=== PATIENT | female | born 1945 | race Caucasian/White ===

== ENCOUNTER → 2016-04-21 | Outpatient (CLI) | payer BC ==
[~2016-04-21] MED LIST: ACET325T96 PO; CHOL2000 PO; CLOT10TR2 MT; CYAN10005 PO; DILT-113 PO; GNTNASAL; HYDR200T5 PO; HYDR25TA5 PO; LCTXP PO; LEVO750T23 PO; LISI-461 PO; LVQ500 PO; MAGN500C PO; METO5TAB3 PO; MGN; MISCCAP80 PO; NYSS5 PO; OMEG10007 PO; OMEP20TA PO; OXYC-57 PO; PANT40TA PO; PRED-301 PO; PRT40 PO; RANI1TAB75 PO; TRAM-10 PO; VNTHFA/IN INH; Vitamin B12 PO; ZFR4 PO; ZNTT/150 PO; [UNRECOGNIZED DRUG - CODE]
[2016-04-21 11:04] LABS: BASO % 0.2 %; BASO ABS # 0.02 K/uL (0-0.2); COMPLETE YES; EOS % 0.6 %; HEMATOCRIT 38.9 % (37-47); IG% 0.4 %; LYMPH % 10.6 %; MEAN CELL VOLUME 93.7 fL (80-100); MEAN CORPUSCULAR HEMOGLOBIN 31.1 pg (25-34); MEAN CORPUSCULAR HGB CONC 33.2 g/dl (32-36); MEAN PLATELET VOLUME 10.8 fL (7.4-10.4); MONO % 7.6 %; NEUT % 80.6 %; PLATELET COUNT 204 K/uL (130-400); RED BLOOD COUNT 4.15 M/uL (4.2-5.4); WHITE BLOOD COUNT 11.27 K/uL (4.8-10.8)
[2016-04-21 11:16] LABS: ALT/SGPT 23 U/L (12-78); CALCIUM 9.4 mg/dl (8.5-10.1)
[2016-04-21 11:19] LABS: ALKALINE PHOSPHATASE 54 U/L (45-117); AST/SGOT 17 U/L (15-37)
== END | disposition home or self-care (01) ==
LOC: C.LAB1850 09:41
PROVIDERS: ATTEND Internal Medicine Rheumatology
DX: Z79.52 Long term (current) use of systemic steroids (principal); M06.9 Rheumatoid arthritis, unspecified; M85.80 Other specified disorders of bone density and structure, unspecified site; Z79.899 Other long term (current) drug therapy; E55.9 Vitamin D deficiency, unspecified; E61.8 Deficiency of other specified nutrient elements

== ENCOUNTER → 2016-05-10 | Outpatient (CLI) | payer BC ==
[~2016-05-10] MED LIST changes: +HYDR-5688 PO
== END | disposition home or self-care (01) ==
LOC: C.MAMM 08:48
PROVIDERS: ATTEND Internal Medicine Rheumatology
DX: M06.9 Rheumatoid arthritis, unspecified (principal); M85.80 Other specified disorders of bone density and structure, unspecified site; E55.9 Vitamin D deficiency, unspecified; E61.8 Deficiency of other specified nutrient elements; Z79.52 Long term (current) use of systemic steroids; Z79.899 Other long term (current) drug therapy

== ENCOUNTER 2016-05-20 10:54 | Inpatient (IN) | payer BC, OTHER ==
[~2016-05-20] VITALS: Ht 177.8 cm; Wt 65.3 kg
[~2016-05-20 10:54] MED LIST changes: -ACET325T96 PO; -CHOL2000 PO; -CLOT10TR2 MT; -CYAN10005 PO; -GNTNASAL; -HYDR-5688 PO; -HYDR200T5 PO; -LCTXP PO; -LEVO750T23 PO; -LISI-461 PO; -LVQ500 PO; -MAGN500C PO; -METO5TAB3 PO; -NYSS5 PO; -OMEP20TA PO; -OXYC-57 PO; -PRT40 PO; -RANI1TAB75 PO; -TRAM-10 PO; -VNTHFA/IN INH; -ZFR4 PO
[2016-05-20] MEDS ORDERED: FAMOTIDINE 20MG/102 ML D5W IV STA (11:03)
[2016-05-20] MEDS ORDERED: ONDANSETRON INJ 2 MG/ML 2 ML VIAL IV STA (11:03)
[2016-05-20] MEDS ORDERED: METOCLOPRAMIDE HCL INJ 5 MG/ML 2 ML VIAL IV STA (11:07)
[2016-05-20] MEDS ORDERED: DiphenhydrAMINE HCL 50 MG/ML VIAL IV STA (11:07)
[2016-05-20] MEDS ORDERED: SODIUM CHLORIDE 0.9% 250ML 250 ML IV STA (11:07)
[2016-05-20] MEDS ORDERED: SODIUM CHLORIDE 0.9% 1000ML 1,000 ML IV STA (11:07)
[2016-05-20] MEDS ORDERED: DEXAMETHASONE SOD INJ 10 MG/ML VIAL IV ONE (11:15)
[2016-05-20 11:46] LABS: PARTIAL THROMBOPLASTIN RATIO 0.9; PROTHROMBIN TIME (PATIENT) 10.7 SECONDS (9.0-12.0)
[2016-05-20 11:47] LABS: BASO % 0.2 %; BASO ABS # 0.02 K/uL (0-0.2); COMPLETE YES; EOS % 0.5 %; HEMATOCRIT 41.9 % (37-47); IG% 0.2 %; LYMPH % 13.2 %; LYMPH ABS # 1.36 K/uL (1.2-3.4); MEAN CELL VOLUME 93.5 fL (80-100); MEAN CORPUSCULAR HEMOGLOBIN 31.7 pg (25-34); MEAN CORPUSCULAR HGB CONC 33.9 g/dl (32-36); MEAN PLATELET VOLUME 10.5 fL (7.4-10.4); MONO % 11.2 %; NEUT % 74.7 %; PLATELET COUNT 189 K/uL (130-400); RED BLOOD COUNT 4.48 M/uL (4.2-5.4); WHITE BLOOD COUNT 10.34 K/uL (4.8-10.8)
[2016-05-20 11:54] LABS: BUN/CREATININE RATIO 21.7 (10-20); CALCIUM 9.5 mg/dl (8.5-10.1); CREATININE 1.3 mg/dl (0.60-1.20); POTASSIUM 3.1 mmol/L (3.5-5.1)
[2016-05-20 11:57] LABS: ALB/GLOB RATIO 1.4 (0.9-2)
--- NOTE | 2016-05-20 12:00 | DIAGNOSTIC IMAGING REPORT ---
CHEST ONE VIEW PORTABLE HISTORY: cough COMPARISON: Chest 07/10/2014. FINDINGS: Biapical linear densities and mild pleural thickening favors scarring. There is mild elevation of the left hemidiaphragm which could be positional. The heart is normal in size. No focal lung consolidations to suggest pneumonia. Mild emphysema. No evidence for pulmonary edema. No pleural effusions. No pneumothorax. IMPRESSION: Biapical linear densities and mild apical pleural thickening which favor scarring. There is mild elevation of the left hemidiaphragm. No new focal lung consolidations to suggest pneumonia. Electronically signed by: Jaquan Jung M.D. 05/20/2016 11:58 AM Dictated Date/Time: 05/20/2016 11:55 AM
--- NOTE | 2016-05-20 12:07 | DIAGNOSTIC IMAGING REPORT ---
SINUS CT CT DOSE: HISTORY: Pain WEIR/sinus pain TECHNIQUE: Multiaxial CT images of the paranasal sinuses were performed and reformatted in the coronal plane without the use of contrast. COMPARISON: None. FINDINGS: Considerable mucosal thickening left maxillary sinus. There is a left antral window which is patent. The nondalton ostiomeatal unit demonstrates soft tissue occlusion. The mastoid air cells are clear. Right maxillary sinus is clear.] Antral window including ostiomeatal units are patent. Mild hypertrophic changes of the nasal turbinates. Mild nasal septal displacement to the right. All major osseous structures are intact. IMPRESSION: 1. Considerable mucosal thickening left maxillary sinus with soft tissue occlusion left ostiomeatal unit. 2. Bilateral with antral windows are patent. 3. Mild hypertrophic changes of the nasal turbinates. Electronically signed by: Min Chung M.D. 05/20/2016 12:05 PM Dictated Date/Time: 05/20/2016 12:03 PM
--- NOTE | 2016-05-20 12:08 | DIAGNOSTIC IMAGING REPORT ---
CT SCAN OF THE BRAIN WITHOUT IV CONTRAST CLINICAL HISTORY: Headache. COMPARISON STUDY: CT of the brain dated 05/20/2006. TECHNIQUE: Unenhanced axial CT scan of the brain is performed from the vertex to the skull base. FINDINGS: Brain parenchyma: There are age-related involutional changes noting mild subcortical and periventricular microangiopathic change. There is no hemorrhage, mass effect, or evidence of acute territorial ischemia by CT criteria. Driscoll-white matter is preserved. No extra-axial fluid collection is seen. Ventricles, sulci, cisterns: Prominent secondary to involutional change. Intracranial vasculature: There is atherosclerotic calcification of the cavernous carotid and vertebral arteries. Calvarium: Unremarkable. Sinuses and mastoids: There is mucosal thickening and frothy secretions within the left maxillary antrum. The remaining visualized paranasal sinuses are clear. The mastoid air cells are well pneumatized. Orbits: The bony orbits are grossly intact. IMPRESSION: 1. There is no hemorrhage, mass effect, or evidence of acute territorial ischemia by CT criteria. 2. Left maxillary sinus disease as above. Electronically signed by: Ghassan Root M.D. 05/20/2016 12:06 PM Dictated Date/Time: 05/20/2016 12:00 PM
[2016-05-20] MEDS ORDERED: AMPICILLIN/SULBACTAM SOD INJ 3,000 MG in SODIUM CHLORIDE 0.9% 100ML 100 ML IV ONE (12:30)
--- NOTE | 2016-05-20 12:35 | EMERGENCY ROOM VISIT NOTE ---
ED Visit Note First contact with patient: 10:59 I did evaluate and examine this patient myself. I did guide management for the patient. I agree with the PA's assessment as discussed. Please see the PAs dictation for further details. I did independently review the CT scan, x-rays and blood work. The patient is presenting with illness for the past week. She is on an antibiotic for sinus infection but as a persistent infection on CT scan and does not feel she is getting any better. She feels weak and nauseous. The case will be discussed with the hospitalist for further management.
[2016-05-20] MEDS ORDERED: LISI-461 PO (12:56)
[2016-05-20] MEDS ORDERED: HYDR200T5 PO (12:56)
[2016-05-20] MEDS ORDERED: CHOL2000 PO (12:56)
[2016-05-20] MEDS ORDERED: CYAN10005 PO (12:56)
[2016-05-20] MEDS ORDERED: MAGN500C PO (12:59)
[2016-05-20] MEDS ORDERED: POTASSIUM CHLORIDE 10 MEQ TABCR PO STA (13:13)
--- NOTE | 2016-05-20 13:19 | EMERGENCY ROOM VISIT NOTE ---
History First contact with patient: 10:59 Chief Complaint: ILLNESS Stated Complaint: HEAD, EAR AND THROAT PAIN History of Present Illness The patient is a 71 year old female who presents to the Emergency Room with complaints of cough, congestion, postnasal drip, sinus pain and congestion, headache, fever, chills, nausea, acid reflux for the past week who is currently on Suprax and prednisone by the family care doctor. Tmax 99. Patient states this is high for her. Patient denies chest pain, dyspnea, abdominal pain, vomiting, diarrhea, urinary symptoms, neck stiffness. She is tolerating by mouth fluids and food. Review of Systems See HPI for pertinent positives & negatives. A total of 10 systems reviewed and were otherwise negative. Past Medical/Surgical History Medical Problems: (1) Acute bronchitis (2) Diffuse large B cell lymphoma (3) Failure of outpatient treatment GERD, fibromyalgia, hypertension Social History Smoking Status: Never Smoker Alcohol Use: occasionally Drug Use: none Marital Status: Housing Status: lives with family Current/Historical Medications Scheduled Cholecalciferol (Vitamin D3), 1 CAP PO DAILY Cyanocobalamin (Vitamin B-12), 1,000 MCG PO DAILY Fish Oil ([place]-3), 1 CAP PO DAILY Hydrochlorothiazide (Hydrochlorothiazide), 1 TAB PO DAILY Hydroxychloroquine Sulfate (Plaquenil), 200 MG PO BID Lisinopril (Zestril), 10 MG PO DAILY Magnesium Oxide (Mg Supplement (Magnesium), 1 CAP PO DAILY Prednisone (Prednisone), 60 MG PO DAILY Ranitidine (Zantac), 150 MG PO DAILY Allergies Coded Allergies: Alendronate (Verified Allergy, Mild, GI SYMPTOMS, 05/20/16) Aspirin (Verified Allergy, Mild, RASH, 05/20/16) Physical Exam Vital Signs Date Time Temp Pulse Resp B/P Pulse Ox O2 Delivery O2 Flow Rate FiO2 05/20/16 16:08 74 19 121/65 99 05/20/16 15:06 72 19 119/68 99 Room Air 05/20/16 14:23 72 18 122/78 98 Room Air 05/20/16 12:28 74 18 138/60 98 Room Air 05/20/16 11:34 99 Room Air 05/20/16 11:34 69 17 120/40 99 Room Air 05/20/16 10:56 36.6 88 18 96/62 92 Room Air Physical Exam VITALS: Vitals are noted on the nurse's note and reviewed by myself. Vital signs stable. GENERAL: Pleasant female, in no acute distress, nondiaphoretic, well-developed well-nourished. SKIN: The skin was without rashes, erythema, edema, or bruising. There is no tenting of the skin. Capillary reflex less than 2 seconds. HEAD: Normocephalic atraumatic. EARS: Left ear canal with fluid present, slightly erythematous canal, right External auditory canals clear, tympanic membranes pearly blanchard without erythema or effusion, no mastoid tenderness bilaterally. EYES: Pupils equal round and reactive to light and accommodation. Conjunctivae without injection, sclerae without icterus. Extraocular movements intact. NOSE: Patent, turbinates without inflammation or discharge. Bilateral maxillary sinus tenderness. MOUTH: Mucous membranes moist. Tonsils are not enlarged. Pharynx without erythema or exudate. Uvula midline. Airway patent. Tongue does not deviate. NECK: Supple without nuchal rigidity. No lymphadenopathy. No thyromegaly. Cervical spine is nontender. No JVD. No meningeal signs HEART: Regular rate and rhythm LUNGS: Clear to auscultation bilaterally without wheezes, rales or rhonchi. No dullness to percussion. No retractions or accessory muscle use. ABDOMEN: Positive bowel sounds x 4. Normal tympanic percussion. Soft, nontender, without masses or organomegaly. Dias sign negative. No guarding or rebound tenderness. MUSCULOSKELETAL: No muscle atrophy, erythema, or edema noted. NEURO: Patient was alert and oriented to person place and time. Normal sensation to light and sharp touch. No focal neurological deficits. Medical Decision & Procedures Laboratory Results 05/20/16 11:18 Red Blood Count 4.48, Mean Corpuscular Volume 93.5, Mean Corpuscular Hemoglobin 31.7, Mean Corpuscular Hemoglobin Concent 33.9, Mean Platelet Volume 10.5, Neutrophils (%) (Auto) 74.7, Lymphocytes (%) (Auto) 13.2, Monocytes (%) (Auto) 11.2, Eosinophils (%) (Auto) 0.5, Basophils (%) (Auto) 0.2, Neutrophils # (Auto ) 7.73, Lymphocytes # (Auto) 1.36, Monocytes # (Auto) 1.16, Eosinophils # (Auto ) 0.05, Basophils # (Auto) 0.02 05/20/16 11:18 Test 05/20/16 11:07 05/20/16 11:18 05/20/16 11:25 Influenza Type A (RT-PCR) Neg for Influ A (NEG) Influenza Type A Antigen Neg for Influ A (NEG) Influenza Type B Antigen Neg for Influ B (NEG) Influenza Type B (RT-PCR) Neg for Influ B (NEG) White Blood Count 10.34 K/uL (4.8-10.8) Red Blood Count 4.48 M/uL (4.2-5.4) Hemoglobin 14.2 g/dL (12.0-16.0) Hematocrit 41.9 % (37-47) Mean Corpuscular Volume 93.5 fL (80-100) Mean Corpuscular Hemoglobin 31.7 pg (25-34) Mean Corpuscular Hemoglobin Concent 33.9 g/dl (32-36) Platelet Count 189 K/uL (130-400) Mean Platelet Volume 10.5 fL (7.4-10.4) Neutrophils (%) (Auto) 74.7 % Lymphocytes (%) (Auto) 13.2 % Monocytes (%) (Auto) 11.2 % Eosinophils (%) (Auto) 0.5 % Basophils (%) (Auto) 0.2 % Neutrophils # (Auto) 7.73 K/uL (1.4-6.5) Lymphocytes # (Auto) 1.36 K/uL (1.2-3.4) Monocytes # (Auto) 1.16 K/uL (0.11-0.59) Eosinophils # (Auto) 0.05 K/uL (0-0.5) Basophils # (Auto) 0.02 K/uL (0-0.2) RDW Standard Deviation 43.2 fL (36.4-46.3) RDW Coefficient of Variation 12.7 % (11.5-14.5) Immature Granulocyte % (Auto) 0.2 % Immature Granulocyte # (Auto) 0.02 K/uL (0.00-0.02) Prothrombin Time 10.7 SECONDS (9.0-12.0) Prothromb Time International Ratio 1.0 (0.9-1.1) Activated Partial Thromboplast Time 24.0 SECONDS (21.0-31.0) Partial Thromboplastin Ratio 0.9 Anion Gap 9.0 mmol/L (3-11) Est Creatinine Clear Calc Drug Dose 40.9 ml/min Estimated GFR () 47.8 Estimated GFR (Non- 41.2 BUN/Creatinine Ratio 21.7 (10-20) Calcium Level 9.5 mg/dl (8.5-10.1) Total Bilirubin 0.5 mg/dl (0.2-1) Aspartate Amino Transf (AST/SGOT) 15 U/L (15-37) Alanine Aminotransferase (ALT/SGPT) 26 U/L (12-78) Alkaline Phosphatase 48 U/L (45-117) Total Protein 6.6 gm/dl (6.4-8.2) Albumin 3.8 gm/dl (3.4-5.0) Globulin 2.8 gm/dl (2.5-4.0) Albumin/Globulin Ratio 1.4 (0.9-2) Bedside Lactic Acid Venous 2.49 mmol/L (0.90-1.70) Medications Administered Medications (Trade) Dose Ordered Sig/Alvin Route Start Time Stop Time Status Last Admin Dose Admin Famotidine (Pepcid 20mg/100 ml) 20 mg ONE STAT IV 05/20/16 11:03 05/20/16 11:05 DC 05/20/16 11:23 20 MG Dexamethasone Sodium Phosphate (Decadron Inj) 10 mg NOW ONCE IV 05/20/16 11:15 05/20/16 11:16 DC 05/20/16 11:22 10 MG Metoclopramide HCl (Reglan Inj) 10 mg NOW STAT IV 05/20/16 11:07 05/20/16 11:09 DC 05/20/16 11:22 10 MG Diphenhydramine HCl 12.5 mg 12.5 mg NOW STAT IV 05/20/16 11:07 05/20/16 11:09 DC 05/20/16 11:22 12.5 MG Sodium Chloride 250 ml @ 999 mls/hr Q16M STAT IV 05/20/16 11:07 05/20/16 11:22 DC 05/20/16 11:22 999 MLS/HR Sodium Chloride 1,000 ml @ 125 mls/hr Q8H STAT IV 05/20/16 11:07 05/20/16 19:06 05/20/16 11:22 125 MLS/HR Ampicillin Sodium/ Sulbactam Sodium/ Sodium Chloride (Unasyn Inj/Nss 100ml) 108 ml @ 200 mls/hr ONE ONCE IV 05/20/16 12:30 05/20/16 13:02 DC 05/20/16 13:02 200 MLS/HR Potassium Chloride (Klor-Con M10) 40 meq NOW STAT PO 05/20/16 13:13 05/20/16 13:14 DC 05/20/16 13:59 40 MEQ ED Course Prior records/ancillary studies reviewed. Triage Nursing notes reviewed. Additional history obtained from family The patient's history was concerning for a headache, cold symptoms, sinus pain, sore throat. Differential diagnosis: Etiologies such as sinusitis, meningitis, viral syndrome, tonsillitis, streptococcal pharyngitis, mononucleosis, peritonsillar abscess, retropharyngeal abscess, otitis, pneumonia, influenza, as well as others were entertained. ER treatment provided: Reglan, Benadryl, IV fluids, Pepcid, Unasyn On reassessment the patient felt better. Diagnostics interpreted by me: The labs revealed elevated lactic acid, no leukocytosis. Imaging studies: SINUS CT CT DOSE: HISTORY: Pain WEIR/sinus pain TECHNIQUE: Multiaxial CT images of the paranasal sinuses were performed and reformatted in the coronal plane without the use of contrast. COMPARISON: None. FINDINGS: Considerable mucosal thickening left maxillary sinus. There is a left antral window which is patent. The resighini ostiomeatal unit demonstrates soft tissue occlusion. The mastoid air cells are clear. Right maxillary sinus is clear.] Antral window including ostiomeatal units are patent. Mild hypertrophic changes of the nasal turbinates. Mild nasal septal displacement to the right. All major osseous structures are intact. IMPRESSION: 1. Considerable mucosal thickening left maxillary sinus with soft tissue occlusion left ostiomeatal unit. 2. Bilateral with antral windows are patent. 3. Mild hypertrophic changes of the nasal turbinates. Electronically signed by: iMn Chung M.D. Consultation: A consultation was placed with hospitalist, Dr. Roberts and will evaluate the patient possible admission This appears to be consistent with sinusitis who is failed outpatient. Patient had an elevated lactic acid is been antibiotics for a week with progressive symptoms of a sinus infection. CT concerning for extensive sinus disease. She will be evaluated by medicine for possible admission. She no signs of meningitis. By the evaluation outlined above emergent etiologies such as peritonsillar abscess, retropharyngeal abscess, otitis, pneumonia, meningitis, urinary tract infection, sepsis, bacteremia, as well as others were deemed relatively unlikely. The pt informed about the findings as listed above. All questions were answered and pleased with the treatment. Case reviewed with my attending Medical Decision As above Impression Primary Impression: Sinusitis, acute Departure Information Dispostion Being Evaluated By Hospitalist Condition FAIR Referrals Al Blanco M.D. (PCP) Patient Instructions My [facility] Problem Qualifiers Primary Impression: Sinusitis, acute Sinusitis location: maxillary Recurrence: not specified as recurrent Qualified Codes: J01.00 - Acute maxillary sinusitis, unspecified
[2016-05-20 13:31] LABS: INFLUENZA A PCR Neg for Influ A (NEG); INFLUENZA B PCR Neg for Influ B (NEG)
[2016-05-20] MEDS ORDERED: ACETAMINOPHEN 325 MG TAB PO PRN (14:45)
[2016-05-20] MEDS ORDERED: ZOLPIDEM TARTRATE 5 MG TAB PO PRN (14:45)
[2016-05-20] MEDS ORDERED: ONDANSETRON INJ 2 MG/ML 2 ML VIAL IV PRN (15:00)
--- NOTE | 2016-05-20 15:05 | History and Physical ---
History & Physical Date & Time of Service: May 20, 2016 at 14:55 Chief Complaint: Head, Ear And Throat Pain Primary Care Physician: Al Blanco M.D. History of Present Illness Source: patient The patient is a 71-year-old female who presents to the emergency department with complaint of cough, nasal and chest congestion, shortness of breath, fevers , chills and nausea over the past week that has not improved with Suprax and prednisone prescribed by her PCP. She has had a temperature of 99F, that she reports is abnormally high for her. She reports that is not uncommon for sinus infection to get her lungs. Past Medical/Surgical History Medical Problems: (1) Diffuse large B cell lymphoma Status: Resolved Social History Smoking Status: Never Smoker Smokeless Tobacco Use: No Alcohol Use: none Drug Use: none Marital Status: Housing status: lives with family Immunizations History of Influenza Vaccine: N/A History of Tetanus Vaccine?: Yes History of Pneumococcal: Yes History of Hepatitis B Vaccine: Unknown Multi-Drug Resistant Organisms History of MDRO: No Allergies Coded Allergies: Alendronate (Verified Allergy, Mild, GI SYMPTOMS, 05/20/16) Aspirin (Verified Allergy, Mild, RASH, 05/20/16) Home Medications Scheduled Cholecalciferol (Vitamin D3), 1 CAP PO DAILY Cyanocobalamin (Vitamin B-12), 1,000 MCG PO DAILY Fish Oil ([place]-3), 1 CAP PO DAILY Hydrochlorothiazide (Hydrochlorothiazide), 1 TAB PO DAILY Hydroxychloroquine Sulfate (Plaquenil), 200 MG PO BID Lisinopril (Zestril), 10 MG PO DAILY Magnesium Oxide (Mg Supplement (Magnesium), 1 CAP PO DAILY Prednisone (Prednisone), 60 MG PO DAILY Ranitidine (Zantac), 150 MG PO DAILY Review of Systems The patient denies chest pain, palpitations, lower extremity swelling, vision change, hearing change, chills, sweats, weight change, fatigue, vomiting, abdominal pain, pelvic pain, blood in urine or stool, dysuria, urinary frequency or urgency, lightheadedness, dizziness, memory loss, rash, abnormal bruising or bleeding, imbalance, focal or generalized weakness, numbness or tingling in arms or legs, arthralgias or myalgias, back or neck pain, night sweats. The review of systems is otherwise negative other than for that already noted above, and at least 10 systems have been reviewed. Physical Exam Vital Signs Date Time Temp Pulse Resp B/P Pulse Ox O2 Delivery O2 Flow Rate FiO2 05/20/16 14:23 72 18 122/78 98 Room Air 05/20/16 12:28 74 18 138/60 98 Room Air 05/20/16 11:34 99 Room Air 05/20/16 11:34 69 17 120/40 99 Room Air 05/20/16 10:56 36.6 88 18 96/62 92 Room Air The patient is awake, well-developed and adequately nourished, alert and oriented 3, normocephalic and atraumatic, lying in bed and in no acute distress. HEENT--PERRL, EOMI, mucous membranes and oropharynx moist. Neck--supple, no JVD or bruits, thyroid normal, trachea midline, no adenopathy. Heart--normal S1 and S2, no extra beats, no murmurs, rubs or gallops. Lungs--diminished throughout, no respiratory distress, no accessory muscle use. Abdomen--normal bowel sounds and soft, nontender and nondistended, no hernias or masses, no organomegaly. Extremities--no cyanosis, clubbing or edema. There are good distal pulses b/l. Dermatologic--normal skin turgor, normal color, warm and dry, no abnormal lymph nodes, no rash. Neurologic--cranial nerves II through XII grossly intact, motor and sensory examination normal. Rheumatologic--normal range of motion, nontender, muscles and joints. Psychiatric--normal affect. Diagnostics Laboratory Results Results Past 24 Hours Test 05/20/16 11:07 05/20/16 11:18 05/20/16 11:25 Range/Units Influenza Type A (RT-PCR) Neg for Influ A NEG Influenza Type A Antigen Neg for Influ A NEG Influenza Type B Antigen Neg for Influ B NEG Influenza Type B (RT-PCR) Neg for Influ B NEG White Blood Count 10.34 4.8-10.8 K/uL Red Blood Count 4.48 4.2-5.4 M/uL Hemoglobin 14.2 12.0-16.0 g/dL Hematocrit 41.9 37-47 % Mean Corpuscular Volume 93.5 80-100 fL Mean Corpuscular Hemoglobin 31.7 25-34 pg Mean Corpuscular Hemoglobin Concent 33.9 32-36 g/dl Platelet Count 189 130-400 K/uL Mean Platelet Volume 10.5 7.4-10.4 fL Neutrophils (%) (Auto) 74.7 % Lymphocytes (%) (Auto) 13.2 % Monocytes (%) (Auto) 11.2 % Eosinophils (%) (Auto) 0.5 % Basophils (%) (Auto) 0.2 % Neutrophils # (Auto) 7.73 1.4-6.5 K/uL Lymphocytes # (Auto) 1.36 1.2-3.4 K/uL Monocytes # (Auto) 1.16 0.11-0.59 K/uL Eosinophils # (Auto) 0.05 0-0.5 K/uL Basophils # (Auto) 0.02 0-0.2 K/uL RDW Standard Deviation 43.2 36.4-46.3 fL RDW Coefficient of Variation 12.7 11.5-14.5 % Immature Granulocyte % (Auto) 0.2 % Immature Granulocyte # (Auto) 0.02 0.00-0.02 K/uL Prothrombin Time 10.7 9.0-12.0 SECONDS Prothromb Time International Ratio 1.0 0.9-1.1 Activated Partial Thromboplast Time 24.0 21.0-31.0 SECONDS Partial Thromboplastin Ratio 0.9 Sodium Level 142 136-145 mmol/L Potassium Level 3.1 3.5-5.1 mmol/L Chloride Level 103 98-107 mmol/L Carbon Dioxide Level 30 21-32 mmol/L Anion Gap 9.0 3-11 mmol/L Blood Urea Nitrogen 28 7-18 mg/dl Creatinine 1.30 0.60-1.20 mg/dl Est Creatinine Clear Calc Drug Dose 40.9 ml/min Estimated GFR () 47.8 Estimated GFR (Non- 41.2 BUN/Creatinine Ratio 21.7 10-20 Random Glucose 90 70-99 mg/dl Calcium Level 9.5 8.5-10.1 mg/dl Total Bilirubin 0.5 0.2-1 mg/dl Aspartate Amino Transf (AST/SGOT) 15 15-37 U/L Alanine Aminotransferase (ALT/SGPT) 26 12-78 U/L Alkaline Phosphatase 48 45-117 U/L Total Protein 6.6 6.4-8.2 gm/dl Albumin 3.8 3.4-5.0 gm/dl Globulin 2.8 2.5-4.0 gm/dl Albumin/Globulin Ratio 1.4 0.9-2 Bedside Lactic Acid Venous 2.49 0.90-1.70 mmol/L Microbiology Results 05/20/16 Group A Streptococcus Screen - Final, Resulted SPECIMEN NEGATIVE FOR GROUP A BETA ST... 05/20/16 Group A Streptococcus Screen (SIMRAN), Resulted Pending Diagnostic Radiology Patient Name: NIRU MOQSUERA Unit Number: [id number] Dictated: 05/20/161154 Transcribed: 05/20/161154 PA Printed Date/Time: [~ rep prt dt]/[~ rep prt tm] [~ rep ct labl] - [~ rep ct ivnm] [facility] Radiology Department [place], [place] [id number] Dictated: 05/20/161154 Transcribed: 05/20/161154 PA Printed Date/Time: [~ rep prt dt]/[~ rep prt tm] [~ rep ct labl] - [~ rep ct ivnm] [~ rep ct add3]] CHEST ONE VIEW PORTABLE HISTORY: cough COMPARISON: Chest 07/10/2014. FINDINGS: Biapical linear densities and mild pleural thickening favors scarring. There is mild elevation of the left hemidiaphragm which could be positional. The heart is normal in size. No focal lung consolidations to suggest pneumonia. Mild emphysema. No evidence for pulmonary edema. No pleural effusions. No pneumothorax. IMPRESSION: Biapical linear densities and mild apical pleural thickening which favor scarring. There is mild elevation of the left hemidiaphragm. No new focal lung consolidations to suggest pneumonia. Electronically signed by: Jaquan Jung M.D. 05/20/2016 11:58 AM Dictated Date/Time: 05/20/2016 11:55 AM The status of this report is Signed. Draft = Not yet reviewed or approved by Radiologist. Signed = Reviewed and approved by Radiologist. <AttendingPhy></AttendingPhy> <FamilyPhy>Al Blanco M.D.</FamilyPhy> < PrimaryPhy>Al Blanco M.D.</PrimaryPhy> <UnitNumber>[id number]</ UnitNumber> <VisitNumber>[id number]</VisitNumber> <PatientName>NIRU MOSQUERA</ PatientName> <DateOfBirth>1945</DateOfBirth> <Location>[facility]</Location> < ServiceDate>05/20/16</ServiceDate> <MNE>ESINDI</MNE> <OrderingPhy>Glendy Mejia PA-C</OrderingPhy> <OrderingPhyMNE>f rep ord dr marino</OrderingPhyMNE> < DictatingPhyMNE>f rep dict dr marino</DictatingPhyMNE> <CCListMNE>f rep ct mne</ CCListMNE> <AdmittingPhyMNE>f pt admit dr marino</AdmittingPhyMNE> <AttendingPhyMNE >f pt attend dr marino</AttendingPhyMNE> <ConsultingPhyMNE>f pt consult dr marino</ConsultingPhyMNE> <FamilyPhyMNE>f pt fam dr marino</FamilyPhyMNE> <OtherPhyMNE>f pt other dr marino</OtherPhyMNE> < PrimaryPhyMNE>f pt prim care dr marino</PrimaryPhyMNE> <ReferringPhyMNE>f pt referring dr marino</ReferringPhyMNE> Patient Name: NIRU MOSQUERA Unit Number: [id number] Dictated: 05/20/161202 Transcribed: 05/20/16 1203 MS Printed Date/Time: [~ rep prt dt]/[~ rep prt tm] [~ rep ct labl] - [~ rep ct ivnm] [facility] [place] [address] Dictated: 05/20/16 120 Transcribed: 05/20/16 1203 MS Printed Date/Time: [~ rep prt dt]/[~ rep prt tm] [~ rep ct labl] - [~ rep ct ivnm] CT DOSE: HISTORY: Pain WEIR/sinus pain TECHNIQUE: Multiaxial CT images of the paranasal sinuses were performed and reformatted in the coronal plane without the use of contrast. COMPARISON: None. FINDINGS: Considerable mucosal thickening left maxillary sinus. There is a left antral window which is patent. The nikolai ostiomeatal unit demonstrates soft tissue occlusion. The mastoid air cells are clear. Right maxillary sinus is clear.] Antral window including ostiomeatal units are patent. Mild hypertrophic changes of the nasal turbinates. Mild nasal septal displacement to the right. All major osseous structures are intact. IMPRESSION: 1. Considerable mucosal thickening left maxillary sinus with soft tissue occlusion left ostiomeatal unit. 2. Bilateral with antral windows are patent. 3. Mild hypertrophic changes of the nasal turbinates. Electronically signed by: Min Chung M.D. 05/20/2016 12:05 PM Dictated Date/Time: 05/20/2016 12:03 PM The status of this report is Signed. Draft = Not yet reviewed or approved by Radiologist. Signed = Reviewed and approved by Radiologist. <AttendingPhy></AttendingPhy> <FamilyPhy>Al Blanco M.D.</FamilyPhy> < PrimaryPhy>Al Blanco M.D.</PrimaryPhy> <UnitNumber>[id number]</ UnitNumber> <VisitNumber>[id number]</VisitNumber> <PatientName>NIRU MOSQUERA</ PatientName> <DateOfBirth>1945</DateOfBirth> <Location>[facility]</Location> < ServiceDate>05/20/16</ServiceDate> <MNE>ESINDI</MNE> <OrderingPhy>Glendy Mejia PA-C</OrderingPhy> <OrderingPhyMNE>f rep ord dr marino</OrderingPhyMNE> < DictatingPhyMNE>f rep dict dr marino</DictatingPhyMNE> <CCListMNE>f rep ct jamila</ CCListMNE> <AdmittingPhyMNE>f pt admit dr marino</AdmittingPhyMNE> <AttendingPhyMNE >f pt attend dr marino</AttendingPhyMNE> <ConsultingPhyMNE>f pt consult dr marino</ConsultingPhyMNE> <FamilyPhyMNE>f pt fam dr marino</FamilyPhyMNE> <OtherPhyMNE>f pt other dr marino</OtherPhyMNE> < PrimaryPhyMNE>f pt prim care dr marino</PrimaryPhyMNE> <ReferringPhyMNE>f pt referring dr marino</ReferringPhyMNE> Patient Name: NIRU MOSQUERA Unit Number: [id number] Dictated: 05/20/161199 Transcribed: 05/20/16 1200 EV Printed Date/Time: [~ rep prt dt]/[~ rep prt tm] [~ rep ct labl] - [~ rep ct ivnm] [facility] Radiology Department [place] [id number] Dictated: 05/20/16 1200 Transcribed: 05/20/16 1200 EV Printed Date/Time: [~ rep prt dt]/[~ rep prt tm] [~ rep ct labl] - [~ rep ct ivnm] CT SCAN OF THE BRAIN WITHOUT IV CONTRAST CLINICAL HISTORY: Headache. COMPARISON STUDY: CT of the brain dated 05/20/2006. TECHNIQUE: Unenhanced axial CT scan of the brain is performed from the vertex to the skull base. FINDINGS: Brain parenchyma: There are age-related involutional changes noting mild subcortical and periventricular microangiopathic change. There is no hemorrhage, mass effect, or evidence of acute territorial ischemia by CT criteria. Driscoll-white matter is preserved. No extra-axial fluid collection is seen. Ventricles, sulci, cisterns: Prominent secondary to involutional change. Intracranial vasculature: There is atherosclerotic calcification of the cavernous carotid and vertebral arteries. Calvarium: Unremarkable. Sinuses and mastoids: There is mucosal thickening and frothy secretions within the left maxillary antrum. The remaining visualized paranasal sinuses are clear. The mastoid air cells are well pneumatized. Orbits: The bony orbits are grossly intact. IMPRESSION: 1. There is no hemorrhage, mass effect, or evidence of acute territorial ischemia by CT criteria. 2. Left maxillary sinus disease as above. Electronically signed by: Ghassan Root M.D. 05/20/2016 12:06 PM Dictated Date/Time: 05/20/2016 12:00 PM The status of this report is Signed. Draft = Not yet reviewed or approved by Radiologist. Signed = Reviewed and approved by Radiologist. <AttendingPhy></AttendingPhy> <FamilyPhy>Al Blanco M.D.</FamilyPhy> < PrimaryPhy>Al Blanco M.D.</PrimaryPhy> <UnitNumber>[id number]</ UnitNumber> <VisitNumber>[id number]</VisitNumber> <PatientName>NIRU MOSQUERA</ PatientName> <DateOfBirth>1945</DateOfBirth> <Location>[facility]</Location> < ServiceDate>05/20/16</ServiceDate> <MNE>ESINDI</MNE> <OrderingPhy>Glendy Mejia PA-C</OrderingPhy> <OrderingPhyMNE>f rep ord dr marino</OrderingPhyMNE> < DictatingPhyMNE>f rep dict dr marino</DictatingPhyMNE> <CCListMNE>f rep ct jamila</ CCListMNE> <AdmittingPhyMNE>f pt admit dr marino</AdmittingPhyMNE> <AttendingPhyMNE >f pt attend dr marino</AttendingPhyMNE> <ConsultingPhyMNE>f pt consult dr marino</ConsultingPhyMNE> <FamilyPhyMNE>f pt fam dr marino</FamilyPhyMNE> <OtherPhyMNE>f pt other dr marino</OtherPhyMNE> < PrimaryPhyMNE>f pt prim care dr marino</PrimaryPhyMNE> <ReferringPhyMNE>f pt referring dr marino</ReferringPhyMNE> Impression Assessment and Plan Acute sinusitis/bronchitis/failure of outpatient treatment--patient will be admitted to the medical floor. She'll be placed on Solu-Medrol 20 mg IV every 8 hours, ceftriaxone 1 g IV daily, levofloxacin 500 mg IV every 24 hours, and Xopenex with Atrovent nebulizers to use every 6 hours while awake and every 2 hours when necessary. Hypertension--continue lisinopril 10 mg by mouth daily. Hold HCTZ 25 mg by mouth daily due to hypokalemia. We'll give potassium chloride 40 mEq by mouth now, repeat labs in the a.m. Continue mag oxide 400 mg by mouth daily. Arthritis--continue hydroxychloroquine sulfate 200 mg by mouth twice a day. GERD--increase ranitidine 150 mg by mouth daily to twice a day. Vitamin B12 deficiency--continue B12 supplement 1000 g by mouth daily. Level of Care Med/Surg Advanced Directives Existing Advance Directive: No Existing Living Will: No Existing Power of Spectrographer: No Resuscitation Status FULL RESUSCITATION VTE Prophylaxis VTE Risk Assessment Done? Y/N: Yes Risk Level: Low Given or contraindicated: SCD's Social Service Consult None Apply
[2016-05-20] MEDS ORDERED: IV FLUIDS COMPLETED PRN (15:15)
[2016-05-20] MEDS ORDERED: IPRATROPIUM BROMIDE NEB SOLN 0.02% 2.5 ML VIAL INH PRN (15:45)
[2016-05-20] MEDS ORDERED: LEVALBUTEROL 1.25MG/0.5ML NEB INH PRN (15:45)
[2016-05-20 16:30] VITALS: BP 122/64; PULSE 76; TEMP 36.4; O2SAT 97; Ht 177.8 cm; Wt 65.3 kg
[2016-05-20] MEDS: METHYLPREDNISOLONE IV 20 MG in SYRINGE 0 ML IV SCH (18:12)
[2016-05-20] MEDS: LEVOFLOXACIN / D5W 500 MG in PREMIXED IN D5W 100 ML IV SCH (18:12)
[2016-05-20] MEDS ORDERED: CEFTRIAXONE SOD INJ 1 GM in DEXTROSE 5% ADD-VANTAGE 50ML 50 ML IV SCH (19:00)
[2016-05-20] MEDS: RANITIDINE HCL 150 MG TAB PO SCH (19:29)
[2016-05-20] MEDS: MAGNESIUM OXIDE 400 MG TAB PO SCH (19:29)
[2016-05-20] MEDS: HYDROXYCHLOROQUINE SULFATE 200 MG TAB PO SCH (19:29)
[2016-05-20] MEDS ORDERED: METHYLPREDNISOLONE IV 40 MG in SYRINGE 0 ML IV SCH (21:00)
[2016-05-20] MEDS ORDERED: LEVALBUTEROL/IPRATROPIUM NEB INH SCH (21:00)
[2016-05-20] MEDS: LEVALBUTEROL 1.25MG/0.5ML NEB INH SCH (22:20)
[2016-05-20] MEDS: IPRATROPIUM BROMIDE NEB SOLN 0.02% 2.5 ML VIAL INH SCH (22:20)
[2016-05-20 22:28] VITALS: PULSE 68; O2SAT 98
[2016-05-20 23:00] VITALS: BP 126/63; PULSE 83; TEMP 36.7; O2SAT 96
[2016-05-21] VITALS (7 sets, daily range): BP systolic 103–145; BP diastolic 65–67; PULSE 72–91; TEMP 36.3–36.7; O2SAT 93–100
[2016-05-21] MEDS: METHYLPREDNISOLONE IV 20 MG in SYRINGE 0 ML IV SCH ×2 (02:01→10:03)
[2016-05-21] MEDS: LEVALBUTEROL 1.25MG/0.5ML NEB INH SCH ×4 (03:28→19:25)
[2016-05-21] MEDS: IPRATROPIUM BROMIDE NEB SOLN 0.02% 2.5 ML VIAL INH SCH ×4 (03:28→19:25)
[2016-05-21 06:23] LABS: BASO % 0.1 %; BASO ABS # 0.01 K/uL (0-0.2); HEMATOCRIT 35.1 % (37-47); IG% 0.1 %; LYMPH % 5.3 %; LYMPH ABS # 0.44 K/uL (1.2-3.4); MEAN CELL VOLUME 91.9 fL (80-100); MEAN CORPUSCULAR HEMOGLOBIN 30.4 pg (25-34); MEAN PLATELET VOLUME 10.3 fL (7.4-10.4); MONO % 8.1 %; NEUT % 86.4 %; PLATELET COUNT 173 K/uL (130-400); RED BLOOD COUNT 3.82 M/uL (4.2-5.4); WHITE BLOOD COUNT 8.31 K/uL (4.8-10.8)
[2016-05-21 06:25] LABS: COMPLETE YES
[2016-05-21 06:37] LABS: BUN/CREATININE RATIO 26.3 (10-20); CALCIUM 8.2 mg/dl (8.5-10.1); CREATININE 1.2 mg/dl (0.60-1.20); MAGNESIUM 2.3 mg/dl (1.8-2.4); POTASSIUM 3.9 mmol/L (3.5-5.1)
[2016-05-21] MEDS: HYDROXYCHLOROQUINE SULFATE 200 MG TAB PO SCH ×2 (07:45→19:18)
[2016-05-21] MEDS: MAGNESIUM OXIDE 400 MG TAB PO SCH ×2 (07:45→19:18)
[2016-05-21] MEDS: OMEGA-3 (PURIFIED FISH OIL) 1 GM CAP PO SCH (07:45)
[2016-05-21] MEDS: RANITIDINE HCL 150 MG TAB PO SCH ×2 (07:45→19:18)
[2016-05-21] MEDS: CYANOCOBALAMIN 500 MCG TAB (VIT B-12) PO SCH (07:46)
[2016-05-21] MEDS: LISINOPRIL 10 MG TAB PO SCH (07:46)
[2016-05-21] MEDS: CHOLECALCIFEROL 1000 INTER.UNIT TAB PO SCH (07:46)
[2016-05-21] MEDS ORDERED: HYDROCHLOROTHIAZIDE 25 MG TAB PO SCH (09:00)
--- NOTE | 2016-05-21 10:36 | Clinical Documentation Query ---
JACINTO Keyes : CLINICAL DOCUMENTATION QUERY The patient is a 71-year-old female who presents to the emergency department with complaint of cough, nasal and chest congestion, shortness of breath, fevers, chills and nausea over the past week. "She reports that is not uncommon for sinus infection to get her lungs". She was placed on Solu-Medrol 20 mg IV every 8 hours, ceftriaxone 1 g IV daily, levofloxacin 500 mg IV every 24 hours, and Xopenex with Atrovent nebulizers to use every 6 hours while awake and every 2 hours when necessary. In your clinical opinion is this patient being managed for: ( ) (Possible) Aspiration bronchitis ( ) Other explanation of clinical findings (Please Explain) ( ) Unable to determine (Please Define) ( ) Need to Discuss ( ) Not Agree The medical record reflects the following clinical findings, treatment, and risk factors. Clinical Indicators: As above Treatment:She was placed on Solu-Medrol 20 mg IV every 8 hours, ceftriaxone 1 g IV daily, levofloxacin 500 mg IV every 24 hours, and Xopenex with Atrovent nebulizers to use every 6 hours while awake and every 2 hours when necessary Risk Factors: Age, ongoing sinusitis Please clarify and document your clinical opinion in the progress notes and discharge summary. Terms such as "probable", "suspected", "likely", "questionable", "possible", or "still to be ruled out" are acceptable. IF IN AGREEMENT, YOU MUST DOCUMENT ABOVE DIAGNOSTIC STATEMENT IN DAILY PROGRESS NOTES AND DISCHARGE SUMMARY. This document is not part of the patient's record. Thank You, Chace Mejia, RUBEN [phone]
--- NOTE | 2016-05-21 14:32 | Hospitalist Progress Note ---
Hospitalist Progress Note Date of Service May 21, 2016. Subjective Pt evaluation today including: conversation w/ patient Patient had no acute issues overnight Shes states that she feels much better than the day prior Improved SOB, denies any chest pain, fevers Constitutional: No fever Eyes: No worsening of vision ENT: No hearing loss Respiratory: + shortness of breath, No cough, No wheezing Cardiovascular: No PND, No chest pain, No edema Abdomen: No diarrhea, No nausea, No pain, No vomiting Musculoskeletal: No joint pain Female : No dysuria Neurologic: No memory loss Psychiatric: No depression symptoms Objective Vital Signs Date Time Temp Pulse Resp B/P Pulse Ox O2 Delivery O2 Flow Rate FiO2 05/21/16 08:00 Room Air 05/21/16 07:47 36.3 86 18 121/65 100 Room Air 05/21/16 07:42 72 16 98 Room Air 05/21/16 03:29 76 16 96 Room Air 05/20/16 23:15 Room Air 05/20/16 23:00 36.7 83 18 126/63 96 Room Air 05/20/16 22:28 68 16 98 Room Air 05/20/16 16:30 36.4 76 18 122/64 97 Room Air 05/20/16 16:08 74 19 121/65 99 05/20/16 15:06 72 19 119/68 99 Room Air Physical Exam General Appearance: WD/WN, no apparent distress Eyes: normal inspection ENT: normal ENT inspection Neck: supple Respiratory/Chest: chest non-tender, + rales, + wheezing Cardiovascular: regular rate, rhythm, no edema Abdomen: normal bowel sounds, non tender, soft Extremities: normal range of motion, non-tender 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, no motor/sensory deficits, alert, oriented x 3 Skin: normal color, warm/dry, no rash Lymphatic: no adenopathy Laboratory Results Last 24 Hours Test 05/21/16 05:15 05/21/16 05:55 Sodium Level 141 mmol/L Potassium Level 3.9 mmol/L Chloride Level 108 mmol/L Carbon Dioxide Level 26 mmol/L Anion Gap 7.0 mmol/L Blood Urea Nitrogen 32 mg/dl Creatinine 1.20 mg/dl Est Creatinine Clear Calc Drug Dose 44.3 ml/min Estimated GFR () 52.7 Estimated GFR (Non- 45.4 BUN/Creatinine Ratio 26.3 Random Glucose 118 mg/dl Calcium Level 8.2 mg/dl Magnesium Level 2.3 mg/dl White Blood Count 8.31 K/uL Red Blood Count 3.82 M/uL Hemoglobin 11.6 g/dL Hematocrit 35.1 % Mean Corpuscular Volume 91.9 fL Mean Corpuscular Hemoglobin 30.4 pg Mean Corpuscular Hemoglobin Concent 33.0 g/dl Platelet Count 173 K/uL Mean Platelet Volume 10.3 fL Neutrophils (%) (Auto) 86.4 % Lymphocytes (%) (Auto) 5.3 % Monocytes (%) (Auto) 8.1 % Eosinophils (%) (Auto) 0.0 % Basophils (%) (Auto) 0.1 % Neutrophils # (Auto) 7.18 K/uL Lymphocytes # (Auto) 0.44 K/uL Monocytes # (Auto) 0.67 K/uL Eosinophils # (Auto) 0.00 K/uL Basophils # (Auto) 0.01 K/uL RDW Standard Deviation 42.8 fL RDW Coefficient of Variation 12.7 % Immature Granulocyte % (Auto) 0.1 % Immature Granulocyte # (Auto) 0.01 K/uL Assessment and Plan bronchitis with failed of outpatient treatment- - continue ceftriaxone and Levaquin day #2/7 - d/c solumedrol - start prednisone - continue nebulizers - incentive spirometry Hypertension -continue lisinopril 10 mg by mouth daily - Hold HCTZ 25 mg by mouth daily due to hypokalemia. Arthritis -continue hydroxychloroquine sulfate 200 mg by mouth twice a day. GERD -increase ranitidine 150 mg by mouth daily to twice a day. Vitamin B12 deficiency -continue B12 supplement 1000 g by mouth daily. PPx- lovenox Disposition- home in am
[2016-05-21] MEDS: LEVOFLOXACIN / D5W 500 MG in PREMIXED IN D5W 100 ML IV SCH (18:15)
[2016-05-22 02:32] VITALS: PULSE 80; O2SAT 95
[2016-05-22] MEDS: IPRATROPIUM BROMIDE NEB SOLN 0.02% 2.5 ML VIAL INH SCH ×2 (02:32→07:29)
[2016-05-22] MEDS: LEVALBUTEROL 1.25MG/0.5ML NEB INH SCH ×2 (02:32→07:29)
[2016-05-22 07:13] LABS: HEMATOCRIT 33.3 % (37-47); MEAN CORPUSCULAR HEMOGLOBIN 31.3 pg (25-34); MEAN CORPUSCULAR HGB CONC 33.6 g/dl (32-36); MEAN PLATELET VOLUME 10.3 fL (7.4-10.4); PLATELET COUNT 188 K/uL (130-400); RED BLOOD COUNT 3.58 M/uL (4.2-5.4); WHITE BLOOD COUNT 9.82 K/uL (4.8-10.8)
[2016-05-22 07:29] VITALS: PULSE 65; O2SAT 96
[2016-05-22 07:35] LABS: BUN/CREATININE RATIO 26.5 (10-20); CALCIUM 8.4 mg/dl (8.5-10.1); CREATININE 0.91 mg/dl (0.60-1.20); MAGNESIUM 2.5 mg/dl (1.8-2.4); POTASSIUM 3.8 mmol/L (3.5-5.1)
[2016-05-22 07:52] LABS: BASO ABS # 0.09 K/uL (0-0.2); BASOPHIL % 0.9 %; COMPLETE YES; EOSINOPHIL % 0.9 %; LYMPH ABS # 1.37 K/uL (1.2-3.4); NEUTROPHILS % 76.3 %
[2016-05-22 07:54] VITALS: BP 131/76; PULSE 82; TEMP 37; O2SAT 100
[2016-05-22] MEDS: MAGNESIUM OXIDE 400 MG TAB PO SCH (08:47)
[2016-05-22] MEDS: CYANOCOBALAMIN 500 MCG TAB (VIT B-12) PO SCH (08:48)
[2016-05-22] MEDS: RANITIDINE HCL 150 MG TAB PO SCH (08:48)
[2016-05-22] MEDS: HYDROXYCHLOROQUINE SULFATE 200 MG TAB PO SCH (08:49)
[2016-05-22] MEDS: OMEGA-3 (PURIFIED FISH OIL) 1 GM CAP PO SCH (08:49)
[2016-05-22] MEDS: CHOLECALCIFEROL 1000 INTER.UNIT TAB PO SCH (08:49)
[2016-05-22] MEDS: LISINOPRIL 10 MG TAB PO SCH (08:49)
[2016-05-22] MEDS ORDERED: LEVO750T23 PO (09:30)
[2016-05-22] MEDS ORDERED: PRED-301 PO (09:30)
--- NOTE | 2016-05-22 09:31 | Discharge Instructions ---
Discharge Instructions Admission Admission Date: May 20, 2016 at 14:50 Admission Diagnosis: Acute Bronchitis, Failure Of Outpatient Treatment. Discharge Care Plan - Problem: Medical Problems: (1)Bronchitis Care Plan - Goal(s): Decrease discomfort, Improve function Care Plan - Instructions: Activity Recommendations: no limitations Recommended Home Diet: Regular Provider Instructions: Please follow up with your PCP in 1-2 weeks VTE Core Measure Inpt VTE Proph given/why not?: SCD's Roxanne Lamb Recommendations: Call your doctor if: * Temperature above 101 degrees * Pain not relieved by pain medicine ordered * There is increased drainage or redness from any incision * You have any unanswered questions or concerns. Your Doctors Instructions noted above were prepared by provider Kylie Hayward.
[2016-05-22 10:26] VITALS: BP 131/76; PULSE 82; TEMP 37; O2SAT 100
--- NOTE | 2016-05-22 14:08 | Discharge Summary ---
Discharge Summary Date of Service May 22, 2016. Discharge Summary Admission Date: May 20, 2016 at 14:50 Discharge Date: May 22, 2016 Discharge Disposition: Home Principal Diagnosis: Bronchitis Problems/Secondary Diagnoses: HTN Arthritis Immunizations: Have You Had Influenza Vaccine: N/A History of Tetanus Vaccine?: Yes History of Pneumococcal: Yes History of Hepatitis B Vaccine: Unknown Medication Reconciliation New Medications: Levofloxacin (Levaquin) 750 Mg Tab 1 TAB PO DAILY for 5 Days, #5 TAB Continued Medications: Cholecalciferol (Vitamin D3) 2,000 Unit Cap 1 CAP PO DAILY, CAP Cyanocobalamin (Vitamin B-12) 1,000 Mcg Tab 1000 MCG PO DAILY, TAB Fish Oil ([place]-3) 1 Ea Cap 1 CAP PO DAILY, 0 Refills Hydrochlorothiazide (Hydrochlorothiazide) 25 Mg Tab 1 TAB PO DAILY Hydroxychloroquine Sulfate (Plaquenil) 200 Mg Tab 200 MG PO BID, TAB Lisinopril (Zestril) 10 Mg Tab 10 MG PO DAILY, TAB Magnesium Oxide (Mg Supplement (Magnesium) 500 Mg Cap 1 CAP PO DAILY Prednisone (Prednisone) 5 Mg Tab 60 MG PO DAILY for 5 Days (This prescription has been renewed) Ranitidine (Zantac) 150 Mg Tab 150 MG PO DAILY, TAB Discharge Exam Review of Systems: Constitutional: No chills Eyes: No worsening of vision ENT: No hearing loss Respiratory: + cough, No sputum Cardiovascular: No chest pain Abdomen: No nausea, No pain Musculoskeletal: No joint pain Genitourinary - Female: No dysuria Neurologic: No memory loss Endocrine: No fatigue Hematologic / Lymphatic: No abnormal bleeding/bruising Integumentary: No rash Physical Exam: General Appearance: WD/WN, no apparent distress Eyes: normal inspection ENT: normal ENT inspection Neck: supple, no adenopathy Respiratory/Chest: chest non-tender, lungs clear Cardiovascular: regular rate, rhythm, no edema Abdomen / GI: normal bowel sounds, non tender, soft Extremities: normal inspection, no calf tenderness 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 She had a temperature of 99F, that she reports is abnormally high for her. She reports that is not uncommon for sinus infection to get her lungs. Bronchitis with failed of outpatient treatment- -Admitted to the hospitalist service -treated with ceftriaxone and Levaquin and discharged on levaquin for a 5 day course - started on solumedrol switched to prednisone at d/c for 5 days - given nebulizers - incentive spirometry Hypertension -continued lisinopril 10 mg by mouth daily - Held HCTZ 25 mg by mouth daily due to hypokalemia. Arthritis -continued hydroxychloroquine sulfate 200 mg by mouth twice a day. GERD - ranitidine 150 mg by mouth daily to twice a day. Vitamin B12 deficiency -continued B12 supplement 1000 g by mouth daily. PPx- lovenox Disposition- home with instructions to f/u with PCP Total Time Spent: Greater than 30 minutes This includes examination of the patient, discharge planning, medication reconciliation, and communication with other providers. Discharge Instructions Please refer to the electronic Patient Visit Report (Discharge Instructions) for additional information.
[2016-06-02] MEDS ORDERED: CLOT10TR2 MT (11:05)
[2016-06-02] MEDS ORDERED: OXYC-57 PO (11:05)
[2016-09-14] MEDS ORDERED: PRED-301 PO (15:16)
[2016-09-14] MEDS ORDERED: RANI1TAB75 PO (15:16)
[2016-09-14] MEDS ORDERED: VNTHFA/IN INH (15:19)
[2016-12-23] MEDS ORDERED: HYDR-5688 PO (09:47)
== END 2016-05-22 12:45 | disposition home or self-care (01) | DRG 202 ==
LOC: ENRESERVTM → ENRESERVDT → C.EDB 10:56 → C.MS4W 14:50
PROVIDERS: ADMIT Hospitalist; ATTEND Internal Medicine
DX: J20.9 Acute bronchitis, unspecified (principal); C85.10 Unspecified B-cell lymphoma, unspecified site; E53.8 Deficiency of other specified B group vitamins; J01.00 Acute maxillary sinusitis, unspecified; M19.90 Unspecified osteoarthritis, unspecified site; I10 Essential (primary) hypertension; K21.9 Gastro-esophageal reflux disease without esophagitis; E87.6 Hypokalemia; M79.7 Fibromyalgia; Z79.899 Other long term (current) drug therapy; Z79.52 Long term (current) use of systemic steroids

== ENCOUNTER → 2016-05-26 | Outpatient (CLI) | payer BC ==
[~2016-05-26] MED LIST changes: +ACET325T96 PO; +CHOL2000 PO; +CLOT10TR2 MT; +CYAN10005 PO; -DILT-113 PO; +GNTNASAL; +HYDR-5688 PO; +HYDR200T5 PO; +LCTXP PO; +LEVO750T23 PO; +LISI-461 PO; +LVQ500 PO; +MAGN500C PO; +METO5TAB3 PO; -MGN; -MISCCAP80 PO; +NYSS5 PO; +OMEP20TA PO; +OXYC-57 PO; -PANT40TA PO; +PRT40 PO; +RANI1TAB75 PO; +TRAM-10 PO; +VNTHFA/IN INH; -Vitamin B12 PO; +ZFR4 PO; -[UNRECOGNIZED DRUG - CODE]
--- NOTE | 2016-05-26 11:12 | DIAGNOSTIC IMAGING REPORT ---
FACIAL BONES MIN 3 VIEWS RTN CLINICAL HISTORY: Left facial pain and swelling COMPARISON STUDY: CT scan dated 05/20/2016 FINDINGS: There is poor dentition. There is partial opacification left maxilla sinus. No bony destructive changes are visualized. There is no orbital emphysema. The frontal sinuses appear hypoplastic. IMPRESSION: Partial opacification of the left maxillary sinus. Electronically signed by: Jorge Pop M.D. 05/26/2016 11:10 AM Dictated Date/Time: 05/26/2016 11:08 AM
--- NOTE | 2016-05-26 11:15 | DIAGNOSTIC IMAGING REPORT ---
PANELIPSE CLINICAL HISTORY: Left-sided facial pain and swelling. FINDINGS: A panelipse radiograph is correlated with CT scan of the paranasal sinuses dated 05/20/2016. The skeletal structures are osteopenic. There is no evidence of fracture on the this single image. Numerous teeth are absent. No periapical lucency is suspected. No obvious dental caries are seen. Dental amalgam is noted in the majority of the remaining teeth. IMPRESSION: No acute abnormality is identified. Follow-up with dentistry is recommended. Electronically signed by: Ghassan Root M.D. 05/26/2016 11:13 AM Dictated Date/Time: 05/26/2016 11:11 AM
== END | disposition home or self-care (01) ==
LOC: C.RAD 10:28
PROVIDERS: ATTEND Nurse Practitioner
DX: K08.89 Other specified disorders of teeth and supporting structures (principal); R51 Headache; H66.42 Suppurative otitis media, unspecified, left ear

== ENCOUNTER 2016-06-01 10:18 | Emergency (ER) | payer BC ==
[~2016-06-01 10:18] MED LIST changes: -ACET325T96 PO; -CLOT10TR2 MT; -GNTNASAL; -HYDR-5688 PO; -LCTXP PO; -LEVO750T23 PO; -LVQ500 PO; -METO5TAB3 PO; -NYSS5 PO; -OMEP20TA PO; -OXYC-57 PO; -PRT40 PO; -RANI1TAB75 PO; -TRAM-10 PO; -VNTHFA/IN INH; -ZFR4 PO
[2016-06-01 10:28] VITALS: TEMP 36.5; Ht 177.8 cm
[2016-06-01 10:44] VITALS: O2SAT 100
[2016-06-01] MEDS ORDERED: ONDANSETRON INJ 2 MG/ML 2 ML VIAL IV STA (11:07)
[2016-06-01] MEDS ORDERED: OMEP20TA PO (11:18)
[2016-06-01] MEDS ORDERED: ACET325T96 PO (11:23)
[2016-06-01] MEDS ORDERED: TRAM-10 PO (11:23)
[2016-06-01] MEDS ORDERED: PRED-301 PO (11:27)
--- NOTE | 2016-06-01 11:28 | EMERGENCY ROOM VISIT NOTE ---
History Report prepared by Kimber: Marnie Shultz Under the Supervision of: Dr. Al Reyes D.O. First contact with patient: 11:02 Chief Complaint: SHORTNESS OF BREATH Stated Complaint: SOB, MALAISE, NAUSEA, HEAD PAIN Nursing Triage Summary: pt reports she has had shortness of breath x 3 weeks. pt reports increased shortness of breath with exertion. pt reports left side facial pain that has been on going and she has an appt with dr mancilla the beginning of june "it was the first one we could get." History of Present Illness The patient is a 71 year old female who presents to the Emergency Room with complaints of intermittent diffuse chest heaviness and tightness starting a few days ago. She has shortness of breath with exertion. She currently continues to complain of the chest heaviness. She also reports pain in the left side of head , jaw, and neck. She reports lump in throat for the past few weeks. She also complains of nausea but denies vomiting. She denies black/bloody stools but reports constipation. As per , the patient received an enema yesterday without relief. The patient was evaluated at [facility] for chest tightness, difficulty breathing, and impacted sinuses. She has an appointment with ENT in June. The patient has a history of pneumonia, bronchitis, and recurrent sinus infection. The patient denies fevers, chills, cough, or any other complaints. She had a stress test and heart catheterization about 2-3 years ago. She has a history of lymphoma. Source of History: patient Onset: a few days ago Position: chest (diffuse) Quality: other (heaviness and tightness) Timing: intermittent Associated Symptoms: + SOB, + nausea, No chills, No cough, No fevers, No vomiting Review of Systems See HPI for pertinent positives & negatives. A total of 10 systems reviewed and were otherwise negative. Past Medical & Surgical Medical Problems: (1) Acute bronchitis (2) Diffuse large B cell lymphoma (3) Failure of outpatient treatment Family History Cancer Heart disease Hypertension Social History Smoking Status: Never Smoker Alcohol Use: occasionally Drug Use: none Marital Status: Housing Status: lives with family Current/Historical Medications Scheduled Acetaminophen Tab (Tylenol), 325 MG PO Q6H Cholecalciferol (Vitamin D3), 1 CAP PO DAILY Cyanocobalamin (Vitamin B-12), 1,000 MCG PO DAILY Fish Oil ([place]-3), 1 CAP PO DAILY Hydrochlorothiazide (Hydrochlorothiazide), 1 TAB PO DAILY Hydroxychloroquine Sulfate (Plaquenil), 200 MG PO BID Lisinopril (Zestril), 10 MG PO DAILY Magnesium Oxide (Mg Supplement (Magnesium), 1 CAP PO DAILY Omeprazole (Omeprazole), 1 TAB PO BID Prednisone (Prednisone), 5 MG PO UD Ranitidine (Zantac), 150 MG PO DAILY Tramadol (Ultram), 50 MG PO Q6H Allergies Coded Allergies: Alendronate (Verified Allergy, Mild, GI SYMPTOMS, 06/01/16) Aspirin (Verified Allergy, Mild, RASH, 06/01/16) Physical Exam Vital Signs Date Time Temp Pulse Resp B/P Pulse Ox O2 Delivery O2 Flow Rate FiO2 06/01/16 14:00 66 20 138/61 99 06/01/16 13:02 67 20 140/64 98 Room Air 06/01/16 11:48 65 16 157/65 99 Room Air 06/01/16 10:59 69 06/01/16 10:46 71 20 170/68 100 Room Air 06/01/16 10:45 99 Room Air 06/01/16 10:44 100 Room Air 06/01/16 10:28 36.5 82 20 116/68 100 Room Air Physical Exam GENERAL: Patient is awake, alert, mildly anxious appearing but comfortable. EYES: The conjunctivae are clear. The pupils are round and reactive. EARS, NOSE, MOUTH AND THROAT: The nose is without any evidence of any deformity. Mucous membranes are moist tongue is midline. TMs are clear bilaterally. NECK: The neck is nontender and supple. RESPIRATORY: Normal respiratory effort is noted there is no evidence of wheezing rhonchi or rales CARDIOVASCULAR: Regular rate and rhythm noted there no murmurs rubs or gallops normal S1 normal S2 GASTROINTESTINAL: The abdomen is soft. Bowel sounds are present in all quadrants. Abdomen is nontender MUSCULOSKELETAL/EXTREMITIES: There is no evidence of gross deformity full range of motion is noted in the hips and shoulders SKIN: There is no obvious evidence of any rash. There are no petechiae, pallor or cyanosis noted. NEUROLOGIC: Patient is awake alert and oriented x3 strength is symmetric patellar reflexes are 2+ bilaterally Medical Decision & Procedures ER Provider Diagnostic Interpretation: X-ray results as stated below per interpretation by me and the radiologist. SINGLE VIEW CHEST CLINICAL HISTORY: Atypical chest pain. FINDINGS: An AP, portable, upright chest radiograph is compared to study dated 05/20/2016 and correlated with chest CT dated 11/25/2008. The examination is degraded by portable technique and patient rotation. The heart is top normal for projection and there is atherosclerotic calcification of the thoracic aorta. The pulmonary vasculature is noncongested. Emphysema is suspected and chronic interstitial thickening is similar to previous. Enlargement of the central pulmonary arteries suggests pulmonary artery hypertension. No airspace consolidation or large pleural effusion is seen. There is mild chronic elevation of the left hemidiaphragm. Biapical scarring is observed. No pneumothorax is seen. The skeletal structures are osteopenic. The bony thorax is grossly intact. IMPRESSION: Findings suggest emphysema. There is no acute cardiopulmonary abnormality. Electronically signed by: Ghassan Root M.D. 06/01/2016 12:06 PM Dictated Date/Time: 06/01/2016 12:04 PM Laboratory Results 06/01/16 11:25 Red Blood Count 4.33, Mean Corpuscular Volume 93.1, Mean Corpuscular Hemoglobin 31.6, Mean Corpuscular Hemoglobin Concent 34.0, Mean Platelet Volume 10.1, Neutrophils (%) (Auto) 70.7, Lymphocytes (%) (Auto) 20.4, Monocytes (%) (Auto) 7.6, Eosinophils (%) (Auto) 0.9, Basophils (%) (Auto) 0.1, Neutrophils # (Auto) 5.23, Lymphocytes # (Auto) 1.51, Monocytes # (Auto) 0.56, Eosinophils # (Auto) 0.07, Basophils # (Auto) 0.01 06/01/16 11:25 Test 06/01/16 11:25 06/01/16 11:45 White Blood Count 7.40 K/uL (4.8-10.8) Red Blood Count 4.33 M/uL (4.2-5.4) Hemoglobin 13.7 g/dL (12.0-16.0) Hematocrit 40.3 % (37-47) Mean Corpuscular Volume 93.1 fL (80-100) Mean Corpuscular Hemoglobin 31.6 pg (25-34) Mean Corpuscular Hemoglobin Concent 34.0 g/dl (32-36) Platelet Count 202 K/uL (130-400) Mean Platelet Volume 10.1 fL (7.4-10.4) Neutrophils (%) (Auto) 70.7 % Lymphocytes (%) (Auto) 20.4 % Monocytes (%) (Auto) 7.6 % Eosinophils (%) (Auto) 0.9 % Basophils (%) (Auto) 0.1 % Neutrophils # (Auto) 5.23 K/uL (1.4-6.5) Lymphocytes # (Auto) 1.51 K/uL (1.2-3.4) Monocytes # (Auto) 0.56 K/uL (0.11-0.59) Eosinophils # (Auto) 0.07 K/uL (0-0.5) Basophils # (Auto) 0.01 K/uL (0-0.2) RDW Standard Deviation 42.2 fL (36.4-46.3) RDW Coefficient of Variation 12.3 % (11.5-14.5) Immature Granulocyte % (Auto) 0.3 % Immature Granulocyte # (Auto) 0.02 K/uL (0.00-0.02) Prothrombin Time 10.2 SECONDS (9.0-12.0) Prothromb Time International Ratio 1.0 (0.9-1.1) Activated Partial Thromboplast Time 22.3 SECONDS (21.0-31.0) Partial Thromboplastin Ratio 0.9 Anion Gap 6.0 mmol/L (3-11) Estimated GFR () 65.6 Estimated GFR (Non- 56.6 BUN/Creatinine Ratio 15.7 (10-20) Calcium Level 8.6 mg/dl (8.5-10.1) Total Bilirubin 0.5 mg/dl (0.2-1) Direct Bilirubin 0.1 mg/dl (0-0.2) Aspartate Amino Transf (AST/SGOT) 19 U/L (15-37) Alanine Aminotransferase (ALT/SGPT) 28 U/L (12-78) Alkaline Phosphatase 44 U/L (45-117) Total Creatine Kinase 41 U/L (26-192) Creatine Kinase MB 0.7 ng/ml (0.5-3.6) Creatine Kinase MB Ratio 1.7 (0-3.0) Troponin I 0.017 ng/ml (0-0.045) Total Protein 6.0 gm/dl (6.4-8.2) Albumin 3.4 gm/dl (3.4-5.0) Lipase 291 U/L (73-393) Urine Color YELLOW Urine Appearance CLEAR (CLEAR) Urine pH >= 9.0 (4.5-7.5) Urine Specific [place] 1.009 (1.000-1.030) Urine Protein NEG (NEG) Urine Glucose (UA) NEG (NEG) Urine Ketones NEG (NEG) Urine Occult Blood NEG (NEG) Urine Nitrite NEG (NEG) Urine Bilirubin NEG (NEG) Urine Urobilinogen NEG (NEG) Urine Leukocyte Esterase NEG (NEG) Laboratory results per my review. Medications Administered Medications (Trade) Dose Ordered Sig/Alvin Route Start Time Stop Time Status Last Admin Dose Admin Ondansetron HCl (Zofran Inj) 4 mg NOW STAT IV 06/01/16 11:07 06/01/16 11:09 DC 06/01/16 11:30 4 MG ECG Indication: chest pain Rate (beats per minute): 71 Rhythm: normal sinus Findings: no ectopy, other (No acute ST segment abnormalities) Comparison ECG Date: June 21, 2013 Change: no significant change ED Course 1102: The patient was evaluated in room A12B. A complete history and physical examination were performed. 1107: Zofran Inj 4 mg IV 1350: Upon reevaluation, the patient is resting comfortably. I discussed the results and treatment plan with her. She verbalized agreement of the treatment plan. The patient was discharged home. She was instructed to follow up with Dr. Mancilla's office at 1400 today. Medical Decision Prior records/ancillary studies reviewed. Triage Nursing notes reviewed. Additional history obtained from . The patient's history was concerning for chest pain. Differential diagnosis: Etiologies such as cardiac ischemia, aortic dissection, pulmonary embolism, pneumonia, pneumothorax, musculoskeletal, infections, pericarditis, myocarditis , esophageal rupture, gastrointestinal, as well as others were entertained. The patient is a 71-year-old female who presented to emergency department for an evaluation of severe headache left-sided facial pain and chest pain. The patient has had previous symptoms in the past similar to this. She has known sinusitis on a previous admission as well as diagnosed by CAT scan. She was on an antibiotic but she did not do well with this antibiotic. The antibiotic was stopped. The patient does have a follow-up appointment with ear nose and throat the presented to the emergency department today because of ongoing symptoms. I discussed the patient's laboratory and radiographic studies with her. I discussed her case with the emergency department case supervisor. We were able to get the patient an appointment with her ear nose and throat physician today. The patient was discharged from the emergency Department directly to the ear nose and throat office. Impression Primary Impression: Sinusitis Additional Impressions: Headache Left sided chest pain Scribe Attestation The scribe's documentation has been prepared under my direction and personally reviewed by me in its entirety. I confirm that the note above accurately reflects all work, treatment, procedures, and medical decision making performed by me. Departure Information Dispostion Home / Self-Care Referrals Al Blanco M.D. (PCP) Gisel Mancilla M.D. Forms HOME CARE DOCUMENTATION FORM, IMPORTANT VISIT INFORMATION Patient Instructions My [facility], Sinusitis Acute Additional Instructions Go directly to Dr. Mancilla's office. Problem Qualifiers Primary Impression: Sinusitis Sinusitis location: unspecified location Chronicity: acute Recurrence: recurrent Qualified Codes: J01.91 - Acute recurrent sinusitis, unspecified Additional Impressions: Headache Headache type: unspecified Headache chronicity pattern: acute headache Intractability: not intractable Qualified Codes: R51 - Headache
[2016-06-01 11:42] LABS: BASO % 0.1 %; BASO ABS # 0.01 K/uL (0-0.2); COMPLETE YES; EOS % 0.9 %; HEMATOCRIT 40.3 % (37-47); IG% 0.3 %; LYMPH % 20.4 %; LYMPH ABS # 1.51 K/uL (1.2-3.4); MEAN CELL VOLUME 93.1 fL (80-100); MEAN CORPUSCULAR HEMOGLOBIN 31.6 pg (25-34); MEAN PLATELET VOLUME 10.1 fL (7.4-10.4); MONO % 7.6 %; NEUT % 70.7 %; PLATELET COUNT 202 K/uL (130-400); RED BLOOD COUNT 4.33 M/uL (4.2-5.4)
[2016-06-01 11:51] LABS: PARTIAL THROMBOPLASTIN RATIO 0.9; PROTHROMBIN TIME (PATIENT) 10.2 SECONDS (9.0-12.0)
[2016-06-01 11:59] LABS: ALT/SGPT 28 U/L (12-78); AST/SGOT 19 U/L (15-37); BLOOD UREA NITROGEN 16 mg/dl (7-18); BUN/CREATININE RATIO 15.7 (10-20); CALCIUM 8.6 mg/dl (8.5-10.1); CARBON DIOXIDE 27 mmol/L (21-32); CHLORIDE 108 mmol/L (98-107); GLUCOSE 88 mg/dl (70-99); POTASSIUM 3.8 mmol/L (3.5-5.1); SODIUM 141 mmol/L (136-145)
[2016-06-01 12:04] LABS: ALKALINE PHOSPHATASE 44 U/L (45-117); CKMB/CK RATIO 1.7 (0-3.0)
--- NOTE | 2016-06-01 12:08 | DIAGNOSTIC IMAGING REPORT ---
SINGLE VIEW CHEST CLINICAL HISTORY: Atypical chest pain. FINDINGS: An AP, portable, upright chest radiograph is compared to study dated 05/20/2016 and correlated with chest CT dated 11/25/2008. The examination is degraded by portable technique and patient rotation. The heart is top normal for projection and there is atherosclerotic calcification of the thoracic aorta. The pulmonary vasculature is noncongested. Emphysema is suspected and chronic interstitial thickening is similar to previous. Enlargement of the central pulmonary arteries suggests pulmonary artery hypertension. No airspace consolidation or large pleural effusion is seen. There is mild chronic elevation of the left hemidiaphragm. Biapical scarring is observed. No pneumothorax is seen. The skeletal structures are osteopenic. The bony thorax is grossly intact. IMPRESSION: Findings suggest emphysema. There is no acute cardiopulmonary abnormality. Electronically signed by: Ghassan Root M.D. 06/01/2016 12:06 PM Dictated Date/Time: 06/01/2016 12:04 PM
[2016-06-01 12:14] LABS: URINE APPEARANCE CLEAR (CLEAR); URINE BILIRUBIN NEG (NEG); URINE COLOR YELLOW; URINE NITRITE NEG (NEG); URINE PH >= 9.0 (4.5-7.5); URINE SPECIFIC GRAVITY 1.009 (1.000-1.030); UROBILINOGEN NEG (NEG)
[2016-06-01 12:26] LABS: MANUAL MICROSCOPIC REQUIRED? NO; REVIEW REQ? NO
[2016-06-01 14:00] VITALS: BP 138/61; PULSE 66; O2SAT 99
[2016-06-02] MEDS ORDERED: OXYC-57 PO (11:05)
[2016-06-02] MEDS ORDERED: CLOT10TR2 MT (11:05)
[2016-09-14] MEDS ORDERED: RANI1TAB75 PO (15:16)
[2016-09-14] MEDS ORDERED: PRED-301 PO (15:16)
[2016-09-14] MEDS ORDERED: VNTHFA/IN INH (15:19)
[2016-12-23] MEDS ORDERED: HYDR-5688 PO (09:47)
== END 2016-06-01 14:01 | disposition home or self-care (01) ==
LOC: C.EDB 10:19 → C.EDA 14:01
DX: J01.91 Acute recurrent sinusitis, unspecified (principal); R51 Headache; R07.9 Chest pain, unspecified; Z82.49 Family history of ischemic heart disease and other diseases of the circulatory system

== ENCOUNTER → 2016-06-03 | Day surgery (SDC) | payer BC ==
--- NOTE | 2016-06-02 10:38 | History and Physical: Surg Cnt ---
History & Physical Date Jun 02, 2016. Chief Complaint sinusitis, headaches History of Present Illness The patient is a 71 year old female with complaints of persistent sinusitis and frontal headaches, hospitalized 05/20 with IV antibiotics, failed medical therapy Past Medical/Surgical History Medical Problems: (1) Acute bronchitis (2) Diffuse large B cell lymphoma (3) Failure of outpatient treatment Additional History Hepatic Disease: No Endocrine Disorder: No Kidney Disease: No Hypertension: Yes Heart Disease: No Bleeding Tendencies: No Infectious Diseases: Yes Other: history of lymphoma Allergies Coded Allergies: Alendronate (Verified Allergy, Mild, GI SYMPTOMS, 06/01/16) Aspirin (Verified Allergy, Mild, RASH, 06/01/16) Home Medications Scheduled Acetaminophen Tab (Tylenol), 325 MG PO Q6H Cholecalciferol (Vitamin D3), 1 CAP PO DAILY Cyanocobalamin (Vitamin B-12), 1,000 MCG PO DAILY Fish Oil ([place]-3), 1 CAP PO DAILY Hydrochlorothiazide (Hydrochlorothiazide), 1 TAB PO DAILY Hydroxychloroquine Sulfate (Plaquenil), 200 MG PO BID Lisinopril (Zestril), 10 MG PO DAILY Magnesium Oxide (Mg Supplement (Magnesium), 1 CAP PO DAILY Omeprazole (Omeprazole), 1 TAB PO BID Prednisone (Prednisone), 5 MG PO UD Ranitidine (Zantac), 150 MG PO DAILY Tramadol (Ultram), 50 MG PO Q6H Physical Examination Skin: warm/dry, no rash Eyes: normal inspection, EOMI, sclerae normal ENT: normal ENT inspection, pharynx normal, + pertinent finding (mucopus and polypoid change) Head: normocephalic, atraumatic Neck: supple, no adenopathy, trachea midline Respiratory/Chest: lungs clear, normal breath sounds, no respiratory distress Cardiovascular: regular rate, rhythm, no edema, no murmur Abdomen / GI: normal bowel sounds, non tender Back: normal inspection Extremities: normal inspection, normal range of motion Neurologic/Psych: no motor/sensory deficits, alert, normal reflexes, oriented x 3 Diagnosis acute persistent sinusitis Plan of Treatment endoscopic sinus surgery
[2016-06-02 11:05] VITALS: Ht 177.8 cm; Wt 61.4 kg
[~2016-06-03] VITALS: Ht 177.8 cm; Wt 61.4 kg
[~2016-06-03] MED LIST changes: +ATROPINE SULFATE 0.1 MG/ML 5ML SYR IV PRN; +BACITRACIN OINT 15 GM TUBE ONE; +CLOT10TR2 MT; +EpHEDrine SULFATE INJ 50 MG/ML AMP IV PRN; +EpINEphrine INJ 1MG/ML AMP 1 MG/ML AMP ONE; +FENTANYL CITRATE INJ 50 MCG/1 ML 2 ML VIAL IV PRN; +FENTANYL CITRATE INJ 50 MCG/1 ML 2 ML VIAL ONE; +GLYCOPYRROLATE INJ 0.2 MG/ML VIAL ONE; +GNTNASAL; +HYDR-5688 PO; +LACTATED RINGER'S 1000ML 1,000 ML IV SCH; +LCTXP PO; +LIDO 2%/EPINEPHRINE 1:100000 20 ML VIAL INFIL ONE; +LIDOCAINE 4% MPF SOAK 5 ML = 1 DOSE TOP ONE; +LIDOCAINE HCL 2% 2 ML VIAL (20MG/ML) ONE; +LVQ500 PO; +METHYLPREDNISOLONE 125 MG VIAL IV SCH; +METO5TAB3 PO; +MIDAZOLAM HCL 1 MG/ML 2ML VIAL ONE; +NEOSTIGMINE METHYLSULFATE 5 MG/5 ML SYR ONE; +NYSS5 PO; +ONDANSETRON INJ 2 MG/ML 2 ML VIAL IV PRN; +ONDANSETRON INJ 2 MG/ML 2 ML VIAL ONE; +OXYC-57 PO; +OXYMETAZOLINE HCL 0.05% NA SPR 15 ML BTL SCH; +PROPOFOL IV EMULSION 10 MG/ML 20 ML VIAL IV ONE; +PRT40 PO; +RANI1TAB75 PO; +SCOPOLAMINE 1.5 MG TDSY TD ONE; +SODIUM CHLORIDE 0.9% 1000ML 1,000 ML IV SCH; +VNTHFA/IN INH; +ZFR4 PO
--- NOTE | 2016-06-03 09:16 | History & Physical Bridge Note ---
H&P Re-Evaluation Bridge Note: I have examined the patient, reviewed the History & Physical and in the interval since the performance of the History & Physical I have noted the following changes of clinical significance: No changes noted
--- NOTE | 2016-06-03 12:11 | OPERATIVE REPORT ---
DATE OF OPERATION: 06/03/2016 PREOPERATIVE DIAGNOSIS: Acute persistent sinusitis. 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 PROCEDURE: Right and left frontal, right and left total ethmoid and right and left maxillary sinus antrostomy. SURGEON: Dr. Mccarthy. ANESTHESIA: General endotracheal. COMPLICATIONS: None. BLOOD LOSS: 75 mL. HISTORY OF PRESENT ILLNESS: This 71-year-old lady presented with acute onset of severe sinus headache and pain and infection last month. She was hospitalized last week for IV antibiotics and fluids, however continues to have persistent headaches and opacified left maxillary sinus and also ethmoid and frontal sinus mucosal thickening. PROCEDURE: The patient was brought to the operating room and placed in the supine position. General endotracheal anesthesia was induced, prepped, draped in usual sterile manner. Nose decongested using topical cottonoids with a solution of 4 mL of 4% Xylocaine with 1 mL of epinephrine. Injection of 2% Xylocaine with 1:100,000 strength epinephrine was also used. The left maxillary sinus was cannulated with guidewire and dilated using the 6 mm balloon and irrigated clean of some thick fungal mucin. Cultures were taken. The right maxillary sinus was also dilated using the balloon. The left nasofrontal duct was cannulated with guidewire and dilated using the 6 mm balloon with [employer] computer guidance. The guidewire was left in place as a marker. Frontal sinusotomy was performed by using the shaver coupled with [employer] device and following the agger nasi cell removing the anterior wall, then the posterior wall following the guidewire superiorly opening up the nasal frontal duct by removing the posterior superior wall of the agger nasi cell. At this point, total ethmoidectomy was performed opening up the bullae ethmoidalis going through the ground lamella into the posterior ethmoid air cells identifying the posterior most ethmoid air cells with the [employer] device, delineating the skull base and lamina papyracea and following these structures anteriorly exonerating all the posterior and then all the anterior ethmoid air cells up to the previously dilated nasal frontal duct. The maxillary sinus had an accessory ostia. This was connected to the primary ostia widely opening up the left maxillary sinus. A huge fungus ball in the left maxillary sinus was removed using the suction and the seeker and by irrigating clean. The mucosa inside the sinus was polypoid and left in place. The right frontal sinusotomy, total ethmoidectomy, and maxillary sinus antrostomy was performed in a similar manner. Again, there was an accessory ostia on the right side which was connected to the primary ostia. Propel stents were placed after controlling hemostasis with the suction cautery. There was a spurting vessel on the right side which was cauterized with good control. The patient tolerated the procedure well and was taken to recovery area in satisfactory condition. I attest to the content of the Intraoperative Record and any orders documented therein. Any exceptions are noted below. VICTORIA
[2016-06-03 12:35] VITALS: TEMP 36.5
--- NOTE | 2016-06-03 12:52 | Anesthesia Progress Nt - [facility] ---
Anesthesia Post Op Note Date & Time Jun 03, 2016 at 12:52 Vital Signs Pain Intensity: 0 Vital Signs Past 12 Hours Date Time Temp Pulse Resp B/P Pulse Ox O2 Delivery O2 Flow Rate FiO2 06/03/16 12:25 36.5 16 06/03/16 12:22 56 15 06/03/16 12:22 55 15 100 06/03/16 12:21 152/60 06/03/16 12:18 74 28 170/72 100 Humidified Oxygen 6 06/03/16 12:17 58 20 100 06/03/16 12:17 58 20 06/03/16 12:16 165/64 06/03/16 12:12 57 18 100 06/03/16 12:12 57 18 06/03/16 12:11 162/64 06/03/16 12:07 56 15 100 06/03/16 12:07 56 15 06/03/16 12:06 141/58 06/03/16 12:02 72 21 100 06/03/16 12:02 70 21 06/03/16 12:01 157/63 06/03/16 11:57 66 17 100 06/03/16 11:57 66 17 06/03/16 11:56 158/63 06/03/16 11:52 70 19 06/03/16 11:52 16 06/03/16 11:52 72 19 100 06/03/16 11:51 174/65 06/03/16 11:47 71 20 100 06/03/16 11:47 71 20 06/03/16 11:45 170/72 06/03/16 11:42 36.4 74 28 170/72 100 Humidified Oxygen 6 06/03/16 09:15 36.3 85 20 154/64 99 Room Air Notes Mental Status: alert / awake / arousable, participated in evaluation Pt Amnestic to Procedure: Yes Nausea / Vomiting: adequately controlled Pain: adequately controlled Airway Patency, RR, SpO2: stable & adequate BP & HR: stable & adequate Hydration State: stable & adequate Anesthetic Complications: no major complications apparent
--- NOTE | 2016-06-03 13:38 | Discharge Instructions-SurgCtr ---
Discharge Instructions Date of Service Jun 03, 2016. Visit Reason for Visit: Acute Persistant Sinusitis Discharge Discharge Diagnosis / Problem: same plus left maxillary sinus fungus ball Discharge Goals Goal(s): Therapeutic intervention Activity Recommendations Activity Limitations: resume your previous activity Anesthesia . Post Anesthesia Instructions: If you have had General Anesthesia or IV Sedation: * Do not drive today. * Resume driving when surgeon permits. * Do not make important decisions or sign legal documents today. * Call surgeon for: 1. Temperature elevations greater than 101 degrees F. 2. Uncontrollable pain. 3. Excessive bleeding. 4. Persistent nausea and vomiting. 5. Medication intolerance (nausea, vomiting or rash). * For nausea and vomiting use only clear liquids such as: tea, soda, bouillon until nausea subsides, then gradually increase diet as tolerated. * If you have any concerns or questions, call your surgeon's office. If physician is unavailable and it is an emergency, call 911 or go to the nearest emergency room. . Instructions / Follow-Up Instructions / Follow-Up ACTIVITY RECOMMENDATIONS: * Being up and around is good, but no strenuous activity, heavy lifting or physical exertion for one week. * Keep your head elevated 30 degrees when lying down or sleeping. * Do not blow your nose for 48 hours, sniff back instead. * Avoid hot showers. OVER THE COUNTER MEDICATIONS: * You may use Tylenol * Avoid aspirin or aspirin containing products, e.g. as they may increase bleeding. SPECIAL CARE INSTRUCTIONS: * Expect to have bloody drainage from your nose and/or down your throat for one to three days. Change drip pad as needed. * Begin irrigating your nose with saline solution today, at least six to ten times per day and sniff back to help remove old clots or crust. * You may experience nasal and facial congestion, pain and pressure, this is normal. * Please call with any significant and/or progressive pain, redness, swelling around the eyes, visual changes, fever of 101.5 degrees F, active bleeding or any problems or concerns. * If active bleeding occurs, spray the nose three times at one minute intervals with Afrin spray and call or cell phone: . If unable to reach the doctor, go to the nearest Emergency Department. Special Diet: * Avoid extremely hot fluids. FOLLOW UP VISIT: Follow-up Visit with Dr. Mccarthy If not already scheduled, please call to schedule. Diet Recommendations Home Diet: no limitations Procedures Procedures Performed: Endoscopic Sinus Surgery, Right & Left Frontal Sinuses, Right & Left Maxillary Sinuses, Right & Left Total Ethmoidectomies Pending Studies Studies pending at discharge: yes List of pending studies: cultures Medical Emergencies . Who to Call and When: Medical Emergencies: If at any time you feel your situation is an emergency, please call 911 immediately. . Non-Emergent Contact Non-Emergency issues call your: Primary Care Provider . . "Provider Documentation" section prepared by Gisel Mccarthy. . [place] Drug Monitoring Program Search Results: no issues identified
[2016-06-03 13:53] VITALS: BP 118/68; PULSE 64; O2SAT 100
== END | disposition home or self-care (01) ==
LOC: X.SURG 08:42
PROVIDERS: ATTEND Otolaryngology
DX: J01.90 Acute sinusitis, unspecified (principal); I10 Essential (primary) hypertension; M06.9 Rheumatoid arthritis, unspecified; Z79.899 Other long term (current) drug therapy; Z90.49 Acquired absence of other specified parts of digestive tract; Z90.710 Acquired absence of both cervix and uterus

== ENCOUNTER 2016-06-11 14:54 | Inpatient (IN) | payer BC, OTHER ==
[~2016-06-11] VITALS: Ht 177.8 cm; Wt 61.5 kg
[~2016-06-11 14:54] MED LIST changes: -ATROPINE SULFATE 0.1 MG/ML 5ML SYR IV PRN; -BACITRACIN OINT 15 GM TUBE ONE; -EpHEDrine SULFATE INJ 50 MG/ML AMP IV PRN; -EpINEphrine INJ 1MG/ML AMP 1 MG/ML AMP ONE; -FENTANYL CITRATE INJ 50 MCG/1 ML 2 ML VIAL IV PRN; -FENTANYL CITRATE INJ 50 MCG/1 ML 2 ML VIAL ONE; -GLYCOPYRROLATE INJ 0.2 MG/ML VIAL ONE; -GNTNASAL; -HYDR-5688 PO; -LACTATED RINGER'S 1000ML 1,000 ML IV SCH; -LCTXP PO; -LIDO 2%/EPINEPHRINE 1:100000 20 ML VIAL INFIL ONE; -LIDOCAINE 4% MPF SOAK 5 ML = 1 DOSE TOP ONE; -LIDOCAINE HCL 2% 2 ML VIAL (20MG/ML) ONE; -LVQ500 PO; -METHYLPREDNISOLONE 125 MG VIAL IV SCH; -METO5TAB3 PO; -MIDAZOLAM HCL 1 MG/ML 2ML VIAL ONE; -NEOSTIGMINE METHYLSULFATE 5 MG/5 ML SYR ONE; -NYSS5 PO; -ONDANSETRON INJ 2 MG/ML 2 ML VIAL IV PRN; -ONDANSETRON INJ 2 MG/ML 2 ML VIAL ONE; -OXYC-57 PO; -OXYMETAZOLINE HCL 0.05% NA SPR 15 ML BTL SCH; -PROPOFOL IV EMULSION 10 MG/ML 20 ML VIAL IV ONE; -PRT40 PO; -RANI1TAB75 PO; -SCOPOLAMINE 1.5 MG TDSY TD ONE; -SODIUM CHLORIDE 0.9% 1000ML 1,000 ML IV SCH; -VNTHFA/IN INH; -ZFR4 PO
[2016-06-11] MEDS ORDERED: POLYETHYLENE (MIRALAX) 17 GM PACK PO PRN (15:45)
[2016-06-11] MEDS ORDERED: MAGNESIUM HYDROXIDE SUSP 30 ML UDC PO PRN (15:45)
[2016-06-11] MEDS ORDERED: SODIUM CHLORIDE 0.9% 1000ML 1,000 ML IV ONE (16:30)
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
[2016-06-11 16:41] VITALS: BP 142/83; PULSE 85; TEMP 36.4; O2SAT 100
[2016-06-11 16:44] LABS: BASO % 0.3 %; BASO ABS # 0.02 K/uL (0-0.2); COMPLETE YES; EOS % 1.8 %; HEMATOCRIT 37.1 % (37-47); IG% 0.3 %; LYMPH % 21.6 %; LYMPH ABS # 1.65 K/uL (1.2-3.4); MEAN CELL VOLUME 91.4 fL (80-100); MEAN PLATELET VOLUME 10.3 fL (7.4-10.4); MONO % 10.7 %; NEUT % 65.3 %; PLATELET COUNT 200 K/uL (130-400); RED BLOOD COUNT 4.06 M/uL (4.2-5.4); WHITE BLOOD COUNT 7.65 K/uL (4.8-10.8)
[2016-06-11] MEDS ORDERED: CEFTAZIDIME IV 1 GM in DEXTROSE 5% ADD-VANTAGE 50ML 50 ML IV ONE (16:45)
[2016-06-11 17:06] LABS: BLOOD UREA NITROGEN 18 mg/dl (7-18); BUN/CREATININE RATIO 23.1 (10-20); CALCIUM 8.7 mg/dl (8.5-10.1); CARBON DIOXIDE 18 mmol/L (21-32); CHLORIDE 112 mmol/L (98-107); CREATININE 0.78 mg/dl (0.60-1.20); GLUCOSE 86 mg/dl (70-99); MAGNESIUM 2.2 mg/dl (1.8-2.4); POTASSIUM 3.8 mmol/L (3.5-5.1); SODIUM 140 mmol/L (136-145)
[2016-06-11 17:07] LABS: ALKALINE PHOSPHATASE 42 U/L (45-117); ALT/SGPT 21 U/L (12-78); AST/SGOT 16 U/L (15-37)
[2016-06-11 17:33] VITALS: BP 142/83; PULSE 85; TEMP 36.4; O2SAT 100; Ht 177.8 cm; Wt 61.5 kg
[2016-06-11] MEDS ORDERED: LIDODERM (LIDOCAINE) PATCH 5% TD ONE (17:59)
[2016-06-11] MEDS ORDERED: HYDROCORTISONE IV 50 MG in SYRINGE 0 ML IV ONE (18:00)
[2016-06-11] MEDS: SODIUM CHLOR 0.45% + 20MEQ KCL 1,000 ML IV SCH ×2 (18:07→23:55)
[2016-06-11] MEDS: HEPARIN SOD 5000 UNIT/0.5 ML CARP SQ SCH (18:18)
[2016-06-11] MEDS: ONDANSETRON INJ 2 MG/ML 2 ML VIAL IV PRN (23:57)
[2016-06-12] VITALS: O2SAT 100
[2016-06-12 00:01] VITALS: BP 146/74; PULSE 62; TEMP 36.8; O2SAT 99
[2016-06-12] MEDS: DEXTROSE 5% IV SCH ×3 (01:59→17:07)
[2016-06-12] MEDS: CEFTAZIDIME IV SCH ×3 (01:59→17:07)
[2016-06-12] MEDS: HYDROCORTISONE IV 25 MG in SYRINGE 0 ML IV SCH ×3 (02:00→19:30)
[2016-06-12] MEDS: HEPARIN SOD 5000 UNIT/0.5 ML CARP SQ SCH ×2 (06:18→17:24)
[2016-06-12 07:19] VITALS: BP 126/68; PULSE 64; TEMP 36.8; O2SAT 100
[2016-06-12] MEDS ORDERED: RANITIDINE HCL 150 MG TAB PO SCH (08:00)
[2016-06-12] MEDS: SODIUM CHLOR 0.45% + 20MEQ KCL 1,000 ML IV SCH (08:25)
[2016-06-12] MEDS: HYDROXYCHLOROQUINE SULFATE 200 MG TAB PO SCH (08:53)
[2016-06-12] MEDS: LIDODERM (LIDOCAINE) PATCH 5% TD SCH (08:54)
[2016-06-12] MEDS: LISINOPRIL 10 MG TAB PO SCH (08:54)
[2016-06-12] MEDS: ONDANSETRON INJ 2 MG/ML 2 ML VIAL IV PRN ×2 (08:56→17:11)
--- NOTE | 2016-06-12 10:50 | DIAGNOSTIC IMAGING REPORT ---
LEFT RIBS UNILATERAL WITH PA CHEST CLINICAL HISTORY: LEFT RIB PAIN RIBS 9,10 MID ANTERIOR pain COMPARISON STUDY: None FINDINGS: Cortical fractures left eighth and ninth ribs midaxillary line. No evidence pneumothorax. IMPRESSION: Nondisplaced cortical fractures left eighth and ninth ribs in the midaxillary line. No evidence pneumothorax. Electronically signed by: Min Chung M.D. 06/12/2016 10:49 AM Dictated Date/Time: 06/12/2016 10:47 AM
[2016-06-12] MEDS ORDERED: PANTOprazole SOD 40 MG TAB PO ONE (13:45)
[2016-06-12] MEDS: ACETAMINOPHEN 325 MG TAB PO SCH ×2 (13:45→19:25)
--- NOTE | 2016-06-12 13:47 | Family Medicine Progress Note ---
Progress Note Date of Service June 12, 2016. Subjective Pt evaluation today including: conversation w/ patient, physical exam, chart review, lab review, review of studies Pain: Mild stomach discomfort and left sided rib pain Voiding: no voiding problems The patient states that her stomach is uncomfortably and this had been going on since the sinus surgery she had on 06/04. She also states that her left side hurts when she lays on it and the pain can radiate down towards her leg. She denies any fevers, headaches, sinus pain this morning, or changes in vision. Constitutional: No chills, No fever, No sweats Respiratory: No cough, No shortness of breath, No wheezing Cardiovascular: No PND, No chest pain, No orthopnea Abdomen: + nausea, + pain, No constipation, No diarrhea, No vomiting Female : No dysuria Medications Current Inpatient Medications Medications (Trade) Dose Ordered Sig/Alvin Route Start Time Stop Time Status Last Admin Dose Admin Magnesium Hydroxide (Milk Of Magnesia Susp) 30 ml Q6H PRN PO 06/11/16 15:45 07/11/16 15:44 Polyethylene (Miralax Powder Packet) 17 gm DAILY PRN PO 06/11/16 15:45 07/11/16 15:44 Ondansetron HCl (Zofran Inj) 4 mg Q6H PRN IV 06/11/16 15:45 07/11/16 15:44 06/12/16 08:56 4 MG Heparin Sodium (Porcine) 5000 unit 5,000 unit Q12H SQ 06/11/16 18:00 07/11/16 17:59 06/12/16 06:18 5,000 UNIT Potassium Chloride/Sodium Chloride 1,000 ml @ 125 mls/hr Q8H IV 06/11/16 16:30 06/12/16 16:25 06/12/16 08:25 125 MLS/HR Ceftazidime/ Dextrose (Fortaz IV/D5 50ml) 55 ml @ 100 mls/hr Q8H IV 06/12/16 02:00 06/22/16 01:59 06/12/16 08:57 100 MLS/HR Hydroxychloroquine Sulfate (Plaquenil Tab) 400 mg QAM PO 06/12/16 08:00 07/12/16 07:59 06/12/16 08:53 400 MG Lisinopril (Zestril Tab) 10 mg QAM PO 06/12/16 08:00 07/12/16 07:59 06/12/16 08:54 10 MG Ranitidine HCl (zANTac TAB) 150 mg QAM PO 06/12/16 08:00 07/12/16 07:59 06/12/16 08:54 150 MG Lidocaine (Lidoderm Patch 5%) 1 patch QAM TD 06/12/16 08:00 07/12/16 07:59 Miscellaneous 1 ea 1 ea DAILY@21 N/A 06/11/16 23:30 07/11/16 23:29 06/11/16 23:55 1 EA Hydrocortisone Sodium Succinate/ Syringe (Solu-Cortef IV/ Syringe) 0.5 ml @ 4 mls/min Q12H IV 06/12/16 20:00 07/12/16 19:59 Objective Vital Signs Date Time Temp Pulse Resp B/P Pulse Ox O2 Delivery O2 Flow Rate FiO2 06/12/16 08:50 Room Air 06/12/16 07:19 36.8 64 18 126/68 100 Room Air 06/12/16 00:01 36.8 62 18 146/74 99 Room Air 06/12/16 00:00 100 Room Air 06/11/16 17:33 36.4 85 20 142/83 100 Room Air 06/11/16 16:41 36.4 85 20 142/83 100 Room Air Physical Exam General Appearance: WD/WN, no apparent distress ENT: normal ENT inspection, pharynx normal Neck: supple, no carotid bruits Respiratory/Chest: chest non-tender, lungs clear, normal breath sounds, + pertinent finding (Left sided point tenderness over the 9th rib) Cardiovascular: regular rate, rhythm, no edema, no gallop, no murmur Abdomen: normal bowel sounds, non tender, soft Laboratory Results Results Past 24 Hours Test 06/11/16 16:32 Range/Units White Blood Count 7.65 4.8-10.8 K/uL Red Blood Count 4.06 4.2-5.4 M/uL Hemoglobin 12.6 12.0-16.0 g/dL Hematocrit 37.1 37-47 % Mean Corpuscular Volume 91.4 80-100 fL Mean Corpuscular Hemoglobin 31.0 25-34 pg Mean Corpuscular Hemoglobin Concent 34.0 32-36 g/dl Platelet Count 200 130-400 K/uL Mean Platelet Volume 10.3 7.4-10.4 fL Neutrophils (%) (Auto) 65.3 % Lymphocytes (%) (Auto) 21.6 % Monocytes (%) (Auto) 10.7 % Eosinophils (%) (Auto) 1.8 % Basophils (%) (Auto) 0.3 % Neutrophils # (Auto) 5.00 1.4-6.5 K/uL Lymphocytes # (Auto) 1.65 1.2-3.4 K/uL Monocytes # (Auto) 0.82 0.11-0.59 K/uL Eosinophils # (Auto) 0.14 0-0.5 K/uL Basophils # (Auto) 0.02 0-0.2 K/uL RDW Standard Deviation 41.7 36.4-46.3 fL RDW Coefficient of Variation 12.3 11.5-14.5 % Immature Granulocyte % (Auto) 0.3 % Immature Granulocyte # (Auto) 0.02 0.00-0.02 K/uL Sodium Level 140 136-145 mmol/L Potassium Level 3.8 3.5-5.1 mmol/L Chloride Level 112 98-107 mmol/L Carbon Dioxide Level 18 21-32 mmol/L Anion Gap 10.0 3-11 mmol/L Blood Urea Nitrogen 18 7-18 mg/dl Creatinine 0.78 0.60-1.20 mg/dl Estimated GFR () 88.6 Estimated GFR (Non- 76.5 BUN/Creatinine Ratio 23.1 10-20 Random Glucose 86 70-99 mg/dl Lactic Acid Level 1.4 0.4-2.0 mmol/L Calcium Level 8.7 8.5-10.1 mg/dl Magnesium Level 2.2 1.8-2.4 mg/dl Total Bilirubin 0.5 0.2-1 mg/dl Direct Bilirubin < 0.1 0-0.2 mg/dl Aspartate Amino Transf (AST/SGOT) 16 15-37 U/L Alanine Aminotransferase (ALT/SGPT) 21 12-78 U/L Alkaline Phosphatase 42 45-117 U/L Total Protein 6.0 6.4-8.2 gm/dl Albumin 3.4 3.4-5.0 gm/dl Lipase 310 73-393 U/L Microbiology Results 5/5/17 Blood Culture, Received Pending 06/11/16 Blood Culture, Received Pending Assessment and Plan Patient is a 71 year old female Day 9 s/p Sinus surgery with Dr. Mccarthy for Acute Sinusitis that grew Pseudomonas on culture that presented with nausea, difficulties eating, left sided rib pain, and chills. 1) Pseudomonas Sinusitis - ENT Consult - Ceftazidime day 2 - Gentamicin Nasal Rinse - Discontinue IV fluids 2) Chronic Steroid Use 2/2 Rheumatoid Arthritis - Home dose of chronic Prednisone 5mg PO - Wean IV Hydrocortisone to q12 (previously q8) 3) L Sided Rib pain - CXR 06/12: Nondisplaced cortical fracture of left 8th and 9th ribs in the midaxillary line - Tylenol 650mg PO TID for pain - advance pain med as needed 4) Stomach upset since surgery - Change Ranitidine to PPI - Protonix 40mg PO QAM - Probiotics - yogurt. 5) HTN - HCTZ - Lisinopril 6) RA - Plaquenil 400mg qAM 7) DVT - Heparin 5,000 units q12 8) Code Status - Full Resuscitation Reviewed: Pt Seen/Exam by Me History no concerns overnight Constitutional: denies: fever Respiratory: negative: short of breath Cardiovascular: denies chest pain General Appearance: no apparent distress Respiratory: lungs clear, no respiratory distress Cardiovascular: regular rate, rhythm Neurologic/Psychiatric: alert, oriented x 3 Skin Characteristics: warm/dry Assessment/Plan I have reviewed the medical record and performed a history and physical examination of this patient today. I have discussed the case with Dr Lara. The above note reflects my findings, conclusions, and recommendations
[2016-06-12 14:51] VITALS: BP 115/74; PULSE 67; TEMP 36.7; O2SAT 100
[2016-06-12] MEDS ORDERED: GENTAMICIN SCH (17:00)
[2016-06-12] MEDS: SALINE SCH ×4 (17:14→19:24)
[2016-06-12] MEDS: GENTAMICIN SULFATE SCH ×4 (17:14→19:24)
[2016-06-12] MEDS: IDENTIFIER SCH ×4 (17:14→19:24)
[2016-06-12 20:00] VITALS: O2SAT 100
[2016-06-12 22:54] VITALS: BP 108/59; PULSE 70; TEMP 36.8; O2SAT 98
[2016-06-13] VITALS: O2SAT 100
[2016-06-13] MEDS: LIDODERM (LIDOCAINE) PATCH 5% TD SCH (00:50)
[2016-06-13] MEDS: DEXTROSE 5% IV SCH ×3 (01:42→17:50)
[2016-06-13] MEDS: CEFTAZIDIME IV SCH ×3 (01:42→17:50)
[2016-06-13] MEDS: HEPARIN SOD 5000 UNIT/0.5 ML CARP SQ SCH ×2 (06:21→17:54)
[2016-06-13 07:18] VITALS: BP 146/63; PULSE 57; TEMP 36.7; O2SAT 100
[2016-06-13] MEDS: IDENTIFIER SCH ×8 (09:26→20:30)
[2016-06-13] MEDS: GENTAMICIN SULFATE SCH ×8 (09:26→20:30)
[2016-06-13] MEDS: SALINE SCH ×8 (09:26→20:30)
[2016-06-13] MEDS: PANTOprazole SOD 40 MG TAB PO SCH (09:27)
[2016-06-13] MEDS: HYDROCORTISONE IV 25 MG in SYRINGE 0 ML IV SCH (09:27)
[2016-06-13] MEDS: LISINOPRIL 10 MG TAB PO SCH (09:27)
[2016-06-13] MEDS: HYDROXYCHLOROQUINE SULFATE 200 MG TAB PO SCH (09:28)
[2016-06-13] MEDS: ACETAMINOPHEN 325 MG TAB PO SCH ×3 (09:29→20:30)
[2016-06-13 14:35] VITALS: BP 131/68; PULSE 66; TEMP 36.7; O2SAT 100
--- NOTE | 2016-06-13 16:44 | Family Medicine Progress Note ---
Progress Note Date of Service June 13, 2016. Subjective Pt evaluation today including: conversation w/ patient, physical exam, chart review, lab review, review of studies Pain: Minor pain reported this morning when laying on the left side Voiding: no voiding problems Patient is feeling much better this morning with minimal abdominal discomfort and was able to tolerate morning yogurt. Her sinus pain has also improved since yesterday and is only having minor discomfort under the left eye. Her left sided rib pain has also improved with only moderate pain when lying on the right side. She still complains of the sensation that something is stuck in her throat and some pain with swallowing. Constitutional: No chills, No fever, No sweats ENT: + problem reported (left orbital sinus tenderness), + sore throat Respiratory: No cough, No shortness of breath, No sputum, No wheezing Abdomen: No diarrhea, No vomiting Musculoskeletal: + problem reported (left sided rib pain) Medications Current Inpatient Medications Medications (Trade) Dose Ordered Sig/Alvin Route Start Time Stop Time Status Last Admin Dose Admin Magnesium Hydroxide (Milk Of Magnesia Susp) 30 ml Q6H PRN PO 06/11/16 15:45 07/11/16 15:44 Polyethylene (Miralax Powder Packet) 17 gm DAILY PRN PO 06/11/16 15:45 07/11/16 15:44 Ondansetron HCl (Zofran Inj) 4 mg Q6H PRN IV 06/11/16 15:45 07/11/16 15:44 06/12/16 17:11 4 MG Heparin Sodium (Porcine) 5000 unit 5,000 unit Q12H SQ 06/11/16 18:00 07/11/16 17:59 06/13/16 06:21 5,000 UNIT Ceftazidime/ Dextrose (Fortaz IV/D5 50ml) 55 ml @ 100 mls/hr Q8H IV 06/12/16 02:00 06/22/16 01:59 06/13/16 09:29 100 MLS/HR Hydroxychloroquine Sulfate (Plaquenil Tab) 400 mg QAM PO 06/12/16 08:00 07/12/16 07:59 06/13/16 09:28 400 MG Lisinopril (Zestril Tab) 10 mg QAM PO 06/12/16 08:00 07/12/16 07:59 06/13/16 09:27 10 MG Lidocaine (Lidoderm Patch 5%) 1 patch QAM TD 06/12/16 08:00 07/12/16 07:59 06/13/16 00:50 1 PATCH Miscellaneous 1 ea 1 ea DAILY@21 N/A 06/11/16 23:30 07/11/16 23:29 06/11/16 23:55 1 EA Hydrocortisone Sodium Succinate/ Syringe (Solu-Cortef IV/ Syringe) 0.5 ml @ 4 mls/min Q12H IV 06/12/16 20:00 07/12/16 19:59 06/13/16 09:27 4 MLS/MIN Acetaminophen (Tylenol Tab) 650 mg TID PO 06/12/16 14:00 07/12/16 13:59 06/13/16 13:31 650 MG Pantoprazole Sodium 40 mg QAM PO 06/13/16 08:00 07/13/16 07:59 06/13/16 09:27 40 MG Sodium Chloride/ Gentamicin Sulfate/Barcode ([place] Nasal [place]/Gentamicin Sulfate Inj) QID NA 06/12/16 17:00 06/22/16 16:59 06/13/16 13:31 2 SPRAY Objective Vital Signs Date Time Temp Pulse Resp B/P Pulse Ox O2 Delivery O2 Flow Rate FiO2 06/13/16 15:26 Room Air 06/13/16 14:35 36.7 66 18 131/68 100 Room Air 06/13/16 09:30 Room Air 06/13/16 07:18 36.7 57 18 146/63 100 Room Air 06/13/16 00:00 100 Room Air 06/12/16 22:54 36.8 70 18 108/59 98 Room Air 06/12/16 20:00 100 Room Air Physical Exam General Appearance: WD/WN, no apparent distress Eyes: normal inspection, sclerae normal ENT: pharynx normal Neck: supple, no carotid bruits, trachea midline Respiratory/Chest: lungs clear, normal breath sounds, no respiratory distress, no accessory muscle use, + pertinent finding (point tenderness over left 9th rib rib midaxillary line) Cardiovascular: regular rate, rhythm, no edema, no gallop, no murmur Abdomen: normal bowel sounds, non tender, soft Neurologic/Psychiatric: alert, normal mood/affect, oriented x 3 Assessment and Plan Patient is a 71 year old female Day 9 s/p Sinus surgery with Dr. Mccarthy for Acute Sinusitis that grew Pseudomonas on culture that presented with nausea, difficulties eating, left sided rib pain, and chills. 1) Pseudomonas Sinusitis - Improving, sinus tenderness diminishing - Ceftazidime day 3 - Gentamicin Nasal Rinse - Plan tomorrow to convert to oral Omnicef from current IV antibiotics 2) Chronic Steroid Use 2/2 Rheumatoid Arthritis - Home dose of chronic Prednisone 5mg PO - Switch to oral steroids - home dose - Continue to slowly wean 3) L Sided Rib pain - Reduced tenderness with current pain regimen - CXR /6: Nondisplaced cortical fracture of left 8th and 9th ribs in the midaxillary line - Tylenol 650mg PO TID for pain - advance pain med as needed 4) Stomach upset since surgery - Protonix 40mg PO QAM - Probiotics - yogurt - Continue to advance diet as tolerated Feeling of lump in throat - Empirically treat with Nystatin switch and swallow 5) HTN - HCTZ - Lisinopril 6) RA - Plaquenil 400mg qAM 7) DVT - Heparin 5,000 units q12 8) Code Status - Full Resuscitation Reviewed: Pt Seen/Exam by Me History sinus pain is better having feeling of lump in throat stomach feeling better Constitutional: denies: fever Respiratory: negative: short of breath Cardiovascular: denies chest pain Gastrointestinal/Abdominal: negative: abdominal pain General Appearance: no apparent distress Respiratory: lungs clear, no respiratory distress Cardiovascular: regular rate, rhythm Neurologic/Psychiatric: alert, oriented x 3 Skin Characteristics: warm/dry Assessment/Plan I have reviewed the medical record and performed a history and physical examination of this patient today. I have discussed the case with Dr Lara. The above note reflects my findings, conclusions, and recommendations
[2016-06-13] MEDS: NYSTATIN SUSP 500,000 U/5 ML UDC PO SCH ×2 (17:50→20:30)
[2016-06-13 23:06] VITALS: BP 100/58; PULSE 56; TEMP 36.9; O2SAT 97
[2016-06-14] MEDS: CEFTAZIDIME IV SCH ×3 (02:17→18:03)
[2016-06-14] MEDS: DEXTROSE 5% IV SCH ×3 (02:17→18:03)
[2016-06-14] MEDS: ONDANSETRON INJ 2 MG/ML 2 ML VIAL IV PRN (02:28)
[2016-06-14] MEDS: HEPARIN SOD 5000 UNIT/0.5 ML CARP SQ SCH ×2 (05:44→18:08)
[2016-06-14 07:07] LABS: HEMATOCRIT 31.1 % (37-47); MEAN CORPUSCULAR HEMOGLOBIN 31.7 pg (25-34); MEAN CORPUSCULAR HGB CONC 33.8 g/dl (32-36); MEAN PLATELET VOLUME 11.2 fL (7.4-10.4); PLATELET COUNT 136 K/uL (130-400); RED BLOOD COUNT 3.31 M/uL (4.2-5.4); WHITE BLOOD COUNT 5.14 K/uL (4.8-10.8)
[2016-06-14] MEDS: LIDODERM (LIDOCAINE) PATCH 5% TD SCH (07:21)
[2016-06-14] MEDS: NYSTATIN SUSP 500,000 U/5 ML UDC PO SCH ×4 (07:22→20:00)
[2016-06-14] MEDS: GENTAMICIN SULFATE SCH ×6 (07:22→17:00)
[2016-06-14] MEDS: IDENTIFIER SCH ×6 (07:22→17:00)
[2016-06-14] MEDS: LISINOPRIL 10 MG TAB PO SCH (07:22)
[2016-06-14] MEDS: SALINE SCH ×6 (07:22→17:00)
[2016-06-14] MEDS: ACETAMINOPHEN 325 MG TAB PO SCH ×3 (07:23→20:00)
[2016-06-14] MEDS: HYDROXYCHLOROQUINE SULFATE 200 MG TAB PO SCH (07:23)
[2016-06-14] MEDS: PANTOprazole SOD 40 MG TAB PO SCH (07:23)
[2016-06-14 07:51] VITALS: BP 146/71; PULSE 56; TEMP 36.8; O2SAT 99
--- NOTE | 2016-06-14 08:30 | Family Medicine Progress Note ---
Progress Note Date of Service June 14, 2016. Subjective Pt evaluation today including: conversation w/ patient, physical exam, chart review, lab review Patient says that she is experiencing improvement in her sinus pain and when blowing her nose, though she is still producing blood-tinged mucous, this too has diminished. She has ongoing left sided upper and lower dental pain. She has a globus sensation in the back of her throat but says that it is improved with the nystatin swish. Her dyspepsia is also improved with medication. She is tolerating diet without issue. Her main complaint today is weakness and fatigue. She feels low energy although she denies symptoms of anemia. She denies blood loss in her stool or urine. Constitutional: No chills, No fever Eyes: No eye pain ENT: + dental problems (L sided dental pain - able to eat), + nasal symptoms (mucous discharge), No sore throat, No trouble swallowing, No unusual epistaxis Respiratory: No shortness of breath, No wheezing Cardiovascular: No chest pain, No edema, No palpitations Abdomen: + constipation, + nausea, No GI bleeding, No pain, No vomiting Female : No dysuria, No hematuria Heme: No abnormal bleeding/bruising Skin: No itch, No new/changing skin lesions, No rash Objective Vital Signs Date Time Temp Pulse Resp B/P Pulse Ox O2 Delivery O2 Flow Rate FiO2 06/14/16 07:51 36.8 56 18 146/71 99 Room Air 06/14/16 00:00 Room Air 06/13/16 23:06 36.9 56 20 100/58 97 Room Air 06/13/16 20:00 Room Air 06/13/16 15:26 Room Air 06/13/16 14:35 36.7 66 18 131/68 100 Room Air 06/13/16 09:30 Room Air Physical Exam General Appearance: WD/WN, + mild distress Eyes: normal inspection ENT: hearing grossly normal, pharynx normal Neck: supple Respiratory/Chest: lungs clear, normal breath sounds, no respiratory distress, no accessory muscle use, + pertinent finding (Mild left sided chest tenderness) Cardiovascular: regular rate, rhythm, no edema, no murmur Abdomen: normal bowel sounds, non tender, soft Extremities: normal inspection, no pedal edema, no calf tenderness Neurologic/Psychiatric: alert, normal mood/affect, oriented x 3 Skin: normal color, warm/dry, no rash Laboratory Results Results Past 24 Hours Test 06/14/16 06:30 06/14/16 18:08 Range/Units White Blood Count 5.14 6.46 4.8-10.8 K/uL Red Blood Count 3.31 3.74 4.2-5.4 M/uL Hemoglobin 10.5 11.8 12.0-16.0 g/dL Hematocrit 31.1 35.4 37-47 % Mean Corpuscular Volume 94.0 94.7 80-100 fL Mean Corpuscular Hemoglobin 31.7 31.6 25-34 pg Mean Corpuscular Hemoglobin Concent 33.8 33.3 32-36 g/dl RDW Standard Deviation 43.5 44.3 36.4-46.3 fL RDW Coefficient of Variation 12.7 12.8 11.5-14.5 % Platelet Count 136 202 130-400 K/uL Mean Platelet Volume 11.2 10.8 7.4-10.4 fL Hepatitis C Antibody Screen NEG NEG Assessment and Plan 71 year old female Day 10 s/p sinus surgery with Dr. Mccarthy for acute sinusitis with pseudomonas on culture, admitted with nausea, difficulties eating, left sided rib pain, and chills. Pseudomonas Sinusitis - Improving, sinus tenderness diminishing - Ceftazidime day 4 - plans to discuss conversion to PO Omnicef with Dr. Mccarthy tomorrow - Gentamicin nasal rinse L sided rib pain - CXR 06/12: Nondisplaced cortical fracture of left 8th and 9th ribs in the midaxillary line, patient denies trauma or fall, and believes secondary to coughing previously. Reduced tenderness with current pain regimen - Tylenol 650mg PO TID for pain - advance pain med as needed Dyspepsia since surgery - symptoms improved - Protonix 40mg PO QAM - Probiotics - yogurt Globus sensation - symptoms improved - Empirically treated with Nystatin switch and swallow HTN - Lisinopril 10mg qAM - HCTZ held since admission Fatigue - likely from adrenal insufficiency 2/2/chronic steroid use for rheumatoid arthritis. Steroid dose increased during acute illness due to adrenal insufficiency, but now resuming home dose. Hb stable, with no acute blood loss - Prednisone 5mg PO - PT/OT Constipation - MgO 500mg HS - Miralax daily RA - Plaquenil 400mg qAM DVT - Heparin 5,000 units q12 Code Status - Full Resuscitation Continued [facility] stay due to: multiple IV medications needed Discharge planning: home Resident Tracking Resident Involvement: Resident Care Provided Care Provided: Adult Hospital Medicine Reviewed: Pt Seen/Exam by Me History Resident Physician Supervision Note: I interviewed and examined the patient. Discussed with Dr. Elizabeth and agree with findings and plan as documented in the note. Any exceptions or clarifications are listed here: Pt doing well, just weak all over from illness and dyspepsia, says she is usually on ranitidine at home VSS no bleeding from nose -RRR no mgr CTAB no wcr -continue IV abx and switch to po abx for dc to home -continue gentamicin nasal washes -f/u with ENT after dc -start Zantac from home for dyspepsia Documented By: Adie Mcclain
--- NOTE | 2016-06-14 13:13 | CONSULTATION REPORT ---
DATE OF CONSULTATION: 06/14/2016 DIAGNOSES: 1. 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 2. Chronic sinusitis status post endoscopic sinus surgery. HISTORY: A 71-year-old lady admitted because she "crashed." She was admitted Tuesday from her primary care office with severe weakness and she had pseudomonas cultured from the sinus surgery on June 04. She feels well from the sinusitis standpoint, but continues to feel very weak and unable to move. PAST MEDICAL HISTORY: Positive for history of lymphoma and arthritis, as noted on chart. MEDICATIONS: Include prednisone, hydrochlorothiazide, Plaquenil and Zestril. ALLERGIES: ALENDRONATE, ASPIRIN, AND OXYCODONE. REVIEW OF SYSTEMS: Positive for extreme weakness. PHYSICAL EXAMINATION: GENERAL: WNWD elderly female, in no acute distress, although she is weak, she is ambulating with her around the holley. HEAD: Normocephalic. EYES: Normal. EARS: Tympanic membranes intact. NOSE: Nasal passage is patent. There is crusting around the ethmoid area but the sinuses appear to be open with no sign of recurrent infection at this point. THROAT: Oropharynx normal. NECK: Supple. HEART: RRR. IMPRESSION: Status post endoscopic sinus surgery. Her weakness is most likely due to the long-term steroid use and her adrenal insufficiency. RECOMMENDATIONS: She should return to my office for endoscopic cleaning as soon as she is discharged this week. VICTORIA
[2016-06-14 15:34] VITALS: BP 148/77; PULSE 61; TEMP 36.8; O2SAT 99
[2016-06-14] MEDS ORDERED: NURSING VERBAL MED ORDER ONE (17:15)
[2016-06-14] MEDS ORDERED: POLYETHYLENE (MIRALAX) 17 GM PACK PO ONE (17:18)
[2016-06-14 18:31] LABS: HEMATOCRIT 35.4 % (37-47); MEAN CELL VOLUME 94.7 fL (80-100); MEAN CORPUSCULAR HEMOGLOBIN 31.6 pg (25-34); MEAN CORPUSCULAR HGB CONC 33.3 g/dl (32-36); MEAN PLATELET VOLUME 10.8 fL (7.4-10.4); PLATELET COUNT 202 K/uL (130-400); RED BLOOD COUNT 3.74 M/uL (4.2-5.4); WHITE BLOOD COUNT 6.46 K/uL (4.8-10.8)
[2016-06-14] MEDS: GENTAMICIN SCH (20:00)
[2016-06-14] MEDS: RANITIDINE HCL 150 MG TAB PO SCH (20:00)
[2016-06-14] MEDS: ONDANSETRON 4 MG TAB PO PRN (20:38)
[2016-06-14] MEDS: MAGNESIUM OXIDE 400 MG TAB PO SCH (20:44)
[2016-06-15] VITALS (7 sets, daily range): BP systolic 119–151; BP diastolic 68–80; PULSE 64–80; TEMP 36.3–36.9; O2SAT 95–100
[2016-06-15] MEDS: DEXTROSE 5% IV SCH ×3 (02:27→17:23)
[2016-06-15] MEDS: CEFTAZIDIME IV SCH ×3 (02:27→17:23)
[2016-06-15] MEDS: HEPARIN SOD 5000 UNIT/0.5 ML CARP SQ SCH ×2 (06:00→17:24)
[2016-06-15] MEDS: ONDANSETRON 4 MG TAB PO PRN ×2 (06:18→17:39)
[2016-06-15] MEDS: LIDODERM (LIDOCAINE) PATCH 5% TD SCH (09:44)
[2016-06-15] MEDS: NYSTATIN SUSP 500,000 U/5 ML UDC PO SCH ×4 (10:20→19:25)
[2016-06-15] MEDS: GENTAMICIN SCH ×4 (10:20→19:28)
[2016-06-15] MEDS: ACETAMINOPHEN 325 MG TAB PO SCH ×3 (10:20→19:25)
[2016-06-15] MEDS: RANITIDINE HCL 150 MG TAB PO SCH ×2 (11:01→19:26)
[2016-06-15] MEDS: POLYETHYLENE (MIRALAX) 17 GM PACK PO SCH (11:46)
[2016-06-15] MEDS: HYDROXYCHLOROQUINE SULFATE 200 MG TAB PO SCH (11:46)
[2016-06-15] MEDS: PANTOprazole SOD 40 MG TAB PO SCH (11:47)
[2016-06-15] MEDS: LISINOPRIL 10 MG TAB PO SCH (11:47)
[2016-06-15] MEDS: BISACODYL 10 MG SUPP PR PRN (14:44)
--- NOTE | 2016-06-15 15:34 | Family Medicine Progress Note ---
Progress Note Date of Service June 15, 2016. Subjective Pt evaluation today including: conversation w/ patient, physical exam, chart review, lab review Patient says that she is experiencing improvement in her sinus pain and left sided upper and lower dental pain. She has a globus sensation in the back of her throat but says that it is not painful, she is simply cognizant of it. Her dyspepsia, nausea and diminished appetite is ongoing however. Her main complaint remains weakness and fatigue. She feels very low in energy. Constitutional: + fatigue, + weakness, No chills, No fever, No sweats Respiratory: + cough, + dyspnea on exertion, + sputum, No shortness of breath, No wheezing Cardiovascular: No PND, No chest pain, No edema, No orthopnea, No palpitations Abdomen: + constipation, + nausea, + pain, No GI bleeding, No diarrhea, No vomiting Musculoskeletal: No joint pain Female : No dysuria, No hematuria Objective Vital Signs Date Time Temp Pulse Resp B/P Pulse Ox O2 Delivery O2 Flow Rate FiO2 06/15/16 11:47 Room Air 06/15/16 11:33 100 06/15/16 07:57 36.5 64 18 133/72 99 06/15/16 00:06 36.7 67 20 151/74 100 Room Air 06/15/16 00:01 Room Air 06/14/16 20:00 Room Air 06/14/16 16:15 Room Air Physical Exam General Appearance: WD/WN, + mild distress ENT: hearing grossly normal Neck: supple, no adenopathy, no JVD Respiratory/Chest: lungs clear, normal breath sounds, no respiratory distress, no accessory muscle use Cardiovascular: regular rate, rhythm, no edema, no murmur Abdomen: normal bowel sounds, non tender, soft Extremities: normal inspection, no pedal edema, no calf tenderness Neurologic/Psychiatric: alert, normal mood/affect, oriented x 3 Skin: normal color, warm/dry, no rash Assessment and Plan 71 year old female day 11 s/p sinus surgery with Dr. Mccarthy for acute sinusitis with pseudomonas growth on culture, admitted with nausea, difficulties eating, left sided rib pain, and chills. Pseudomonas Sinusitis - Improving, sinus tenderness diminishing. Discontinued ceftazidime and started Levaquin for better pseudomonal coverage (after confirming with obstetrics nurse practitioner Dr. Karla Majano) no adverse side effects in those with RA - IV Levaquin 500mg daily - Gentamicin nasal rinse - Follow up with Dr. Mccarthy day after discharge Dyspepsia/nausea - ongoing symptoms despite pantoprazole and ondansetron - Pantoprazole 40mg PO QAM - Ranitidine 150mg BID - Ondansetron 4mg q6h PRN nausea - Metoclopramide 5mg q6h PRN nausea Fatigue - ongoing symptoms. Steroid dose increased during acute illness due to adrenal insufficiency, but then home dose resumed. Hb stable, with no acute blood loss - Prednisone 5mg PO + Hydrocortisone 12.5mg q8h - PT/OT Constipation - MgO 400mg HS - Miralax daily - Bisacodyl suppository L sided rib pain - CXR 06/12: Nondisplaced cortical fracture of left 8th and 9th ribs in the midaxillary line, patient denies trauma or fall, and believes secondary to coughing previously. Reduced tenderness with current pain regimen - Tylenol 650mg PO TID PRN for pain Globus sensation - symptoms improved - Empirically treated with Nystatin switch and swallow HTN - pressures in adequate range - Lisinopril 10mg qAM - HCTZ held since admission RA - Plaquenil 400mg qAM DVT - Heparin 5,000 units q12 Code Status - Full Resuscitation Dispo - PT recommends home with ongoing home PT, OT recommends inpatient rehab on initial assessments Continued [facility] stay due to: ambulation difficulties, multiple IV medications needed Discharge planning: home with home health, rehab hospital, uncertain Resident Tracking Resident Involvement: Resident Care Provided Care Provided: Adult Hospital Medicine Reviewed: Pt Seen/Exam by Me History Resident Physician Supervision Note: I interviewed and examined the patient. Discussed with Dr. Banda and agree with findings and plan as documented in the note. Any exceptions or clarifications are listed here: Pt continues to feel weak and dyspneic with exertion to bathroom, not eating much at all, low appetite. BPs normal and actually high. Says she has been feeling this way for 6 weeks since starting abx for her sinusitis. Is also constipated and feeling bloated and belching a lot. She had concerns about being on Levaquin due to her rheumatoid arthritis and risk of tendon rupture but is now willing to try it with caution as it is the only option for oral antibiotics upon discharge. Patient had refused her ceftazidime today she feels it's contributing to her dyspepsia VSS Mild tachypnea after walking from the bathroom no bleeding from nose -RRR no mgr CTAB no wcr Abdomen positive bowel sounds soft nontender nondistended Extremities no edema -Willing to start IV Levaquin and we'll switch to by mouth Levaquin upon discharge for total of 10 days -continue gentamicin nasal washes -f/u with ENT after dc -Continue Zantac and PPI and will add Reglan for dyspepsia -We will give low-dose stress test steroids despite blood pressures being normal to see if helps with her fatigue Documented By: Aide Mcclain
[2016-06-15] MEDS: LACTOBACILLUS ACIDOPHILUS 1 GM PACK PO SCH (17:20)
[2016-06-15] MEDS ORDERED: METOCLOPRAMIDE HCL INJ 5 MG/ML 2 ML VIAL IV PRN (18:15)
[2016-06-15] MEDS ORDERED: METOCLOPRAMIDE HCL INJ 5 MG/ML 2 ML VIAL IV ONE (18:45)
[2016-06-15] MEDS: LEVOFLOXACIN / D5W 500 MG in PREMIXED IN D5W 100 ML IV SCH (19:23)
[2016-06-15] MEDS: HYDROCORTISONE IV 12.5 MG in SYRINGE 0 ML IV SCH (19:23)
[2016-06-15] MEDS: MAGNESIUM OXIDE 400 MG TAB PO SCH (20:57)
--- NOTE | 2016-06-15 22:24 | PROGRESS NOTE ---
DATE: 06/15/2016 SUBJECTIVE: The patient still feels very weak; however, her sinuses are better after irrigating with gentamicin solution. OBJECTIVE: NOSE: The nasal passages are patent with some dried blood. Otherwise, the sinuses appear to be healing. IMPRESSION: Sinusitis, resolving with gentamicin irrigations. PLAN: The patient is scheduled for discharge in the a.m.
[2016-06-16] MEDS: HYDROCORTISONE IV 12.5 MG in SYRINGE 0 ML IV SCH ×3 (01:51→18:00)
[2016-06-16] MEDS: HEPARIN SOD 5000 UNIT/0.5 ML CARP SQ SCH ×2 (05:41→18:00)
[2016-06-16 07:15] VITALS: BP 120/69; PULSE 62; TEMP 36.5; O2SAT 100
[2016-06-16] MEDS: ONDANSETRON 4 MG TAB PO PRN (07:22)
[2016-06-16] MEDS: POLYETHYLENE (MIRALAX) 17 GM PACK PO SCH (07:24)
[2016-06-16] MEDS: GENTAMICIN SCH ×4 (07:24→20:12)
[2016-06-16] MEDS: LACTOBACILLUS ACIDOPHILUS 1 GM PACK PO SCH ×3 (07:24→17:58)
[2016-06-16] MEDS: NYSTATIN SUSP 500,000 U/5 ML UDC PO SCH ×4 (07:25→20:14)
[2016-06-16] MEDS: PANTOprazole SOD 40 MG TAB PO SCH (07:26)
[2016-06-16] MEDS: HYDROXYCHLOROQUINE SULFATE 200 MG TAB PO SCH (07:26)
[2016-06-16] MEDS: ACETAMINOPHEN 325 MG TAB PO SCH ×3 (07:27→20:00)
[2016-06-16] MEDS: RANITIDINE HCL 150 MG TAB PO SCH ×2 (07:28→20:14)
[2016-06-16] MEDS: LISINOPRIL 10 MG TAB PO SCH (07:28)
[2016-06-16] MEDS: CYANOCOBALAMIN 500 MCG TAB (VIT B-12) PO SCH (07:31)
[2016-06-16] MEDS: LIDODERM (LIDOCAINE) PATCH 5% TD SCH (07:33)
--- NOTE | 2016-06-16 07:50 | Family Medicine Progress Note ---
Progress Note Date of Service June 16, 2016. Subjective Pt evaluation today including: conversation w/ patient, physical exam, chart review, lab review Patient says that she is experiencing improvement in her sinus pain and left dental pain. She has a globus sensation in the back of her throat but says that it is not painful, she is simply cognizant of it. Her dyspepsia, nausea and diminished appetite is ongoing however. She is currently experiencing some stomach cramps and belching. Her main complaint remains weakness and fatigue. She feels very low in energy. Constitutional: + fatigue, + weakness, No chills, No fever, No sweats Respiratory: + cough, + dyspnea on exertion, + sputum, No shortness of breath, No wheezing Cardiovascular: No PND, No chest pain, No edema, No orthopnea, No palpitations Abdomen: + constipation, + nausea, + pain, No GI bleeding, No diarrhea, No vomiting Musculoskeletal: No joint pain Female : No dysuria, No hematuria Objective Vital Signs Date Time Temp Pulse Resp B/P Pulse Ox O2 Delivery O2 Flow Rate FiO2 06/16/16 07:15 36.5 62 18 120/69 100 Room Air 06/16/16 00:01 Room Air 06/15/16 22:55 36.9 76 20 119/69 97 Room Air 06/15/16 18:14 72 16 124/68 100 Room Air 06/15/16 16:00 95 Room Air 06/15/16 15:57 36.3 80 16 124/80 95 Room Air 06/15/16 11:47 Room Air 06/15/16 11:33 100 06/15/16 07:57 36.5 64 18 133/72 99 Physical Exam General Appearance: WD/WN, + mild distress Eyes: normal inspection ENT: hearing grossly normal, pharynx normal Neck: supple, no JVD Respiratory/Chest: lungs clear, normal breath sounds, no respiratory distress, no accessory muscle use Cardiovascular: regular rate, rhythm, no murmur Abdomen: normal bowel sounds, non tender, soft Extremities: normal inspection, no pedal edema, no calf tenderness Neurologic/Psychiatric: alert, oriented x 3, + depressed affect Skin: normal color, warm/dry, no rash Laboratory Results Results Past 24 Hours Test 06/16/16 08:27 Range/Units White Blood Count 6.34 4.8-10.8 K/uL Red Blood Count 4.13 4.2-5.4 M/uL Hemoglobin 12.8 12.0-16.0 g/dL Hematocrit 38.9 37-47 % Mean Corpuscular Volume 94.2 80-100 fL Mean Corpuscular Hemoglobin 31.0 25-34 pg Mean Corpuscular Hemoglobin Concent 32.9 32-36 g/dl RDW Standard Deviation 44.4 36.4-46.3 fL RDW Coefficient of Variation 12.9 11.5-14.5 % Platelet Count 227 130-400 K/uL Mean Platelet Volume 10.0 7.4-10.4 fL Sodium Level 139 136-145 mmol/L Potassium Level 3.9 3.5-5.1 mmol/L Chloride Level 105 98-107 mmol/L Carbon Dioxide Level 26 21-32 mmol/L Anion Gap 8.0 3-11 mmol/L Blood Urea Nitrogen 17 7-18 mg/dl Creatinine 0.98 0.60-1.20 mg/dl Est Creatinine Clear Calc Drug Dose 51.1 ml/min Estimated GFR () 67.3 Estimated GFR (Non- 58.0 BUN/Creatinine Ratio 17.0 10-20 Random Glucose 140 70-99 mg/dl Calcium Level 9.8 8.5-10.1 mg/dl Assessment and Plan 71 year old female day 11 s/p sinus surgery with Dr. Mccarthy for acute sinusitis with pseudomonas growth on culture, admitted with nausea, difficulties eating, left sided rib pain, and chills. Pseudomonas Sinusitis - Improving, sinus tenderness diminishing. Discontinued ceftazidime and started Levaquin for better pseudomonal coverage (after confirming with launderer hand Dr. Karla Majano) no adverse side effects in those with RA - IV Levaquin 500mg daily - day 5 of 10 - Gentamicin nasal rinse - Follow up with Dr. Mccarthy next week for endoscopic debridement. Dyspepsia/nausea - ongoing symptoms despite pantoprazole and ondansetron - Pantoprazole 40mg PO QAM - Ranitidine 150mg BID - Ondansetron 4mg q6h PRN nausea - Metoclopramide 5mg q6h Fatigue - ongoing symptoms. Steroid dose increased during acute illness d, but then home dose resumed. Hb stable, with no acute blood loss - Prednisone 5mg PO + Hydrocortisone 12.5mg q8h - PT/OT Constipation - MgO 400mg HS - Miralax daily - Bisacodyl suppository L sided rib pain - CXR 06/12: Nondisplaced cortical fracture of left 8th and 9th ribs in the midaxillary line, patient denies trauma or fall, and believes secondary to coughing previously. Reduced tenderness with current pain regimen - Tylenol 650mg PO TID PRN for pain Globus sensation - symptoms improved - Empirically treated with Nystatin switch and swallow HTN - pressures in adequate range - Lisinopril 10mg qAM - HCTZ held since admission RA - Plaquenil 400mg qAM DVT - Heparin 5,000 units q12 Code Status - Full Resuscitation Dispo - PT recommends home with ongoing home PT, OT recommends inpatient rehab on initial assessments Continued [facility] stay due to: multiple IV medications needed Discharge planning: home, rehab hospital, uncertain Resident Tracking Resident Involvement: Resident Care Provided Care Provided: Adult Hospital Medicine Reviewed: Pt Seen/Exam by Me History Resident Physician Supervision Note: I interviewed and examined the patient. Discussed with Dr. Banda and agree with findings and plan as documented in the note. Any exceptions or clarifications are listed here: Feeling slightly improved from yesterday, was ambulating quite a bit today with therapy and with her . Her notes improved color in her face. She feels like maybe she could go home tomorrow. Still belching and feeling a little bloated that is improved and she's had a bowel movement. Started on IV hydrocortisone and IV Reglan yesterday VSS No acute distress no bleeding from nose -RRR no mgr CTAB no wcr Abdomen positive bowel sounds soft nontender nondistended Extremities no edema -Continue Levaquin by mouth upon discharge tomorrow for total of 10 days -continue gentamicin nasal washes -f/u with ENT after dc -Continue Zantac and PPI and will continue IV Reglan for dyspepsia and can give her by mouth Reglan upon discharge -Continue IV hydrocortisone low-dose stress test steroids and seems to be helping improve her fatigue Documented By: Aide Mcclain
[2016-06-16 08:33] LABS: HEMATOCRIT 38.9 % (37-47); MEAN CELL VOLUME 94.2 fL (80-100); MEAN CORPUSCULAR HGB CONC 32.9 g/dl (32-36); PLATELET COUNT 227 K/uL (130-400); RED BLOOD COUNT 4.13 M/uL (4.2-5.4); WHITE BLOOD COUNT 6.34 K/uL (4.8-10.8)
[2016-06-16 09:05] LABS: CREATININE 0.98 mg/dl (0.60-1.20); POTASSIUM 3.9 mmol/L (3.5-5.1)
[2016-06-16 09:08] LABS: CALCIUM 9.8 mg/dl (8.5-10.1)
[2016-06-16] MEDS ORDERED: METOCLOPRAMIDE HCL INJ 5 MG/ML 2 ML VIAL IV ONE (10:50)
[2016-06-16] MEDS: METOCLOPRAMIDE HCL INJ 5 MG/ML 2 ML VIAL IV SCH ×2 (12:20→18:07)
--- NOTE | 2016-06-16 12:44 | PROGRESS NOTE ---
DATE: 06/16/2016 SUBJECTIVE: The patient continues to feel better. OBJECTIVE: The nasal passages are patent. IMPRESSION: Improving status post sinus surgery and improving on tapering steroids. PLAN: Followup in my office next week for endoscopic debridement.
[2016-06-16 13:38] VITALS: PULSE 110; O2SAT 100
[2016-06-16 15:09] VITALS: BP 129/78; PULSE 80; TEMP 36.5; O2SAT 100
[2016-06-16 16:00] VITALS: O2SAT 100
[2016-06-16] MEDS: LEVOFLOXACIN / D5W 500 MG in PREMIXED IN D5W 100 ML IV SCH (18:00)
[2016-06-16] MEDS: MAGNESIUM OXIDE 400 MG TAB PO SCH (20:15)
[2016-06-16 23:03] VITALS: BP 134/75; PULSE 72; TEMP 36.9; O2SAT 97
[2016-06-17] MEDS: HYDROCORTISONE IV 12.5 MG in SYRINGE 0 ML IV SCH ×2 (00:12→10:33)
[2016-06-17] MEDS: METOCLOPRAMIDE HCL INJ 5 MG/ML 2 ML VIAL IV SCH ×3 (00:12→12:32)
[2016-06-17] MEDS: HEPARIN SOD 5000 UNIT/0.5 ML CARP SQ SCH (05:14)
[2016-06-17 06:29] LABS: HEMATOCRIT 34.6 % (37-47); MEAN CELL VOLUME 94.8 fL (80-100); MEAN CORPUSCULAR HEMOGLOBIN 31.2 pg (25-34); MEAN CORPUSCULAR HGB CONC 32.9 g/dl (32-36); MEAN PLATELET VOLUME 10.3 fL (7.4-10.4); PLATELET COUNT 209 K/uL (130-400); RED BLOOD COUNT 3.65 M/uL (4.2-5.4); WHITE BLOOD COUNT 6.07 K/uL (4.8-10.8)
[2016-06-17 07:12] VITALS: BP 148/77; PULSE 64; TEMP 36.6; O2SAT 100
[2016-06-17] MEDS: ACETAMINOPHEN 325 MG TAB PO SCH ×2 (08:00→13:17)
[2016-06-17] MEDS: POLYETHYLENE (MIRALAX) 17 GM PACK PO SCH (08:18)
[2016-06-17] MEDS: NYSTATIN SUSP 500,000 U/5 ML UDC PO SCH ×2 (08:18→12:28)
[2016-06-17] MEDS: LACTOBACILLUS ACIDOPHILUS 1 GM PACK PO SCH ×2 (08:18→12:28)
[2016-06-17] MEDS: GENTAMICIN SCH ×2 (08:19→12:28)
[2016-06-17] MEDS: LISINOPRIL 10 MG TAB PO SCH (08:19)
[2016-06-17] MEDS: HYDROXYCHLOROQUINE SULFATE 200 MG TAB PO SCH (08:19)
[2016-06-17] MEDS: PANTOprazole SOD 40 MG TAB PO SCH (08:20)
[2016-06-17] MEDS: ONDANSETRON 4 MG TAB PO PRN (08:20)
[2016-06-17] MEDS: RANITIDINE HCL 150 MG TAB PO SCH (08:20)
[2016-06-17] MEDS: CYANOCOBALAMIN 500 MCG TAB (VIT B-12) PO SCH (08:20)
[2016-06-17] MEDS: LIDODERM (LIDOCAINE) PATCH 5% TD SCH (08:21)
[2016-06-17] MEDS: BISACODYL 10 MG SUPP PR PRN (10:13)
--- NOTE | 2016-06-17 13:54 | Discharge Instructions ---
Discharge Instructions Date of Service June 17, 2016. Admission Reason for Admission: Dehydration, Acute Bronchitis/Fungal Infection Discharge Discharge Diagnosis / Problem: Pseudomonas sinus infection, dyspepsia Discharge Goals Goal(s): Decrease discomfort, Improve disease control, Therapeutic intervention Activity Recommendations Activity Limitations: resume your previous activity . Instructions / Follow-Up Instructions / Follow-Up You were admitted to hospital for a pseudomonas sinus infection. You were started on IV antibiotics, which helped diminish the pain symptoms. At time of discharge, you will be advised to complete the total 10 day course of antibiotics with another 4 days of oral levofloxacin 500mg daily. Another 4 days of the Gentamicin rinse regimen is also recommended. Please complete all the antibiotic medication as prescribed, even if you are feeling better. Please call Dr. Mccarthy's office to make an appointment for Tuesday. While in hospital, you were also experiencing nausea and abdominal pain. On discharge you can continue ranitidine a home med. You can also take Reglan or Zofran as needed for nausea. Please follow up with your PCP in the next week. ferry terminal agent medication changes may be discussed if your symptoms persist. Use your home constipation medications as needed. Your prednisone was increased while in hospital. On discharge this will be weaned. Take 15mg for 3 days, then 10mg for 3 days then resume home dose of 5mg daily. You can work with your policy value calculator and wean off of prednisone as she recommends. Continue taking the Protonix, for the duration of increased prednisone. Your PCP or policy value calculator may increase the duration of the medication further if they think it is necessary or beneficial. You may resume all your other home medications. Current Hospital Diet Patient's current hospital diet: AHA Diet (Heart Healthy) Discharge Diet Recommended Diet: AHA Diet (Heart Healthy) Pending Studies Studies pending at discharge: no Medical Emergencies . Who to Call and When: Medical Emergencies: If at any time you feel your situation is an emergency, please call 911 immediately. . Non-Emergent Contact Non-Emergency issues call your: Primary Care Provider, Specialist ( Otolarynogologist) . . "Provider Documentation" section prepared by Amanda Banda. . VTE Core Measure Inpt VTE Proph given/why not?: Unfractionated heparin SQ, T.E.Stefano. [place], SCD 's
[2016-06-17] MEDS ORDERED: NYSS5 PO (14:50)
[2016-06-17] MEDS ORDERED: ZFR4 PO (14:50)
[2016-06-17] MEDS ORDERED: PRT40 PO (14:50)
[2016-06-17] MEDS ORDERED: METO5TAB3 PO ×2 (14:50→14:51)
[2016-06-17] MEDS ORDERED: LCTXP PO (14:50)
[2016-06-17] MEDS ORDERED: PRED-301 PO (14:50)
--- NOTE | 2016-06-17 15:05 | Pharmacy Progress Note ---
Automatic IV to PO Conversion Date of Service: June 17, 2016. [facility] has identified patient as an appropriate candidate for automatic intravenous to oral conversion. Eligible medication: LVQ 750mg IV every 24 hours. Day # 3 of IV therapy. Subjective The patient is a 71 year old female admitted on June 11, 2016 at 15:51 for Dehydration, Acute Bronchitis/Fungal Infection. Objective Vital Signs: Vital Signs Past 12 Hours Date Time Temp Pulse Resp B/P Pulse Ox O2 Delivery O2 Flow Rate FiO2 06/17/16 08:00 Room Air 06/17/16 07:12 36.6 64 16 148/77 100 Room Air White Blood Count: Test 06/17/16 05:42 White Blood Count 6.07 K/uL (4.8-10.8) Height (Feet): 5 Height (Inches): 10.00 Weight (Kilograms): 61.500 Type of Diet: AHA Phase I Assessment & Plan The Infectious Disease Society and the [place] [employer] recommend conversion to oral therapy once a patient is determined to be clinically stable and are able to tolerate oral medications. Patient identified as appropriate candidate for IV to PO conversion of LVQ 500 mg Daily based on the following criteria: * Afebrile for greater than or equal to 12 hours * Receiving oral/enteral medications and/or tolerating oral/enteral diet for greater than 24 hours * Improvement in clinical condition evidenced by .. WBC count of 6.07 10^3/uL and trending downward, resolution of signs/symptoms of illness * Hemodynamically stable or * Receiving oral medications and/or tolerating oral diet for greater than 24 hours * Patient does not meet criteria for use of intravenous proton pump inhibitors ( negative for GI bleed, hypersecretory conditions, GERD associated with erosive esophagitis & unable to take PO) Automatic conversion to: LVQ 500mg PO every 24 hours
[2016-06-17] MEDS ORDERED: LEVOFLOXACIN 500 MG TAB PO SCH (15:30)
--- NOTE | 2016-06-17 15:33 | PROGRESS NOTE ---
DATE: 06/17/2016 DATE: 06/17/2016. DIAGNOSIS: Acute and chronic sinusitis. SUBJECTIVE: The patient feels much better and is being discharged today. She has decided to take 5 days of Levaquin that was previously prescribed by me. OBJECTIVE: The nasal passages are patent. IMPRESSION: Status post endoscopic sinus surgery responded well to IV Fortaz. PLAN: Follow up in my office on Tuesday.
[2016-06-17] MEDS ORDERED: GNTNASAL (16:10)
[2016-06-17] MEDS ORDERED: LVQ500 PO (16:10)
--- NOTE | 2016-06-17 16:12 | Discharge Summary ---
Discharge Summary Date of Service June 17, 2016. (Alka. Banda MD) Discharge Summary Admission Date: June 11, 2016 at 15:51 Discharge Date: June 17, 2016 Discharge Disposition: Home Principal Diagnosis: Pseudomonas sinus infection, dyspepsia Immunizations: Have You Had Influenza Vaccine: N/A History of Tetanus Vaccine?: Yes History of Pneumococcal: Yes History of Hepatitis B Vaccine: Unknown (Alka. Banda MD) Problems/Secondary Diagnoses: Chronic Pseudomonas Sinusitis Dyspepsia/nausea Fatigue Constipation Nondisplaced cortical fracture of left 8th and 9th ribs Osteopenia Globus sensation HTN Rheumatoid arthritis Steroid dependence (Aide Mcclain MD) Medication Reconciliation New Medications: Metoclopramide HCl (Metoclopramide HCl) 5 Mg Tab 5 MG PO Q6 PRN for Nausea, #15 TAB Gentamicin Sulfate (Gentamicin Sulfate) 100 Sprays/47.5 Ml Soln 1 SPRAYS NA QID for 4 Days, #16 PKT Lactobacillus Acidophilus (Lactinex Granules) 1 Gm Pack 1 GM PO TIDM for 14 Days, #14 PKT Levofloxacin (Levofloxacin) 500 Mg Tab 500 MG PO DAILY@11 for 4 Days, #4 TAB Nystatin (Nystatin) 5 Ml Susp 5 ML PO QID for 7 Days, #150 ML Ondansetron (Ondansetron HCl) 4 Mg Tab 4 MG PO Q6H PRN for Nausea, #15 TAB Pantoprazole (Pantoprazole Sodium) 40 Mg Tab 40 MG PO QAM for 10 Days, #10 TAB Changed Medications: Prednisone (Prednisone) 5 Mg Tab 5 MG PO UD, #20 TAB (Changed from: TAKE 80MG DAILY TAKE 60MG DAILY TAKE 40MG DAILY TAKE 20MG DIALY UNTIL TIGHTNESS OF CHEST GOES AWAY AND THEN TAKE 5MG DAILY ) TAKE 15MG (3 tablets) DAILY x 3 days TAKE 10MG (2 tablets) DAILY x 3 days THEN 5MG (1 tablet) DAILY thereafter Continued Medications: Cholecalciferol (Vitamin D3) 2,000 Unit Cap 1 CAP PO QAM, CAP Cyanocobalamin (Vitamin B-12) 1,000 Mcg Tab 1000 MCG PO QAM, TAB Fish Oil ([place]-3) 1 Ea Cap 1 CAP PO QAM, 0 Refills Hydrochlorothiazide (Hydrochlorothiazide) 25 Mg Tab 1 TAB PO QAM Hydroxychloroquine Sulfate (Plaquenil) 200 Mg Tab 400 MG PO QAM, TAB Lisinopril (Zestril) 10 Mg Tab 10 MG PO QAM, TAB Magnesium Oxide (Mg Supplement (Magnesium) 500 Mg Cap 1 CAP PO HS Ranitidine (Zantac) 150 Mg Tab 150 MG PO QAM, TAB Discontinued Medications: Clotrimazole (Mycelex) 10 Mg Tro 10 MG MT Q4H, YEYO Discharge Exam Patient still feeling fatigue but feels it has improved. Her sinus pain is mostly resolved and her dyspepsia and constipation are also under control. Patient keen for home. Review of Systems: Constitutional: No chills, No fever ENT: No sore throat, No trouble swallowing Respiratory: No cough, No shortness of breath, No wheezing Cardiovascular: No chest pain, No edema, No palpitations Abdomen: + constipation, + problem reported (Improved bloating), No diarrhea , No nausea, No pain, No vomiting Genitourinary - Female: No dysuria, No hematuria Physical Exam: General Appearance: WD/WN, no apparent distress Eyes: normal inspection ENT: hearing grossly normal, pharynx normal Neck: supple, no adenopathy Respiratory/Chest: lungs clear, normal breath sounds, no respiratory distress, no accessory muscle use Cardiovascular: regular rate, rhythm, no murmur Abdomen / GI: normal bowel sounds, non tender, soft Extremities: normal inspection, no calf tenderness, no pedal edema Neurologic/Psychiatric: alert, normal mood/affect, oriented x 3 Skin: normal color, warm/dry, no rash (Alka. 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 Mccarthy for acute sinusitis with pseudomonas growth on culture, admitted with nausea, difficulties eating, left sided rib pain, and chills. Pseudomonas Sinusitis Initially put on IV ceftazidime, until it was confirmed by the patient's avionics supervisor that levofloxacin was not contra-indicated. Subsequently switched to IV levofloxacin. In addition, patient had a gentamicin nasal rinse regimen Symptoms significantly improved through out admission On discharge patient was advised to complete 4 more days of each antibiotic for a 10 day course total Follow up with Dr. Mccarthy on 06/21 Dyspepsia/nausea Ongoing symptoms despite pantoprazole and ondansetron A combination of Pantoprazole 40mg PO QAM, Ranitidine 150mg BID, Ondansetron 4mg q6h PRN nausea, Metoclopramide 5mg q6h helped to diminish symptoms. Patient sent home with a short supply of these medications and advised to follow up with PCP should symptoms persist. Fatigue Ongoing symptom since surgery. Hb stable, with no acute or ongoing blood loss Steroid dose increased during acute illness to Prednisone 5mg PO + Hydrocortisone 12.5mg q8h Also commenced PT/OT - which are to be continued during home health care visits. On discharge, began prednisone taper 15mg x 3days, 10mg x 3 days, then continue home dose of 5mg. Patient keen to work with avionics supervisor to wean prednisone off completely. Constipation Combination of MgO 400mg HS, Miralax daily, intermittent Bisacodyl suppository helped with bowel movements. L sided rib pain CXR 06/12 showed nondisplaced cortical fracture of left 8th and 9th ribs in the midaxillary line Patient denies trauma or fall, and believes secondary to coughing previously. Reduced tenderness with Tylenol 650mg PO TID PRN for pain - decreased requirement of Tylenol through out admission Globus sensation Empirically treated with Nystatin swish and swallow Symptoms, though not painful, have persisted without any improvement Patient advised to discuss this with Dr. Mccarthy HTN Pressures remained in acceptable range with Lisinopril 10mg qAM only. PCP to reassess need for HCTZ RA Continue Plaquenil 400mg qAM Total Time Spent: Less than 30 minutes This includes examination of the patient, discharge planning, medication reconciliation, and communication with other providers. (Alka. Banda MD) Discharge Instructions Please refer to the electronic Patient Visit Report (Discharge Instructions) for additional information. (Alka. Banda MD) Reviewed: Pt Seen/Exam by Me (Aide Mcclain MD) History Resident Physician Supervision Note: I interviewed and examined the patient. Discussed with Dr. Banda and agree with findings and plan as documented in the note. Any exceptions or clarifications are listed here: Energy level improved with this increasing stress dose steroids, had a bowel movement constipation is improved; feeling less nauseated and ready for discharge today. Tolerating Levaquin and can go home on Levaquin by mouth. VSS No acute distress no bleeding from nose -RRR no mgr CTAB no wcr Abdomen positive bowel sounds soft nontender nondistended Extremities no edema -Continue Levaquin by mouth upon discharge for total of 10 days including time on ceftazidime while hospitalized -continue gentamicin nasal washes -f/u with ENT after dc -Continue Zantac and PPI as well as by mouth Reglan for dyspepsia -Continue stress dose steroids with taper down upon discharge with prednisone -Follow up with GI if dyspepsia does not resolve soon but is probably related to multiple courses of antibiotics in the past 6 weeks Documented By: Aide Mcclain (Aide Mcclain MD)
[2016-06-17 16:16] VITALS: BP 148/77; PULSE 64; TEMP 36.6; O2SAT 100
[2016-06-17] MEDS ORDERED: DOCUSATE SODIUM 100 MG CAP PO SCH (20:00)
[2016-09-14] MEDS ORDERED: RANI1TAB75 PO (15:16)
[2016-09-14] MEDS ORDERED: PRED-301 PO (15:16)
[2016-09-14] MEDS ORDERED: VNTHFA/IN INH (15:19)
[2016-12-23] MEDS ORDERED: HYDR-5688 PO (09:47)
== END 2016-06-17 17:01 | disposition home health service (06) | DRG 153 ==
LOC: C.4E 15:51
PROVIDERS: ADMIT Family Medicine; ATTEND Family Medicine
DX: J01.90 Acute sinusitis, unspecified (principal); S22.42XA Multiple fractures of ribs, left side, initial encounter for closed fracture; E27.40 Unspecified adrenocortical insufficiency; E86.0 Dehydration; J32.8 Other chronic sinusitis; B96.5 Pseudomonas (aeruginosa) (mallei) (pseudomallei) as the cause of diseases classified elsewhere; X58.XXXA Exposure to other specified factors, initial encounter; I10 Essential (primary) hypertension; K59.00 Constipation, unspecified; R11.0 Nausea; R53.83 Other fatigue; R10.13 Epigastric pain; M06.9 Rheumatoid arthritis, unspecified; R10.12 Left upper quadrant pain; Z85.72 Personal history of non-Hodgkin lymphomas; Z98.890 Other specified postprocedural states; Z79.52 Long term (current) use of systemic steroids; Z79.899 Other long term (current) drug therapy

== ENCOUNTER → 2016-08-23 | Outpatient (CLI) | payer BC ==
[~2016-08-23] MED LIST changes: -CLOT10TR2 MT; +GNTNASAL; +LCTXP PO; +LVQ500 PO; +METO5TAB3 PO; +NYSS5 PO; +PRT40 PO; +RANI1TAB75 PO; +VNTHFA/IN INH; +ZFR4 PO
== END | disposition home or self-care (01) ==
LOC: C.LAB 11:50
PROVIDERS: ATTEND Internal Medicine Gastroenterology
DX: R13.10 Dysphagia, unspecified (principal); R49.0 Dysphonia

== ENCOUNTER → 2016-09-01 | Outpatient (CLI) | payer BC ==
[2016-09-01 13:24] LABS: BASO % 0.1 %; BASO ABS # 0.01 K/uL (0-0.2); COMPLETE YES; EOS % 0.1 %; HEMATOCRIT 41.3 % (37-47); IG% 0.2 %; LYMPH % 10.3 %; LYMPH ABS # 0.88 K/uL (1.2-3.4); MEAN CELL VOLUME 94.7 fL (80-100); MEAN CORPUSCULAR HEMOGLOBIN 30.7 pg (25-34); MEAN CORPUSCULAR HGB CONC 32.4 g/dl (32-36); MEAN PLATELET VOLUME 10.6 fL (7.4-10.4); MONO % 5.3 %; PLATELET COUNT 231 K/uL (130-400); RED BLOOD COUNT 4.36 M/uL (4.2-5.4); WHITE BLOOD COUNT 8.56 K/uL (4.8-10.8)
[2016-09-01 14:06] LABS: ALT/SGPT 23 U/L (12-78); AST/SGOT 15 U/L (15-37); CREATININE 0.91 mg/dl (0.60-1.20)
== END | disposition home or self-care (01) ==
LOC: C.LAB1850 12:08
PROVIDERS: ATTEND Internal Medicine Rheumatology
DX: M81.0 Age-related osteoporosis without current pathological fracture (principal); Z79.52 Long term (current) use of systemic steroids; Z79.899 Other long term (current) drug therapy

== ENCOUNTER → 2016-09-27 | Day surgery (SDC) | payer BC ==
[2016-09-14 15:18] VITALS: Ht 177.8 cm; Wt 61.4 kg
[~2016-09-27] VITALS: Ht 177.8 cm; Wt 61.4 kg
[~2016-09-27] MED LIST changes: -GNTNASAL; -LCTXP PO; +LIDOCAINE HCL 2% 2 ML VIAL (20MG/ML) ONE; -LVQ500 PO; -METO5TAB3 PO; -NYSS5 PO; +PROPOFOL IV EMULSION 10 MG/ML 20 ML VIAL IV ONE; -PRT40 PO; -ZFR4 PO; -ZNTT/150 PO
--- NOTE | 2016-09-27 13:45 | Endo History and Physical ---
History & Physical Date of Service: Sep 27, 2016. Chief Complaint: dysphagia Referring Physician: Dr. 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) Hx Thoracic Surgery: No Hx Orthopedic: No Hx Urinary Tract Surgery: No Family History None Social History Smoking Status: Never Smoker Hx Substance Use: No Hx Alcohol Use: Yes (OCCASIONAL) Allergies Coded Allergies: Alendronate (Verified Allergy, Intermediate, CHILLS,FEVER, TEETH GOT LOOSE , 09/14/16) Aspirin (Verified Allergy, Mild, ITCHING UNDER SKIN, 09/14/16) Oxycodone (Verified Adverse Reaction, Intermediate, N/V, 09/14/16) Current Medications Reported Home Medications Medications Dose Route/Sig Max Daily Dose Days Date Category Ventolin Hfa (Albuterol) 200 Puffs/98364 Mcg Aers 2-4 Puffs INH Q6H PRN 09/14/16 Reported Prednisone 5 Mg Tab 7.5 Mg PO QAM 09/14/16 Reported Ranitidine 75 (Ranitidine HCl) 75 Mg Tab 1 Tab PO QAM 09/14/16 Reported Magnesium (Magnesium Oxide (Mg Supplement) 500 Mg Cap 1 Cap PO HS 05/20/16 Reported Zestril (Lisinopril) 10 Mg Tab 10 Mg PO QAM 05/20/16 Reported Plaquenil (Hydroxychloroquine Sulfate) 200 Mg Tab 400 Mg PO QAM 05/20/16 Reported Vitamin D3 (Cholecalciferol) 2,000 Unit Cap 1 Cap PO QAM 05/20/16 Reported Vitamin B-12 (Cyanocobalamin) 1,000 Mcg Tab 1,000 Mcg PO QAM 05/20/16 Reported Hydrochlorothiazide 25 Mg Tab 1 Tab PO QAM 09/03/14 Reported [place]-3 (Fish Oil) 1 Ea Cap 1 Cap PO QAM 05/27/06 Reported Vital Signs Weight (Kilograms): 61.36 Height (Feet): 5 Height (Inches): 10 Date Time Temp Pulse Resp B/P (MAP) Pulse Ox O2 Delivery O2 Flow Rate FiO2 09/27/16 13:17 36.6 81 20 143/56 (85) 100 Room Air Physical Exam General Appearance: + thin Respiratory/Chest: Respiratory effort: no dyspnea Cardiovascular: Heart Auscultation: RRR Abdomen: Inspection & Palpation: soft Assessment and Plan Dysphagia for EGD
--- NOTE | 2016-09-27 14:04 | Discharge Instructions ---
Endoscopy Patient Instructions Date / Procedure(s) Performed Sep 27, 2016. EGD Allergy Information Coded Allergies: Alendronate (Verified Allergy, Intermediate, CHILLS,FEVER, TEETH GOT LOOSE , 09/14/16) Aspirin (Verified Allergy, Mild, ITCHING UNDER SKIN, 09/14/16) Oxycodone (Verified Adverse Reaction, Intermediate, N/V, 09/14/16) Discharge Date / Findings Sep 27, 2016. Normal EGD Medication Instructions Restart Stopped Medication(s): resume meds Reported Home Medications Medications Dose Route/Sig Max Daily Dose Days Date Category Ventolin Hfa (Albuterol) 200 Puffs/94967 Mcg Aers 2-4 Puffs INH Q6H PRN 09/14/16 Reported Prednisone 5 Mg Tab 7.5 Mg PO QAM 09/14/16 Reported Ranitidine 75 (Ranitidine HCl) 75 Mg Tab 1 Tab PO QAM 09/14/16 Reported Magnesium (Magnesium Oxide (Mg Supplement) 500 Mg Cap 1 Cap PO HS 05/20/16 Reported Zestril (Lisinopril) 10 Mg Tab 10 Mg PO QAM 05/20/16 Reported Plaquenil (Hydroxychloroquine Sulfate) 200 Mg Tab 400 Mg PO QAM 05/20/16 Reported Vitamin D3 (Cholecalciferol) 2,000 Unit Cap 1 Cap PO QAM 05/20/16 Reported Vitamin B-12 (Cyanocobalamin) 1,000 Mcg Tab 1,000 Mcg PO QAM 05/20/16 Reported Hydrochlorothiazide 25 Mg Tab 1 Tab PO QAM 09/03/14 Reported [place]-3 (Fish Oil) 1 Ea Cap 1 Cap PO QAM 05/27/06 Reported Provider Instructions Activity Restrictions - No exercising or heavy lifting for 24 hours. - Do not drink alcohol the day of the procedure. - Do not drive a car or operate machinery until the day after the procedure. - Do not make any important decisions or sign important papers in 24 hours after the procedure. Following Day: - Return to full activity which may include returning to work/school. Diet Start your diet with liquids and light foods (jello, soup, juice, toast). Then eat your usual diet if not nauseated. Treatment For Common After Affects For mild abdominal pain, bloating, or excessive gas: - Rest - Eat lightly - Lie on right side Follow-Up Information Follow-up with Dr. Al Blanco as scheduled Anesthesia Information What You Should Know You have had a procedure that required some medicine to reduce anxiety and discomfort. This treatment is called moderate sedation. After receiving the treatment, you may be sleepy, but you will be able to breathe on your own. The effects of the treatment may last for several hours. Follow these instructions along with Activity/Diet recommendations noted above: * Do NOT do anything where dizziness or clumsiness would be dangerous. * Rest quietly at home today, then you can be up and about tomorrow. * Have a responsible person stay with you the rest of today. * You may have had an I.V. today. If so, you may take the dressing off later today. Recommendations Call your doctor if: * Trouble breathing * Continuous vomiting for more than 24 hours * Temperature above 101 degrees * Severe abdominal pain or bloating * Pain not relieved by pain medicine ordered * There is increased drainage or redness from any incision * A large amount of rectal bleeding greater than 2-3 tablespoons. (If you had a polyp/s removed or have hemorrhoids, a small amount of blood - from the rectum is to be expected.) * You have any unanswered questions or concerns. IN THE EVENT OF A SERIOUS EMERGENCY, GO TO THE NEAREST EMERGENCY ROOM Your discharge instructions were prepared by provider Helio Fernando. Patient Instructions Signature Page Morris Pinto Patient (or Guardian) Signature/Date: I have read and understand the instructions given to me by my caregivers. Caregiver/RN/Doctor Signature/Date: The above-named patient and/or guardian has received patient instructions on this date. + Original Patient Signature Page (only) stays with chart. Please make copy for patient.
--- NOTE | 2016-09-27 14:45 | Anesthesiology Progress Note ---
Anesthesia Post Op Note Date & Time Sep 27, 2016 at 14:45 Vital Signs Pain Intensity: 0 Vital Signs Past 12 Hours Date Time Temp Pulse Resp B/P (MAP) Pulse Ox O2 Delivery O2 Flow Rate FiO2 09/27/16 14:38 65 20 154/63 (93) 100 Room Air 09/27/16 14:23 66 20 126/55 (78) 98 Room Air 09/27/16 14:08 71 20 99/39 (59) 97 Room Air 09/27/16 13:17 36.6 81 20 143/56 (85) 100 Room Air Notes Mental Status: alert / awake / arousable, participated in evaluation Pt Amnestic to Procedure: Yes Nausea / Vomiting: adequately controlled Pain: adequately controlled Airway Patency, RR, SpO2: stable & adequate BP & HR: stable & adequate Hydration State: stable & adequate Anesthetic Complications: no major complications apparent
[2016-09-27 14:58] VITALS: BP 138/64; PULSE 66; O2SAT 100
--- NOTE | 2016-09-28 00:14 | GI REPORT ---
Procedure Date: 09/27/2016 1:23 PM Procedure: Upper GI endoscopy Indications: Dysphagia Medicines: Propofol total dose 160 mg IV, Lidocaine 40 mg IV Complications: No immediate complications. Estimated Blood Loss: Estimated blood loss was minimal. Procedure: Pre-Anesthesia Assessment: - Prior to the procedure, a History and Physical was performed, and patient medications, allergies and sensitivities were reviewed. The patient's tolerance of previous anesthesia was reviewed. - The risks and benefits of the procedure and the sedation options and risks were discussed with the patient. All questions were answered and informed consent was obtained. After obtaining informed consent, the endoscope was passed under direct vision. Throughout the procedure, the patient's blood pressure, pulse, and oxygen saturations were monitored continuously. The scope was introduced through the mouth, and advanced to the second part of duodenum. The upper GI endoscopy was accomplished without difficulty. The patient tolerated the procedure well. Findings: The middle third of the esophagus was normal. This was biopsied with a cold forceps for evaluation of eosinophilic esophagitis. Estimated blood loss was minimal. The entire examined stomach was normal. The examined duodenum was normal. Impression: - Normal middle third of esophagus. Biopsied. - Normal stomach. - Normal examined duodenum. Recommendation: - Discharge patient to home (ambulatory). - Continue present medications. - Await pathology results. - Return to primary care physician PRN. Helio Fernando M.D. Helio Fernando MD 09/27/2016 2:07:28 PM This report has been signed electronically. Note Initiated On: 09/27/2016 1:23 PM I attest to the content of the Intraoperative Record and orders documented therein, exceptions below
== END | disposition home or self-care (01) ==
LOC: C.GI 12:58
PROVIDERS: ATTEND Internal Medicine Gastroenterology
DX: R13.10 Dysphagia, unspecified (principal); Z85.79 Personal history of other malignant neoplasms of lymphoid, hematopoietic and related tissues; Z79.52 Long term (current) use of systemic steroids; Z90.710 Acquired absence of both cervix and uterus; Z90.49 Acquired absence of other specified parts of digestive tract

== ENCOUNTER → 2016-10-20 | Outpatient (CLI) | payer BC ==
[~2016-10-20] MED LIST changes: -LIDOCAINE HCL 2% 2 ML VIAL (20MG/ML) ONE; -PROPOFOL IV EMULSION 10 MG/ML 20 ML VIAL IV ONE
--- NOTE | 2016-10-20 14:21 | MAMMOGRAPHY REPORT ---
BILATERAL DIGITAL SCREENING MAMMOGRAM WITH CAD: 10/20/2016 CLINICAL HISTORY: Routine screening. Patient has no complaints. TECHNIQUE: Current study was also evaluated with a Computer Aided Detection (CAD) system. Bilateral CC and MLO views were obtained. COMPARISON: Comparison is made to exams dated: 10/15/2015 mammogram, 10/01/2014 mammogram, 09/26/2013 ma mmogram, 09/25/2012 mammogram, 09/21/2011 mammogram, and 09/15/2010 mammogram - [facility] ter. BREAST COMPOSITION: There are scattered areas of fibroglandular density in both breasts. FINDINGS: No suspicious masses, calcifications, or areas of architectural distortion are noted in ei ther breast. There has been no significant interval change compared to prior exams. IMPRESSION: ACR BI-RADS CATEGORY 1: NEGATIVE There is no mammographic evidence of malignancy. A 1 year screening mammogram is recommended. The pa tient will receive written notification of the results. Approximately 10% of breast cancers are not detected with mammography. A negative mammographic report should not delay biopsy if a clinically suggestive mass is present. Krys Loredo M.D. /:10/20/2016 07:49:35 Window Installer: Sindy ROMEO(Dorothy)(Ginger), [facility] letter sent: Normal 1/2 BI-RADS Code: ACR BI-RADS Category 1: Negative
== END | disposition home or self-care (01) ==
LOC: C.MAMM 07:10
PROVIDERS: ATTEND Family Medicine
DX: Z12.31 Encounter for screening mammogram for malignant neoplasm of breast (principal)

== ENCOUNTER → 2016-10-25 | Outpatient (CLI) | payer BC ==
--- NOTE | 2016-10-25 09:18 | DIAGNOSTIC IMAGING REPORT ---
(BARIUM SWALLOW) ESOPHAGUS CLINICAL HISTORY: IMPAIRED SWALLOWING COMPARISON STUDY: None FLUOROSCOPY TIME: 1.1 minutes. NUMBER OF FLUOROSCOPIC IMAGES: 23 FINDINGS: The patient swallowed effervescent granules and barium. Rapid sequence swallows in the lateral projection revealed penetration but no evidence of darryl aspiration. There is a prominent cricopharyngeus impression. No esophageal masses are visualized. There were no strictures. No reflux identified. The patient swallowed one half inch barium tablet which freely passed into the stomach. IMPRESSION: 1. No esophageal masses identified 2. Penetration but no evidence of aspiration. Electronically signed by: Jorge Pop M.D. 10/25/2016 9:16 AM Dictated Date/Time: 10/25/2016 9:15 AM
== END | disposition home or self-care (01) ==
LOC: C.RAD 08:41
PROVIDERS: ATTEND Family Medicine
DX: R13.10 Dysphagia, unspecified (principal)

== ENCOUNTER → 2016-11-10 | Outpatient (CLI) | payer BC ==
--- NOTE | 2016-11-10 12:01 | DIAGNOSTIC IMAGING REPORT ---
CHEST 2 VIEWS ROUTINE HISTORY: M06.9 Rheumatoid [id number] Difficulty [id number] Long COMPARISON: Chest 06/01/2016. FINDINGS: No pneumothorax. No pleural effusions. The lungs are hyperexpanded with apical predominant emphysematous changes. No new focal lung consolidations to suggest pneumonia. No evidence for pulmonary edema. The heart is normal in size. Biapical densities likely represent scarring. IMPRESSION: Emphysema. No focal lung consolidations to suggest pneumonia. Electronically signed by: Jaquan Jung M.D. 11/10/2016 11:59 AM Dictated Date/Time: 11/10/2016 11:58 AM
[2016-11-10 12:51] LABS: BASO % 0.2 %; BASO ABS # 0.03 K/uL (0-0.2); COMPLETE YES; EOS % 0.2 %; HEMATOCRIT 41.8 % (37-47); IG% 0.4 %; LYMPH % 6.7 %; LYMPH ABS # 1.11 K/uL (1.2-3.4); MEAN CELL VOLUME 93.1 fL (80-100); MEAN CORPUSCULAR HEMOGLOBIN 31.8 pg (25-34); MEAN CORPUSCULAR HGB CONC 34.2 g/dl (32-36); MEAN PLATELET VOLUME 11.7 fL (7.4-10.4); MONO % 7.9 %; NEUT % 84.6 %; PLATELET COUNT 213 K/uL (130-400); RED BLOOD COUNT 4.49 M/uL (4.2-5.4); WHITE BLOOD COUNT 16.62 K/uL (4.8-10.8)
[2016-11-10 13:15] LABS: ALT/SGPT 24 U/L (12-78)
[2016-11-10 13:18] LABS: ALKALINE PHOSPHATASE 71 U/L (45-117); AST/SGOT 20 U/L (15-37)
== END ==
LOC: C.RAD1850 10:14
PROVIDERS: ATTEND Internal Medicine Rheumatology
DX: M06.9 Rheumatoid arthritis, unspecified (principal); M62.81 Muscle weakness (generalized); R06.89 Other abnormalities of breathing; Z79.52 Long term (current) use of systemic steroids; Z79.899 Other long term (current) drug therapy

== ENCOUNTER → 2017-01-04 | Outpatient (CLI) | payer BC ==
[~2017-01-04] MED LIST changes: +HYDR-5688 PO
--- NOTE | 2017-01-04 12:40 | EXERCISE STRESS ECHO ---
*NOTICE TO RECEIVING CONSTITUTION PARTY AGENCY This information is strictly Confidential and protected under [place] law. [place] law prohibits you from making any further disclosure of this information unless further disclosure is expressly permitted by the written consent of the person to whom it pertains or is authorized by law. A general authorization for the release of medical or other information is not sufficient for this purpose. Hospital accepts no responsibility if the information is made available to any other person, INCLUDING THE PATIENT. Interpretation Summary * Name: NIRU MOSQUERA Study Date: 01/04/2017 09:37 AM BP: 140/60 mmHg * Patient Location: [facility] HR: 96 * : 1945 (M/d/yyyy) Gender: Female Height: 70 in * Age: 71 yrs Ethnicity: CA Weight: 133 lb * Ordering Physician: Devika Beaver * Referring Physician: Devika Beaver . PA-C * Performed By: Madisyn Lynn RDCS * * Reason For Study: SOB, MUSCLE WEAKNESS * BSA: 1.8 m2 * No echocardiographic or electrocardiographic evidence of exercised induced myocardial ischemia at 71 percent maximum predicted heart rate. * Normal hemodynamic response to exercise. * Occasional premature supraventricular beats in the recovery phase. * Poor exercise tolerance. * Resting echocardiogram with normal left ventricular systolic function, class 1 left ventricular diastolic dysfunction, [id number] aortic regurgitation, and moderate tricuspid regurgitation. No evidence of an intracardiac shunt. * The left ventricular ejection fraction increases normally with stress. The left ventricular end-systolic cavity size reduces post-stress (normal response). The left ventricular wall motion with stress is normal. Procedure Details * ECHOEX, CPT #43622 Left Ventricle * The left ventricle is normal in size. * Normal LV wall thickness except for mild basal septal hypertrophy. * Ejection Fraction = 55-60%. * A full diastolic examination was done with clinical findings of Class I diastolic dysfunction. * Resting wall motion: Normal. Stress wall motion: Appropriate increase in Left ventricular systolic function and decrease in cavity size. No stress induced segmental wall motion abnormalities. * The left ventricular ejection fraction increases normally with stress. The left ventricular end-systolic cavity size reduces post-stress (normal response). The left ventricular wall motion with stress is normal. Right Ventricle * The right ventricle is normal in size and function. Atria * The left atrial size is normal. * Right atrial size is normal. * No ASD detected; PFO is not assessed. * The atrial septum is aneurysmal. Mitral Valve * The mitral valve is normal. * There is no mitral valve stenosis. * There is moderate mitral regurgitation. Tricuspid Valve * The tricuspid valve is normal. * There is no tricuspid stenosis. * No tricuspid regurgitation. Aortic Valve * The aortic valve is trileaflet. * The aortic valve opens well. * Aortic stenosis is absent. * Mild to moderate aortic regurgitation. Pulmonic Valve * The pulmonic valve is not well visualized. * The pulmonary valve is inadequately visualized, but the Doppler data is adequate for interpretation. * Pulmonic stenosis is absent. * There is no pulmonic valvular regurgitation. Great Vessels * The aortic root is normal size. Pericardium * There is no pericardial effusion. Stress Parameters * Normal sinus rhythm, nonspecific ST abnormalities. * No significant change in the ST segments following exercise compared to the baseline ST abnormalities. * Arrhythmia noted in recovery: occasional PAC's. * Rest heart rate was '96' BPM. * Rest blood pressure was '140/60' * Maximum heart rate achieved was 106 bpm. * Maximum heart rate was 71 % of maximum age-predicted heart rate. * Maximum blood pressure was '160/76' * Total exercise time was '2:05' * Maximum exercise MET level achieved was '1.6' METS * Maximum treadmill speed was '1' miles per hour. * Maximum treadmill elevation was '0'% grade. * Exercise was terminated due to 'FATIGUE, SOB' * The patient completed 2 minutes and 5 seconds of the Dariana protocol. Exercise terminated secondary to fatigue and dyspnea. No complaints of chest pain. MMode 2D Measurements and Calculations IVSd 1.0 cm IVSs 2.0 cm LVIDd 4.5 cm LVIDs 3.3 cm LVPWd 0.99 cm LVPWs 1.4 cm IVS/LVPW 1.0 FS 26.8 % EDV(Teich) 93.7 ml ESV(Teich) 44.6 ml EF(Teich) 52.4 % EDV(cubed) 92.7 ml ESV(cubed) 36.4 ml EF(cubed) 60.7 % % IVS thick 100.7 % % LVPW thick 43.5 % LV mass(C)d 153.4 grams LV mass(C)dI 87.4 grams/m\S\2 LV mass(C)s 225.0 grams LV mass(C)sI 128.2 grams/m\S\2 SV(Teich) 49.1 ml SI(Teich) 28.0 ml/m\S\2 SV(cubed) 56.3 ml SI(cubed) 32.1 ml/m\S\2 Ao root diam 3.1 cm Ao root area 7.6 cm\S\2 LA dimension 3.0 cm LA/Ao 0.96 LVAd ap4 25.1 cm\S\2 LVLd ap4 8.3 cm EDV(MOD-sp4) 64.4 ml EDV(sp4-el) 64.1 ml LVAs ap4 15.1 cm\S\2 LVLs ap4 7.2 cm ESV(MOD-sp4) 31.0 ml ESV(sp4-el) 26.9 ml EF(MOD-sp4) 51.9 % EF(sp4-el) 58.0 % LVAd ap2 24.2 cm\S\2 LVLd ap2 8.5 cm EDV(MOD-sp2) 58.7 ml EDV(sp2-el) 58.6 ml LVAs ap2 14.5 cm\S\2 LVLs ap2 7.5 cm ESV(MOD-sp2) 28.7 ml ESV(sp2-el) 23.7 ml EF(MOD-sp2) 51.1 % EF(sp2-el) 59.5 % LVLd %diff 1.7 % EDV(MOD-bp) 62.7 ml LVLs %diff 3.9 % ESV(MOD-bp) 30.5 ml EF(MOD-bp) 51.3 % SV(MOD-sp4) 33.4 ml SI(MOD-sp4) 19.0 ml/m\S\2 SV(MOD-sp2) 30.0 ml SI(MOD-sp2) 17.1 ml/m\S\2 SV(MOD-bp) 32.2 ml SI(MOD-bp) 18.3 ml/m\S\2 SV(sp4-el) 37.2 ml SI(sp4-el) 21.2 ml/m\S\2 SV(sp2-el) 34.9 ml SI(sp2-el) 19.9 ml/m\S\2 Doppler Measurements and Calculations MV E max rosalinda 54.4 cm/sec MV A max rosalinda 91.3 cm/sec MV E/A 0.60 MV dec time 0.21 sec Ao V2 max 129.4 cm/sec Ao max PG 6.7 mmHg Ao max PG (full) 3.2 mmHg AI max rosalinda 458.1 cm/sec AI max PG 84.0 mmHg AI dec slope 251.6 cm/sec\S\2 AI P1/2t 533.4 msec LV V1 max PG 3.5 mmHg LV V1 max 93.6 cm/sec MR max rosalinda 578.1 cm/sec MR max PG 133.7 mmHg
== END | disposition home or self-care (01) ==
LOC: C.CPL 09:26
PROVIDERS: ATTEND Physician Assistant
DX: M62.81 Muscle weakness (generalized) (principal); R06.02 Shortness of breath; R06.89 Other abnormalities of breathing

== ENCOUNTER → 2017-01-12 | Outpatient (CLI) | payer BC ==
[2017-01-12 17:08] LABS: THYROID STIMULATING HORMONE 1.08 uIu/ml (0.300-4.500)
[2017-01-12 17:21] LABS: LYME DISEASE AB IGM NEG (NEG)
[2017-01-12 17:24] LABS: LYME DISEASE AB IGG NEG (NEG)
== END | disposition home or self-care (01) ==
LOC: C.LAB1850 14:56
PROVIDERS: ATTEND Psychiatry & Neurology Neurology
DX: M62.81 Muscle weakness (generalized) (principal)

== ENCOUNTER → 2017-06-02 | Outpatient (CLI) | payer BC ==
--- NOTE | 2017-06-02 13:31 | DIAGNOSTIC IMAGING REPORT ---
CT SCAN OF THE CHEST WITHOUT IV CONTRAST CLINICAL HISTORY: Dyspnea. Rheumatoid arthritis. COMPARISON STUDY: Chest x-ray dated 11/10/2016. Chest CT dated 11/25/2008. TECHNIQUE: CT scan of the thorax was performed from the thoracic inlet to the upper abdomen. Images are reviewed in the axial, sagittal, and coronal planes. IV contrast was not administered for this examination as per the referring clinician. A dose lowering technique was utilized adhering to the principles of ALARA. The examination is degraded by streak artifact from the arms which could not be elevated above the chest. CT DOSE: 210.88 mGy.cm FINDINGS: Thyroid: Imaged portions of the thyroid gland are normal in size and attenuation. Thoracic aorta: There is atherosclerotic calcification of the thoracic aorta. There is mild ectasia of the ascending thoracic aorta which measures up to 3.7 cm in diameter. The remainder of the thoracic aorta is normal in caliber. The arch demonstrates standard 3-vessel arch anatomy. Heart: The heart is normal in size and without pericardial effusion. The coronary arteries are densely calcified. There is diminished attenuation of the cardiac blood pool as compared to the myocardium suggesting anemia. Lungs and pleural spaces: There is biapical scarring. No airspace consolidation or pleural effusion is identified. The trachea and central airways are clear. There are scattered calcified granulomas. A 6 mm right lower lobe nodule is seen on image #140. This contains a small internal calcification and has been present dating back to 2008. This is of doubtful significance. A 3 mm pleural-based nodule at the left lung bases image #210. This is of low suspicion and may have also been present in 2009. Mediastinum: There is no mediastinal lymphadenopathy. Cristina: Not well assessed without IV contrast. Axillae: There is no axillary lymphadenopathy. Upper abdomen: Partially visualized upper abdominal viscera is within normal limits. Skeletal structures: The skeletal structures are osteopenic. Mild degenerative change and hyperkyphosis are noted in the thoracic spine. No lytic or blastic bony lesions are seen. There are healed left-sided rib fractures. IMPRESSION: 1. The lungs are clear. 2. No acute cardiopulmonary abnormality is seen. 3. Additional findings as above. Electronically signed by: Ghassan Root M.D. 06/02/2017 1:30 PM Dictated Date/Time: 06/02/2017 1:24 PM
== END | disposition home or self-care (01) ==
LOC: C.CTS 12:57
PROVIDERS: ATTEND Internal Medicine Critical Care Medicine
DX: M06.9 Rheumatoid arthritis, unspecified (principal)

== ENCOUNTER 2018-03-27 10:15 | Inpatient (IN) ==
[2018-03-27] MEDS ORDERED: ALBUT/IPRATROP 3MG/0.5MG NEB 3 ML VIAL INH STA (10:47)
[2018-03-27] MEDS ORDERED: HYDROCORTISONE SOD SUCCINATE 100 MG/2 ML VIAL IV STA (10:47)
--- NOTE | 2018-03-27 11:36 | XRay Report ---
XR chest 1V portable CLINICAL HISTORY: 72 years-old Female presenting with sob. TECHNIQUE: Portable upright AP view of the chest was obtained. COMPARISON: 07/11/[address] from 06/02/2017. FINDINGS: Atherosclerosis of the aortic arch. Cardiac silhouette normal in size. Hyperinflated lungs. Heterogen eous lung parenchyma. Pleural parenchymal scarring at the apices. No focal opacity. No large effusion or pneumothorax. Osteopenia may be present. Upper abdomen normal. IMPRESSION: 1. Hyperinflation could suggest underlying emphysema or obstructive airways disease. No focal infilt rate to suggest pneumonia. Electronically signed by: Joseph Lara M.D. 03/27/2018 11:35 AM
[2018-03-27 11:51] LABS: Basophils # (auto) 0.01 K/uL (0-0.2); Basophils % (auto) 0.1 %; Eosinophils # (auto) 0.02 K/uL (0-0.5); Eosinophils % (auto) 0.2 %; Hematocrit (blood only) 47.2 % (37-47); Hemoglobin 15.5 g/dL (12.0-16.0); Immature Granulocytes # (auto) 0.03 K/uL (0.00-0.02); Immature Granulocytes % (auto) 0.2 %; Lymphocytes # (auto) 0.86 K/uL (1.2-3.4); Lymphocytes % (auto) 6.8 %; Mean Corpuscular Hgb Conc 32.8 g/dL (32-36); Mean Platelet Volume 10.9 fL (7.4-10.4); Monocytes # (auto) 1.11 K/uL (0.11-0.59); Monocytes % (auto) 8.8 %; Neutrophils % (auto) 83.9 %; Platelet Count 183 K/uL (130-400); RDW Coefficient of Variation 12.4 % (11.5-14.5); RDW Standard Deviation 42.7 fL (36.4-46.3); Red Blood Count 4.97 M/uL (4.2-5.4); White Blood Count 12.63 K/uL (4.8-10.8)
[2018-03-27 12:11] LABS: Alanine Aminotransferase 15 U/L (12-78); Albumin Level 3.9 gm/dl (3.4-5.0); Aspartate Aminotransferase 12 U/L (15-37); BUN Creatinine Ratio 30.4 (10-20); Blood Urea Nitrogen 33 mg/dl (7-18); Calcium 9.1 mg/dl (8.5-10.1); Carbon Dioxide 27 mmol/L (21-32); Chloride 100 mmol/L (98-107); Creatinine Clr Calc Pharmacy 45.2 ml/min; Est GFR (African American) 58.1; Est GFR (Non-African American) 50.1; Glucose 95 mg/dl (70-99); Potassium 3.4 mmol/L (3.5-5.1); Sodium 136 mmol/L (136-145)
[2018-03-27 12:16] LABS: Albumin Globulin Ratio 1.1 (0.9-2); Alkaline Phosphatase 65 U/L (45-117); Bilirubin,Total 0.5 mg/dl (0.2-1); Globulin 3.6 gm/dl (2.5-4.0); INR 1.1 (0.9-1.1); Partial Thromboplastin Time 26.1 Seconds (21.0-31.0); Prothrombin Time 10.6 Seconds (9.0-12.0); Total Protein 7.5 gm/dl (6.4-8.2); Troponin I < 0.015 ng/ml (0-0.045)
[2018-03-27 13:15] LABS: Influenza A virus by PCR Neg for Influ A (Neg); Influenza B virus by PCR Neg for Influ B (Neg)
--- NOTE | 2018-03-27 13:42 | History & Physical Report ---
Date of Service March 27, 2018 Assessment & Plan (1) Acute respiratory failure with hypoxia: - Admit to med/surg - O2 was 88% on outpatient visit this morning at PCP. Pt was treated with dose of hydrocortisone and nebulizer treatment in the ER. - O2 is improved at this point. - Neg Flu - Will pulse dose steroids with prednisone 40 mg daily with taper down to chronic 12.5 mg dosing. - Will need follow up with Dr. Cha who has been following her chronic autoimmune myositis - Pt will need to establish with rheumatology upon discharge (2) Emphysema with chronic bronchitis: - Follows with Zain Kelly as outpatient, check if recent PFTs. - Continue hydrocortison as above. (3) Rheumatoid arthritis: - Chronically takes 12.5 mg PO daily, hold for now while using hydrocortisone. 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 Steroids as above. Hoarse voice is chronic and changes daily per pt report. (6) GERD (gastroesophageal reflux disease): - Cont ranitidine, stable (7) Hypertension: - Continue lisinopril, pt missed medications this morning. (8) Non-Hodgkin lymphoma: - Stable (9) Long-term current use of steroids: - As above (10) Osteoporosis: - Steriod induced, continue Vit D supplement, calcium (11) DVT prophylaxis: - lovenox subq History of Present Illness Primary Care Provider: Al Blanco MD This is a 72 yo F with PMHx of Non-Hdogkin's lymphoma s/p Rituximab tx, rheumatoid arthritis, steroid induced osteoporosis, vitamin D deficiency, myositis and chronic connective tissue disease, chronic autoimmunity, chronic prednisone therapy, HTN, GERD, who presents with generalized ill feeling in the past 2 days. She reports feeling extremely short of breath, so went to see her PCP this morning where her O2 level was 88%. She notes extreme fatigue, dry cough, coughing fits where she feels slightly nauseous afterwards, and that she does not possess the same physical stamina that she did about 6 months ago. Pt notes a progressive decline in her ability to perform ADLs. For example, on a "good" day for her, she is able to vacuum [id number] room in her home, and then will feel extremely worn out by the end of the day. She has been unable to do things such a kneading bread in the past 3-6 months and notes this is a significant change. The patient had been following with Dr. Majano for RA however since this physician is no longer in practice, she has been seeing Dr. Cha for follow up of the chronic myositis and connective tissues disease which was originally diagnosed about 1 year ago by biopsy. Allergies Allergy/AdvReac Type Severity Reaction Status Date / Time alendronate sodium Allergy Intermediate CHILLS,FEVER, Verified 03/27/18 12:35 TEETH GOT LOOSE aspirin Allergy Mild ITCHING Verified 03/27/18 12:35 UNDER SKIN oxycodone AdvReac Intermediate N/V Verified 03/27/18 12:35 orange AdvReac Unknown FEELS LIKE Verified 03/27/18 12:35 HAS A COLD AFTER DRINKING ORANGE JUICE Home Medications Home Medications Medication Instructions Recorded Confirmed Type albuterol sulfate [ProAir HFA] 2 - 4 puff INHALATION Q6H PRN 03/27/18 03/27/18 History calcium carbonate [Calcium 500] 500 mg PO QAM 03/27/18 03/27/18 History cholecalciferol (vitamin D3) 1,000 unit PO QAM 03/27/18 03/27/18 History [Vitamin D3] dextromethorphan-guaifenesin 1 tab PO Q12H 03/27/18 03/27/18 History [Mucinex DM] lisinopril 10 mg PO QAM 03/27/18 03/27/18 History magnesium oxide 400 mg PO HS 03/27/18 03/27/18 History omega 4-lqc-dpm-fish oil [Fish Oil] 1 cap PO QAM 03/27/18 03/27/18 History prednisone 2.5 mg PO QAM 03/27/18 03/27/18 History prednisone 10 mg PO QAM 03/27/18 03/27/18 History ranitidine HCl 75 mg PO QAM 03/27/18 03/27/18 History Past Med/Surg History Medical History Osteoporosis Long-term current use of steroids Non-Hodgkin lymphoma Necrotizing myopathy Emphysema with chronic bronchitis Acute respiratory failure with hypoxia Rheumatoid arthritis (Acute) Raynaud disease (Acute) Hypertension (Acute) GERD (gastroesophageal reflux disease) (Acute) Fibromyalgia (Acute) Acute bronchitis Bruised ribs (Acute) Contusion of multiple sites (Acute) Diffuse large B cell lymphoma (Resolved) Failure of outpatient treatment Fall (Acute) Fracture of triquetrum of right wrist, closed (Acute) Headache (Acute) Left sided chest pain (Acute) Multiple contusions (Acute) Shoulder contusion (Acute) Sinusitis (Acute) Triquetral fracture (Acute) Family History Other Family history non-contributory Social History marital status: Current Living Situation: Spouse current occupational status: retired Other Information That Helps Us Care for You: No Feels Safe at Home: Yes Safety Concerns: Feels Safe At This Time Smoking Status: Never smoker Do You Dip or Chew Tobacco: No Second Hand Exposure: No Tobacco Cessation Education Requested by Patient: No Hx Alcohol Use: Yes Alcohol type: wine Alcohol Intake Frequency: 0-2 drinks per day Hx Substance Use: No Beliefs That Will Affect Care: None Preferred Language: Estonian Communication Ability: Effective Senior Research Executive Required: No Review of Systems Constitutional: + fatigue and + weakness (generalized); no fever, no chills and no sweats Eyes: no diplopia and no worsening vision Ear, Nose, Mouth, Throat: + hoarseness (chronic vocal changes d/t myositis); no dizziness, no nasal discharge, no facial pain and no sore throat Respiratory: + cough and + dyspnea (at rest); no hemoptysis, no pain on inspiration, no sputum production and no wheezing Cardiovascular: no chest pain, no palpitations, no lightheadedness and no syncope Gastrointestinal: + nausea; no vomiting, no constipation and no diarrhea/loose stools + poor appetite Genitourinary (Female): no dysuria, no urinary frequency and no urinary incontinence Musculoskeletal: no back pain, no joint pain, no swelling and no muscle weakness Integumentary: no rash, no lesions and no wounds Neurologic: no gait abnormality, no falls, no numbness, no dizziness and no syncope Psychiatric: no depression and no anxiety Endocrine: no fatigue Physical Exam 2 Vital Signs (Past 24 Hours): Last Vital Signs Temp 36.6 C 03/27/18 10:30 Pulse 84 03/27/18 12:29 Resp 18 03/27/18 12:29 BP 129/62 03/27/18 12:29 Pulse Ox 97 03/27/18 12:29 Physical Exam: General: awake, alert, no apparent distress, + thin Head: Normocephalic, atraumatic ENT: PERRL, EOMI, no pharyngeal exudate, mucous membranes moist, + hoarse voice Chest: Clear to auscultation, on room air, no adventitious breath sounds Cardiac: Regular rate and rhythm, no murmur, no JVD, normal peripheral pulses, good capillary refill Abdominal: NABS x 4 quadrants, soft, nontender to palpation, no rebound, guarding or tenderness Extremities: Normal inspection, no peripheral edema or erythema, calfs nontender to palpation Psych: Normal mood and affect Neuro: AAO x 3, strength intact bilaterally and related 5/5, no motor deficits, speech is clear, no peripheral sensory deficits Results & Data Diagnostic Findings XR chest 1V portable CLINICAL HISTORY: 72 years-old Female presenting with sob. TECHNIQUE: Portable upright AP view of the chest was obtained. COMPARISON: 07/11/[address] from 06/02/2017. FINDINGS: Atherosclerosis of the aortic arch. Cardiac silhouette normal in size. Hyperinflated lungs. Heterogeneous lung parenchyma. Pleural parenchymal scarring at the apices. No focal opacity. No large effusion or pneumothorax. Osteopenia may be present. Upper abdomen normal. IMPRESSION: 1. Hyperinflation could suggest underlying emphysema or obstructive airways disease. No focal infiltrate to suggest pneumonia. ECG Additional Comments: 27-MAR-2018 11:00:32 [facility] Normal sinus rhythm Biatrial enlargement Nonspecific ST and T wave abnormality Prolonged QT Abnormal ECG When compared with ECG of 11-JUL-2017 19:46, ST now depressed in Anterior leads MA interval 166 ms QRS duration 76 ms QT/QTc 432/510 ms P-R-T axes 81 51 66 Code Status & VTE Plan Code Status Full Code Supervising Physician Co-Signing Physician Notes Attending note: patient seen and examined with Diana Walker PA-C. I agree with her HPI, history, exam, ROS and A/P. I personally reviewed the labs and imaging findings. Patient mainly complaining about sinus congestion and pain. Describes a sinus headache that she experienced years ago. At that time she needed to see Dr. Mccarthy. She questions when she will get antibiotics. She is concerned about getting Prednisone 40mg because it will take her forever to taper down. - Acute sinusitis: headache, severe pain and pressure, congestion treat with Unasyn and can transition to Augmentin as tolerated post nasal drip causing a cough no fever/chills patient would like to see Dr. Mccarthy as outpatient, this could be arranged - Generalized ill feeling, fatigue likely difficult time dealing with acute infection due to chronic Prednisone use at 12.5mg she is concerned about getting a dose of 40mg, she says it will take her forever to taper down - Rheumatoid arthritis, myositis: currently in between rheumatologists she is trying to get established again here in [place]
[2018-03-27] MEDS ORDERED: ACETAMINOPHEN 325 MG TAB PO PRN (14:45)
[2018-03-27] MEDS ORDERED: DEXTROMETHORPHAN GUAIFENESIN PO SCH (14:45)
[2018-03-27] MEDS ORDERED: ONDANSETRON INJ 2 MG/ML 2 ML VIAL IV PRN (14:45)
[2018-03-27] MEDS: ALBUT/IPRATROP 3MG/0.5MG NEB 3 ML VIAL NEB SCH ×3 (15:59→23:15)
[2018-03-27] MEDS: BENZONATATE 100 MG CAPSULE PO SCH ×2 (16:17→20:24)
[2018-03-27] MEDS: ENOXAPARIN INJ 40 MG/0.4 ML SYR SQ SCH (16:18)
[2018-03-27] MEDS: predniSONE 20 MG TAB PO SCH (16:21)
--- NOTE | 2018-03-27 18:02 | Emergency Department Note ---
Entered by Myrtle Hoffman acting as a scribe for History of Present Illness General Chief complaint: Shortness of Breath/Dyspnea Stated complaint: FLU SYMPTOMS,TROUBLE BREATHING Time Seen by Provider: 03/27/18 10:40 Source: patient History of Present Illness Onset (ago): day(s) 2 Location: chest Pain Consistency: + other (worsening) Maximum Pain Intensity: 4 Quality: + other (shortness of breath) Associated symptoms: + denies other symptoms (diarrhea), + cough, + fever/ chills and + other (sore throat, something hanging in her throat); no nausea/ vomiting (vomiting) The patient is a 72 year old female who presents to the Emergency Room with complaints of worsening shortness of breath starting 2 days ago. The patient states that she didn�t feel well two days ago. She states that yesterday was much worse. She states that she became short of breath even just sitting still. She reports that she has had a nonproductive cough, low grade fevers, chills, and a sore throat. She states that it feels like something is hanging in her throat. She notes that she does have an albuterol inhaler, but did not try using it. The patient states that today she went to the [facility] office to get checked out, but they sent her over here because her Oxygen saturations were in the 80s. The patient notes that she is on chronic Prednisone for her arthritis and notes that she did get a flu shot this year. The patient denies vomiting, diarrhea, being around anyone with similar symptoms, and using Oxygen at home. Home Medications Home Medications Medication Instructions Recorded Confirmed Type albuterol sulfate [ProAir HFA] 2 - 4 puff INHALATION Q6H PRN 03/27/18 03/27/18 History calcium carbonate [Calcium 500] 500 mg PO QAM 03/27/18 03/27/18 History cholecalciferol (vitamin D3) 1,000 unit PO QAM 03/27/18 03/27/18 History [Vitamin D3] dextromethorphan-guaifenesin 1 tab PO Q12H 03/27/18 03/27/18 History [Mucinex DM] lisinopril 10 mg PO QAM 03/27/18 03/27/18 History magnesium oxide 400 mg PO HS 03/27/18 03/27/18 History omega 2-byh-kas-fish oil [Fish Oil] 1 cap PO QAM 03/27/18 03/27/18 History prednisone 2.5 mg PO QAM 03/27/18 03/27/18 History prednisone 10 mg PO QAM 03/27/18 03/27/18 History ranitidine HCl 75 mg PO QAM 03/27/18 03/27/18 History Allergies Allergy/AdvReac Type Severity Reaction Status Date / Time alendronate sodium Allergy Intermediate CHILLS,FEVER, Verified 03/27/18 12:35 TEETH GOT LOOSE aspirin Allergy Mild ITCHING Verified 03/27/18 12:35 UNDER SKIN oxycodone AdvReac Intermediate N/V Verified 03/27/18 12:35 orange AdvReac Unknown FEELS LIKE Verified 03/27/18 12:35 HAS A COLD AFTER DRINKING ORANGE JUICE Past Med/Surg History Medical History Osteoporosis Long-term current use of steroids Non-Hodgkin lymphoma Necrotizing myopathy Emphysema with chronic bronchitis Acute respiratory failure with hypoxia Rheumatoid arthritis (Acute) Raynaud disease (Acute) Hypertension (Acute) GERD (gastroesophageal reflux disease) (Acute) Fibromyalgia (Acute) Acute bronchitis Bruised ribs (Acute) Contusion of multiple sites (Acute) Diffuse large B cell lymphoma (Resolved) Failure of outpatient treatment Fall (Acute) Fracture of triquetrum of right wrist, closed (Acute) Headache (Acute) Left sided chest pain (Acute) Multiple contusions (Acute) Shoulder contusion (Acute) Sinusitis (Acute) Triquetral fracture (Acute) Family History Other Family history non-contributory Social History marital status: Current Living Situation: Spouse current occupational status: retired Other Information That Helps Us Care for You: No Feels Safe at Home: Yes Safety Concerns: Feels Safe At This Time Smoking Status: Never smoker Do You Dip or Chew Tobacco: No Second Hand Exposure: No Tobacco Cessation Education Requested by Patient: No Hx Alcohol Use: Yes Alcohol type: wine Alcohol Intake Frequency: 0-2 drinks per day Hx Substance Use: No Beliefs That Will Affect Care: None Preferred Language: Liberian Communication Ability: Effective Maintenance Carpenter Required: No Review of Systems See HPI for pertinent positives & negatives. and A total of 10 systems reviewed and were otherwise negative Physical Exam Vital Signs Vital Signs - 24 hr 03/27/18 10:30 03/27/18 10:44 03/27/18 12:29 Temperature 36.6 C Temperature Source Oral Sepsis Recent Fever Within 48 Hours No Sepsis Action Taken by Nursing No Action Required Pulse Rate 85 84 Pulse Rate [Apical] 84 Pulse Rate [Left Finger] Pulse Rhythm Regular Pulse Strength Normal Respiratory Rate 20 18 Respiratory Effort / Characteristics Non-Labored Spontaneous Non-Labored Respiratory Depth Normal Respiratory Pattern Regular Blood Pressure 110/69 Blood Pressure [Left Arm] 129/62 Blood Pressure Mean 82 Blood Pressure Mean [Left Arm] 84 Pulse Oximetry 96 97 Oxygen Delivery Method Room Air Room Air Room Air 03/27/18 13:49 03/27/18 14:23 03/27/18 15:04 Temperature 36.6 C Temperature Source Oral Sepsis Recent Fever Within 48 Hours Sepsis Action Taken by Nursing Pulse Rate 88 Pulse Rate [Apical] 85 Pulse Rate [Left Finger] Pulse Rhythm Pulse Strength Respiratory Rate 18 18 Respiratory Effort / Characteristics Non-Labored Spontaneous Respiratory Depth Normal Respiratory Pattern Regular Blood Pressure 112/78 Blood Pressure [Left Arm] 95/51 L Blood Pressure Mean Blood Pressure Mean [Left Arm] 65 Pulse Oximetry 96 100 Oxygen Delivery Method Room Air Room Air 03/27/18 16:00 03/27/18 16:01 Temperature Temperature Source Sepsis Recent Fever Within 48 Hours Sepsis Action Taken by Nursing Pulse Rate Pulse Rate [Apical] Pulse Rate [Left Finger] 72 Pulse Rhythm Pulse Strength Respiratory Rate 18 Respiratory Effort / Characteristics Non-Labored Non-Labored Spontaneous Respiratory Depth Normal Respiratory Pattern Regular Blood Pressure Blood Pressure [Left Arm] Blood Pressure Mean Blood Pressure Mean [Left Arm] Pulse Oximetry 91 Oxygen Delivery Method Room Air Room Air GENERAL: Patient is in no acute distress. HEENT: No acute trauma, normocephalic atraumatic, mucous membranes moist, no throat erythema or exudate, mild nasal congestion, no scleral icterus. NECK: No stridor, no adenopathy, no meningismus, trachea is midline. LUNGS: Diminished breath sounds with wheezes and a few crackles bilaterally. No respiratory distress. Equal breath sounds. HEART: Without murmurs gallops or rubs, regular rate and rhythm. ABDOMEN: Soft, nontender, bowel sounds positive, no hernias, no peritonitis. EXTREMITIES: No cyanosis or edema, full range of motion of all the joints without pain or difficulty, no signs for acute trauma. NEUROLOGIC: Oriented x 3, no acute motor or sensory deficits, no focal weakness. SKIN: No rash, no jaundice, no diaphoresis. Course 1042: Past medical records reviewed. The patient was evaluated in room A12A, and a complete history and physical examination were performed. 1332: I reevaluated the patient and she is still feeling winded. I updated her on her test results and the treatment plan. She verbally agrees and understands. 1335: I paged the hospitalist at this time. 1337: I reviewed the patient's case with Dr. Marcella INGRAM Hospitalist. He will evaluate the patient for further management. Consultations Consultation #1: I reviewed the patient's case with Dr. Marcella INGRAM Hospitalist. He will evaluate the patient for further management. Time: 13:37 Administered Medications Albuterol (Duoneb) 3 ml NEB Q4R SERGIO Stop: 04/26/18 15:59 Last Admin: 03/27/18 15:59 Dose: 3 ml Benzonatate (Tessalon Perle) 100 mg PO TID SERGIO Stop: 04/26/18 14:44 Last Admin: 03/27/18 16:17 Dose: 100 mg Enoxaparin Sodium (Lovenox) 40 mg SQ Q24H SERGIO Stop: 04/26/18 14:59 Last Admin: 03/27/18 16:18 Dose: Not Given Prednisone (Prednisone) 40 mg PO DAILY SERGIO Stop: 04/26/18 14:49 Last Admin: 03/27/18 16:21 Dose: 40 mg Discontinued Medications Albuterol (Duoneb) 3 ml INH NOW STA Stop: 03/27/18 10:48 Last Admin: 03/27/18 11:10 Dose: 3 ml Hydrocortisone Sodium Succinate (Solu-Cortef) 100 mg IV NOW STA Stop: 03/27/18 10:48 Last Admin: 03/27/18 11:10 Dose: 100 mg Medical Decision Making Differential Diagnosis Differential diagnoses include influenza or flu-like illness, immunocompromise, pneumonia, anemia, dehydration, electrolyte imbalance, cardiac ischemia. Medical Records Attestation: I reviewed the patient's medical records. Home Medications Current Medication List: was personally reviewed by me Laboratory Data Attestation: I reviewed the patient's lab results. Result diagrams: 03/27/18 11:11 03/27/18 11:11 Lab Results 03/27/18 03/27/18 03/27/18 Range/Units 11:11 11:11 11:11 WBC 12.63 H (4.8-10.8) K/uL RBC 4.97 (4.2-5.4) M/uL Hgb 15.5 (12.0-16.0) g/dL Hct 47.2 H (37-47) % MCV 95.0 (80-100) fL MCH 31.2 (25-34) pg MCHC 32.8 (32-36) g/dL RDW Std Deviation 42.7 (36.4-46.3) fL RDW Coeff of Navi 12.4 (11.5-14.5) % Plt Count 183 (130-400) K/uL MPV 10.9 H (7.4-10.4) fL Immature Gran % (Auto) 0.2 % Neut % (Auto) 83.9 % Lymph % (Auto) 6.8 % [place] % (Auto) 8.8 % Eos % (Auto) 0.2 % Baso % (Auto) 0.1 % Immature Gran # (Auto) 0.03 H (0.00-0.02) K/uL Neut # (Auto) 10.60 H (1.4-6.5) K/uL Lymph # (Auto) 0.86 L (1.2-3.4) K/uL [place] # (Auto) 1.11 H (0.11-0.59) K/uL Eos # (Auto) 0.02 (0-0.5) K/uL Baso # (Auto) 0.01 (0-0.2) K/uL PT 10.6 (9.0-12.0) Seconds INR 1.1 (0.9-1.1) APTT 26.1 (21.0-31.0) Seconds PTT Ratio 1.0 Sodium (136-145) mmol/L Potassium (3.5-5.1) mmol/L Chloride (98-107) mmol/L Carbon Dioxide (21-32) mmol/L Anion Gap (3-11) BUN (7-18) mg/dl Creatinine (0.6-1.2) mg/dl Est Cr Clr Drug Dosing ml/min Est GFR ( Amer) Est GFR (Non-Af Amer) BUN/Creatinine Ratio (10-20) Glucose (70-99) mg/dl Calcium (8.5-10.1) mg/dl Magnesium 2.3 (1.8-2.4) mg/dl Total Bilirubin (0.2-1) mg/dl AST (15-37) U/L ALT (12-78) U/L Alkaline Phosphatase (45-117) U/L Troponin I (0-0.045) ng/ml Total Protein (6.4-8.2) gm/dl Albumin (3.4-5.0) gm/dl Globulin (2.5-4.0) gm/dl Albumin/Globulin Ratio (0.9-2) Influenza Type A (PCR) (Neg) Influenza Type B (PCR) (Neg) 03/27/18 03/27/18 Range/Units 11:11 12:27 WBC (4.8-10.8) K/uL RBC (4.2-5.4) M/uL Hgb (12.0-16.0) g/dL Hct (37-47) % MCV (80-100) fL MCH (25-34) pg MCHC (32-36) g/dL RDW Std Deviation (36.4-46.3) fL RDW Coeff of Navi (11.5-14.5) % Plt Count (130-400) K/uL MPV (7.4-10.4) fL Immature Gran % (Auto) % Neut % (Auto) % Lymph % (Auto) % [place] % (Auto) % Eos % (Auto) % Baso % (Auto) % Immature Gran # (Auto) (0.00-0.02) K/uL Neut # (Auto) (1.4-6.5) K/uL Lymph # (Auto) (1.2-3.4) K/uL [place] # (Auto) (0.11-0.59) K/uL Eos # (Auto) (0-0.5) K/uL Baso # (Auto) (0-0.2) K/uL PT (9.0-12.0) Seconds INR (0.9-1.1) APTT (21.0-31.0) Seconds PTT Ratio Sodium 136 (136-145) mmol/L Potassium 3.4 L (3.5-5.1) mmol/L Chloride 100 (98-107) mmol/L Carbon Dioxide 27 (21-32) mmol/L Anion Gap 10.0 (3-11) BUN 33 H (7-18) mg/dl Creatinine 1.10 (0.6-1.2) mg/dl Est Cr Clr Drug Dosing 45.2 ml/min Est GFR ( Amer) 58.1 Est GFR (Non-Af Amer) 50.1 BUN/Creatinine Ratio 30.4 H (10-20) Glucose 95 (70-99) mg/dl Calcium 9.1 (8.5-10.1) mg/dl Magnesium (1.8-2.4) mg/dl Total Bilirubin 0.5 (0.2-1) mg/dl AST 12 L (15-37) U/L ALT 15 (12-78) U/L Alkaline Phosphatase 65 (45-117) U/L Troponin I < 0.015 (0-0.045) ng/ml Total Protein 7.5 (6.4-8.2) gm/dl Albumin 3.9 (3.4-5.0) gm/dl Globulin 3.6 (2.5-4.0) gm/dl Albumin/Globulin Ratio 1.1 (0.9-2) Influenza Type A (PCR) Neg for Influ A (Neg) Influenza Type B (PCR) Neg for Influ B (Neg) Imaging Data Radiologist's Impression: Radiology results as stated below per my review and the radiologist's interpretation: XR chest 1V portable CLINICAL HISTORY: 72 years-old Female presenting with sob. TECHNIQUE: Portable upright AP view of the chest was obtained. COMPARISON: 07/11/[address] from 06/02/2017. FINDINGS: Atherosclerosis of the aortic arch. Cardiac silhouette normal in size. Hyperinflated lungs. Heterogeneous lung parenchyma. Pleural parenchymal scarring at the apices. No focal opacity. No large effusion or pneumothorax. Osteopenia may be present. Upper abdomen normal. IMPRESSION: 1. Hyperinflation could suggest underlying emphysema or obstructive airways disease. No focal infiltrate to suggest pneumonia. Electronically signed by: Joseph Lara M.D. 03/27/2018 11:35 AM ECG Data Attestation: I personally reviewed and interpreted this ECG as follows: Indication: SOB/dyspnea Rate (beats per minute): 84 Rhythm: normal sinus Findings: + other (biatrial enlargement, artifact noted); no ST elevation Blood Pressure Blood Pressure Findings: Normal blood pressure Blood Pressure Disposition: did not require urgent referral MDM Narrative There is a mild leukocytosis which could be consistent with infection. No worrisome anemia. No significant electrolyte abnormality, kidney failure or hepatitis. There was no coagulopathy. EKG shows a sinus rhythm, no acute ischemia. Cardiac enzyme testing x1 is not consistent with acute cardiac injury. Influenza testing was negative. Chest x-ray did not show pneumonia or CHF. The patient presents with increasing dyspnea. She was hypoxic in the outpatient office. She seemed in respiratory distress in the outpatient office. The patient received a DuoNeb. She received IV hydrocortisone as stress dose steroids. The patient has a flulike illness and bronchitis. She is immunocompromised. She has not been doing well at home and there was serious concern in the outpatient office about her ability to be discharged. I discussed her case with case management and the on-call hospitalist. The patient is aware of all her findings. Hospitalization was felt warranted. Impression & Plan Hypoxia, Acute bronchitis, Shortness of breath, Flu-like symptoms Discharge Plan Visit Data *Final* Discharge Date/Time: 03/27/18 14:23 Chief Complaint: Shortness of Breath/Dyspnea Stated Complaint: FLU SYMPTOMS,TROUBLE BREATHING ED Provider: Ghassan Maddox Discharge Problem: Hypoxia, Acute bronchitis, Shortness of breath, Flu-like symptoms Patient Disposition: Admitted As Inpatient Discharge Instructions Interventions: ED Discharge Assessment Last Done: 03/27/18 14:23 The liudmila's documentation has been prepared under my direction and personally reviewed by me in its entirety. I confirm that the note above accurately reflects all work, treatment, procedures, and medical decision making performed by me.
[2018-03-27] MEDS: guaiFENesin 600 MG TABCR PO SCH (20:24)
[2018-03-27] MEDS: MAGNESIUM OXIDE 400 MG TAB PO SCH (20:24)
[2018-03-27] MEDS: AMPICILLIN/SULBACTAM SOD 3,000 MG in 0.9 % SODIUM CHLORIDE 100 ML IV SCH (20:39)
[2018-03-28] MEDS: AMPICILLIN/SULBACTAM SOD 3,000 MG in 0.9 % SODIUM CHLORIDE 100 ML IV SCH ×2 (02:58→08:35)
[2018-03-28] MEDS: ALBUT/IPRATROP 3MG/0.5MG NEB 3 ML VIAL NEB SCH ×6 (03:24→22:56)
[2018-03-28 06:52] LABS: Hematocrit (blood only) 40.1 % (37-47); Hemoglobin 13.5 g/dL (12.0-16.0); Mean Corpuscular Hgb Conc 33.7 g/dL (32-36); Mean Corpuscular Volume 92.2 fL (80-100); Mean Platelet Volume 10.5 fL (7.4-10.4); Platelet Count 170 K/uL (130-400); RDW Coefficient of Variation 12.1 % (11.5-14.5); RDW Standard Deviation 41.1 fL (36.4-46.3); Red Blood Count 4.35 M/uL (4.2-5.4); White Blood Count 7.08 K/uL (4.8-10.8)
[2018-03-28 07:27] LABS: BUN Creatinine Ratio 27.2 (10-20); Calcium 8.4 mg/dl (8.5-10.1); Creatinine Clr Calc Pharmacy 49.3 ml/min; Est GFR (African American) 64.4; Est GFR (Non-African American) 55.6; Potassium 3.3 mmol/L (3.5-5.1)
[2018-03-28 07:35] LABS: Bilirubin,Total 0.3 mg/dl (0.2-1)
[2018-03-28] MEDS: BENZONATATE 100 MG CAPSULE PO SCH ×3 (08:21→20:37)
[2018-03-28] MEDS: CALCIUM CARBONATE 500 MG CHEWABLE TAB PO SCH (08:22)
[2018-03-28] MEDS: predniSONE 20 MG TAB PO SCH (08:22)
[2018-03-28] MEDS: CHOLECALCIFEROL 1,000 UNITS TAB PO SCH (08:22)
[2018-03-28] MEDS: LISINOPRIL 10 MG TAB PO SCH (08:23)
[2018-03-28] MEDS: OMEGA-3 (PURIFIED FISH OIL) 1 GM CAP PO SCH (08:24)
[2018-03-28] MEDS: guaiFENesin 600 MG TABCR PO SCH ×2 (08:24→20:38)
[2018-03-28] MEDS ORDERED: POTASSIUM CHLORIDE 10 MEQ TABCR PO ONE (09:10)
--- NOTE | 2018-03-28 09:13 | Family Medicine Progress Note ---
Date of Service March 28, 2018 Assessment & Plan (1) Acute respiratory failure with hypoxia: 72-year-old female was admitted on 27 March 2018 for 2 days of shortness of breath and feeling ill. Acute hypoxic respiratory failure, sinusitis: By report, SpO2 was 88% and had difficulty speaking in full sentences at PCP�s office. In ED, pCXR noted hyperinflation without focal infiltrate. Influenza negative. Patient primarily complains of sinus and flulike symptoms. 18Feb BCx and sputum Cx sent. 18Feb started on Unasyn. Also on scheduled duo nebs as well as prednisone 40 mg daily. This morning is afebrile and leukocytosis has resolved. - Treat the acute sinusitis with Augmentin. - We will keep her on her prednisone 40 mg for a planned 5-day course. - Will need rheumatology follow-up on discharge. Patient says she already has an albuterol MDI at home. Emphysema and exacerbation of chronic bronchitis: Follows with Zain Kelly as an outpatient. See above discussion regarding sinusitis that likely exacerbated her breathing. - Added Spiriva as an anticholinergic. Prolonged QTc: EKG notes NSR 84, QTc 510. We will try to avoid QT prolonging medications. Hypokalemia: Mild at K 3.3, replaced, monitoring. Ongoing medical issues: - Rheumatoid arthritis: Chronically takes prednisone 12.5 mg daily. - Raynaud disease: Stable. 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 Per biopsy Geno around 2018. - GERD: On ranitidine. - Hypertension: On lisinopril. - Non-Hodgkin's lymphoma: Stable. Patient underwent rituximab treatment and completed chemotherapy in 2006. - Osteoporosis: Steroid-induced. On vitamin D and calcium. - Fibromyalgia. Code status: Full code. Diet: Heart healthy. DVT prophy: Lovenox. PT/OT: Ordered. Disbo: Admit to [facility]. At baseline, patient lives at home with her and daughter. Goal for home tomorrow. (2) Sinusitis: (3) Emphysema with chronic bronchitis: (4) Prolonged QT interval: (5) Rheumatoid arthritis: (6) Raynaud disease: (7) Necrotizing myopathy: (8) GERD (gastroesophageal reflux disease): (9) Hypertension: (10) Non-Hodgkin lymphoma: (11) Osteoporosis: (12) Hypokalemia: Supervising Physician Co-Signing Physician Notes I personally examined the patient and verified all north points of history and exam, discussed case, and agree with decision making with Dr Albert Breathing is feeling better. Still not back to baseline. She has a lot of sinus congestion. Vitals noted, in general she is awake and alert no distress. HEENT normocephalic atraumatic mucous membranes are moist. Skin shows no rashes no pallor or icterus. Breathing is diminished air entry bilaterally no rales rhonchi or wheezes at my exam, although Dr. Albert had noted wheezing earlier. Sinusitis�this appears to be the provoking factor for COPD exacerbation� Augmentin COPD exacerbation�steroids and pulmonary toilet, supportive care. Hypoxia�related to above, this appears to be improving Chronic steroid use�she expressed concern about the last time she was on steroids. I discussed a plan to treat her breathing, but try to wean her off the steroids fairly quickly, with close follow-up afterwards. She expressed appreciation of this plan. DVT prophylaxis�Lovenox Subjective Found patient resting comfortably in bed. He says that her breathing is improved but is not yet back to her baseline. She thinks the majority of her problems are her sinuses. She says she has ongoing postnasal drip, both sides of her sinuses feel congested, and that she does not have much anterior nasal discharge. She also says her right ear feels itchy. Her primary concern is that she received a large dose of steroids and then will be very hard for her to taper back down to her baseline. Her other concern is that she has a bit more difficulty doing normal activities. She says that she seems more fatigued overall. Her daughter recently moved back in with her to assist. Otherwise she has no particular acute concerns. Physical Exam 2 Vital Signs (Past 24 Hours): Last Vital Signs Temp 36.5 C 03/28/18 07:52 Pulse 83 03/28/18 07:52 Resp 18 03/28/18 07:52 BP 119/66 03/28/18 07:52 Pulse Ox 99 03/28/18 07:52 Physical Exam: General Appearance: Awake, alert & oriented, comfortable in general, NAD. Has a baseline hoarse voice and occasional congested cough. CV: +S1S2 RRR, no murmur. Pulm: Diffuse mild to moderate wheezing throughout. Abdomen: +BS, soft, non-tender, non-distended. Extremities: No pedal edema or calf tenderness. Moving all extremities naturally and easily. Neuro: No gross neuro deficits. Results & Data Laboratory Results Laboratory Results WBC 7.08 K/uL (4.8-10.8) 03/28/18 06:29 RBC 4.35 M/uL (4.2-5.4) 03/28/18 06:29 Hgb 13.5 g/dL (12.0-16.0) 03/28/18 06:29 Hct 40.1 % (37-47) 03/28/18 06:29 MCV 92.2 fL (80-100) 03/28/18 06:29 MCH 31.0 pg (25-34) 03/28/18 06:29 MCHC 33.7 g/dL (32-36) 03/28/18 06:29 RDW Std Deviation 41.1 fL (36.4-46.3) 03/28/18 06:29 RDW Coeff of Navi 12.1 % (11.5-14.5) 03/28/18 06:29 Plt Count 170 K/uL (130-400) 03/28/18 06:29 MPV 10.5 fL (7.4-10.4) H 03/28/18 06:29 Immature Gran % (Auto) 0.2 % 03/27/18 11:11 Neut % (Auto) 83.9 % 03/27/18 11:11 Lymph % (Auto) 6.8 % 03/27/18 11:11 [place] % (Auto) 8.8 % 03/27/18 11:11 Eos % (Auto) 0.2 % 03/27/18 11:11 Baso % (Auto) 0.1 % 03/27/18 11:11 Immature Gran # (Auto) 0.03 K/uL (0.00-0.02) H 03/27/18 11:11 Neut # (Auto) 10.60 K/uL (1.4-6.5) H 03/27/18 11:11 Lymph # (Auto) 0.86 K/uL (1.2-3.4) L 03/27/18 11:11 [place] # (Auto) 1.11 K/uL (0.11-0.59) H 03/27/18 11:11 Eos # (Auto) 0.02 K/uL (0-0.5) 03/27/18 11:11 Baso # (Auto) 0.01 K/uL (0-0.2) 03/27/18 11:11 PT 10.6 Seconds (9.0-12.0) 03/27/18 11:11 INR 1.1 (0.9-1.1) 03/27/18 11:11 APTT 26.1 Seconds (21.0-31.0) 03/27/18 11:11 PTT Ratio 1.0 03/27/18 11:11 Sodium 136 mmol/L (136-145) 03/28/18 06:29 Potassium 3.3 mmol/L (3.5-5.1) L 03/28/18 06:29 Chloride 102 mmol/L (98-107) 03/28/18 06:29 Carbon Dioxide 27 mmol/L (21-32) 03/28/18 06:29 Anion Gap 7.0 (3-11) 03/28/18 06:29 BUN 27 mg/dl (7-18) H 03/28/18 06:29 Creatinine 1.01 mg/dl (0.6-1.2) 03/28/18 06:29 Est Cr Clr Drug Dosing 49.3 ml/min 03/28/18 06:29 Est GFR ( Amer) 64.4 03/28/18 06:29 Est GFR (Non-Af Amer) 55.6 03/28/18 06:29 BUN/Creatinine Ratio 27.2 (10-20) H 03/28/18 06:29 Glucose 115 mg/dl (70-99) H 03/28/18 06:29 Calcium 8.4 mg/dl (8.5-10.1) L 03/28/18 06:29 Magnesium 2.3 mg/dl (1.8-2.4) 03/27/18 11:11 Total Bilirubin 0.3 mg/dl (0.2-1) 03/28/18 06:29 AST 9 U/L (15-37) L 03/28/18 06:29 ALT 12 U/L (12-78) 03/28/18 06:29 Alkaline Phosphatase 49 U/L (45-117) 03/28/18 06:29 Troponin I < 0.015 ng/ml (0-0.045) 03/27/18 11:11 Total Protein 6.0 gm/dl (6.4-8.2) L 03/28/18 06:29 Albumin 3.0 gm/dl (3.4-5.0) L 03/28/18 06:29 Globulin 3.0 gm/dl (2.5-4.0) 03/28/18 06:29 Albumin/Globulin Ratio 1.0 (0.9-2) 03/28/18 06:29 Influenza Type A (PCR) Neg for Influ A (Neg) 03/27/18 12:27 Influenza Type B (PCR) Neg for Influ B (Neg) 03/27/18 12:27 Medications Administered Current Inpatient Medications Acetaminophen (Tylenol) 650 mg PO Q4H PRN PRN Reason: Moderate Pain Stop: 04/26/18 14:44 Albuterol (Duoneb) 3 ml NEB Q4R SERGIO Stop: 04/26/18 15:59 Last Admin: 03/28/18 07:11 Dose: 3 ml Benzonatate (Tessalon Perle) 100 mg PO TID SERGIO Stop: 04/26/18 14:44 Last Admin: 03/28/18 08:21 Dose: 100 mg Calcium Carbonate (Tums) 500 mg PO QAM [facility] Stop: 04/27/18 08:59 Last Admin: 03/28/18 08:22 Dose: 500 mg Enoxaparin Sodium (Lovenox) 40 mg SQ Q24H SERGIO Stop: 04/26/18 14:59 Last Admin: 03/27/18 16:18 Dose: Not Given Fish Oil ([place]-3 (Purified Fish Oil)) 1 gm PO QAM SERGIO Stop: 04/27/18 08:59 Last Admin: 03/28/18 08:24 Dose: 1 gm Guaifenesin (Mucinex) 1,200 mg PO Q12 SERGIO Stop: 04/26/18 20:59 Last Admin: 03/28/18 08:24 Dose: 1,200 mg Ampicillin Sodium/Sulbactam Sodium 3,000 mg/ Sodium Chloride 108 mls @ 200 mls/ hr IV Q6H SERGIO Stop: 04/06/18 20:29 Last Admin: 03/28/18 08:35 Dose: 200 mls/hr Lisinopril (Zestril) 10 mg PO QAM [facility] Stop: 04/27/18 08:59 Last Admin: 03/28/18 08:23 Dose: 10 mg Magnesium Oxide (Mag-Ox) 400 mg PO HS [facility] Stop: 04/26/18 20:59 Last Admin: 03/27/18 20:24 Dose: 400 mg Ondansetron HCl (Zofran) 4 mg IV Q4H PRN PRN Reason: Nausea And Vomiting Stop: 04/26/18 14:44 Potassium Chloride (Klor-Con M10) 40 meq PO NOW ONE Stop: 03/28/18 09:11 Prednisone (Prednisone) 40 mg PO DAILY [facility] Stop: 04/26/18 14:49 Last Admin: 03/28/18 08:22 Dose: 40 mg Ranitidine HCl (Zantac) [facility] [place] Stop: 04/27/18 08:59 Last Admin: 03/28/18 08:23 Dose: 75 mg Vitamin D (Vitamin D3) 1,000 units [facility] [place] Stop: 04/27/18 08:59 Last Admin: 03/28/18 08:22 Dose: 1,000 units Resident Activity Tracking Resident Involvement: Resident Care Provided Care Provided: Adult Hospital Medicine
[2018-03-28] MEDS: DOCUSATE SODIUM 100 MG CAP PO SCH ×2 (11:16→20:37)
[2018-03-28] MEDS: TIOTROPIUM BROMIDE 5 PUFF/90 MCG INH INH SCH (13:12)
[2018-03-28] MEDS: ENOXAPARIN INJ 40 MG/0.4 ML SYR SQ SCH (14:08)
[2018-03-28] MEDS: MAGNESIUM OXIDE 400 MG TAB PO SCH (17:48)
[2018-03-28] MEDS: AMOXICILLIN/CLAVULANATE 875 MG TAB PO SCH (17:48)
[2018-03-29] MEDS: ALBUT/IPRATROP 3MG/0.5MG NEB 3 ML VIAL NEB SCH ×2 (03:49→07:12)
[2018-03-29 06:11] LABS: Hematocrit (blood only) 35.5 % (37-47); Hemoglobin 11.8 g/dL (12.0-16.0); Mean Corpuscular Hgb Conc 33.2 g/dL (32-36); Mean Corpuscular Volume 93.7 fL (80-100); Mean Platelet Volume 10.6 fL (7.4-10.4); Platelet Count 167 K/uL (130-400); RDW Coefficient of Variation 12.2 % (11.5-14.5); RDW Standard Deviation 41.3 fL (36.4-46.3); Red Blood Count 3.79 M/uL (4.2-5.4); White Blood Count 10.01 K/uL (4.8-10.8)
[2018-03-29 06:50] LABS: Albumin Level 2.7 gm/dl (3.4-5.0); BUN Creatinine Ratio 34.6 (10-20); Calcium 8.1 mg/dl (8.5-10.1); Creatinine Clr Calc Pharmacy 48.8 ml/min; Est GFR (African American) 63.6; Est GFR (Non-African American) 54.9; Potassium 3.9 mmol/L (3.5-5.1)
[2018-03-29 06:51] LABS: Bilirubin,Total 0.2 mg/dl (0.2-1); Globulin 2.7 gm/dl (2.5-4.0); Total Protein 5.4 gm/dl (6.4-8.2)
[2018-03-29] MEDS: AMOXICILLIN/CLAVULANATE 875 MG TAB PO SCH (08:20)
[2018-03-29] MEDS: OMEGA-3 (PURIFIED FISH OIL) 1 GM CAP PO SCH (08:21)
[2018-03-29] MEDS: predniSONE 20 MG TAB PO SCH (08:21)
[2018-03-29] MEDS: guaiFENesin 600 MG TABCR PO SCH (08:21)
[2018-03-29] MEDS: TIOTROPIUM BROMIDE 5 PUFF/90 MCG INH INH SCH (08:21)
[2018-03-29] MEDS: DOCUSATE SODIUM 100 MG CAP PO SCH (08:21)
[2018-03-29] MEDS: BENZONATATE 100 MG CAPSULE PO SCH (08:22)
[2018-03-29] MEDS: CALCIUM CARBONATE 500 MG CHEWABLE TAB PO SCH (08:22)
[2018-03-29] MEDS: CHOLECALCIFEROL 1,000 UNITS TAB PO SCH (08:22)
[2018-03-29] MEDS: LISINOPRIL 10 MG TAB PO SCH (08:24)
--- NOTE | 2018-03-29 09:25 | Discharge Summary ---
Date of Service March 29, 2018 Admission HPI Per Admitting Provider This is a 72 yo F with PMHx of Non-Hdogkin's lymphoma s/p Rituximab tx, rheumatoid arthritis, steroid induced osteoporosis, vitamin D deficiency, myositis and chronic connective tissue disease, chronic autoimmunity, chronic prednisone therapy, HTN, GERD, who presents with generalized ill feeling in the past 2 days. She reports feeling extremely short of breath, so went to see her PCP this morning where her O2 level was 88%. She notes extreme fatigue, dry cough, coughing fits where she feels slightly nauseous afterwards, and that she does not possess the same physical stamina that she did about 6 months ago. Pt notes a progressive decline in her ability to perform ADLs. For example, on a "good" day for her, she is able to vacuum [id number] room in her home, and then will feel extremely worn out by the end of the day. She has been unable to do things such a kneading bread in the past 3-6 months and notes this is a significant change. The patient had been following with Dr. Majano for RA however since this physician is no longer in practice, she has been seeing Dr. Cha for follow up of the chronic myositis and connective tissues disease which was originally diagnosed about 1 year ago by biopsy. Admission Exam Per Admitting Provider General: awake, alert, no apparent distress, + thin Head: Normocephalic, atraumatic ENT: PERRL, EOMI, no pharyngeal exudate, mucous membranes moist, + hoarse voice Chest: Clear to auscultation, on room air, no adventitious breath sounds Cardiac: Regular rate and rhythm, no murmur, no JVD, normal peripheral pulses, good capillary refill Abdominal: NABS x 4 quadrants, soft, nontender to palpation, no rebound, guarding or tenderness Extremities: Normal inspection, no peripheral edema or erythema, calfs nontender to palpation Psych: Normal mood and affect Neuro: AAO x 3, strength intact bilaterally and related 5/5, no motor deficits, speech is clear, no peripheral sensory deficits Principal Diagnosis Sinusitis, exacerbation of chronic bronchitis Discharge Exam General Appearance: Awake, alert & oriented, comfortable in general, NAD. Has a baseline hoarse voice and a rare congested cough. CV: +S1S2 RRR, no murmur. Pulm: CTA (B). Abdomen: +BS, soft, non-tender, non-distended. Extremities: No pedal edema or calf tenderness. Moving all extremities naturally and easily. Neuro: No gross neuro deficits. Discharge Data Allergies Allergy/AdvReac Type Severity Reaction Status Date / Time alendronate sodium Allergy Intermediate CHILLS,FEVER, Verified 03/27/18 12:35 TEETH GOT LOOSE aspirin Allergy Mild ITCHING Verified 03/27/18 12:35 UNDER SKIN oxycodone AdvReac Intermediate N/V Verified 03/27/18 12:35 orange AdvReac Unknown FEELS LIKE Verified 03/27/18 12:35 HAS A COLD AFTER DRINKING ORANGE JUICE Hospital Course (1) Acute respiratory failure with hypoxia: 72-year-old female was admitted on 27 March 2018 for two days of shortness of breath and feeling ill. Acute hypoxic respiratory failure, sinusitis: By report, SpO2 was 88% and had difficulty speaking in full sentences at PCP�s office. In ED, pCXR noted hyperinflation without focal infiltrate. Influenza negative. Patient primarily complains of sinus and flulike symptoms. At time of discharge, 18Feb BCx NGTD and sputum Cx was moderate normal jasmyne (prelim). Transitioned from initial Unasyn to Augmentin for sinusitis with planned 7-day course. Remains afebrile without leukocytosis. - Will need rheumatology follow-up on discharge. Emphysema and exacerbation of chronic bronchitis: Follows with Zain Kelly as an outpatient. See above discussion regarding sinusitis that likely exacerbated her breathing. - We will keep her on her prednisone 40 mg for a planned 5-day course. - Added Spiriva as an anticholinergic. - Patient says she already has albuterol MDI at home for rescue use. Prolonged QTc: EKG notes NSR 84, QTc 510. Goal to avoid QT prolonging medications. Hypokalemia: Mild at K 3.3, replaced, monitoring. Ongoing medical issues: - Rheumatoid arthritis: Chronically takes prednisone 12.5 mg daily. Can return to this after prednisone burst. - Raynaud disease: Stable. 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 Patient notes history of biopsy at [place] around 2018. - GERD: On ranitidine. - Hypertension: On lisinopril. - Non-Hodgkin's lymphoma: Stable. Patient underwent rituximab treatment and completed chemotherapy in 2006. - Osteoporosis: Steroid-induced. On vitamin D and calcium. - Fibromyalgia. (2) Sinusitis: (3) Emphysema with chronic bronchitis: (4) Prolonged QT interval: (5) Rheumatoid arthritis: (6) Raynaud disease: (7) Necrotizing myopathy: (8) GERD (gastroesophageal reflux disease): (9) Hypertension: (10) Non-Hodgkin lymphoma: (11) Osteoporosis: (12) Hypokalemia: Total Time Total Time Spent Total Time Spent (In Minutes): < 30 min Discharge Plan Discharge Items Patient Disposition: Home - Self-Care Reason For Visit: ACUTE HYPOXIC RESPIRATORY FAILURE Discharge Diagnosis: Sinusitis, exacerbation of chronic bronchitis Discharge Goals: Improve disease control Activity: Resume your previous activity Non-emergency contact: Primary Care Provider and Instrument Fitter Call non-emergency contact if: you have any medication questions and your symptoms worsen Diet: Heart Healthy Addtl Provider Instructions: You were admitted to the hospital on March 27, 2018 due to feeling generally ill and shortness of breath. While in the hospital we evaluated the following issues: Acute sinusitis: Most likely this was the initial cause of your symptoms. You were started on antibiotics here. - You were written a new prescription for an antibiotic called Augmentin. Please take this for a total of seven days (last day Tuesday). - Regarding your mild nosebleeds, this is most likely due to really dry air as well as in the nebulizer you received. You can apply a very thin layer of Vaseline with a Q-tip to the inside of your nose to help moisturize. Please do not apply so much so that it gets all blocked up. If you have more persistent nosebleed, please pinch your nose for at least 15 minutes. If this does not help, go to the nearest emergency department. Shortness of breath, emphysema, exacerbation of chronic bronchitis: Your sinusitis likely led to some inflammation that made your breathing worse. This was treated with an increased dose of steroids as well as some albuterol here. We recommend that you stay on the higher dose of steroids for a total of five days. - You were written a new prescription for prednisone 40 mg daily. The last round of this higher dose of prednisone should be Tuesday. After this you should return to your regular daily prednisone 12.5 mg dose. - You were also written a new prescription for a lung medicine called Spiriva. Please take this daily. - Please follow-up with your gas pumper as we discussed. You can call their office and see if they want to see you sooner than the pre-scheduled May appointment. Otherwise your regular home medications should remain the same. Along with your gas pumper, please follow-up with your primary care provider as soon as possible for good close post-hospital continuity of care. Please return to the nearest emergency department if you develop any worsening breathing, high fevers, or with any other emergent concerns. Prescriptions: New prednisone 20 mg Tablet 40 mg PO DAILY 2 Days Qty: 4 RF: 0 amoxicillin-pot clavulanate 875-125 mg Tablet 1 tab PO BIDM 5 Days Qty: 10 RF: 0 tiotropium bromide [Spiriva with HandiHaler] 18 mcg Capsule, W/Inhalation Device 1 puff Inhalation QAM 90 Days Qty: 90 RF: 0 Continue prednisone 10 mg tablet 10 mg PO QAM RF: 0 prednisone 5 mg tablet 2.5 mg PO QAM RF: 0 calcium carbonate [Calcium 500] 500 mg calcium (1,250 mg) Tablet 500 mg PO QAM RF: 0 ranitidine HCl 75 mg Tablet 75 mg PO QAM RF: 0 lisinopril 10 mg tablet 10 mg PO QAM RF: 0 dextromethorphan-guaifenesin [Mucinex DM] 60-1,200 mg Tablet Extended Release 12 Hr 1 tab PO Q12H RF: 0 albuterol sulfate 90 mcg/actuation HFA aerosol inhaler 2 - 4 puff Inhalation Q6H PRN (Reason: Shortness Of Breath Or Wheezing) RF: 0 cholecalciferol (vitamin D3) [Vitamin D3] 1,000 unit Tablet 1,000 unit PO QAM RF: 0 omega 1-jly-jtd-fish oil [Fish Oil] 1,000 mg (120 mg-180 mg) Capsule 1 cap PO QAM RF: 0 magnesium oxide 400 mg magnesium Tablet 400 mg PO HS RF: 0 Stand-Alone Forms: [facility] Discharge Orders: Discharge Order (Routine); Ordered 03/29/18 Ordered By: Ulises Albert Admission Data Admit Date/Time: 03/27/18 13:57 Attending Provider: Brooks Abraham Admit Provider: Al Blanco Primary Care Provider: Al Blanco Other Providers: Preston Silveira ; Al Blanco Service: Medical Other Interventions: Discharge Summary Assessment (RN) Last Done: 03/29/18 09:44 DC Date/Time DO NOT enter until pt leaves facility: 03/29/18 10:03 Supervising Physician Co-Signing Physician Notes I personally examined the patient and verified all north points of history and exam, discussed case, and agree with decision making with Dr Albert Breathing is feeling better. feels up to going home. Vitals noted, in general she is awake and alert no distress. HEENT normocephalic atraumatic mucous membranes are moist. Skin shows no rashes no pallor or icterus. Breathing is diminished air entry bilaterally no rales rhonchi or wheezes good effort Sinusitis�this appears to be the provoking factor for COPD exacerbation� Augmentin COPD exacerbation�short course of steroids. add spiriva for anticholinergic coverage Hypoxia�related to above, this appears to be improving, stable for home Chronic steroid use�she expressed concern about the last time she was on steroids. short course of steroids, close follow up after. she notes that last time she believed she felt terrible because steroids were weaned too quickly- discussed normally short courses are less problematic for ongoing steroid dependency/withdrawal - and therefore a short taper to help lungs but for as short of a time as possible before resuming home dosing would be least likely to cause her problems- but that we would ask her PCP to follow her closely and resume higher dosing if needed. (clinically - not clear what the prior situation was, but wondering if correlation and causation are being confused as far as what was having her feel terrible - ie ?was the condition causing her to feel terrible with a slow recovery but she was thinking it was from too quick of a steroid taper?) either way - follow closely w PCP DVT prophylaxis�Lovenox Resident Activity Tracking Resident Involvement: Resident Care Provided Care Provided: Adult Hospital Medicine
== END 2018-03-29 10:03 | disposition home or self-care (01) | DRG 152 ==
LOC: ED 10:15 → SUATTDRO 13:57 → 4W 13:57

== ENCOUNTER 2020-07-09 12:05 | Observation (INO) ==
[2020-07-09] MEDS ORDERED: methylPREDNISolone 125 MG/2 ML VIAL IV STA (12:30)
[2020-07-09] MEDS ORDERED: ALBUT/IPRATROP 3MG/0.5MG NEB 3 ML VIAL INH STA (12:30)
--- NOTE | 2020-07-09 12:36 | Emergency Department Note ---
Impression & Plan SOB (shortness of breath), Headache, Wheezing, Elevated lactic acid level ED Provider Note NAME: NIRU MOSQUERA AGE: 75 SEX: F : 1945 ARRIVES VIA: Ambulance INFORMANT: [Patient] ED PROVIDER(S): [Ghassan Maddox MD] CHIEF COMPLAINT: Choking HISTORY OF PRESENT ILLNESS: The patient is a 75-year-old female who states that this morning, about 4 hours ago, she choked on a pill. She was able to bring the pill back up but, since that timeframe, she has been more short of breath and coughing. She has been hoarse. The patient does have some underlying COPD. She did use her inhaler this morning before the choking episode because she felt a bit tight. There has been no recent increased cough or fever. No Covid exposures. She is not Covid vaccinated. The patient feels that she may have aspirated. She has been coughing up some phlegm. The patient presents for evaluation. The patient states that yesterday was a good day, there has been no chest pain. No fever. She was in baseline health yesterday. She does not typically wear oxygen. REVIEW OF SYSTEMS: See HPI for pertinent positives and negatives. A total of ten systems were reviewed and were otherwise negative. PMHx/PSHx: See Below SOCIAL HISTORY: See Below. PHYSICAL EXAM: GENERAL: Patient is in mild respiratory distress. HEENT: No acute trauma, normocephalic atraumatic, mucous membranes moist, no nasal congestion, no scleral icterus. NECK: No stridor, no adenopathy, no meningismus, trachea is midline. LUNGS: Wheezing, mostly on the right. She has an increased respiratory rate. No crackles. She is short of breath with speaking. There is some mild respiratory distress. HEART: Mildly tachycardic, regular rhythm, no murmurs. ABDOMEN: Soft, nontender, bowel sounds positive, no hernias, no peritonitis. EXTREMITIES: No cyanosis or edema, full range of motion of all the joints without pain or difficulty, no signs for acute trauma. NEUROLOGIC: Oriented x 3, no acute motor or sensory deficits, no focal weakness. SKIN: No rash, no jaundice, no diaphoresis. DIFFERENTIAL DIAGNOSIS: Reactive airway disease, pneumonia, pneumothorax, COPD, CHF, influenza, COVID- 19, aspiration, infection, cardiac ischemia, pulmonary embolism, bronchitis, musculoskeletal, gastrointestinal, as well as other pathologies. EMERGENCY DEPARTMENT COURSE/PROCEDURES: ECG: Indication was shortness of breath. The ECG shows a normal sinus rhythm with some baseline artifact. The rate is 76. The QTc is 441. There is no ST elevation, no PVCs. Continuous Cardiac Monitoring: An order was placed for continuous cardiac monitoring. The monitor shows a rate of 76 with normal sinus rhythm. Critical Care Note: I have personally spent 38 minutes of critical care time in the direct management of this patient. This includes bedside care, interpretation of diagnostic studies, and testing, discussion with consultants, patient, and family members, and other required patient management activities. This 38 minutes is in excess of all separately billable procedures. MEDICAL DECISION MAKING: There is a mild leukocytosis, this certainly could be consistent with infection. There was no anemia. There was a normal platelet count. No coagulopathy. No significant electrolyte abnormality or kidney failure. Lactic acid level was elevated which certainly would be consistent with dehydration and/or infection. No worrisome liver enzyme elevation. ECG showed a sinus rhythm, no acute ischemia. Cardiac enzyme testing x1 is not consistent with acute cardiac injury. Covid testing returned negative. Influenza testing returned negative. Chest film showed evidence for COPD, no infiltrate, no pneumothorax. Brain CT showed no acute bleed or mass-effect. Patient was given IV Solu-Medrol, IV ceftriaxone, albuterol via nebulizer. She was given IV Tylenol. The patient presents with a choking episode, she has felt short of breath since. She thinks she may have aspirated. The patient did seem short of breath on my exam. During her ED stay, she developed a right-sided headache. On reexam, there were no focal neurologic findings. The patient has a history of lung disease. She has been short of breath since choking on a pill. She certainly may have aspirated. She is in no condition to be discharged home. She has been covered with antibiotics. She is going to be hospitalized. I spoke to the patient and case management. The on-call hospitalist has been consulted. Past Med/Surg History Medical History Chronic obstructive pulmonary disease Emphysema with chronic bronchitis Fibromyalgia GERD (gastroesophageal reflux disease) Hearing deficit Hypertension Long-term current use of steroids Non-Hodgkin lymphoma Osteoporosis Raynaud disease Rheumatoid arthritis SOB (shortness of breath) on exertion Surgical History History of appendectomy History of bilateral cataract extraction History of cholecystectomy History of colonoscopy History of ear surgery History of esophagogastroduodenoscopy (EGD) History of sinus surgery History of tooth extraction History of total hysterectomy with bilateral salpingo-oophorectomy (BSO) Family History Other Family history non-contributory No family history of adverse response to anesthesia Social History Smoking Status: Never smoker Second Hand Exposure: No; Hx Alcohol Use: Yes Alcohol type: wine Hx Substance Use: No Preferred Language: [place] Communication Ability: Effective Tutoring Manager Required: No Beliefs That Will Affect Care: None marital status: Current Living Situation: Spouse and Family Current Living Situation Comment: Lives with and daugther current occupational status: retired Feels Safe at Home: Yes Assistive Devices: Denture - Upper, Glasses and Nebulizer Allergies Allergies Allergy/AdvReac Type Severity Reaction Status Date / Time alendronate sodium Allergy Intermediate CHILLS,FEVER, Verified 07/09/20 13:59 TEETH GOT LOOSE aspirin Allergy Mild ITCHING Verified 07/09/20 13:59 UNDER SKIN ibuprofen Allergy Mild itching Verified 07/09/20 13:59 under skin oxycodone AdvReac Intermediate N/V Verified 07/09/20 13:59 orange AdvReac Mild FEELS LIKE Verified 07/09/20 13:59 HAS A COLD AFTER DRINKING ORANGE JUICE Home Meds Home Medications Medication Instructions Recorded Confirmed cholecalciferol (vitamin D3) 1,000 unit PO QAM 03/27/18 07/09/20 [Vitamin D3] dextromethorphan-guaifenesin 1 tab PO Q12H PRN 03/27/18 07/09/20 [Mucinex DM] lisinopril 10 mg PO QAM 03/27/18 07/09/20 hydrochlorothiazide 25 mg PO QAM 08/01/18 07/09/20 prednisone 1 mg tablet 3 mg PO QAM tab 08/15/19 07/09/20 zinc 50 mg PO QAM 12/17/19 07/09/20 gabapentin 300 mg capsule 300 mg PO TID cap 06/12/20 07/09/20 Previous Rx's Medication Instructions Recorded albuterol sulfate 2.5 mg INH Q6H PRN #180 ml 07/04/19 nebulizer accessories #1 ea 07/04/19 nebulizer and compressor #1 ea 07/04/19 montelukast 10 mg tablet 10 mg PO QPM #90 tab 10/03/19 prednisone 5 mg tablet 5 mg PO QAM #90 tab 02/07/20 albuterol sulfate 90 mcg/actuation 2 - 4 puff INHALATION Q6H PRN #18 02/21/20 aerosol inhaler gm lidocaine 1 patch TOP DAILY PRN #15 ea 04/18/20 Results & Data (ED) Vital Signs Vital Signs - 24 hr 07/09/20 12:10 07/09/20 12:14 07/09/20 12:15 Temperature 37.2 C Temperature Source Oral Pulse Rate 75 76 Pulse Rate [Right Finger] Pulse Rate from SpO2 Sensor 75 Respiratory Rate 21 29 H Respiratory Effort / Characteristics Spontaneous Respiratory Pattern Tachypnea Blood Pressure 164/77 H 164/77 H Blood Pressure Mean 106 106 Blood Pressure Position Sitting Pulse Oximetry 97 98 98 Oxygen Delivery Method Room Air Room Air Sepsis Recent Fever Within 48 Hours No Sepsis New/Unexplained Change in Mental Status No Sepsis Action Taken by Nursing No Action Required 07/09/20 12:16 07/09/20 12:30 07/09/20 12:57 Temperature Temperature Source Pulse Rate 79 74 Pulse Rate [Right Finger] 73 Pulse Rate from SpO2 Sensor 73 75 Respiratory Rate 20 25 H 16 Respiratory Effort / Characteristics Short of Breath Spontaneous Respiratory Pattern Blood Pressure Blood Pressure Mean Blood Pressure Position Pulse Oximetry 97 99 95 Oxygen Delivery Method Room Air Room Air Sepsis Recent Fever Within 48 Hours Sepsis New/Unexplained Change in Mental Status Sepsis Action Taken by Nursing 07/09/20 13:00 07/09/20 13:30 07/09/20 14:00 Temperature Temperature Source Pulse Rate 75 87 83 Pulse Rate [Right Finger] Pulse Rate from SpO2 Sensor 75 Respiratory Rate 10 L 21 27 H Respiratory Effort / Characteristics Respiratory Pattern Blood Pressure Blood Pressure Mean Blood Pressure Position Pulse Oximetry 100 Oxygen Delivery Method Sepsis Recent Fever Within 48 Hours Sepsis New/Unexplained Change in Mental Status Sepsis Action Taken by Nursing 07/09/20 14:30 Temperature Temperature Source Pulse Rate 81 Pulse Rate [Right Finger] Pulse Rate from SpO2 Sensor Respiratory Rate 26 H Respiratory Effort / Characteristics Respiratory Pattern Blood Pressure Blood Pressure Mean Blood Pressure Position Pulse Oximetry Oxygen Delivery Method Sepsis Recent Fever Within 48 Hours Sepsis New/Unexplained Change in Mental Status Sepsis Action Taken by Usp Medications Current Medication List: was personally reviewed by me Laboratory Data Attestation: I reviewed the patient's lab results. Result diagrams: 07/09/20 13:25 07/09/20 13:25 Lab Results 07/09/20 07/09/20 07/09/20 Range/Units 13:15 13:15 13:15 WBC (4.8-10.8) K/uL RBC (4.2-5.4) M/uL Hgb (12.0-16.0) g/dL Hct (37-47) % MCV (80-100) fL MCH (25-34) pg MCHC (32-36) g/dL RDW Std Deviation (36.4-46.3) fL RDW Coeff of Navi (11.5-14.5) % Plt Count (130-400) K/uL MPV (7.4-10.4) fL Immature Gran % (Auto) % Neut % (Auto) % Lymph % (Auto) % Dougherty % (Auto) % Eos % (Auto) % Baso % (Auto) % Neut # (Auto) (1.4-6.5) K/uL Lymph # (Auto) (1.2-3.4) K/uL Dougherty # (Auto) (0.11-0.59) K/uL Eos # (Auto) (0-0.5) K/uL Baso # (Auto) (0-0.2) K/uL Immature Gran # (Auto) (0.00-0.02) K/uL PT (9.0-12.0) Seconds INR (0.9-1.1) APTT (21.0-31.0) Seconds PTT Ratio Sodium (136-145) mmol/L Potassium (3.5-5.1) mmol/L Chloride (98-107) mmol/L Carbon Dioxide (21-32) mmol/L Anion Gap (3-11) BUN (7-18) mg/dl Creatinine (0.6-1.2) mg/dl Est Cr Clr Drug Dosing ml/min Est GFR ( Amer) ml/min Est GFR (Non-Af Amer) ml/min BUN/Creatinine Ratio (10-20) Glucose (70-99) mg/dl Lactate (0.4-2.0) mmol/L Calcium (8.5-10.1) mg/dl Magnesium (1.8-2.4) mg/dl Total Bilirubin (0.2-1) mg/dl AST (15-37) U/L ALT (12-78) U/L Alkaline Phosphatase (45-117) U/L Troponin I (0-0.045) ng/ml Total Protein (6.4-8.2) gm/dl Albumin (3.4-5.0) gm/dl Globulin (2.5-4.0) gm/dl Albumin/Globulin Ratio (0.9-2) COVID-19 Eval Order Covid19 at [facility] SARS-CoV-2 (PCR) NEGATIVE (Negative) Influ A Molecular Assay Negative (Negative) Influ B Molecular Assay Negative (Negative) 07/09/20 07/09/20 07/09/20 Range/Units 13:25 13:25 13:25 WBC 12.57 H (4.8-10.8) K/uL RBC 4.32 (4.2-5.4) M/uL Hgb 13.5 (12.0-16.0) g/dL Hct 41.5 (37-47) % MCV 96.1 (80-100) fL MCH 31.3 (25-34) pg MCHC 32.5 (32-36) g/dL RDW Std Deviation 48.0 H (36.4-46.3) fL RDW Coeff of Navi 13.5 (11.5-14.5) % Plt Count 210 (130-400) K/uL MPV 10.7 H (7.4-10.4) fL Immature Gran % (Auto) 0.2 % Neut % (Auto) 85.8 % Lymph % (Auto) 11.0 % Dougherty % (Auto) 2.8 % Eos % (Auto) 0.1 % Baso % (Auto) 0.1 % Neut # (Auto) 10.79 H (1.4-6.5) K/uL Lymph # (Auto) 1.38 (1.2-3.4) K/uL Dougherty # (Auto) 0.35 (0.11-0.59) K/uL Eos # (Auto) 0.01 (0-0.5) K/uL Baso # (Auto) 0.01 (0-0.2) K/uL Immature Gran # (Auto) 0.03 H (0.00-0.02) K/uL PT 10.0 (9.0-12.0) Seconds INR 1.0 (0.9-1.1) APTT 21.8 (21.0-31.0) Seconds PTT Ratio 0.8 Sodium 138 (136-145) mmol/L Potassium 3.4 L (3.5-5.1) mmol/L Chloride 105 (98-107) mmol/L Carbon Dioxide 24 (21-32) mmol/L Anion Gap 9.0 (3-11) BUN 24 H (7-18) mg/dl Creatinine 0.92 (0.6-1.2) mg/dl Est Cr Clr Drug Dosing 57.1 ml/min Est GFR ( Amer) 70.6 ml/min Est GFR (Non-Af Amer) 60.9 ml/min BUN/Creatinine Ratio 26.4 H (10-20) Glucose 106 H (70-99) mg/dl Lactate (0.4-2.0) mmol/L Calcium 9.4 (8.5-10.1) mg/dl Magnesium 2.3 (1.8-2.4) mg/dl Total Bilirubin 0.5 (0.2-1) mg/dl AST 13 L (15-37) U/L ALT 17 (12-78) U/L Alkaline Phosphatase 85 (45-117) U/L Troponin I < 0.015 (0-0.045) ng/ml Total Protein 6.8 (6.4-8.2) gm/dl Albumin 3.6 (3.4-5.0) gm/dl Globulin 3.2 (2.5-4.0) gm/dl Albumin/Globulin Ratio 1.1 (0.9-2) COVID-19 Eval Order SARS-CoV-2 (PCR) (Negative) Influ A Molecular Assay (Negative) Influ B Molecular Assay (Negative) 07/09/20 07/09/20 Range/Units 13:50 15:43 WBC (4.8-10.8) K/uL RBC (4.2-5.4) M/uL Hgb (12.0-16.0) g/dL Hct (37-47) % MCV (80-100) fL MCH (25-34) pg MCHC (32-36) g/dL RDW Std Deviation (36.4-46.3) fL RDW Coeff of Navi (11.5-14.5) % Plt Count (130-400) K/uL MPV (7.4-10.4) fL Immature Gran % (Auto) % Neut % (Auto) % Lymph % (Auto) % Dougherty % (Auto) % Eos % (Auto) % Baso % (Auto) % Neut # (Auto) (1.4-6.5) K/uL Lymph # (Auto) (1.2-3.4) K/uL Dougherty # (Auto) (0.11-0.59) K/uL Eos # (Auto) (0-0.5) K/uL Baso # (Auto) (0-0.2) K/uL Immature Gran # (Auto) (0.00-0.02) K/uL PT (9.0-12.0) Seconds INR (0.9-1.1) APTT (21.0-31.0) Seconds PTT Ratio Sodium (136-145) mmol/L Potassium (3.5-5.1) mmol/L Chloride (98-107) mmol/L Carbon Dioxide (21-32) mmol/L Anion Gap (3-11) BUN (7-18) mg/dl Creatinine (0.6-1.2) mg/dl Est Cr Clr Drug Dosing ml/min Est GFR ( Amer) ml/min Est GFR (Non-Af Amer) ml/min BUN/Creatinine Ratio (10-20) Glucose (70-99) mg/dl Lactate 2.5 H* 3.8 H* (0.4-2.0) mmol/L Calcium (8.5-10.1) mg/dl Magnesium (1.8-2.4) mg/dl Total Bilirubin (0.2-1) mg/dl AST (15-37) U/L ALT (12-78) U/L Alkaline Phosphatase (45-117) U/L Troponin I (0-0.045) ng/ml Total Protein (6.4-8.2) gm/dl Albumin (3.4-5.0) gm/dl Globulin (2.5-4.0) gm/dl Albumin/Globulin Ratio (0.9-2) COVID-19 Eval Order SARS-CoV-2 (PCR) (Negative) Influ A Molecular Assay (Negative) Influ B Molecular Assay (Negative) Administered Medications Discontinued Medications Acetaminophen (Acetaminophen 1000 Mg/100 Ml Iv) 1,000 mg IV NOW STA Stop: 07/09/20 14:42 Last Admin: 07/09/20 14:59 Dose: 1,000 mg Documented by: [id number] Albuterol (Albut/Ipratrop 3mg/0.5mg Neb 3 Ml Vial) 3 ml INH NOW STA Stop: 07/09/20 12:31 Last Admin: 07/09/20 12:54 Dose: 3 ml Documented by: [id number] Ceftriaxone Sodium (Rocephin) 1,000 mg in 50 mls @ 100 mls/hr IV NOW STA Stop: 07/09/20 14:41 Last Admin: 07/09/20 14:59 Dose: 100 mls/hr Documented by: [id number] Methylprednisolone (Methylprednisolone 125 Mg/2 Ml Vial) 60 mg IV NOW STA Stop: 07/09/20 12:31 Last Admin: 07/09/20 14:05 Dose: 60 mg Documented by: [id number] Imaging Data Radiologist's Impression: Chest X-Ray 07/09/20 12:30 XR chest 1V portable HISTORY: 75 years-old Female SOB acute shortness of breath COMPARISON: Chest radiographs 07/05/2019 TECHNIQUE: Portable AP view of the chest FINDINGS: Cardiac mediastinal and hilar silhouettes are within normal limits. Calcified plaque of the thoracic aorta. Unchanged pleural parenchymal scarring of the lung apices with emphysema and hyperinflation. No pneumothorax, pleural effusion, airspace consolidation or overt pulmonary edema. Mild left hemidiaphragmatic elevation. Bones of the chest appear grossly intact. IMPRESSION: Emphysema without acute process. ACT 112: Negative or not required by law. The above report was generated using voice recognition software. It may contain grammatical, syntax or spelling errors. Electronically signed by: Luis Manuel Gifford M.D. 07/09/2020 1:[address] 07/09/20 15:10 CT head/brain wo con CLINICAL HISTORY: 75 years-old Female with right headache, pain. Acute right- sided headache TECHNIQUE: Multiple axial CT images of the head were obtained without contrast. A dose lowering technique was utilized adhering to the principles of ALARA. CT DOSE: 638.56 mGycm COMPARISON: Head CT 07/11/2017 FINDINGS: No acute intracranial hemorrhage, midline shift, intracranial mass, hydrocephalus, territorial ischemia or abnormal extra-axial collection. Mild white matter hypodensities suggestive of chronic microvascular ischemic disease. Cerebral vascular calcifications. The calvarium is intact. Mastoid air cells are clear. Severe mucoperiosteal thickening of the maxillary sinuses compatible with chronic sinus disease. Near complete opacification of the right ethmoid air cells. Unremarkable soft tissues. Prior bilateral lens repair. IMPRESSION: No acute intracranial abnormality. ACT 112: Negative or not required by law. The above report was generated using voice recognition software. It may contain grammatical, syntax or spelling errors. Electronically signed by: Luis Manuel Gifford M.D. 07/09/2020 4:23 PM Discharge Plan Visit Data Chief Complaint: Choking Stated Complaint: possible aspiration ED Provider: Ghassan Maddox Discharge Problem: SOB (shortness of breath), Headache, Wheezing, Elevated lactic acid level Patient Disposition: Admitted As Inpatient Condition: Fair Forms Stand Alone Forms: [facility] Prescriptions Prescriptions: No Action prednisone 5 mg tablet 5 mg PO QAM Qty: 90 RF: 3 prednisone 1 mg tablet 3 mg PO QAM RF: 0 albuterol sulfate 2.5 mg /3 mL (0.083 %) solution for nebulization 2.5 mg INH Q6H PRN (Reason: shortness of breath or wheezing) Qty: 180 RF: 1 (DME) nebulizer accessories Kit See Rx Instructions .ROUTE .MEDSUPPLY Qty: 1 RF: 0 (DME) nebulizer and compressor Device See Rx Instructions [id number] .MEDSUPPLY Qty: 1 RF: 0 gabapentin 300 mg capsule 300 mg PO TID RF: 0 montelukast [Singulair] 10 mg tablet 10 mg PO QPM Qty: 90 RF: 3 albuterol sulfate 90 mcg/actuation HFA aerosol inhaler 2 - 4 puff Inhalation Q6H PRN (Reason: Shortness Of Breath Or Wheezing) Qty: 18 RF: 5 lisinopril 10 mg tablet 10 mg PO QAM RF: 0 dextromethorphan-guaifenesin [Mucinex DM] 60-1,200 mg Tablet Extended Release 12 Hr 1 tab PO Q12H PRN (Reason: Congestion) RF: 0 cholecalciferol (vitamin D3) [Vitamin D3] 1,000 unit Tablet 1,000 unit PO QAM RF: 0 zinc 50 mg Tablet 50 mg PO QAM RF: 0 hydrochlorothiazide 25 mg tablet 25 mg PO QAM RF: 0 lidocaine 5 % adhesive patch,medicated 1 patch TOP DAILY PRN (Reason: pain) Qty: 15 RF: 0 Referrals Referrals: Al Blanco MD [Primary Care Provider] - Discharge Problem: Headache Qualifiers: Headache type: unspecified Headache chronicity pattern: acute headache Intractability: not intractable Qualified Code(s): R51.9 - Headache, unspecified
--- NOTE | 2020-07-09 13:21 | XRay Report ---
XR chest 1V portable HISTORY: 75 years-old Female SOB acute shortness of breath COMPARISON: Chest radiographs 07/05/2019 TECHNIQUE: Portable AP view of the chest FINDINGS: Cardiac mediastinal and hilar silhouettes are within normal limits. Calcified plaque of the thoracic aorta. Unchanged pleural parenchymal scarring of the lung apices with emphysema and hyperinflation. N o pneumothorax, pleural effusion, airspace consolidation or overt pulmonary edema. Mild left hemidiap hragmatic elevation. Bones of the chest appear grossly intact. IMPRESSION: Emphysema without acute process. ACT 112: Negative or not required by law. The above report was generated using voice recognition software. It may contain grammatical, syntax o r spelling errors. Electronically signed by: Luis Manuel Gifford M.D. 07/09/2020 1:20 PM
[2020-07-09 13:33] LABS: Basophils # (auto) 0.01 K/uL (0-0.2); Basophils % (auto) 0.1 %; Eosinophils # (auto) 0.01 K/uL (0-0.5); Eosinophils % (auto) 0.1 %; Hematocrit (blood only) 41.5 % (37-47); Hemoglobin 13.5 g/dL (12.0-16.0); Immature Granulocytes # (auto) 0.03 K/uL (0.00-0.02); Immature Granulocytes % (auto) 0.2 %; Lymphocytes # (auto) 1.38 K/uL (1.2-3.4); Mean Corpuscular Hemoglobin 31.3 pg (25-34); Mean Corpuscular Hgb Conc 32.5 g/dL (32-36); Mean Corpuscular Volume 96.1 fL (80-100); Mean Platelet Volume 10.7 fL (7.4-10.4); Monocytes # (auto) 0.35 K/uL (0.11-0.59); Monocytes % (auto) 2.8 %; Neutrophils # (auto) 10.79 K/uL (1.4-6.5); Neutrophils % (auto) 85.8 %; Platelet Count 210 K/uL (130-400); RDW Coefficient of Variation 13.5 % (11.5-14.5); Red Blood Count 4.32 M/uL (4.2-5.4); White Blood Count 12.57 K/uL (4.8-10.8)
--- NOTE | 2020-07-09 13:40 | Electrocardiogram Report ---
Test Reason : Blood Pressure : / mmHG Vent. Rate : 076 BPM Atrial Rate : 076 BPM P-R Int : 198 ms QRS Dur : 082 ms QT Int : 392 ms P-R-T Axes : 075 046 041 degrees QTc Int : 441 ms Poor data quality, interpretation may be adversely affected Normal sinus rhythm Nonspecific ST abnormality Anterolateral leads Abnormal ECG When compared with ECG of 27-MAR-2018 11:00, No significant change Confirmed by Butch Monahan ([id number]) on 07/09/2020 1:40:35 PM Referred By: REFERRED SELF Confirmed By:Butch Monahan
[2020-07-09 13:53] LABS: Alanine Aminotransferase 17 U/L (12-78); Albumin Level 3.6 gm/dl (3.4-5.0); Aspartate Aminotransferase 13 U/L (15-37); BUN Creatinine Ratio 26.4 (10-20); Blood Urea Nitrogen 24 mg/dl (7-18); Calcium 9.4 mg/dl (8.5-10.1); Carbon Dioxide 24 mmol/L (21-32); Chloride 105 mmol/L (98-107); Creatinine Clr Calc Pharmacy 57.1 ml/min; Est GFR (African American) 70.6 ml/min; Est GFR (Non-African American) 60.9 ml/min; Glucose 106 mg/dl (70-99); Magnesium 2.3 mg/dl (1.8-2.4); Potassium 3.4 mmol/L (3.5-5.1); Sodium 138 mmol/L (136-145)
[2020-07-09 13:54] LABS: Partial Thromboplastin Ratio 0.8; Partial Thromboplastin Time 21.8 Seconds (21.0-31.0)
[2020-07-09 14:09] LABS: Albumin Globulin Ratio 1.1 (0.9-2); Alkaline Phosphatase 85 U/L (45-117); Bilirubin,Total 0.5 mg/dl (0.2-1); Globulin 3.2 gm/dl (2.5-4.0); Total Protein 6.8 gm/dl (6.4-8.2); Troponin I < 0.015 ng/ml (0-0.045)
[2020-07-09] MEDS ORDERED: cefTRIAXone SODIUM 1,000 MG/50 ML BAG IV STA (14:12)
[2020-07-09 14:16] LABS: Influenza A virus by PCR Negative (Negative); Influenza B virus by PCR Negative (Negative)
[2020-07-09] MEDS ORDERED: ACETAMINOPHEN 1000 MG/100 ML IV IV STA (14:41)
--- NOTE | 2020-07-09 16:24 | CT Scan Report ---
CT head/brain wo con CLINICAL HISTORY: 75 years-old Female with right headache, pain. Acute right-sided headache TECHNIQUE: Multiple axial CT images of the head were obtained without contrast. A dose lowering tech nique was utilized adhering to the principles of ALARA. CT DOSE: 638.56 mGycm COMPARISON: Head CT 07/11/2017 FINDINGS: No acute intracranial hemorrhage, midline shift, intracranial mass, hydrocephalus, territorial ischem ia or abnormal extra-axial collection. Mild white matter hypodensities suggestive of chronic microvas cular ischemic disease. Cerebral vascular calcifications. The calvarium is intact. Mastoid air cells are clear. Severe mucoperiosteal thickening of the maxill vineet sinuses compatible with chronic sinus disease. Near complete opacification of the right ethmoid a ir cells. Unremarkable soft tissues. Prior bilateral lens repair. IMPRESSION: No acute intracranial abnormality. ACT 112: Negative or not required by law. The above report was generated using voice recognition software. It may contain grammatical, syntax o r spelling errors. Electronically signed by: Luis Manuel Gifford M.D. 07/09/2020 4:23 PM
--- NOTE | 2020-07-09 16:27 | History & Physical Report ---
Date of Service July 09, 2020 Assessment & Plan (1) COPD exacerbation: COPD exacerbation/possible aspiration airway- Duonebs every 4 hours while awake and every 2 hours when necessary. Methylprednisolone 40 mg IV every 8 hours Zosyn 4.5 g IV every 8 hours Zofran 4 mg IV every 6 hours as needed Present on Admission?: Yes (2) Aspiration into airway: See above Present on Admission?: Yes (3) Fibromyalgia: Fibromyalgia/myopathy- Continue gabapentin and Lidoderm patch Present on Admission?: Yes (4) GERD (gastroesophageal reflux disease): Present on Admission?: Yes (5) Hypertension: Hold HCTZ Continue lisinopril Present on Admission?: Yes (6) Raynaud disease: (7) Rheumatoid arthritis: Replace oral prednisone with IV Solu-Medrol as above Present on Admission?: Yes (8) Myopathy: History of Present Illness Chief Complaint: The patient presents to the emergency department with complaint of concerns regarding potential aspiration while she was taking her pills this morning. Primary Care Provider: Al Blanco MD The patient is a 75-year-old female with a past medical history including lumbar radiculopathy, diffuse large B-cell lymphoma, headaches, multiple contusions, triquetral fracture, necrotizing myopathy, prolonged QT interval, COPD, osteoporosis, long-term current use of steroids, rheumatoid arthritis, Raynaud's disease, hypertension, GERD and fibromyalgia. She reports that while taking her pills this morning she began to cough afterwards, but was not concerned that she had positive pills in the cells. She continued to have large moist mucus production afterwards, and because of these concerns for possible aspiration, she presented to the ED for assessment. While in ED she reported also that she had return of some right sided facial pain, has a history of sinus-itis and surgery by Dr. Mccarthy. Allergies Allergy/AdvReac Type Severity Reaction Status Date / Time alendronate sodium Allergy Intermediate CHILLS,FEVER, Verified 07/09/20 13:59 TEETH GOT LOOSE aspirin Allergy Mild ITCHING Verified 07/09/20 13:59 UNDER SKIN ibuprofen Allergy Mild itching Verified 07/09/20 13:59 under skin oxycodone AdvReac Intermediate N/V Verified 07/09/20 13:59 orange AdvReac Mild FEELS LIKE Verified 07/09/20 13:59 HAS A COLD AFTER DRINKING ORANGE JUICE Home Medications Medication Instructions Recorded Confirmed Type cholecalciferol (vitamin D3) 1,000 unit PO QAM 03/27/18 07/09/20 History [Vitamin D3] dextromethorphan-guaifenesin 1 tab PO Q12H PRN 03/27/18 07/09/20 History [Mucinex DM] lisinopril 10 mg PO QAM 03/27/18 07/09/20 History hydrochlorothiazide 25 mg PO QAM 08/01/18 07/09/20 History albuterol sulfate 2.5 mg INH Q6H PRN #180 ml 07/04/19 07/09/20 Rx nebulizer accessories #1 ea 07/04/19 06/12/20 Rx nebulizer and compressor #1 ea 07/04/19 06/12/20 Rx prednisone 1 mg tablet 3 mg PO QAM tab 08/15/19 07/09/20 History montelukast 10 mg tablet 10 mg PO QPM #90 tab 10/03/19 07/09/20 Rx zinc 50 mg PO QAM 12/17/19 07/09/20 History prednisone 5 mg tablet 5 mg PO QAM #90 tab 02/07/20 07/09/20 Rx albuterol sulfate 90 mcg/actuation 2 - 4 puff INHALATION Q6H PRN #18 02/21/20 07/09/20 Rx aerosol inhaler gm lidocaine 1 patch TOP DAILY PRN #15 ea 04/18/20 07/09/20 Rx gabapentin 300 mg capsule 300 mg PO TID cap 06/12/20 07/09/20 History Past Med/Surg History Medical History Chronic obstructive pulmonary disease Emphysema with chronic bronchitis Fibromyalgia GERD (gastroesophageal reflux disease) Hearing deficit Hypertension Long-term current use of steroids Non-Hodgkin lymphoma Osteoporosis Raynaud disease Rheumatoid arthritis SOB (shortness of breath) on exertion Surgical History History of appendectomy History of bilateral cataract extraction History of cholecystectomy History of colonoscopy History of ear surgery History of esophagogastroduodenoscopy (EGD) History of sinus surgery History of tooth extraction History of total hysterectomy with bilateral salpingo-oophorectomy (BSO) Family History Other Family history non-contributory No family history of adverse response to anesthesia Social History Smoking Status: Never smoker Second Hand Exposure: No; Hx Alcohol Use: Yes Alcohol type: wine Hx Substance Use: No Preferred Language: Albanian Communication Ability: Effective Life Management Teacher Required: No Beliefs That Will Affect Care: None marital status: Current Living Situation: Spouse and Family Current Living Situation Comment: Lives with and daugther current occupational status: retired Feels Safe at Home: Yes Assistive Devices: Denture - Upper, Glasses and Nebulizer Review of Systems Review of Systems: The patient denies chest pain, palpitations, lower extremity swelling, fevers, chills, sweats, nausea, vomiting, diarrhea , constipation, abdominal pain, pelvic pain, blood in urine or stool, dysuria, urinary frequency or urgency, lightheadedness, dizziness, headache, memory loss, loss of consciousness, rash, abnormal bruising or bleeding, imbalance, focal or generalized weakness, numbness or tingling in arms or legs, generalized arthralgias or myalgias, back or neck pain, or night sweats. The review of systems is otherwise negative other than for that already noted above, and at least 10 systems have been reviewed. Physical Exam Physical Exam: The patient is awake, alert and oriented 3, well developed and well nourished, normocephalic and atraumatic, lying in bed and in no acute distress. HEENT--PERRL, EOMI, mucous membranes and oropharynx dry. Neck--supple. No JVD. No bruits. Thyroid normal, trachea midline, no adenopathy. Heart--normal S1 and S2. No murmurs, rubs or gallops. Lungs--coarse breath sounds bilaterally, right greater than left. No respiratory distress, no accessory muscle use. Abdomen--normal bowel sounds and soft. Nontender. Nondistended. Extremities--no cyanosis or clubbing. No edema. There are good distal pulses b/l. Dermatologic--normal skin turgor, normal color, no abnormal lymph nodes, no rash. Neurologic--cranial nerves II through XII grossly intact. Rheumatologic--normal range of motion. Psychiatric--normal affect. Results & Data Results & Data ([facility]) Vital Signs (Past 12 Hours) Vital Signs Temp Pulse Pulse Resp BP Pulse Ox 07/09/20 14:30 81 26 H 07/09/20 14:00 83 27 H 07/09/20 13:30 87 21 07/09/20 13:00 75 10 L 100 07/09/20 12:57 73 16 95 07/09/20 12:30 74 25 H 99 07/09/20 12:16 79 20 97 07/09/20 12:15 99.0 F 76 29 H 164/77 H 98 07/09/20 12:14 98 07/09/20 12:10 75 21 164/77 H 97 Laboratory Results Laboratory Results WBC 12.57 K/uL (4.8-10.8) H 07/09/20 13:25 RBC 4.32 M/uL (4.2-5.4) 07/09/20 13:25 Hgb 13.5 g/dL (12.0-16.0) 07/09/20 13:25 Hct 41.5 % (37-47) 07/09/20 13:25 MCV 96.1 fL (80-100) 07/09/20 13:25 MCH 31.3 pg (25-34) 07/09/20 13:25 MCHC 32.5 g/dL (32-36) 07/09/20 13:25 RDW Std Deviation 48.0 fL (36.4-46.3) H 07/09/20 13:25 RDW Coeff of Navi 13.5 % (11.5-14.5) 07/09/20 13:25 Plt Count 210 K/uL (130-400) 07/09/20 13:25 MPV 10.7 fL (7.4-10.4) H 07/09/20 13:25 Immature Gran % (Auto) 0.2 % 07/09/20 13:25 Neut % (Auto) 85.8 % 07/09/20 13:25 Lymph % (Auto) 11.0 % 07/09/20 13:25 Wagoner % (Auto) 2.8 % 07/09/20 13:25 Eos % (Auto) 0.1 % 07/09/20 13:25 Baso % (Auto) 0.1 % 07/09/20 13:25 Neut # (Auto) 10.79 K/uL (1.4-6.5) H 07/09/20 13:25 Lymph # (Auto) 1.38 K/uL (1.2-3.4) 07/09/20 13:25 Wagoner # (Auto) 0.35 K/uL (0.11-0.59) 07/09/20 13:25 Eos # (Auto) 0.01 K/uL (0-0.5) 07/09/20 13:25 Baso # (Auto) 0.01 K/uL (0-0.2) 07/09/20 13:25 Immature Gran # (Auto) 0.03 K/uL (0.00-0.02) H 07/09/20 13:25 PT 10.0 Seconds (9.0-12.0) 07/09/20 13:25 INR 1.0 (0.9-1.1) 07/09/20 13:25 APTT 21.8 Seconds (21.0-31.0) 07/09/20 13:25 PTT Ratio 0.8 07/09/20 13:25 Sodium 138 mmol/L (136-145) 07/09/20 13:25 Potassium 3.4 mmol/L (3.5-5.1) L 07/09/20 13:25 Chloride 105 mmol/L (98-107) 07/09/20 13:25 Carbon Dioxide 24 mmol/L (21-32) 07/09/20 13:25 Anion Gap 9.0 (3-11) 07/09/20 13:25 BUN 24 mg/dl (7-18) H 07/09/20 13:25 Creatinine 0.92 mg/dl (0.6-1.2) 07/09/20 13:25 Est Cr Clr Drug Dosing 57.1 ml/min 07/09/20 13:25 Est GFR ( Amer) 70.6 ml/min 07/09/20 13:25 Est GFR (Non-Af Amer) 60.9 ml/min 07/09/20 13:25 BUN/Creatinine Ratio 26.4 (10-20) H 07/09/20 13:25 Glucose 106 mg/dl (70-99) H 07/09/20 13:25 Lactate 2.5 mmol/L (0.4-2.0) H* 07/09/20 13:50 Calcium 9.4 mg/dl (8.5-10.1) 07/09/20 13:25 Magnesium 2.3 mg/dl (1.8-2.4) 07/09/20 13:25 Total Bilirubin 0.5 mg/dl (0.2-1) 07/09/20 13:25 AST 13 U/L (15-37) L 07/09/20 13:25 ALT 17 U/L (12-78) 07/09/20 13:25 Alkaline Phosphatase 85 U/L (45-117) 07/09/20 13:25 Troponin I < 0.015 ng/ml (0-0.045) 07/09/20 13:25 Total Protein 6.8 gm/dl (6.4-8.2) 07/09/20 13:25 Albumin 3.6 gm/dl (3.4-5.0) 07/09/20 13:25 Globulin 3.2 gm/dl (2.5-4.0) 07/09/20 13:25 Albumin/Globulin Ratio 1.1 (0.9-2) 07/09/20 13:25 COVID-19 Eval Order Covid19 at [facility] 07/09/20 13:15 SARS-CoV-2 (PCR) NEGATIVE (Negative) 07/09/20 13:15 Influ A Molecular Assay Negative (Negative) 07/09/20 13:15 Influ B Molecular Assay Negative (Negative) 07/09/20 13:15 Impressions Chest X-Ray 07/09/20 12:30 XR chest 1V portable HISTORY: 75 years-old Female SOB acute shortness of breath COMPARISON: Chest radiographs 07/05/2019 TECHNIQUE: Portable AP view of the chest FINDINGS: Cardiac mediastinal and hilar silhouettes are within normal limits. Calcified plaque of the thoracic aorta. Unchanged pleural parenchymal scarring of the lung apices with emphysema and hyperinflation. No pneumothorax, pleural effusion, airspace consolidation or overt pulmonary edema. Mild left hemidiaphragmatic elevation. Bones of the chest appear grossly intact. IMPRESSION: Emphysema without acute process. ACT 112: Negative or not required by law. The above report was generated using voice recognition software. It may contain grammatical, syntax or spelling errors. Electronically signed by: Luis Manuel Gifford M.D. 07/09/2020 1:20 PM Code Status & VTE Plan Code Status Full code VTE Prophylaxis Plan VTE Prophylaxis will be ordered: Yes PG Care Time/CCT Total # of Minutes Spent Total Time Spent with Patient: Total time spent is greater than 50% in coordination of care (as documented) at patient's floor/unit and/or counseling patient: Coding Level of Care Code 81617 Initial Inpt Care Lvl 3 Diagnoses COPD exacerbation J44.1 Aspiration into airway T17.908A Fibromyalgia M79.7 GERD (gastroesophageal reflux disease) K21.9 Hypertension I10 Raynaud disease I73.00 Rheumatoid arthritis M06.9 Myopathy G72.9
[2020-07-09] MEDS ORDERED: ONDANSETRON INJ 2 MG/ML 2 ML VIAL IV PRN (18:04)
[2020-07-09] MEDS ORDERED: NON-FORMULARY MEDICATION (Dextromethorphan-Guaifenesin [Mucinex Dm] 60-1,200 mg Tablet Ext PO PRN (18:04)
[2020-07-09] MEDS ORDERED: LIDOCAINE 5% 1 PATCH TD PRN (18:04)
[2020-07-09] MEDS ORDERED: ACETAMINOPHEN 325 MG TAB PO PRN (18:04)
[2020-07-09] MEDS ORDERED: PIPERACILL/TAZOBAC CONSULT ACTIVE PRN (18:04)
[2020-07-09] MEDS ORDERED: PIPERACILLIN/TAZOBACTAM 3.375 GM in DEXTROSE 5% 100 ML IV STA (18:15)
[2020-07-09] MEDS ORDERED: guaiFENesin 600 MG TABCR PO PRN (18:18)
[2020-07-09] MEDS ORDERED: DEXTROMETHORPHAN POLYMR COMPLX 30MG/5 ML PO PRN (18:20)
[2020-07-09] MEDS ORDERED: ENOXAPARIN INJ 30 MG/0.3 ML SYR SQ SCH (19:00)
[2020-07-09] MEDS: ALBUT/IPRATROP 3MG/0.5MG NEB 3 ML VIAL NEB SCH (19:16)
[2020-07-09] MEDS: methylPREDNISolone 40 MG in SYRINGE 0 ML IV SCH (20:40)
[2020-07-09] MEDS: GABAPENTIN 300 MG CAP PO SCH (20:40)
[2020-07-09] MEDS ORDERED: MONTELUKAST SODIUM 10 MG TABLET PO SCH (21:00)
[2020-07-09] MEDS ORDERED: MoRPHine SULFATE 2 MG/ML CARP IV STA (22:23)
[2020-07-09] MEDS: PIPERACILLIN/TAZOBACTAM 3.375 GM in DEXTROSE 5% 100 ML IV SCH (23:13)
[2020-07-10] MEDS: methylPREDNISolone 40 MG in SYRINGE 0 ML IV SCH (03:10)
[2020-07-10] MEDS: ALBUT/IPRATROP 3MG/0.5MG NEB 3 ML VIAL NEB SCH ×3 (07:08→15:26)
--- NOTE | 2020-07-10 07:29 | Hospitalist Progress Note ---
Date of Service July 10, 2020 Assessment & Plan (1) COPD exacerbation: COPD exacerbation/possible aspiration airway- Duonebs every 4 hours while awake and every 2 hours when necessary. Methylprednisolone 40 mg IV every 8 hours Zosyn 4.5 g IV every 8 hours Zofran 4 mg IV every 6 hours as needed (2) Aspiration into airway: See above (3) Fibromyalgia: Fibromyalgia/myopathy- Continue gabapentin and Lidoderm patch (4) GERD (gastroesophageal reflux disease): (5) Hypertension: Hold HCTZ Continue lisinopril (6) Raynaud disease: (7) Rheumatoid arthritis: Replace oral prednisone with IV Solu-Medrol as above (8) Myopathy: Admission and Anticipated Discharge Date Admission Date: July 09, 2020 Results & Data Results & Data ([facility]) Vital Signs (Past 12 Hours) Vital Signs Temp Pulse Pulse Resp BP Pulse Ox 07/10/20 07:08 76 16 96 07/10/20 02:36 98.2 F 76 20 110/56 L 94 07/10/20 00:00 83 07/09/20 23:17 98.4 F 91 H 20 105/55 L 95 07/09/20 19:31 90 18 131/66 95 PG Care Time/CCT Total # of Minutes Spent Total Time Spent with Patient: Total time spent is greater than 50% in coordination of care (as documented) at patient's floor/unit and/or counseling patient: Coding Diagnoses COPD exacerbation J44.1 Aspiration into airway T17.908A Fibromyalgia M79.7 GERD (gastroesophageal reflux disease) K21.9 Hypertension I10 Raynaud disease I73.00 Rheumatoid arthritis M06.9 Myopathy G72.9
[2020-07-10 07:57] LABS: Hematocrit (blood only) 38.7 % (37-47); Hemoglobin 12.8 g/dL (12.0-16.0); Immature Granulocytes # (auto) 0.02 K/uL (0.00-0.02); Immature Granulocytes % (auto) 0.1 %; Lymphocytes # (auto) 1.47 K/uL (1.2-3.4); Lymphocytes % (auto) 10.6 %; Mean Corpuscular Hgb Conc 33.1 g/dL (32-36); Mean Corpuscular Volume 93.7 fL (80-100); Mean Platelet Volume 10.6 fL (7.4-10.4); Monocytes # (auto) 0.14 K/uL (0.11-0.59); Neutrophils # (auto) 12.18 K/uL (1.4-6.5); Neutrophils % (auto) 88.3 %; Platelet Count 238 K/uL (130-400); RDW Coefficient of Variation 13.7 % (11.5-14.5); RDW Standard Deviation 46.9 fL (36.4-46.3); Red Blood Count 4.13 M/uL (4.2-5.4); White Blood Count 13.81 K/uL (4.8-10.8)
[2020-07-10] MEDS: PIPERACILLIN/TAZOBACTAM 3.375 GM in DEXTROSE 5% 100 ML IV SCH (08:05)
[2020-07-10] MEDS: GABAPENTIN 300 MG CAP PO SCH ×2 (08:05→12:53)
[2020-07-10 08:44] LABS: Albumin Globulin Ratio 0.9 (0.9-2); Albumin Level 3.2 gm/dl (3.4-5.0); BUN Creatinine Ratio 22.1 (10-20); Bilirubin,Total 0.5 mg/dl (0.2-1); Calcium 9.5 mg/dl (8.5-10.1); Creatinine Clr Calc Pharmacy 46.4 ml/min; Est GFR (African American) 56.9 ml/min; Est GFR (Non-African American) 49.1 ml/min; Globulin 3.4 gm/dl (2.5-4.0); Total Protein 6.6 gm/dl (6.4-8.2)
[2020-07-10] MEDS ORDERED: lisinopril 10 MG TAB PO SCH (09:00)
[2020-07-10] MEDS ORDERED: ZINC SULFATE 220 MG CAPSULE PO SCH (09:00)
[2020-07-10] MEDS ORDERED: CHOLECALCIFEROL 1,000 UNITS 25 MCG TAB PO SCH (09:00)
[2020-07-10 09:23] LABS: Potassium 3.4 mmol/L (3.5-5.1)
[2020-07-10] MEDS ORDERED: POTASSIUM CHLORIDE 10 MEQ / 100ML WTR IV STA (11:12)
[2020-07-10] MEDS ORDERED: POTASSIUM CHLORIDE CRTAB 20 MEQ TABCR PO SCH (11:15)
[2020-07-10] MEDS ORDERED: POTASSIUM CHLORIDE / WTR 10 MEQ/100 ML PLCT IV SCH (11:30)
[2020-07-10] MEDS: POTASSIUM CHLORIDE / WTR 10 MEQ/100 ML PLCT IV SCH ×2 (12:11→12:48)
[2020-07-10] MEDS ORDERED: methylPREDNISolone 40 MG in SYRINGE 0 ML IV SCH (15:00)
--- NOTE | 2020-07-10 17:49 | Discharge Summary ---
Date of Service July 10, 2020 Admission HPI Per Admitting Provider The patient is a 75-year-old female with a past medical history including lumbar radiculopathy, diffuse large B-cell lymphoma, headaches, multiple contusions, triquetral fracture, necrotizing myopathy, prolonged QT interval, COPD, osteoporosis, long-term current use of steroids, rheumatoid arthritis, Raynaud's disease, hypertension, GERD and fibromyalgia. She reports that while taking her pills this morning she began to cough afterwards, but was not concerned that she had positive pills in the cells. She continued to have large moist mucus production afterwards, and because of these concerns for possible aspiration, she presented to the ED for assessment. While in ED she reported also that she had return of some right sided facial pain, has a history of sinus-itis and surgery by Dr. Mccarthy. Principal Diagnosis chocking episode Discharge Exam The patient appeared well she is mildly tachypneic Vital signs as documented. Lungs are patient is mildly tachypneic but she claims this is her baseline Cardiac exam, Rhythm is regular.. No murmurs, rubs or gallops. Abdominal exam reveals normal bowel sounds, soft non tender, no masses Extremities are nonedematous and both pedal pulses are normal. Neurologic exam is alert and oriented, no focal loss of strength or sensation Skin is without bruises or rashes Psychologically is without concerns for anxiety or depression. Discharge Data Allergies Allergy/AdvReac Type Severity Reaction Status Date / Time alendronate sodium Allergy Intermediate CHILLS,FEVER, Verified 07/09/20 13:59 TEETH GOT LOOSE aspirin Allergy Mild ITCHING Verified 07/09/20 13:59 UNDER SKIN ibuprofen Allergy Mild itching Verified 07/09/20 13:59 under skin oxycodone AdvReac Intermediate N/V Verified 07/09/20 13:59 orange AdvReac Mild FEELS LIKE Verified 07/09/20 13:59 HAS A COLD AFTER DRINKING ORANGE JUICE Consultations 07/09/20 15:11 ED Decision to Admit Stat Ordered Studies 07/09/20 15:10 CT head/brain wo con Stat Hospital Course (1) COPD exacerbation: COPD exacerbation has been ruled out/possible aspiration airway- intermittent momentary respiratory distress which is since resolved Not have home on steroids at this time Antibiotics have been stopped no pneumonia was noted on chest x-ray, patient was educated that aspiration may create a pneumonitis or even a delayed infection she was told to take her temperature and look for changes in her sputum production and if these were to occur she is to report immediately to health care. 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 that he will be of the watch over her (2) Aspiration into airway: See above (3) Fibromyalgia: Fibromyalgia/myopathy- Continue gabapentin and Lidoderm patch (4) GERD (gastroesophageal reflux disease): (5) Hypertension: Resume HCTZ Continue lisinopril (6) Raynaud disease: (7) Rheumatoid arthritis: Return to treatment with oral prednisone (8) Myopathy: Total Time Total Time Spent Total Time Spent (In Minutes): It required greater than 30 minutes to prepare this patient for discharge Discharge Plan Discharge Items Patient Disposition: Home - Self-Care Reason For Visit: CHOKING, POSSIBLE ASPIRATION, COPD EX Discharge Diagnosis: chocking episode resolved Condition on Discharge: Fair Activity: Resume your previous activity Non-emergency contact: Primary Care Provider Call non-emergency contact if: you have any medication questions and your symptoms worsen Follow-up/Referrals: Al Blanco MD [Primary Care Provider] - 07/15/20 3:30 pm Diet: Regular Addtl Attending Provider Instructions: You were seen by our speech therapist and recommended an easy to swallow diet, Foods to eat on a soft food diet, please take extra care when taking pills, when doing so please sit or stand upright and swallow with a good amount of water Overall please watch for fever or change with a productive cough Soft diets are used when regular-textured or highly seasoned foods cant be tolerated, which can happen for a number of reasons. Soft diets should not be confused with pured diets. Although pured foods are allowed on soft food diets, pured diets are entirely different. Overall, soft diets should consist of foods that are soft, as well as easy to eat and digest. Here are some examples of foods that can be enjoyed on most soft diets (7, 8): Vegetables: soft cooked carrots, green beans, chopped cooked spinach, cooked zucchini without seeds, well-cooked broccoli florets, etc. Fruits: cooked, peeled apples or applesauce, bananas, avocado, peeled ripe peaches, cooked pears, pured fruits, etc. Eggs: cooked whole eggs or egg whites, egg salad Dairy products: cottage cheese, yogurt, soft cheeses, pudding, frozen yogurt, etc. Lower fat dairy products are typically recommended for people recovering from gastrointestinal surgery or illness. Grains and starches: mashed potatoes, sweet potatoes, butternut squash, cooked cereals like cream of wheat, soft, moistened grains such as farro or barley, moistened pancakes, soft noodles, etc. Meat, poultry, and fish: finely chopped or ground moistened poultry, soft tuna or chicken salad (without chopped raw vegetables or fruit like celery or apples), baked or broiled fish, soft meatballs, soft tofu, etc. Soups: pured or broth-based soups with soft-cooked vegetables Miscellaneous: gravies, sauces, smooth nut butters, unseeded jellies and jams Drinks: water, tea, protein shakes, and smoothies Keep in mind that there are different variations of soft food diets, depending on the condition theyre being used to treat. Some people with further restrictions may not be able to tolerate certain foods for various reasons. Your primary care provider can refer you to a dictaphone operator if you have further questions Pending Studies at Discharge: Yes Studies:: blood cultures will continue to be monitored and you will be called if results require action Stand-Alone Forms: My [facility], Smoking Cessation Medications and DC Order Prescriptions: Continued prednisone 5 mg tablet 5 mg PO QAM Qty: 90 RF: 3 prednisone 1 mg tablet 3 mg PO QAM RF: 0 albuterol sulfate 2.5 mg /3 mL (0.083 %) solution for nebulization 2.5 mg INH Q6H PRN (Reason: shortness of breath or wheezing) Qty: 180 RF: 1 (DME) nebulizer accessories Kit See Rx Instructions .ROUTE .MEDSUPPLY Qty: 1 RF: 0 (DME) nebulizer and compressor Device See Rx Instructions [id number] .MEDSUPPLY Qty: 1 RF: 0 gabapentin 300 mg capsule 300 mg PO TID RF: 0 montelukast [Singulair] 10 mg tablet 10 mg PO QPM Qty: 90 RF: 3 albuterol sulfate 90 mcg/actuation HFA aerosol inhaler 2 - 4 puff Inhalation Q6H PRN (Reason: Shortness Of Breath Or Wheezing) Qty: 18 RF: 5 lisinopril 10 mg tablet 10 mg PO QAM RF: 0 dextromethorphan-guaifenesin [Mucinex DM] 60-1,200 mg Tablet Extended Release 12 Hr 1 tab PO Q12H PRN (Reason: Congestion) RF: 0 cholecalciferol (vitamin D3) [Vitamin D3] 1,000 unit Tablet 1,000 unit PO QAM RF: 0 zinc 50 mg Tablet 50 mg PO QAM RF: 0 hydrochlorothiazide 25 mg tablet 25 mg PO QAM RF: 0 lidocaine 5 % adhesive patch,medicated 1 patch TOP DAILY PRN (Reason: pain) Qty: 15 RF: 0 Discharge Orders: Discharge Order (Routine); Ordered 07/10/20 Ordered By: Raoul Garcia Admission Data Admit Date/Time: 07/09/20 15:46 Attending Provider: Raoul Garcia Admit Provider: Kirk Robledo Primary Care Provider: Al Blanco Other Providers: Kirk Robledo Other Interventions: Discharge Summary Assessment (RN) Last Done: 07/10/20 14:28 Coding Level of Care Code D/C Day Management >30 mins Diagnoses COPD exacerbation J44.1 Aspiration into airway T17.908A Fibromyalgia M79.7 GERD (gastroesophageal reflux disease) K21.9 Hypertension I10 Raynaud disease I73.00 Rheumatoid arthritis M06.9 Myopathy G72.9
== END 2020-07-10 15:30 | disposition home or self-care (01) ==
LOC: ED 12:05 → 2N 15:46 → SUATTDRO 15:46 → INTOOBSV 15:46 → 2N 16:55

== ENCOUNTER 2020-10-15 22:22 | Inpatient (IN) ==
[2020-10-15] MEDS ORDERED: MoRPHine SULFATE 4 MG/ML 1 ML CARP\\VIAL IV STA (23:16)
[2020-10-15] MEDS ORDERED: SODIUM CHLORIDE 0.9% 1000ML 1,000 ML IV ONE (23:16)
--- NOTE | 2020-10-15 23:23 | Emergency Department Note ---
History of Present Illness General Chief complaint: Fall Time Seen by Provider: 10/15/20 22:57 Source: patient Mode of arrival: EMS Limitations: no limitations History of Present Illness Provider complaint: Fall, right hip pain Onset (ago): hour(s) Radiation: extremity Severity: severe Pain Consistency: + constant Maximum Pain Intensity: 8 Current Pain Intensity: 8 Quality: + constant Relieved By: + none Exacerbated By: + movement Associated symptoms: + denies other symptoms Treatments prior to arrival: none This is a 75-year-old female brought in by EMS after a fall at home. Patient states she stood up and was walking to the table when suddenly she felt her right leg give out and she fell to the right side. Patient states she has been cautious and careful at home since a discectomy in her low back at [facility] 3-1/2 weeks ago. She felt she has been healing and recovering well. She still has limitations to her range of motion and lifting, but has not had any additional falls. She states she previously had had paresthesias to the left lower extremity however the right leg worked fine. She states since the surgery this paresthesias to the left lower extremity have been slowly improving. She denies feeling dizzy, lightheaded or experiencing any pain when she stood up and first began walking several steps. Patient states she has had a difficult time staying hydrated due to difficulty swallowing. She states this difficulty preceded the surgery. She states she is no longer taking tramadol, is using Tylenol and gabapentin for her pain and feels that her pain is well controlled. She denies striking her head or having any loss of consciousness in the fall this evening, however was unable to stand under her own power again. Due to significant pain and inability to walk, family contacted EMS who brought her to the emergency room. Patient states she has pain over the right hip with any movement although feels it is worse along her right inguinal region and right groin and radiates out over the right hip. Patient states she does not have any significant increase in pain in her low back. She does have some pain at her right shoulder and right elbow from the fall additionally. Patient states she does not use any anticoagulation therapy. Pt seen during a time of high acuity and national emergency pandemic while we aring PPE. Home Medications Medication Instructions Recorded Confirmed Type cholecalciferol (vitamin D3) 25 1,000 unit PO QAM 03/27/18 10/15/20 History mcg (1,000 unit) tablet (Vitamin D3) dextromethorphan-guaifenesin ER 60 1 tab PO Q12H PRN 03/27/18 10/15/20 History mg-1,200 mg tab,extend release,12hr (Mucinex DM) lisinopril 10 mg tablet 10 mg PO QAM 03/27/18 10/15/20 History hydrochlorothiazide 25 mg tablet 25 mg PO QAM 08/01/18 10/15/20 History nebulizer accessories #1 ea 07/04/19 06/12/20 Rx nebulizer and compressor #1 ea 07/04/19 06/12/20 Rx prednisone 1 mg tablet 3 mg PO QAM tab 08/15/19 10/15/20 History montelukast 10 mg tablet 10 mg PO QPM #90 tab 10/03/19 10/15/20 Rx (Singulair) zinc 50 mg tablet 50 mg PO QAM 12/17/19 10/15/20 History prednisone 5 mg tablet 5 mg PO QAM #90 tab 02/07/20 10/15/20 Rx albuterol sulfate 90 mcg/actuation 2 - 4 puff INHALATION Q6H PRN #18 02/21/20 10/15/20 Rx aerosol inhaler gm lidocaine 5 % topical patch 1 patch TOP DAILY PRN #15 ea 04/18/20 10/15/20 Rx albuterol sulfate 2.5 mg INH Q6H PRN #180 ml 08/04/20 10/15/20 Rx ondansetron HCl 4 mg tablet 4 mg PO Q8H PRN 10/09/20 10/15/20 History tramadol 50 mg tablet 50 - 100 mg PO .Q6-8HR PRN 10/09/20 10/15/20 History gabapentin 400 mg capsule 400 mg PO BID 10/15/20 10/15/20 History Allergies Allergy/AdvReac Type Severity Reaction Status Date / Time alendronate sodium Allergy Intermediate CHILLS,FEVER, Verified 10/15/20 22:50 TEETH GOT LOOSE aspirin Allergy Mild ITCHING Verified 10/15/20 22:50 UNDER SKIN ibuprofen Allergy Mild itching Verified 10/15/20 22:50 under skin oxycodone AdvReac Intermediate N/V Verified 10/15/20 22:50 orange AdvReac Mild FEELS LIKE Verified 10/15/20 22:50 HAS A COLD AFTER DRINKING ORANGE JUICE Past Med/Surg History Medical History Chronic obstructive pulmonary disease inhaler/nebulizer prn Emphysema with chronic bronchitis Fibromyalgia GERD (gastroesophageal reflux disease) Hearing deficit Hypertension Long-term current use of steroids Non-Hodgkin lymphoma diagnosed 2006--chemo/radiation Osteoporosis Raynaud disease Rheumatoid arthritis SOB (shortness of breath) on exertion Surgical History History of appendectomy History of bilateral cataract extraction History of cholecystectomy History of colonoscopy History of ear surgery left "tried to repair hole in my ear" History of esophagogastroduodenoscopy (EGD) History of sinus surgery x2 History of tooth extraction History of total hysterectomy with bilateral salpingo-oophorectomy (BSO) Family History Other Family history non-contributory No family history of adverse response to anesthesia Social History Smoking Status: Never smoker Second Hand Exposure: No; Do You Dip or Chew Tobacco: No; Hx Alcohol Use: Yes Alcohol type: wine Hx Substance Use: No Preferred Language: Montserratian Communication Ability: Effective Tile Ditcher Required: No Beliefs That Will Affect Care: Faith Faith Beliefs: Shinto [employer]regational marital status: Current Living Situation: Family Current Living Situation Comment: Spouse and adult daughter. current occupational status: retired Other Information That Helps Us Care for You: No Feels Safe at Home: Yes Safety Concerns: Feels Safe At This Time Assistive Devices: Glasses Review of Systems A total of 10 systems reviewed and were otherwise negative All systems reviewed & are unremarkable except as noted in HPI & below Physical Exam Vital Signs Vital Signs - 24 hr 10/15/20 22:39 10/15/20 23:16 10/15/20 23:18 Temperature 36.6 C Temperature Source Oral Pulse Rate 76 61 Pulse Rate [Finger] 61 Pulse Rate from SpO2 Sensor 61 Pulse Rhythm Regular Pulse Strength Normal Respiratory Rate 18 16 18 Respiratory Effort / Characteristics Non-Labored Spontaneous Non-Labored Spontaneous Respiratory Depth Normal Normal Blood Pressure 124/76 127/63 Blood Pressure [Left Arm] 127/63 Blood Pressure Mean 92 84 Blood Pressure Mean [Left Arm] 84 Pulse Oximetry 99 98 99 Oxygen Delivery Method Room Air Room Air Sepsis Recent Fever Within 48 Hours No Sepsis New/Unexplained Change in Mental Status N/A Sepsis Action Taken by Nursing No Action Required 10/16/20 00:00 10/16/20 01:00 10/16/20 02:00 Temperature Temperature Source Pulse Rate 60 66 67 Pulse Rate [Finger] Pulse Rate from SpO2 Sensor 60 66 67 Pulse Rhythm Pulse Strength Respiratory Rate 16 16 17 Respiratory Effort / Characteristics Respiratory Depth Blood Pressure 155/66 H 159/64 H 162/67 H Blood Pressure [Left Arm] Blood Pressure Mean 95 95 98 Blood Pressure Mean [Left Arm] Pulse Oximetry 99 94 98 Oxygen Delivery Method Room Air Sepsis Recent Fever Within 48 Hours Sepsis New/Unexplained Change in Mental Status Sepsis Action Taken by Nursing GENERAL: alert, uncomfortable appearing, well nourished, no distress, non-toxic HEAD: nc/at EYE EXAM: normal conjunctiva, PERRL and EOM's grossly intact OROPHARYNX: no exudate, no erythema, lips, buccal mucosa, and tongue normal and mucous membranes are moist NECK: supple, no nuchal rigidity, no adenopathy, non-tender LUNGS: Clear to auscultation. Normal chest wall mechanics, no w/r/r HEART: no murmurs, S1 normal and S2 normal ABDOMEN: abdomen soft, non-tender, normo-active bowel sounds, no masses, no rebound or guarding. PELVIS: Stable to compression, tenderness with palpation along the right pubic symphysis and right lateral hip BACK: Back is symmetrical on inspection and there is no deformity, no midline tenderness, no CVA tenderness. SKIN: no rashes and no bruising UPPER EXTREMITIES: upper extremities are grossly normal. FROM, nml pulses b/l. LOWER EXTREMITIES: No pitting edema. FROM at LLE, nml pulses b/l. Sensation intact bilaterally, decreased range of motion at the right hip secondary to pain. No obvious deformities noted to the right lower extremity, no joint effusions, compartments soft. NEURO EXAM: Normal sensorium, cranial nerves II-XII grossly intact, normal speech, no gross weakness of arms, no gross weakness of legs. Gross sensation in tact. Course Administered Medications Acetaminophen (Acetaminophen 500 Mg Tab) 1,000 mg PO Q8H PRN PRN Reason: pain/fever Stop: 11/15/20 04:30 Last Admin: 10/16/20 20:32 Dose: 1,000 mg Documented by: [id number] Enoxaparin Sodium (Enoxaparin Inj 30 Mg/0.3 Ml Syr) 30 mg SQ Q24H [facility] Stop: 11/15/20 05:59 Last Admin: 10/17/20 05:48 Dose: 30 mg Documented by: [id number] Admin: 10/16/20 05:55 Dose: 30 mg Documented by: [id number] Gabapentin (Gabapentin 400 Mg Cap) 400 mg PO BID [facility] Stop: 11/15/20 08:59 Last Admin: 10/16/20 20:33 Dose: 400 mg Documented by: [id number] Admin: 10/16/20 09:42 Dose: 400 mg Documented by: [id number] Hydrochlorothiazide ([facility]othiaz[facility] 25 Mg Tab) [facility]: 11/15/20 08:59 Last Admin: 10/16/20 09:43 Dose: 25 mg Documented by: [id number] Ketorolac Tromethamine (Ketorolac Tromethamine 15 Mg/Ml Vial) 15 mg IV Q6H PRN PRN Reason: Pain Stop: 10/21/20 08:29 Last Admin: 10/16/20 23:31 Dose: 15 mg Documented by: [id number] Admin: 10/16/20 17:20 Dose: 15 mg Documented by: [id number] Admin: 10/16/20 09:34 Dose: 15 mg Documented by: [id number] Lisinopril (Lisinopril 10 Mg Tab) [facility] Stop: 11/15/20 08:59 Last Admin: 10/16/20 09:43 Dose: 10 mg Documented by: [id number] Montelukast Sodium (Montelukast Sodium 10 Mg Tablet) 10 mg PO QPM [facility] Stop: 11/15/20 20:59 Last Admin: 10/16/20 20:33 Dose: 10 mg Documented by: [id number] Prednisone (Prednisone 5 Mg Tab) [facility] Stop: 11/15/20 08:59 Last Admin: 10/16/20 09:43 Dose: 5 mg Documented by: [id number] Prednisone (Prednisone 1 Mg Tab) [facility] Stop: 11/15/20 08:59 Last Admin: 10/16/20 09:43 Dose: 3 mg Documented by: [id number] Tramadol HCl (Tramadol Hcl 50 Mg Tablet) 50 mg PO Q6H PRN PRN Reason: Pain Stop: 11/16/20 00:26 Last Admin: 10/17/20 00:40 Dose: 50 mg Documented by: [id number] Vitamin D (Cholecalciferol 1,000 Units 25 Mcg Tab) 1,000 units PO QAM [facility] Stop: 11/15/20 08:59 Last Admin: 10/16/20 09:43 Dose: 1,000 units Documented by: [id number] Discontinued Medications Sodium Chloride (Nss 1000ml) 1,000 mls @ 999 mls/hr IV .Q1H1M ONE Stop: 10/16/20 00:16 Last Infusion: 10/16/20 03:34 Dose: 0 mls/hr Documented by: [id number] Admin: 10/15/20 23:52 Dose: 999 mls/hr Documented by: [id number] Sodium Chloride (Nss 1000ml) 1,000 mls @ 999 mls/hr IV .Q1H1M ONE Stop: 10/16/20 02:24 Last Infusion: 10/16/20 05:30 Dose: 0 mls/hr Documented by: [id number] Admin: 10/16/20 01:28 Dose: 999 mls/hr Documented by: [id number] Potassium Chloride/Sodium Chloride (Normal Saline W/20 Meq Kcl) 20 meq in 1,000 mls @ 100 mls/hr IV .Q10H [facility] Stop: 10/16/20 15:14 Last Infusion: 10/16/20 17:36 Dose: 0 mls/hr Documented by: [id number] Infusion: 10/16/20 09:35 Dose: 0 mls/hr Documented by: [id number] Admin: 10/16/20 05:55 Dose: 100 mls/hr Documented by: [id number] Potassium Acetate 10 meq/ (Sodium Chloride) 105 mls @ 105 mls/hr IV Q1H [facility] Stop: 10/16/20 12:44 Last Infusion: 10/16/20 14:18 Dose: 0 mls/hr Documented by: [id number] Admin: 10/16/20 13:18 Dose: 105 mls/hr Documented by: [id number] Infusion: 10/16/20 13:10 Dose: 105 mls/hr Documented by: [id number] Admin: 10/16/20 12:10 Dose: 105 mls/hr Documented by: [id number] Infusion: 10/16/20 12:10 Dose: 105 mls/hr Documented by: [id number] Admin: 10/16/20 11:11 Dose: 105 mls/hr Documented by: [id number] Infusion: 10/16/20 10:35 Dose: 0 mls/hr Documented by: [id number] Admin: 10/16/20 09:35 Dose: 105 mls/hr Documented by: [id number] Morphine Sulfate (Morphine Sulfate 4 Mg/Ml 1 Ml Carp\\Vial) 4 mg IV NOW STA Stop: 10/15/20 23:17 Last Admin: 10/15/20 23:52 Dose: 4 mg Documented by: [id number] Morphine Sulfate (Morphine Sulfate 4 Mg/Ml 1 Ml Carp\\Vial) 4 mg IV NOW STA Stop: 10/16/20 02:11 Last Admin: 10/16/20 02:36 Dose: 4 mg Documented by: [id number] Medical Decision Making Differential Diagnosis Fracture, subluxation, dislocation, contusion, ligamentous injury, neurovascular, compartment syndrome, rhabdomyolysis, as well as other pathologies. Medical Records Attestation: I reviewed the patient's medical records. Home Medications Current Medication List: was personally reviewed by me Laboratory Data Attestation: I reviewed the patient's lab results. Result diagrams: 10/17/20 06:33 10/17/20 06:33 Lab Results 10/15/20 10/15/20 10/16/20 Range/Units 23:16 23:16 00:03 WBC 11.04 H (4.8-10.8) K/uL RBC 3.93 L (4.2-5.4) M/uL Hgb 11.5 L (12.0-16.0) g/dL Hct 36.7 L (37-47) % MCV 93.4 (80-100) fL MCH 29.3 (25-34) pg MCHC 31.3 L (32-36) g/dL RDW Std Deviation 47.2 H (36.4-46.3) fL RDW Coeff of Navi 13.8 (11.5-14.5) % Plt Count 274 (130-400) K/uL MPV 10.8 H (7.4-10.4) fL Immature Gran % (Auto) 0.4 % Neut % (Auto) 78.4 % Lymph % (Auto) 12.0 % Sierra % (Auto) 8.8 % Eos % (Auto) 0.3 % Baso % (Auto) 0.1 % Neut # (Auto) 8.66 H (1.4-6.5) K/uL Lymph # (Auto) 1.33 (1.2-3.4) K/uL Sierra # (Auto) 0.97 H (0.11-0.59) K/uL Eos # (Auto) 0.03 (0-0.5) K/uL Baso # (Auto) 0.01 (0-0.2) K/uL Immature Gran # (Auto) 0.04 H (0.00-0.02) K/uL PT 10.4 (9.0-12.0) Seconds INR 1.0 (0.9-1.1) Sodium 140 (136-145) mmol/L Potassium 3.5 (3.5-5.1) mmol/L Chloride 110 H (98-107) mmol/L Carbon Dioxide 27 (21-32) mmol/L Anion Gap 3.0 (3-11) BUN 35 H (7-18) mg/dl Creatinine 0.99 (0.6-1.2) mg/dl Est Cr Clr Drug Dosing 51.9 ml/min Est GFR ( Amer) 64.6 ml/min Est GFR (Non-Af Amer) 55.7 ml/min BUN/Creatinine Ratio 35.8 H (10-20) Glucose 92 (70-99) mg/dl Calcium 9.0 (8.5-10.1) mg/dl Magnesium 1.8 (1.8-2.4) mg/dl Total Bilirubin 0.3 (0.2-1) mg/dl AST 13 L (15-37) U/L ALT 19 (12-78) U/L Alkaline Phosphatase 77 (45-117) U/L Troponin I < 0.015 (0-0.045) ng/ml Total Protein 6.3 L (6.4-8.2) gm/dl Albumin 3.1 L (3.4-5.0) gm/dl Globulin 3.2 (2.5-4.0) gm/dl Albumin/Globulin Ratio 1.0 (0.9-2) TSH 0.829 (0.300-4.500) uIu/ml COVID-19 Eval Order SARS-CoV-2 (PCR) (Negative) 10/16/20 10/16/20 Range/Units 01:50 01:50 WBC (4.8-10.8) K/uL RBC (4.2-5.4) M/uL Hgb (12.0-16.0) g/dL Hct (37-47) % MCV (80-100) fL MCH (25-34) pg MCHC (32-36) g/dL RDW Std Deviation (36.4-46.3) fL RDW Coeff of Navi (11.5-14.5) % Plt Count (130-400) K/uL MPV (7.4-10.4) fL Immature Gran % (Auto) % Neut % (Auto) % Lymph % (Auto) % Sierra % (Auto) % Eos % (Auto) % Baso % (Auto) % Neut # (Auto) (1.4-6.5) K/uL Lymph # (Auto) (1.2-3.4) K/uL Sierra # (Auto) (0.11-0.59) K/uL Eos # (Auto) (0-0.5) K/uL Baso # (Auto) (0-0.2) K/uL Immature Gran # (Auto) (0.00-0.02) K/uL PT (9.0-12.0) Seconds INR (0.9-1.1) Sodium (136-145) mmol/L Potassium (3.5-5.1) mmol/L Chloride (98-107) mmol/L Carbon Dioxide (21-32) mmol/L Anion Gap (3-11) BUN (7-18) mg/dl Creatinine (0.6-1.2) mg/dl Est Cr Clr Drug Dosing ml/min Est GFR ( Amer) ml/min Est GFR (Non-Af Amer) ml/min BUN/Creatinine Ratio (10-20) Glucose (70-99) mg/dl Calcium (8.5-10.1) mg/dl Magnesium (1.8-2.4) mg/dl Total Bilirubin (0.2-1) mg/dl AST (15-37) U/L ALT (12-78) U/L Alkaline Phosphatase (45-117) U/L Troponin I (0-0.045) ng/ml Total Protein (6.4-8.2) gm/dl Albumin (3.4-5.0) gm/dl Globulin (2.5-4.0) gm/dl Albumin/Globulin Ratio (0.9-2) TSH (0.300-4.500) uIu/ml COVID-19 Eval Order Covid19 at [facility] SARS-CoV-2 (PCR) NEGATIVE (Negative) Imaging Data My Impression: X-ray: I interpreted the following studies. Chest: A single view study of the chest was reviewed and was negative for cardiomegaly, focal infiltrate, effusion, pulmonary edema, or wide mediastinum. No obvious rib fracture or pneumothorax. Right shoulder: No obvious fracture/dislocation Radiologist's Impression: Chest X-Ray 10/15/20 23:16 SINGLE VIEW CHEST CLINICAL HISTORY: Trauma. FINDINGS: An AP, portable, upright chest radiograph is compared to study dated 10/09/2020 and correlated with chest CT dated 06/02/2017. The cardiomediastinal silhouette is unremarkable noting atherosclerotic calcification of the thoracic aorta. The lungs appear hyperinflated. Apical scarring is similar to previous. No airspace consolidation or large pleural effusion is identified. Foci of scarring/atelectasis are seen throughout both lungs. Chronic elevation of the left hemidiaphragm is unchanged. No pneumothorax is seen. The skeletal structures are osteopenic. The bony thorax is grossly intact. IMPRESSION: No acute cardiopulmonary abnormality. ACT 112: Negative or not required by law. Electronically signed by: Ghassan Root M.D. 10/16/2020 8:[address] 10/15/20 23:[address] DOSE: 809.84 mGy.cm HISTORY: Fall. Low back pain. trauma TECHNIQUE: Multiaxial CT images of the lumbar spine were performed and reformatted in the sagittal and coronal plane without the use of contrast. A dose lowering technique was utilized adhering to the principles of ALARA. COMPARISON: None. FINDINGS: Mild levoscoliosis. No fracture or subluxation within the lumbar spine. Nondisplaced right sacral wing fracture which extends into the right sacr oiliac joint. Severe disc space narrowing at L2-L3. Mild disc space narrowing at L4-5 and L5-S1. Small amount of right presacral/right retroperitoneal hemorrhage. Focal soft tissue density posterior to the left L5-S1 facet may be due to old postoperative change. IMPRESSION: Nondisplaced right sacral wing fracture which extends to the right sacroiliac joint. This is better appreciated on the same day pelvis CT. There is a small amount of presacral/right retroperitoneal hemorrhage. ACT 112: Negative or not required by law. Electronically signed by: Jaquan Jung M.D. 10/16/2020 7:31 AM Shoulder X-Ray 10/15/20 23:16 RIGHT SHOULDER 3 VIEWS CLINICAL HISTORY: Fall. FINDINGS: 3 views of the right shoulder are compared to study dated 08/21/2019. The skeletal structures are osteopenic. There is no radiographic evidence of fracture or dislocation. The glenohumeral articulation is maintained. Mild productive change is noted at the acromioclavicular joint. The overlying soft tissues are normal as imaged. The right lung parenchyma is clear as visualized. IMPRESSION: No acute bony abnormality is identified. Electronically signed by: Ghassan Root M.D. 10/16/2020 7:[address] pelvis: Fracture of the right sacral ala which extends into the right SI joint. Fractures of the right superior and inferior pubic rami. Radiologist: Codey Carlos MD CT L-spine: There is a fracture of the right sacral qamar which extends into the right SI joint. No fracture within the lumbar spine. Radiologist: Codey Carlos MD MDM Narrative This is a 75-year-old female presents emergency department due to concern for fall and increased right hip pain. Patient is status post back surgery although feels she had been recovering well without complication. Due to reported fall onto the right hip and accompanying hip pain, patient sent for imaging. Patient denied head injury or LOC, no other prodromal symptoms. Patient does admit to poor p.o. intake, and on additional investigation I do feel dehydration likely contributed to weakness or even lightheadedness that put her at risk for the fall. Patient found to have several pelvic fractures although they do appear to be nonoperative in nature. Patient was afebrile and hemodynamically stable. Other than dehydration, did not find evidence of infection, cardiac, or neuro etiology for her fall. No GABRIEL or acute electrolyte abnormality. No ectopy or dysrhythmia noted on telemetry. Patient given several medications for pain and was rehydrated through the IV in the emergency room. Discussed all results with patient at bedside and discussed the patient with hospitalist. An order was placed for continuous cardiac monitoring. The monitor shows a rate of _70_ with _normal sinus__ rhythm. Impression & Plan Closed pelvic fracture, Fall Discharge Plan Visit Data Chief Complaint: Fall ED Provider: Kay Vernon Discharge Problem: Closed pelvic fracture, Fall Patient Disposition: Admitted As Inpatient Discharge Instructions Interventions: ED Discharge Assessment Last Done: 10/16/20 03:39 Discharge Problem: Closed pelvic fracture Qualifiers: Encounter type: initial encounter Pelvic bone location: multiple parts Fracture alignment: with stable disruption of pelvic ring Qualified Code(s): S32.810A - Multiple fractures of pelvis with stable disruption of pelvic ring, initial en counter for closed fracture Fall Qualifiers: Encounter type: initial encounter Qualified Code(s): W19.XXXA - Unspecified fall, initial encounter
[2020-10-16] LABS: Basophils # (auto) 0.01 K/uL (0-0.2); Basophils % (auto) 0.1 %; Eosinophils # (auto) 0.03 K/uL (0-0.5); Eosinophils % (auto) 0.3 %; Hematocrit (blood only) 36.7 % (37-47); Hemoglobin 11.5 g/dL (12.0-16.0); Immature Granulocytes # (auto) 0.04 K/uL (0.00-0.02); Immature Granulocytes % (auto) 0.4 %; Lymphocytes # (auto) 1.33 K/uL (1.2-3.4); Mean Corpuscular Hemoglobin 29.3 pg (25-34); Mean Corpuscular Hgb Conc 31.3 g/dL (32-36); Mean Corpuscular Volume 93.4 fL (80-100); Mean Platelet Volume 10.8 fL (7.4-10.4); Monocytes # (auto) 0.97 K/uL (0.11-0.59); Monocytes % (auto) 8.8 %; Neutrophils # (auto) 8.66 K/uL (1.4-6.5); Neutrophils % (auto) 78.4 %; Platelet Count 274 K/uL (130-400); RDW Coefficient of Variation 13.8 % (11.5-14.5); RDW Standard Deviation 47.2 fL (36.4-46.3); Red Blood Count 3.93 M/uL (4.2-5.4); White Blood Count 11.04 K/uL (4.8-10.8)
[2020-10-16 00:30] LABS: Prothrombin Time 10.4 Seconds (9.0-12.0)
[2020-10-16 00:52] LABS: Alanine Aminotransferase 19 U/L (12-78); Albumin Level 3.1 gm/dl (3.4-5.0); Alkaline Phosphatase 77 U/L (45-117); BUN Creatinine Ratio 35.8 (10-20); Bilirubin,Total 0.3 mg/dl (0.2-1); Blood Urea Nitrogen 35 mg/dl (7-18); Carbon Dioxide 27 mmol/L (21-32); Chloride 110 mmol/L (98-107); Creatinine Clr Calc Pharmacy 51.9 ml/min; Est GFR (African American) 64.6 ml/min; Est GFR (Non-African American) 55.7 ml/min; Globulin 3.2 gm/dl (2.5-4.0); Glucose 92 mg/dl (70-99); Sodium 140 mmol/L (136-145); Thyroid Stimulating Hormone 0.829 uIu/ml (0.300-4.500); Total Protein 6.3 gm/dl (6.4-8.2); Troponin I < 0.015 ng/ml (0-0.045)
[2020-10-16 01:23] LABS: Aspartate Aminotransferase 13 U/L (15-37); Magnesium 1.8 mg/dl (1.8-2.4); Potassium 3.5 mmol/L (3.5-5.1)
[2020-10-16] MEDS ORDERED: SODIUM CHLORIDE 0.9% 1000ML 1,000 ML IV ONE (01:24)
[2020-10-16] MEDS ORDERED: MoRPHine SULFATE 4 MG/ML 1 ML CARP\\VIAL IV STA (02:10)
--- NOTE | 2020-10-16 02:10 | History & Physical Report ---
Date of Service October 16, 2020 Assessment & Plan (1) Pelvic fracture: Plan: Patient is a pleasant 75 year old female with PMHx COPD, GERD, Fibromyalgia, HTN, Non-Hodgkin Lymphoma, Osteopetrosis, Rheumatoid Arthritis, Raynaud, who presents after a fall on her R side earlier this evening due to her leg just "gave out," found to have a fracture of the R sacral ala to the R SI joint in addition to R superior and inferior pubic rami fractures. Pelvic Fracture secondary to fall -CT pelvis stat read showing fractures of the R sacral ala extending to the R SI joint in addition to fractures of the R superior and inferior pubic rami. -CT lumbar spine stat read without fx of the lumbar spine -Patient appearing fairly dehydrated on admission - may have contributed to her fall -2L NSS given in the ED, will continue with IVF NSS +20meq KCl 100ml/hr x1L -Pain control with Tylenol and IV morphine pushes q3h 2mg or 4mg based on pain scale -PT/OT consult -Patient will likely require placement for rehab prior to returning home - Case management consult placed -Continue home Gabapentin for pain control in addition to above -Continue home VItamin D COPD/Asthma -Well controlled with PRN albuterol - continue -Continue Singulair Rheumatoid Arthritis -Continue Prednisone 8mg QD -Will not stress dose at this time HTN -Continue HCTZ -Continue Lisinopril Dispo: Med/Surg for pain management and evaluations from PT and OT FEN: Regular diet, NSS +20meq KCl 100ml/hr x1L DVT: Lovenox 30mg QD Code: DNR/DNI History of Present Illness Chief Complaint: Fall at home Primary Care Provider: Al Blanco MD Patient is a pleasant 75 year old female with PMHx COPD, GERD, Fibromyalgia, HTN, Non-Hodgkin Lymphoma, Osteopetrosis, Rheumatoid Arthritis, Raynaud, who presents after a fall on her R side earlier this evening due to her leg just "gave out," found to have a fracture of the R sacral ala to the R SI joint in addition to R superior and inferior pubic rami fractures. Patient notes that she fell earlier this evening after putting items on a table. She notes she was barefoot when it occurred and did not slip, trip, pass out, or feel dizzy. She notes her leg just "stopped working" on the R side and she fell on her leg and shoulder. She denies hitting her head. She notes that she had surgery on her lumbar spine 3.5 weeks ago due to having a 1 month history of L leg numbness, tingling, and pain. She notes she has actually been working hard on keeping herself safe while she recovers and over all had felt she was doing a good job until today. She notes that currently she is having 7/10 pain in her R hip in addition to slight numbness/tingling into her R leg. She notes that her L leg feels well. She denies any NVD, SOB, chest pain, abdominal pain, dysuria, urinary incontinence, fecal incontinence. She notes that in regards to pain control for her post-surgical recovery she has worked her way down to tylenol alone and was no longer utilizing the tramadol. Med Hx: COPD, GERD, Fibromyalgia, HTN, Non-Hodgkin Lymphoma, Osteopetrosis, Rheumatoid Arthritis, Raynaud Surg Hx: Cholecystectomy, Appendectomy, Hysterectomy, Lumbar discectomy Soc Hx: Denies tobacco or illicit drug use. Drinks 1-2 glasses of wine/week Allergies Allergy/AdvReac Type Severity Reaction Status Date / Time alendronate sodium Allergy Intermediate CHILLS,FEVER, Verified 10/15/20 22:50 TEETH GOT LOOSE aspirin Allergy Mild ITCHING Verified 10/15/20 22:50 UNDER SKIN ibuprofen Allergy Mild itching Verified 10/15/20 22:50 under skin oxycodone AdvReac Intermediate N/V Verified 10/15/20 22:50 orange AdvReac Mild FEELS LIKE Verified 10/15/20 22:50 HAS A COLD AFTER DRINKING ORANGE JUICE Home Medications Medication Instructions Recorded Confirmed Type cholecalciferol (vitamin D3) 25 1,000 unit PO QAM 03/27/18 10/15/20 History mcg (1,000 unit) tablet (Vitamin D3) dextromethorphan-guaifenesin ER 60 1 tab PO Q12H PRN 03/27/18 10/15/20 History mg-1,200 mg tab,extend release,12hr (Mucinex DM) lisinopril 10 mg tablet 10 mg PO QAM 03/27/18 10/15/20 History hydrochlorothiazide 25 mg tablet 25 mg PO QAM 08/01/18 10/15/20 History nebulizer accessories #1 ea 07/04/19 06/12/20 Rx nebulizer and compressor #1 ea 07/04/19 06/12/20 Rx prednisone 1 mg tablet 3 mg PO QAM tab 08/15/19 10/15/20 History montelukast 10 mg tablet 10 mg PO QPM #90 tab 10/03/19 10/15/20 Rx (Singulair) zinc 50 mg tablet 50 mg PO QAM 12/17/19 10/15/20 History prednisone 5 mg tablet 5 mg PO QAM #90 tab 02/07/20 10/15/20 Rx albuterol sulfate 90 mcg/actuation 2 - 4 puff INHALATION Q6H PRN #18 02/21/20 10/15/20 Rx aerosol inhaler gm lidocaine 5 % topical patch 1 patch TOP DAILY PRN #15 ea 04/18/20 10/15/20 Rx albuterol sulfate 2.5 mg INH Q6H PRN #180 ml 08/04/20 10/15/20 Rx ondansetron HCl 4 mg tablet 4 mg PO Q8H PRN 10/09/20 10/15/20 History tramadol 50 mg tablet 50 - 100 mg PO .Q6-8HR PRN 10/09/20 10/15/20 History gabapentin 400 mg capsule 400 mg PO BID 10/15/20 10/15/20 History Past Med/Surg History Medical History Chronic obstructive pulmonary disease inhaler/nebulizer prn Emphysema with chronic bronchitis Fibromyalgia GERD (gastroesophageal reflux disease) Hearing deficit Hypertension Long-term current use of steroids Non-Hodgkin lymphoma diagnosed 2006--chemo/radiation Osteoporosis Raynaud disease Rheumatoid arthritis SOB (shortness of breath) on exertion Surgical History History of appendectomy History of bilateral cataract extraction History of cholecystectomy History of colonoscopy History of ear surgery left "tried to repair hole in my ear" History of esophagogastroduodenoscopy (EGD) History of sinus surgery x2 History of tooth extraction History of total hysterectomy with bilateral salpingo-oophorectomy (BSO) Family History Other Family history non-contributory No family history of adverse response to anesthesia Social History Smoking Status: Never smoker Second Hand Exposure: No; Do You Dip or Chew Tobacco: No; Hx Alcohol Use: Yes Alcohol type: wine Hx Substance Use: No Preferred Language: Wolof Communication Ability: Effective Transportation Technician Required: No Beliefs That Will Affect Care: Mu-Ism Mu-Ism Beliefs: Scientology Cheondoism marital status: Current Living Situation: Family Current Living Situation Comment: Spouse and adult daughter. current occupational status: retired Other Information That Helps Us Care for You: No Feels Safe at Home: Yes Safety Concerns: Feels Safe At This Time Assistive Devices: Cane and Walker Review of Systems Review of Systems: All systems reviewed & are unremarkable except as noted in Subjective Physical Exam Constitutional: well developed, well nourished and + in distress Eyes: PERRL, conjunctivae normal, anicteric sclerae ENMT: external ear and nose normal, oropharynx normal Neck: trachea midline, no thyromegaly Respiratory: normal respiratory effort, lungs clear to auscultation (from anterior lung rosado) Cardiovascular: RRR, no murmur, no edema Gastrointestinal (Abdomen): normal bowel sounds, soft, nontender, no hepatosplenomegaly Musculoskeletal: Muscle strength testing limited to the RLE secondary to pain. Patient with limited ROM of the RLE secondary to pain. Sensation intact and similar b/l. Significant tenderness to palpation of the lateral R pelvis Skin: no rashes, warm and dry Neurologic: PERRL, EOMI, accommodation nl, no face palsy, no dysarthria Psychiatric: A+Ox3, euthymic affect Results & Data Results & Data ([facility]) Vital Signs (Past 12 Hours) Vital Signs Temp Pulse Pulse Resp BP BP Pulse Ox 10/16/20 01:00 66 16 159/64 H 94 10/16/20 00:00 60 16 155/66 H 99 10/15/20 23:18 61 18 127/63 99 10/15/20 23:16 61 16 127/63 98 10/15/20 22:39 36.6 C 76 18 124/76 99 Laboratory Results Laboratory Results - last 24 hr 10/15/20 10/15/20 10/16/20 23:16 23:16 00:03 WBC 11.04 H RBC 3.93 L Hgb 11.5 L Hct 36.7 L MCV 93.4 MCH 29.3 MCHC 31.3 L RDW Std Deviation 47.2 H RDW Coeff of Navi 13.8 Plt Count 274 MPV 10.8 H Immature Gran % (Auto) 0.4 Neut % (Auto) 78.4 Lymph % (Auto) 12.0 Carbon % (Auto) 8.8 Eos % (Auto) 0.3 Baso % (Auto) 0.1 Neut # (Auto) 8.66 H Lymph # (Auto) 1.33 Carbon # (Auto) 0.97 H Eos # (Auto) 0.03 Baso # (Auto) 0.01 Immature Gran # (Auto) 0.04 H PT 10.4 INR 1.0 Sodium 140 Potassium 3.5 Chloride 110 H Carbon Dioxide 27 Anion Gap 3.0 BUN 35 H Creatinine 0.99 Est Cr Clr Drug Dosing 51.9 Est GFR ( Amer) 64.6 Est GFR (Non-Af Amer) 55.7 BUN/Creatinine Ratio 35.8 H Glucose 92 Calcium 9.0 Magnesium 1.8 Total Bilirubin 0.3 AST 13 L ALT 19 Alkaline Phosphatase 77 Troponin I < 0.015 Total Protein 6.3 L Albumin 3.1 L Globulin 3.2 Albumin/Globulin Ratio 1.0 TSH 0.829 COVID-19 Eval Order SARS-CoV-2 (PCR) 10/16/20 10/16/20 01:50 01:50 WBC RBC Hgb Hct MCV MCH MCHC RDW Std Deviation RDW Coeff of Navi Plt Count MPV Immature Gran % (Auto) Neut % (Auto) Lymph % (Auto) Carbon % (Auto) Eos % (Auto) Baso % (Auto) Neut # (Auto) Lymph # (Auto) Carbon # (Auto) Eos # (Auto) Baso # (Auto) Immature Gran # (Auto) PT INR Sodium Potassium Chloride Carbon Dioxide Anion Gap BUN Creatinine Est Cr Clr Drug Dosing Est GFR ( Amer) Est GFR (Non-Af Amer) BUN/Creatinine Ratio Glucose Calcium Magnesium Total Bilirubin AST ALT Alkaline Phosphatase Troponin I Total Protein Albumin Globulin Albumin/Globulin Ratio TSH COVID-19 Eval Order Covid19 at [facility] SARS-CoV-2 (PCR) NEGATIVE Diagnostic Findings CT L SPINE: There is a fracture of the right sacral ala which extends into the right SI joint. No fracture within the lumbar spine. Radiologist: Codey Carlos MD Study ready at 00:34 and initial results transmitted at 00:46 CT PELVIS: Fracture of the right sacral ala which extends into the right SI joint. Fractures of the right superior and inferior pubic rami. Radiologist: Codey Carlos MD Supervising Physician Co-Signing Physician Notes Patient seen and examined, chart reviewed, case discussed with Dr. Rios and I agree with the assessment and plan as documented above. Briefly, patient is a 75yo female, recent back surgery presenting after a fall at home resulting in pelvic fracture. On exam she is in pain, non-toxic, NV intact HEENT - NC/AT, PERRL, MMM Heart - +S1/S2, regular, no m/r/g Lungs - CTA Abd - +BS, soft, NT/ND Ext- warm, well perfused, sensation intact Labs and images reviewed Assessment/Plan - 75yo female s/p fall presenting with stable pelvic fracture -Admit to medical -Pain control -Ortho consultation appreciated -Remainder of plan as above Resident Activity Tracking Resident Involvement: Resident Care Provided Care Provided: Adult Hospital Medicine
[2020-10-16] MEDS ORDERED: ALBUTEROL HFA 8 GM INHALER INH PRN (04:31)
[2020-10-16] MEDS ORDERED: MoRPHine SULFATE 4 MG/ML 1 ML CARP\\VIAL IV PRN (04:31)
[2020-10-16] MEDS ORDERED: MoRPHine SULFATE 2 MG/ML CARP IV PRN (04:31)
[2020-10-16] MEDS ORDERED: ONDANSETRON INJ 2 MG/ML 2 ML VIAL IV PRN (04:31)
[2020-10-16] MEDS ORDERED: NSS + 20MEQ KCL 20 MEQ/1,000 ML BAG IV SCH (05:15)
[2020-10-16] MEDS: ENOXAPARIN INJ 30 MG/0.3 ML SYR SQ SCH (05:55)
[2020-10-16 06:59] LABS: Basophils # (auto) 0.02 K/uL (0-0.2); Basophils % (auto) 0.2 %; Eosinophils # (auto) 0.07 K/uL (0-0.5); Eosinophils % (auto) 0.5 %; Hematocrit (blood only) 34.4 % (37-47); Hemoglobin 11.1 g/dL (12.0-16.0); Immature Granulocytes # (auto) 0.02 K/uL (0.00-0.02); Immature Granulocytes % (auto) 0.2 %; Lymphocytes # (auto) 1.66 K/uL (1.2-3.4); Mean Corpuscular Hemoglobin 30.2 pg (25-34); Mean Corpuscular Hgb Conc 32.3 g/dL (32-36); Mean Corpuscular Volume 93.7 fL (80-100); Mean Platelet Volume 10.8 fL (7.4-10.4); Monocytes # (auto) 1.17 K/uL (0.11-0.59); Monocytes % (auto) 9.2 %; Neutrophils # (auto) 9.79 K/uL (1.4-6.5); Neutrophils % (auto) 76.9 %; Platelet Count 244 K/uL (130-400); RDW Coefficient of Variation 13.8 % (11.5-14.5); RDW Standard Deviation 47.2 fL (36.4-46.3); Red Blood Count 3.67 M/uL (4.2-5.4); White Blood Count 12.73 K/uL (4.8-10.8)
[2020-10-16 07:32] LABS: BUN Creatinine Ratio 35.9 (10-20); Calcium 8.3 mg/dl (8.5-10.1); Creatinine Clr Calc Pharmacy 68.2 ml/min; Est GFR (African American) 88.9 ml/min; Est GFR (Non-African American) 76.7 ml/min; Potassium 2.7 mmol/L (3.5-5.1)
--- NOTE | 2020-10-16 07:32 | CT Scan Report ---
LUMBAR SPINE CT CT DOSE: 809.84 mGy.cm HISTORY: Fall. Low back pain. trauma TECHNIQUE: Multiaxial CT images of the lumbar spine were performed and reformatted in the sagittal an d coronal plane without the use of contrast. A dose lowering technique was utilized adhering to the principles of ALARA. COMPARISON: None. FINDINGS: Mild levoscoliosis. No fracture or subluxation within the lumbar spine. Nondisplaced right sacral wing fracture which extends into the right sacroiliac joint. Severe disc space narrowing at L2 -L3. Mild disc space narrowing at L4-5 and L5-S1. Small amount of right presacral/right retroperitone al hemorrhage. Focal soft tissue density posterior to the left L5-S1 facet may be due to old postoper ative change. IMPRESSION: Nondisplaced right sacral wing fracture which extends to the right sacroiliac joint. This is better a ppreciated on the same day pelvis CT. There is a small amount of presacral/right retroperitoneal hemo rrhage. ACT 112: Negative or not required by law. Electronically signed by: Jaquan Jung M.D. 10/16/2020 7:31 AM
--- NOTE | 2020-10-16 08:01 | XRay Report ---
RIGHT SHOULDER 3 VIEWS CLINICAL HISTORY: Fall. FINDINGS: 3 views of the right shoulder are compared to study dated 08/21/2019. The skeletal structure s are osteopenic. There is no radiographic evidence of fracture or dislocation. The glenohumeral james culation is maintained. Mild productive change is noted at the acromioclavicular joint. The overlying soft tissues are normal as imaged. The right lung parenchyma is clear as visualized. IMPRESSION: No acute bony abnormality is identified. Electronically signed by: Ghassan Root M.D. 10/16/2020 7:59 AM
--- NOTE | 2020-10-16 08:46 | XRay Report ---
SINGLE VIEW CHEST CLINICAL HISTORY: Trauma. FINDINGS: An AP, portable, upright chest radiograph is compared to study dated 10/09/2020 and correlate d with chest CT dated 06/02/2017. The cardiomediastinal silhouette is unremarkable noting atherosclero tic calcification of the thoracic aorta. The lungs appear hyperinflated. Apical scarring is similar t o previous. No airspace consolidation or large pleural effusion is identified. Foci of scarring/atele ctasis are seen throughout both lungs. Chronic elevation of the left hemidiaphragm is unchanged. No p neumothorax is seen. The skeletal structures are osteopenic. The bony thorax is grossly intact. IMPRESSION: No acute cardiopulmonary abnormality. ACT 112: Negative or not required by law. Electronically signed by: Ghassan Root M.D. 10/16/2020 8:45 AM
--- NOTE | 2020-10-16 09:08 | CT Scan Report ---
CT SCAN OF THE PELVIS WITHOUT IV CONTRAST CLINICAL HISTORY: Fall. Pelvic pain. COMPARISON STUDY: Pelvic CT dated 11/25/2008. PET/CT dated 09/12/2013. TECHNIQUE: CT scan of the pelvis is performed from the pelvic inlet to the proximal femora. Images a re reviewed in the axial, sagittal, and coronal planes. IV contrast was not administered for this exa mination. A dose lowering technique was utilized adhering to the principles of ALARA. Note that inte rpretation is suboptimal without plain film correlate. FINDINGS: The skeletal structures are osteopenic. There is acute fracture of the right sacral ala. Th is extends to the sacroiliac joint. There are also comminuted fractures of the right superior and inf erior pubic ring. No additional fracture is identified. The proximal femora appear intact. No lytic o r blastic lesion is seen. Mild to moderate degenerative joint space narrowing is noted in the hips. T here is no significant joint effusion. Intrapelvic extraperitoneal hemorrhage is seen anterior to the right sacral ala, as well as along the right pelvic sidewall around the pubic ring fractures. No int ramuscular hematoma is identified. There is no pelvic sidewall or inguinal adenopathy. The bladder is normal as imaged. The uterus is surgically absent. No adnexal lesion is seen. The visualized bowel l oops are normal in caliber. Atherosclerotic calcification is noted in the iliac arteries. There is ge neralized atrophy of the regional musculature. IMPRESSION: 1. Fracture of the right sacral ala. 2. Comminuted right pubic ring fractures. 3. There is intrapelvic extraperitoneal hemorrhage anterior to the right sacrum and along the right p elvic sidewall around the pubic ring fractures. ACT 112: Negative or not required by law. Electronically signed by: Ghassan Root M.D. 10/16/2020 9:07 AM
[2020-10-16] MEDS: KETOROLAC TROMETHAMINE 15 MG/ML VIAL IV PRN ×3 (09:34→23:31)
[2020-10-16] MEDS: POTASSIUM ACETATE 10 MEQ in 0.9 % SODIUM CHLORIDE 100 ML IV SCH ×4 (09:35→13:18)
[2020-10-16] MEDS: GABAPENTIN 400 MG CAP PO SCH ×2 (09:42→20:33)
[2020-10-16] MEDS: predniSONE 5 MG TAB PO SCH (09:43)
[2020-10-16] MEDS: CHOLECALCIFEROL 1,000 UNITS 25 MCG TAB PO SCH (09:43)
[2020-10-16] MEDS: predniSONE 1 MG TAB PO SCH (09:43)
[2020-10-16] MEDS: hydroCHLOROthiazide 25 MG TAB PO SCH (09:43)
[2020-10-16] MEDS: lisinopril 10 MG TAB PO SCH (09:43)
[2020-10-16 15:37] LABS: BUN Creatinine Ratio 25.9 (10-20); Calcium 8.6 mg/dl (8.5-10.1); Creatinine Clr Calc Pharmacy 55.1 ml/min; Est GFR (African American) 68.8 ml/min; Est GFR (Non-African American) 59.3 ml/min; Potassium 3.9 mmol/L (3.5-5.1)
--- NOTE | 2020-10-16 15:56 | XRay Report ---
XR hip RT 2V w pelvis HISTORY: 75 years-old Female pain post fall acute pain of the pelvis and right hip status post fall COMPARISON: CT pelvis of same day TECHNIQUE: AP view of the pelvis with 2 views of the right hip FINDINGS: Demineralized appearance of the bones. Mild to moderate bilateral hip osteoarthritis. Acute nondispla isha right sacral ala fracture is better seen on comparison CT. Acute fractures of the right superior and inferior pubic rami without significant displacement. IMPRESSION: 1. Acute fractures of the right superior and inferior pubic rami without significant displacement. 2. Acute fracture of the right sacral ala is better characterized on the comparison CT pelvis study o f same day. ACT 112: Negative or not required by law. The above report was generated using voice recognition software. It may contain grammatical, syntax o r spelling errors. Electronically signed by: Luis Manuel Gifford M.D. 10/16/2020 3:55 PM
--- NOTE | 2020-10-16 16:07 | Orthopedic Consultation ---
Date of Consultation October 16, 2020 Assessment & Plan (1) Pelvic fracture: This fracture is a lateral compression type I fracture on the Young and Lackey classification system which is a stable pattern injury. Patient will be allowed to weight-bear as tolerated using a walker. This is going to be quite painful for her however for the next couple of weeks until she is formed callus. Pain control per the internal medicine team. Recommend placement in a rehab facility not only from her acute injury but also since she is still recovering from her spine surgery. Follow-up with me 2 weeks from now with repeat x-rays. DVT prophylaxis per her primary team. Her last DEXA scan was in 2018 and revealed osteopenia. She has been taking vitamin D. Did not tolerate oral calcium due to stomach upset. Recommend outpatient follow-up with her primary care physician for consideration of adjusting her medical management of her low bone mineral density and possible repeat DEXA scan. History of Present Illness Reason for Consultation: Pelvis fracture Attending Physician: Leon Lim DO History of Present Illness Patient is a pleasant 75 year old female with PMHx COPD, GERD, Fibromyalgia, HTN, Non-Hodgkin Lymphoma, Osteopetrosis, Rheumatoid Arthritis, Raynaud, who presents after a fall on her R side earlier this evening due to her leg just "gave out," found to have a fracture of the R sacral ala to the R SI joint in addition to R superior and inferior pubic rami fractures. Patient notes that she fell earlier this evening after putting items on a table. She notes she was barefoot when it occurred and did not slip, trip, pass out, or feel dizzy. She notes her leg just "stopped working" on the R side and she fell on her leg and shoulder. She denies hitting her head. She notes that she had surgery on her lumbar spine 3.5 weeks ago due to having a 1 month history of L leg numbness, tingling, and pain. She notes she has actually been working hard on keeping herself safe while she recovers and over all had felt she was doing a good job until today. She notes that currently she is having 7/10 pain in her R hip in addition to slight numbness/tingling into her R leg. She notes that her L leg feels well. She denies any NVD, SOB, chest pain, abdominal pain, dysuria, urinary incontinence, fecal incontinence. She notes that in regards to pain control for her post-surgical recovery she has worked her way down to tylenol alone and was no longer utilizing the tramadol. Orthopedics was consulted for management of the pelvis fracture. Patient was seen and examined at the bedside. She reports that her current medications are helping. She reports that the burning stabbing pain she used to have down her left leg before her spine surgery are gone. However she occasionally gets mild discomfort in the left leg. Med Hx: COPD, GERD, Fibromyalgia, HTN, Non-Hodgkin Lymphoma, Osteoporosis, Rhe umatoid Arthritis, Raynaud Surg Hx: Cholecystectomy, Appendectomy, Hysterectomy, Lumbar discectomy Soc Hx: Denies tobacco or illicit drug use. Drinks 1-2 glasses of wine/week Allergies Allergy/AdvReac Type Severity Reaction Status Date / Time alendronate sodium Allergy Intermediate CHILLS,FEVER, Verified 10/15/20 22:50 TEETH GOT LOOSE aspirin Allergy Mild ITCHING Verified 10/15/20 22:50 UNDER SKIN ibuprofen Allergy Mild itching Verified 10/15/20 22:50 under skin oxycodone AdvReac Intermediate N/V Verified 10/15/20 22:50 orange AdvReac Mild FEELS LIKE Verified 10/15/20 22:50 HAS A COLD AFTER DRINKING ORANGE JUICE Home Medications Medication Instructions Recorded Confirmed Type cholecalciferol (vitamin D3) 25 1,000 unit PO QAM 03/27/18 10/15/20 History mcg (1,000 unit) tablet (Vitamin D3) dextromethorphan-guaifenesin ER 60 1 tab PO Q12H PRN 03/27/18 10/15/20 History mg-1,200 mg tab,extend release,12hr (Mucinex DM) lisinopril 10 mg tablet 10 mg PO QAM 03/27/18 10/15/20 History hydrochlorothiazide 25 mg tablet 25 mg PO QAM 08/01/18 10/15/20 History nebulizer accessories #1 ea 07/04/19 06/12/20 Rx nebulizer and compressor #1 ea 07/04/19 06/12/20 Rx prednisone 1 mg tablet 3 mg PO QAM tab 08/15/19 10/15/20 History montelukast 10 mg tablet 10 mg PO QPM #90 tab 10/03/19 10/15/20 Rx (Singulair) zinc 50 mg tablet 50 mg PO QAM 12/17/19 10/15/20 History prednisone 5 mg tablet 5 mg PO QAM #90 tab 02/07/20 10/15/20 Rx albuterol sulfate 90 mcg/actuation 2 - 4 puff INHALATION Q6H PRN #18 02/21/20 10/15/20 Rx aerosol inhaler gm lidocaine 5 % topical patch 1 patch TOP DAILY PRN #15 ea 04/18/20 10/15/20 Rx albuterol sulfate 2.5 mg INH Q6H PRN #180 ml 08/04/20 10/15/20 Rx ondansetron HCl 4 mg tablet 4 mg PO Q8H PRN 10/09/20 10/15/20 History tramadol 50 mg tablet 50 - 100 mg PO .Q6-8HR PRN 10/09/20 10/15/20 History gabapentin 400 mg capsule 400 mg PO BID 10/15/20 10/15/20 History Patient History Medical History Chronic obstructive pulmonary disease inhaler/nebulizer prn Emphysema with chronic bronchitis Fibromyalgia GERD (gastroesophageal reflux disease) Hearing deficit Hypertension Long-term current use of steroids Non-Hodgkin lymphoma diagnosed 2006--chemo/radiation Osteoporosis Raynaud disease Rheumatoid arthritis SOB (shortness of breath) on exertion Surgical History History of appendectomy History of bilateral cataract extraction History of cholecystectomy History of colonoscopy History of ear surgery left "tried to repair hole in my ear" History of esophagogastroduodenoscopy (EGD) History of sinus surgery x2 History of tooth extraction History of total hysterectomy with bilateral salpingo-oophorectomy (BSO) Family History Other Family history non-contributory No family history of adverse response to anesthesia Social History Smoking Status: Never smoker Second Hand Exposure: No; Do You Dip or Chew Tobacco: No; Hx Alcohol Use: Yes Alcohol type: wine Hx Substance Use: No Preferred Language: Occitan Communication Ability: Effective Digital Art Director Required: No Beliefs That Will Affect Care: Gnosticist Gnosticist Beliefs: Congregational Buddhist marital status: Current Living Situation: Family Current Living Situation Comment: Spouse and adult daughter. current occupational status: retired Other Information That Helps Us Care for You: No Feels Safe at Home: Yes Safety Concerns: Feels Safe At This Time Assistive Devices: Cane and Walker Physical Exam Physical Exam: On exam she is resting comfortably in bed in no acute distress. Bilateral lower extremity exam reveals the patient have intact sensation to light touch L3-S1 dermatomes symmetric bilaterally. She tolerates a gentle logroll bilaterally. Dorsalis pedis and posterior tibial pulses are palpable on the right. I am able to passively flex her hip up to proximately 45 degrees. Passively I can abduct her right hip to about 20 degrees. She does have tenderness to palpation over the superior pubic ramus. No anterior superior iliac spine tenderness. No pain with compression or distraction of the pelvis through the anterior superior iliac spines. Results & Data ([facility]) Vital Signs (Past 12 Hours) Vital Signs Temp Pulse Resp BP Pulse Ox 10/16/20 15:46 36.6 C 73 17 146/71 H 97 10/16/20 07:10 36.7 C 70 17 125/[address] scan of the pelvis as well as pelvis and right hip x-rays are reviewed. These demonstrate superior and inferior pubic rami fractures on the right as well as a right sacral ala fracture.
--- NOTE | 2020-10-16 17:49 | Communication Note ---
Date of Service: October 16, 2020 Saw her today. K was 2.7 so repleted with 40 mEq IV potassium. Curbsided ortho for additional guidance; ortho requested additional 2 view hip xr. Places consult to [facility]. Added Toradol 15 mg q 6h to her pain regimen which consists of scheduled Gabapentin 400 mg bid, and PRN morphine and Tylenol. Supervising Physician Attestation I also saw the patient today with the resident physician and confirmed north portions of the history and physical examination. I also discussed the case with orthopedics. Pleasant 75-year-old female who is approximately 3-1/2 weeks status post lumbar spine surgery at [facility] was admitted earlier this morning after she had a ground-level fall at home. The patient tells me that she was standing in her kitchen putting items on a counter when her right side just gave out. She landed on the right side of her body, striking her right upper arm and right side of her pelvis on the kitchen floor. She noted rather instantaneous discomfort. She presented to the emergency department where a CT scan demonstrated a fracture of the right sacral ala, comminuted right pubic ring fracture, and a intrapelvic extraperitoneal hemorrhage into the right sacrum along the right pelvic sidewall. Additional view ordered after we saw the patient this afternoon demonstrated acute fractures of the right superior and inferior pubic rami without significant displacement, acute fracture of the right sacral ala as also noted on the CT scan. There was no bony injury to the right hip. At rest, her pain seems reasonable. Attempt was made to physical therapy earlier today, and from her description, this sounds have been fairly uncomfortable. Exam 146/71, 73, 17, 36.6, 97% on room air Alert and oriented. No significant distress at rest. Heart regular rate and rhythm Lungs clear throughout Data White blood cell count 12.73, hemoglobin of 1.1, platelet count 244 Sodium 142, potassium 3.9, BUN 24, creatinine 0.94 Imaging as summarized above Impression and plan Pelvic fracture Consult orthopedics Likely will need inpatient rehabilitation Pain control PT/OT consultations Rheumatoid arthritis Osteopenia She is on chronic steroids for her rheumatoid arthritis, so high risk for osteoporosis Will need updated DEXA scan as an outpatient Hypertension Reasonable control given her pain Continue home medications Hyperkalemia Repleted and normalized upon recheck If continues to be hypokalemic, could consider discontinuation of her hydrochlorothiazide Resident Activity Tracking Resident Involvement: Resident Care Provided Care Provided: Adult Hospital Medicine
--- NOTE | 2020-10-16 18:26 | Electrocardiogram Report ---
Test Reason : Blood Pressure : / mmHG Vent. Rate : 059 BPM Atrial Rate : 059 BPM P-R Int : 166 ms QRS Dur : 098 ms QT Int : 444 ms P-R-T Axes : 078 043 049 degrees QTc Int : 439 ms Sinus bradycardia with occasional Premature ventricular complexes Otherwise normal ECG When compared with ECG of 09-OCT-2020 10:24, Premature ventricular complexes are now Present Confirmed by Johnathon Pedroza ([id number] on 10/16/2020 6:25:59 PM Referred By: REFERRED SELF Confirmed By:Shane Pedroza
--- NOTE | 2020-10-16 19:00 | Billing Data ---
Date of Service October 16, 2020 Coding Level of Care Code 55592 Initial Inpt Care Lvl 2
[2020-10-16] MEDS: ACETAMINOPHEN 500 MG TAB PO PRN (20:32)
[2020-10-16] MEDS: MONTELUKAST SODIUM 10 MG TABLET PO SCH (20:33)
[2020-10-17] MEDS: traMADol HCL 50 MG TABLET PO PRN ×2 (00:40→08:19)
[2020-10-17] MEDS: ENOXAPARIN INJ 30 MG/0.3 ML SYR SQ SCH (05:48)
[2020-10-17 06:53] LABS: Hematocrit (blood only) 29.8 % (37-47); Hemoglobin 9.6 g/dL (12.0-16.0); Mean Corpuscular Hemoglobin 30.1 pg (25-34); Mean Corpuscular Hgb Conc 32.2 g/dL (32-36); Mean Corpuscular Volume 93.4 fL (80-100); Mean Platelet Volume 10.4 fL (7.4-10.4); Platelet Count 194 K/uL (130-400); RDW Standard Deviation 47.9 fL (36.4-46.3); Red Blood Count 3.19 M/uL (4.2-5.4)
[2020-10-17 07:21] LABS: Calcium 8.5 mg/dl (8.5-10.1); Creatinine Clr Calc Pharmacy 63.9 ml/min; Est GFR (African American) 82.3 ml/min; Potassium 3.7 mmol/L (3.5-5.1)
[2020-10-17] MEDS: lisinopril 10 MG TAB PO SCH (08:19)
[2020-10-17] MEDS: GABAPENTIN 400 MG CAP PO SCH ×2 (08:19→20:39)
[2020-10-17] MEDS: CHOLECALCIFEROL 1,000 UNITS 25 MCG TAB PO SCH (08:20)
[2020-10-17] MEDS: hydroCHLOROthiazide 25 MG TAB PO SCH (08:20)
[2020-10-17] MEDS: predniSONE 5 MG TAB PO SCH (08:20)
[2020-10-17] MEDS: predniSONE 1 MG TAB PO SCH (08:21)
--- NOTE | 2020-10-17 10:36 | Orthopedic Progress Note ---
Date of Service October 17, 2020 Assessment & Plan (1) Closed pelvic fracture: Plan: PT/OT Weightbearing as tolerated on right lower extremity with walker assistance Ice with EZ wrap Pain control deferred to primary care service Patient will need placement in a rehab facility to work on gait training and balance before she will be safe to be discharged home We will continue to follow patient while she is in-house Admission and Anticipated Discharge Date Admission Date: October 16, 2020 Subjective 75-year-old female seen this morning for follow-up of a right superior and inferior pubic rami fractures And a right sacral ala fracture. Patient states that her pain is well controlled with p.o. pain medication. She states that she does have pain in her groin and with movement of her right lower leg. She states that she is not sure what caused her to fall. She states that at 1 point she was just standing and found herself leaning to the right and fell onto that side.She denies chest pain, shortness of breath, fever, chills, sweats, lethargy or numbness or tingling in her right lower extremity.She is currently working with physical therapy to transition from a seated position on her bed to a standingwalking position with her walker. Review of Systems Review of Systems: All systems reviewed & are unremarkable except as noted in Subjective Physical Exam Physical Exam: Right lower extremity: Patient has tenderness to palpation over the groin. She is unable to perform a straight leg raise test, however she can actively dorsi and plantarflex her foot. Passive hip flexion to 50 degrees is tolerable and causes some referred pain to the groin. Logroll test also causes some referred pain to this area. Very light passive internal and external hip rotation also causes some referred pain in the groin crease. Quad strength is 2/5. Patient's calf is soft and supple nontender to palpation. Peripheral pulses are 2+. Her capillary refill is less than 2 seconds. She is neurovascularly intact in right lower extremity. Results & Data ([facility]) Vital Signs (Past 12 Hours) Vital Signs Temp Pulse Resp BP Pulse Ox 10/17/20 07:41 36.4 C L 64 17 140/80 99 Diagnostic Findings Laboratory Results WBC 7.80 K/uL (4.8-10.8) 10/17/20 06:33 RBC 3.19 M/uL (4.2-5.4) L 10/17/20 06:33 Hgb 9.6 g/dL (12.0-16.0) L 10/17/20 06:33 Hct 29.8 % (37-47) L 10/17/20 06:33 MCV 93.4 fL (80-100) 10/17/20 06:33 MCH 30.1 pg (25-34) 10/17/20 06:33 MCHC 32.2 g/dL (32-36) 10/17/20 06:33 RDW Std Deviation 47.9 fL (36.4-46.3) H 10/17/20 06:33 RDW Coeff of Navi 14.0 % (11.5-14.5) 10/17/20 06:33 Plt Count 194 K/uL (130-400) 10/17/20 06:33 MPV 10.4 fL (7.4-10.4) 10/17/20 06:33 Immature Gran % (Auto) 0.2 % 10/16/20 06:18 Neut % (Auto) 76.9 % 10/16/20 06:18 Lymph % (Auto) 13.0 % 10/16/20 06:18 [place] % (Auto) 9.2 % 10/16/20 06:18 Eos % (Auto) 0.5 % 10/16/20 06:18 Baso % (Auto) 0.2 % 10/16/20 06:18 Neut # (Auto) 9.79 K/uL (1.4-6.5) H 10/16/20 06:18 Lymph # (Auto) 1.66 K/uL (1.2-3.4) 10/16/20 06:18 [place] # (Auto) 1.17 K/uL (0.11-0.59) H 10/16/20 06:18 Eos # (Auto) 0.07 K/uL (0-0.5) 10/16/20 06:18 Baso # (Auto) 0.02 K/uL (0-0.2) 10/16/20 06:18 Immature Gran # (Auto) 0.02 K/uL (0.00-0.02) 10/16/20 06:18 PT 10.4 Seconds (9.0-12.0) 10/16/20 00:03 INR 1.0 (0.9-1.1) 10/16/20 00:03 Sodium 142 mmol/L (136-145) 10/17/20 06:33 Potassium 3.7 mmol/L (3.5-5.1) 10/17/20 06:33 Chloride 113 mmol/L (98-107) H 10/17/20 06:33 Carbon Dioxide 26 mmol/L (21-32) 10/17/20 06:33 Anion Gap 3.0 (3-11) 10/17/20 06:33 BUN 30 mg/dl (7-18) H 10/17/20 06:33 Creatinine 0.81 mg/dl (0.6-1.2) 10/17/20 06:33 Est Cr Clr Drug Dosing 63.9 ml/min 10/17/20 06:33 Est GFR ( Amer) 82.3 ml/min 10/17/20 06:33 Est GFR (Non-Af Amer) 71.0 ml/min 10/17/20 06:33 BUN/Creatinine Ratio 37.0 (10-20) H 10/17/20 06:33 Glucose 87 mg/dl (70-99) 10/17/20 06:33 Calcium 8.5 mg/dl (8.5-10.1) 10/17/20 06:33 Magnesium 1.8 mg/dl (1.8-2.4) 10/15/20 23:16 Total Bilirubin 0.3 mg/dl (0.2-1) 10/15/20 23:16 AST 13 U/L (15-37) L 10/15/20 23:16 ALT 19 U/L (12-78) 10/15/20 23:16 Alkaline Phosphatase 77 U/L (45-117) 10/15/20 23:16 Troponin I < 0.015 ng/ml (0-0.045) 10/15/20 23:16 Total Protein 6.3 gm/dl (6.4-8.2) L 10/15/20 23:16 Albumin 3.1 gm/dl (3.4-5.0) L 10/15/20 23:16 Globulin 3.2 gm/dl (2.5-4.0) 10/15/20 23:16 Albumin/Globulin Ratio 1.0 (0.9-2) 10/15/20 23:16 TSH 0.829 uIu/ml (0.300-4.500) 10/15/20 23:16 COVID-19 Eval Order Covid19 at [facility] 10/16/20 01:50 SARS-CoV-2 (PCR) NEGATIVE (Negative) 10/16/20 01:50 Impressions Chest X-Ray 10/15/20 23:16 SINGLE VIEW CHEST CLINICAL HISTORY: Trauma. FINDINGS: An AP, portable, upright chest radiograph is compared to study dated 10/09/2020 and correlated with chest CT dated 06/02/2017. The cardiomediastinal silhouette is unremarkable noting atherosclerotic calcification of the thoracic aorta. The lungs appear hyperinflated. Apical scarring is similar to previous. No airspace consolidation or large pleural effusion is identified. Foci of scarring/atelectasis are seen throughout both lungs. Chronic elevation of the left hemidiaphragm is unchanged. No pneumothorax is seen. The skeletal structures are osteopenic. The bony thorax is grossly intact. IMPRESSION: No acute cardiopulmonary abnormality. ACT 112: Negative or not required by law. Electronically signed by: Ghassan Root M.D. 10/16/2020 8:[address] 10/15/20 23:[address] DOSE: 809.84 mGy.cm HISTORY: Fall. Low back pain. trauma TECHNIQUE: Multiaxial CT images of the lumbar spine were performed and reformatted in the sagittal and coronal plane without the use of contrast. A dose lowering technique was utilized adhering to the principles of ALARA. COMPARISON: None. FINDINGS: Mild levoscoliosis. No fracture or subluxation within the lumbar spine. Nondisplaced right sacral wing fracture which extends into the right sacroiliac joint. Severe disc space narrowing at L2-L3. Mild disc space narrowing at L4-5 and L5-S1. Small amount of right presacral/right retroperitoneal hemorrhage. Focal soft tissue density posterior to the left L5- S1 facet may be due to old postoperative change. IMPRESSION: Nondisplaced right sacral wing fracture which extends to the right sacroiliac joint. This is better appreciated on the same day pelvis CT. There is a small amount of presacral/right retroperitoneal hemorrhage. ACT 112: Negative or not required by law. Electronically signed by: Jaquan Jung M.D. 10/16/2020 7:[address] 10/15/20 23:16 CT SCAN OF THE PELVIS WITHOUT IV CONTRAST CLINICAL HISTORY: Fall. Pelvic pain. COMPARISON STUDY: Pelvic CT dated 11/25/2008. PET/CT dated 09/12/2013. TECHNIQUE: CT scan of the pelvis is performed from the pelvic inlet to the proximal femora. Images are reviewed in the axial, sagittal, and coronal planes. IV contrast was not administered for this examination. A dose lowering technique was utilized adhering to the principles of ALARA. Note that interpretation is suboptimal without plain film correlate. FINDINGS: The skeletal structures are osteopenic. There is acute fracture of the right sacral ala. This extends to the sacroiliac joint. There are also comminuted fractures of the right superior and inferior pubic ring. No additional fracture is identified. The proximal femora appear intact. No lytic or blastic lesion is seen. Mild to moderate degenerative joint space narrowing is noted in the hips. There is no significant joint effusion. Intrapelvic extraperitoneal hemorrhage is seen anterior to the right sacral ala, as well as along the right pelvic sidewall around the pubic ring fractures. No intramuscular hematoma is identified. There is no pelvic sidewall or inguinal adenopathy. The bladder is normal as imaged. The uterus is surgically absent. No adnexal lesion is seen. The visualized bowel loops are normal in caliber. Ather osclerotic calcification is noted in the iliac arteries. There is generalized atrophy of the regional musculature. IMPRESSION: 1. Fracture of the right sacral ala. 2. Comminuted right pubic ring fractures. 3. There is intrapelvic extraperitoneal hemorrhage anterior to the right sacrum and along the right pelvic sidewall around the pubic ring fractures. ACT 112: Negative or not required by law. Electronically signed by: Ghassan Root M.D. 10/16/2020 9:07 AM Shoulder X-Ray 10/15/20 23:16 RIGHT SHOULDER 3 VIEWS CLINICAL HISTORY: Fall. FINDINGS: 3 views of the right shoulder are compared to study dated 08/21/2019. The skeletal structures are osteopenic. There is no radiographic evidence of fracture or dislocation. The glenohumeral articulation is maintained. Mild productive change is noted at the acromioclavicular joint. The overlying soft tissues are normal as imaged. The right lung parenchyma is clear as visualized. IMPRESSION: No acute bony abnormality is identified. Electronically signed by: Ghassan Root M.D. 10/16/2020 7:59 AM Hip/Pelvis X-Ray 10/16/20 14:57 XR hip RT 2V w pelvis HISTORY: 75 years-old Female pain post fall acute pain of the pelvis and right hip status post fall COMPARISON: CT pelvis of same day TECHNIQUE: AP view of the pelvis with 2 views of the right hip FINDINGS: Demineralized appearance of the bones. Mild to moderate bilateral hip osteoarthritis. Acute nondisplaced right sacral ala fracture is better seen on comparison CT. Acute fractures of the right superior and inferior pubic rami without significant displacement. IMPRESSION: 1. Acute fractures of the right superior and inferior pubic rami without significant displacement. 2. Acute fracture of the right sacral ala is better characterized on the comparison CT pelvis study of same day. ACT 112: Negative or not required by law. The above report was generated using voice recognition software. It may contain grammatical, syntax or spelling errors. Electronically signed by: Luis Manuel Gifford M.D. 10/16/2020 3:55 PM (1) Closed pelvic fracture Encounter type: initial encounter Fracture alignment: with stable disruption of pelvic ring Pelvic bone location: multiple parts Qualified Code(s): S32.810A - Multiple fractures of pelvis with stable disruption of pelvic ring, initial encounter for closed fracture
[2020-10-17] MEDS: ONDANSETRON INJ 2 MG/ML 2 ML VIAL IV PRN (11:08)
--- NOTE | 2020-10-17 11:35 | Hospitalist Progress Note ---
Date of Service October 17, 2020 Assessment & Plan (1) Pelvic fracture: Plan: Patient is a pleasant 75 year old female with PMHx COPD, GERD, Fibromyalgia, HTN, Non-Hodgkin Lymphoma, Osteopetrosis, Rheumatoid Arthritis, Raynaud, who presents after a fall on her R side earlier this evening due to her leg just "gave out," found to have a fracture of the R sacral ala to the R SI joint in addition to R superior and inferior pubic rami fractures. Pelvic Fracture secondary to fall -CT pelvis showing fractures of the R sacral ala extending to the R SI joint in addition to fractures of the R superior and inferior pubic rami. -CT lumbar spine read without fx of the lumbar spine -Pain control with Tylenol and IV morphine pushes q3h 2mg or 4mg based on pain scale -PT/OT consult-- SNF vs inpatient rehab -Continue home Gabapentin for pain control in addition to above -Continue home Vitamin D - Ortho consult -- PT/OT, weightbearing as tolerated on RLE with walker Osteoporosis - On chronic steroids for RA as below - Continue vitamin D - Consider updated DEXA as outpatient Hypokalemia - resolved - Repleted with IV Potassium - Normalized today - Monitor BMP COPD/Asthma -Well controlled with PRN albuterol - continue -Continue Singulair Rheumatoid Arthritis -Continue Prednisone 8mg QD -Will not stress dose at this time HTN -Continue HCTZ -Continue Lisinopril Dispo: Med/Surg for pain management and evaluations from PT and OT FEN: Regular diet, NSS +20meq KCl 100ml/hr x1L DVT: Lovenox 30mg QD Code: DNR/DNI Admission and Anticipated Discharge Date Admission Date: October 16, 2020 Supervising Physician Co-Signing Physician Notes Patient seen and examined independently of PGY-2 Dr. Bran. Agree with history, exam findings, assessment and plan of care as outlined. In brief, Ms Pinto is a 75 year old female with history of osteoporosis admitted following a ground level fall sustaining a pelvic ring fracture. Continues to have pain that does improve with pain medication regimen. She is worried about taking too much pain medication "I don't want to become an addict". Feeling a little nauseated due to pain. Vital signs and nursing notes reviewed Uncomfortable appearing. Heart with regular rate and rhythm. Lungs are clear to ascultation. Labs and imaging reviewed. 1. pelvic ring fracture. Stable pattern. Appreciate ortho recommendations. PT/OT as she is able. Pain control with tylenol and morphine. 2. osteoporosis. Last DEXA in December 2017 consistent with osteoporosis based on t-score. Consider antifracture medication as an outpatient if she is not already on something. Dispo: pending clinical improvement. PT/OT eval pending. Subjective Patient seen comfortable at bedside this AM. She does not report any complaints today except for mild pain that is well controlled. Review of Systems Review of Systems: All systems reviewed & are unremarkable except as noted in Subjective Physical Exam Physical Exam: GENERAL: A&Ox3. NAD. NECK: No JVD. No lymphadenopathy. CHEST/LUNGS: CTAB A/P. No crackles, wheezes, rales, rhonchi. HEART: RRR. No m/g/r. ABDOMEN: NT/ND, soft. BS+ x4 EXTREMITIES: No cyanosis, no clubbing, no edema SKIN: Warm and dry. No rashes or lesions. PSYCHIATRIC: Euthymic affect, no SI, no pressured speech, no hallucinations NEUROLOGIC: CN II-XII grossly intact. Results & Data Results & Data ([facility]) Vital Signs (Past 12 Hours) Vital Signs Temp Pulse Resp BP Pulse Ox 10/17/20 07:41 36.4 C L 64 17 140/80 99 Resident Activity Tracking Resident Involvement: Resident Care Provided Care Provided: Adult Hospital Medicine
[2020-10-17] MEDS: KETOROLAC TROMETHAMINE 15 MG/ML VIAL IV PRN ×2 (13:57→19:27)
[2020-10-17] MEDS: MONTELUKAST SODIUM 10 MG TABLET PO SCH (20:39)
[2020-10-18] MEDS: KETOROLAC TROMETHAMINE 15 MG/ML VIAL IV PRN ×3 (03:13→19:57)
[2020-10-18] MEDS: ENOXAPARIN INJ 30 MG/0.3 ML SYR SQ SCH (05:54)
[2020-10-18] MEDS: traMADol HCL 50 MG TABLET PO PRN (05:58)
[2020-10-18 08:25] LABS: Basophils # (auto) 0.02 K/uL (0-0.2); Basophils % (auto) 0.3 %; Eosinophils # (auto) 0.38 K/uL (0-0.5); Eosinophils % (auto) 5.2 %; Hematocrit (blood only) 30.8 % (37-47); Hemoglobin 9.3 g/dL (12.0-16.0); Immature Granulocytes # (auto) 0.01 K/uL (0.00-0.02); Immature Granulocytes % (auto) 0.1 %; Lymphocytes # (auto) 1.45 K/uL (1.2-3.4); Lymphocytes % (auto) 19.7 %; Mean Corpuscular Hemoglobin 28.9 pg (25-34); Mean Corpuscular Hgb Conc 30.2 g/dL (32-36); Mean Corpuscular Volume 95.7 fL (80-100); Mean Platelet Volume 10.5 fL (7.4-10.4); Monocytes # (auto) 0.68 K/uL (0.11-0.59); Monocytes % (auto) 9.2 %; Neutrophils # (auto) 4.83 K/uL (1.4-6.5); Neutrophils % (auto) 65.5 %; Platelet Count 212 K/uL (130-400); RDW Standard Deviation 49.1 fL (36.4-46.3); Red Blood Count 3.22 M/uL (4.2-5.4); White Blood Count 7.37 K/uL (4.8-10.8)
[2020-10-18 08:52] LABS: BUN Creatinine Ratio 32.4 (10-20); Calcium 8.8 mg/dl (8.5-10.1); Creatinine Clr Calc Pharmacy 58.9 ml/min; Est GFR (African American) 74.5 ml/min; Est GFR (Non-African American) 64.3 ml/min; Potassium 3.7 mmol/L (3.5-5.1)
[2020-10-18] MEDS: GABAPENTIN 400 MG CAP PO SCH ×2 (09:52→20:00)
[2020-10-18] MEDS: predniSONE 5 MG TAB PO SCH (09:53)
[2020-10-18] MEDS: predniSONE 1 MG TAB PO SCH (09:53)
[2020-10-18] MEDS: lisinopril 10 MG TAB PO SCH (09:53)
[2020-10-18] MEDS: hydroCHLOROthiazide 25 MG TAB PO SCH (09:53)
[2020-10-18] MEDS: CHOLECALCIFEROL 1,000 UNITS 25 MCG TAB PO SCH (09:53)
[2020-10-18] MEDS ORDERED: MECLIZINE 12.5 MG TAB PO PRN (11:15)
[2020-10-18] MEDS: MONTELUKAST SODIUM 10 MG TABLET PO SCH (20:00)
--- NOTE | 2020-10-18 20:06 | Hospitalist Progress Note ---
Date of Service October 18, 2020 Assessment & Plan (1) Pelvic fracture: Plan: Patient is a pleasant 75 year old female with PMHx COPD, GERD, Fibromyalgia, HTN, Non-Hodgkin Lymphoma, Osteopetrosis, Rheumatoid Arthritis, Raynaud, who presents after a fall on her R side earlier this evening due to her leg just "gave out," found to have a fracture of the R sacral ala to the R SI joint in addition to R superior and inferior pubic rami fractures. Pelvic Fracture secondary to fall -CT pelvis showing fractures of the R sacral ala extending to the R SI joint in addition to fractures of the R superior and inferior pubic rami. -CT lumbar spine read without fx of the lumbar spine -Pain control with Tylenol and IV morphine pushes q3h 2mg or 4mg based on pain scale * added tramadol, toradol PRN, which patient prefers to morphine * continue to assess for pain -PT/OT consult-- SNF vs inpatient rehab * likely SNF, as patient is unlikely to meet 3-hour physical threshold in her current condition * continue to work with PT as pain tolerates until dispo to SNF * reach out to case management about referral options -Continue home Gabapentin for pain control in addition to above -Continue home Vitamin D -Ortho consult -- PT/OT, weightbearing as tolerated on RLE with walker -Added PRN Meclizine today for vertigo sx; cautioned against using just prior to physical therapy Osteoporosis - On chronic steroids for RA as below - Continue vitamin D - Consider updated DEXA as outpatient Hypokalemia - resolved - Repleted with IV Potassium - Normalized today - Monitor BMP COPD/Asthma -Well controlled with PRN albuterol - continue -Continue Singulair Rheumatoid Arthritis -Continue Prednisone 8mg QD -Will not stress dose at this time HTN -Continue HCTZ -Continue Lisinopril Dispo: Med/Surg for pain management and evaluations from PT and OT FEN: Regular diet, NSS +20meq KCl 100ml/hr x1L DVT: Lovenox 30mg QD Code: DNR/DNI Admission and Anticipated Discharge Date Admission Date: October 16, 2020 Supervising Physician Co-Signing Physician Notes Patient seen and examined independently of PGY-1 Dr. Campos. Agree with history, exam findings, assessment and plan of care as outlined. In brief, Ms Pinto is a 75 year old female with history of osteoporosis admitted following a ground level fall sustaining a pelvic ring fracture. PCP Dr. Kristofer Blanco ([facility]). Continues to have pain that does improve with pain medication regimen. She is not sure that she would be able to manage at home and is open to going to a rehab facility for the short term. Does have some sensation of the room spinning intermittently. 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 Vital signs and nursing notes reviewed Heart with regular rate and rhythm. Lungs are clear to auscultation. Labs and imaging reviewed. 1. pelvic ring fracture. Stable pattern. Appreciate ortho recommendations. PT/OT as she is able. Pain control with Tylenol, tramadol, toradol. Bowel regimen as she is less ambulatory and getting tramadol. 2. osteoporosis. Last DEXA in December 2017 consistent with osteoporosis based on t-score. Vitamin D level pending. Consider antifracture medication as an outpatient if she is not already on something. We briefly discussed Prolia as an option (she did take Fosamax but it caused dental issues). Dispo: PT/OT recommending inpatient rehab. Awaiting to hear back from [facility]. Subjective No acute events overnight. Patient seen eating at bedside this morning. Reports improvement on her pain symptoms compared to yesterday. Reports improved appetite compared to yesterday. Review of Systems Constitutional: as per Subjective / HPI Physical Exam Constitutional: WD/WN, vitals as above Respiratory: Auscultation: + crackles (slight; over right lower lung field) Cardiovascular: RRR, no murmur, no edema Musculoskeletal: Hip: + limited ROM of hip ttp with rotational stress applied on the iliac crest bilaterally Results & Data Results & Data ([facility]) Vital Signs (Past 12 Hours) Vital Signs Temp Pulse Resp BP Pulse Ox 10/18/20 15:56 36.5 C 72 16 114/62 98 Resident Activity Tracking Resident Involvement: Resident Care Provided Care Provided: Adult Hospital Medicine
[2020-10-19] MEDS: KETOROLAC TROMETHAMINE 15 MG/ML VIAL IV PRN ×3 (05:29→21:29)
[2020-10-19] MEDS: ENOXAPARIN INJ 30 MG/0.3 ML SYR SQ SCH (05:31)
[2020-10-19 07:02] LABS: Creatinine Clr Calc Pharmacy 65.6 ml/min; Est GFR (African American) 84.9 ml/min; Est GFR (Non-African American) 73.2 ml/min
[2020-10-19] MEDS: CHOLECALCIFEROL 1,000 UNITS 25 MCG TAB PO SCH (09:24)
[2020-10-19] MEDS: predniSONE 5 MG TAB PO SCH (09:24)
[2020-10-19] MEDS: predniSONE 1 MG TAB PO SCH (09:24)
[2020-10-19] MEDS: DOCUSATE SODIUM/SENNA 50/8.6MG TAB PO SCH (09:24)
[2020-10-19] MEDS: hydroCHLOROthiazide 25 MG TAB PO SCH (09:24)
[2020-10-19] MEDS: GABAPENTIN 400 MG CAP PO SCH ×2 (09:25→21:29)
[2020-10-19] MEDS: lisinopril 10 MG TAB PO SCH (09:25)
[2020-10-19] MEDS: traMADol HCL 50 MG TABLET PO PRN (09:29)
[2020-10-19] MEDS: ACETAMINOPHEN 500 MG TAB PO PRN (14:34)
--- NOTE | 2020-10-19 14:52 | Orthopedic Progress Note ---
Date of Service October 19, 2020 Assessment & Plan (1) Closed pelvic fracture: Plan: PT/OT Weightbearing as tolerated on right lower extremity with walker assistance Ice with EZ wrap Pain control deferred to primary care service. Agree with plan to make tylenol scheduled mediation. Patient will need placement in a rehab facility to work on gait training and balance before she will be safe to be discharged home Follow-up Dr. Fleming 2 weeks after injury with AP pelvis, inlet and outlet views. Admission and Anticipated Discharge Date Admission Date: October 16, 2020 Subjective Patient reports she is still having a fair amount of right groin pain when she tries to get out of bed. Comfortable in bed however. Has not been asking for PRN pain medication. No numbness/tingling. Physical Exam Physical Exam: On exam she is resting comfortably in bed in no acute distress. Bilateral lower extremity exam reveals the patient have intact sensation to light touch L3-S1 dermatomes symmetric bilaterally. She tolerates a gentle logroll bilaterally. Dorsalis pedis and posterior tibial pulses are palpable on the right. I am able to passively flex her hip up to approximately 65 degrees. She does have tenderness to palpation over the superior pubic ramus. Neurovascular intact. Results & Data ([facility]) Vital Signs (Past 12 Hours) Vital Signs Temp Pulse Pulse Resp BP BP Pulse Ox 10/19/20 07:31 37 C 68 18 152/70 H 97 10/19/20 05:36 61 18 155/61 H 96 (1) Closed pelvic fracture Encounter type: initial encounter Fracture alignment: with stable disruption of pelvic ring Pelvic bone location: multiple parts Qualified Code(s): S32.810A - Multiple fractures of pelvis with stable disruption of pelvic ring, initial encounter for closed fracture
--- NOTE | 2020-10-19 17:35 | Hospitalist Progress Note ---
Date of Service October 19, 2020 Assessment & Plan (1) Pelvic fracture: Plan: Pelvic Fracture secondary to fall -CT pelvis showing fractures of the R sacral ala extending to the R SI joint in addition to fractures of the R superior and inferior pubic rami. -CT lumbar spine read showed no fracture of the lumbar spine -Pain control with Tylenol and IV morphine pushes q3h 2mg or 4mg based on pain scale * added tramadol, Toradol PRN, which patient prefers to morphine * continue to assess for pain -PT/OT consult-- SNF vs inpatient rehab * likely SNF, as patient is unlikely to meet 3-hour physical activity threshold in her current condition * continue to work with PT as pain tolerates until dispo to SNF * reach out to case management tomorrow about referral options * activity order updated to OOB to chair, with assistance -Continue home Gabapentin for pain control in addition to above -Continue home Vitamin D -Ortho consult -- PT/OT, weightbearing as tolerated on RLE with walker -Added PRN Meclizine today for vertigo sx; cautioned against using prior to physical therapy Osteoporosis - On chronic steroids for RA as below - Continue vitamin D - Consider updated DEXA as outpatient Hypokalemia - resolved - Repleted with IV Potassium - Normalized today - Monitor BMP COPD/Asthma -Well controlled with PRN albuterol - continue -Continue Singulair Rheumatoid Arthritis -Continue Prednisone 8mg QD -Will not stress dose at this time HTN -Continue HCTZ -Continue Lisinopril Dispo: Med/Surg for pain management and awaiting SNF placement FEN: Regular diet, NSS +20meq KCl 100ml/hr x1L DVT: Lovenox 30mg QD Code: DNR/DNI Admission and Anticipated Discharge Date Admission Date: October 16, 2020 Supervising Physician Co-Signing Physician Notes Patient seen and examined independently of PGY-1 Dr. Campos. Agree with history, exam findings, assessment and plan of care as outlined. In brief, Ms Pinto is a 75 year old female with history of osteoporosis admitted following a ground level fall sustaining a pelvic ring fracture. PCP Dr. Kristofer Blanco ([email or web address]). Continues to have pain that does improve with pain medication regimen. Any time she moves the right leg, has pain in the pelvis. Case discussed with ortho, Dr. Fleming. Vital signs and nursing notes reviewed Heart with regular rate and rhythm. Lungs are clear to auscultation. Pain with movement of the right leg. Labs and imaging reviewed. 1. pelvic ring fracture. Stable pattern. Appreciate ortho recommendations. PT/OT as she is able. Pain control with Tylenol, tramadol, toradol. Bowel regimen as she is less ambulatory and getting tramadol. 2. osteoporosis. Last DEXA in December 2017 consistent with osteoporosis based on t-score. Vitamin D level pending. Consider antifracture medication as an outpatient if she is not already on something. We briefly discussed Prolia as an option (she did take Fosamax but it caused dental issues) as an outpatient. Dispo: PT/OT recommending inpatient rehab. Awaiting to hear back from [facility]. Subjective No acute events overnight. Morris is resting comfortably in bed this morning. She denies any pain at the moment but reports pain in her hip when she reaches for things around her or attempts to get out of bed. She admts to not letting nurses know when she is in pain because she is reticent to use them. Review of Systems Review of Systems: All systems reviewed & are unremarkable except as noted in HPI & below Physical Exam Constitutional: WD/WN, vitals as above Respiratory: normal respiratory effort, lungs clear to auscultation Cardiovascular: RRR, no murmur, no edema Musculoskeletal: Hip: no skin erythema and no ecchymosis R hip moderately ttp with superior-inferior pressure applied on both hips Results & Data Results & Data ([facility]) Vital Signs (Past 12 Hours) Vital Signs Temp Pulse Pulse Resp BP BP Pulse Ox 10/19/20 15:46 36.7 C 71 18 116/63 96 10/19/20 07:31 37 C 68 18 152/70 H 97 10/19/20 05:36 61 18 155/61 H 96 Resident Activity Tracking Resident Involvement: Resident Care Provided Care Provided: Adult Hospital Medicine
[2020-10-19] MEDS: ACETAMINOPHEN 500 MG TAB PO SCH (21:28)
[2020-10-19] MEDS: MONTELUKAST SODIUM 10 MG TABLET PO SCH (21:30)
[2020-10-20] MEDS: ACETAMINOPHEN 500 MG TAB PO SCH ×3 (05:26→20:28)
[2020-10-20] MEDS: KETOROLAC TROMETHAMINE 15 MG/ML VIAL IV PRN ×2 (05:26→16:47)
[2020-10-20] MEDS: ENOXAPARIN INJ 30 MG/0.3 ML SYR SQ SCH (05:27)
[2020-10-20] MEDS: ONDANSETRON INJ 2 MG/ML 2 ML VIAL IV PRN ×2 (06:31→22:12)
[2020-10-20] MEDS: traMADol HCL 50 MG TABLET PO PRN (08:41)
[2020-10-20] MEDS: hydroCHLOROthiazide 25 MG TAB PO SCH (09:43)
[2020-10-20] MEDS: lisinopril 10 MG TAB PO SCH (09:44)
[2020-10-20] MEDS: predniSONE 5 MG TAB PO SCH (09:44)
[2020-10-20] MEDS: GABAPENTIN 400 MG CAP PO SCH ×2 (09:44→20:28)
[2020-10-20] MEDS: CHOLECALCIFEROL 1,000 UNITS 25 MCG TAB PO SCH (09:44)
[2020-10-20] MEDS: predniSONE 1 MG TAB PO SCH (09:46)
[2020-10-20] MEDS: DOCUSATE SODIUM/SENNA 50/8.6MG TAB PO SCH (09:47)
--- NOTE | 2020-10-20 18:53 | Hospitalist Progress Note ---
Date of Service October 20, 2020 Assessment & Plan (1) Pelvic fracture: Plan: Pelvic Fracture secondary to fall -CT pelvis showing fractures of the R sacral ala extending to the R SI joint in addition to fractures of the R superior and inferior pubic rami. -CT lumbar spine read showed no fracture of the lumbar spine -Pain control with Tylenol and IV morphine pushes q3h 2mg or 4mg based on pain scale * added tramadol, Toradol PRN, which patient prefers to morphine * continue to assess for pain -PT/OT consult-- SNF vs inpatient rehab * likely SNF, as patient is unlikely to meet 3-hour physical activity threshold in her current condition * continue to work with PT as pain tolerates until dispo to SNF * activity order updated to OOB to chair, with assistance -Continue home Gabapentin for pain control in addition to above -Continue home Vitamin D -Ortho consult -- PT/OT, weightbearing as tolerated on RLE with walker -Added PRN Meclizine today for vertigo sx; cautioned against using prior to physical therapy -Spoke with case management today regarding SNF placement: * referrals have been placed * dispo pending suitable placement, possibly tomorrow Osteoporosis - On chronic steroids for RA as below - Continue vitamin D - Consider updated DEXA as outpatient - Also consider prednisone taper (as well as rat exterminator RA alternatives) on outpatient basis with PCP, Dr. Blanco, as her longterm use of prednisone likely driving her osteoporosis-related fractures Hypokalemia - resolved - Repleted with IV Potassium - No longer trending BMP as electrolytes have normalized - will trend if suspicion of metabolic derangement arises COPD/Asthma -Well controlled with PRN albuterol - continue -Continue Singulair Rheumatoid Arthritis -Continue Prednisone 8mg QD -Will not stress dose at this time HTN -Continue HCTZ -Continue Lisinopril Dispo: Med/Surg for pain management and awaiting SNF placement FEN: Regular diet, NSS +20meq KCl 100ml/hr x1L DVT: Lovenox 30mg QD Code: DNR/DNI Admission and Anticipated Discharge Date Admission Date: October 16, 2020 Supervising Physician Co-Signing Physician Notes I personally examined the patient and verified all north points of history and exam, discussed case, and agree with decision making with Dr Campos. Pain reasonably controlledhurts a lot to move though. Ready for rehab. Vitals noted, in general she is awake and alert pleasant no distress. HEENT normocephalic atraumatic mucous membranes moist. Breathing unlabored no accessory muscle use good effort. Skin shows no rashes no pallor or icterus. Neuro without focal deficits. 1. pelvic ring fracture. Pain control, PT/OT. Stable for rehab once bed available. 2. osteoporosis. Last DEXA in December 2017 consistent with osteoporosis based on t-score. Vitamin D pretty reasonable at 43. Outpatient bone health treatment options such as Prolia or Forteo discussed (she had multiple bad reactions with Fosamax). Dispo: PT/OT eval and treat ongoing - stable for snf/rehab once approved/bed available Subjective No acute events overnight. Morris is resting comfortably in bed this morning. She denies pain at the moment but reports constipation. Review of Systems Constitutional: as per Subjective / HPI Physical Exam Constitutional: WD/WN, vitals as above Respiratory: normal respiratory effort, lungs clear to auscultation Auscultation: + crackles (slight; over right lower lung field) Cardiovascular: RRR, no murmur, no edema Musculoskeletal: Hip: + limited ROM of hip; no skin erythema and no ecchymosis Results & Data Results & Data ([facility]) Vital Signs (Past 12 Hours) Vital Signs Temp Pulse Resp BP Pulse Ox 10/20/20 15:42 36.5 C 87 16 116/65 93 10/20/20 08:22 36.5 C 68 16 120/67 98 Resident Activity Tracking Resident Involvement: Resident Care Provided Care Provided: Adult Hospital Medicine
--- NOTE | 2020-10-20 19:02 | Billing Data ---
Date of Service October 20, 2020 Coding Level of Care Code 68434 Subseq Hosp Care Lvl 2
[2020-10-20] MEDS: MONTELUKAST SODIUM 10 MG TABLET PO SCH (20:29)
[2020-10-21] MEDS: KETOROLAC TROMETHAMINE 15 MG/ML VIAL IV PRN (00:35)
[2020-10-21] MEDS: ACETAMINOPHEN 500 MG TAB PO SCH ×2 (06:03→14:06)
[2020-10-21] MEDS: ENOXAPARIN INJ 30 MG/0.3 ML SYR SQ SCH (06:03)
[2020-10-21] MEDS ORDERED: POLYETHYLENE (MIRALAX) 17 GM PACK PO ONE (08:00)
[2020-10-21] MEDS: GABAPENTIN 400 MG CAP PO SCH (09:46)
[2020-10-21] MEDS: predniSONE 5 MG TAB PO SCH (09:46)
[2020-10-21] MEDS: CHOLECALCIFEROL 1,000 UNITS 25 MCG TAB PO SCH (09:47)
[2020-10-21] MEDS: predniSONE 1 MG TAB PO SCH (09:47)
[2020-10-21] MEDS: DOCUSATE SODIUM/SENNA 50/8.6MG TAB PO SCH (09:48)
[2020-10-21] MEDS: lisinopril 10 MG TAB PO SCH (09:49)
[2020-10-21] MEDS: hydroCHLOROthiazide 25 MG TAB PO SCH (09:49)
--- NOTE | 2020-10-21 10:19 | Orthopedic Progress Note ---
Date of Service October 21, 2020 Assessment & Plan (1) Closed pelvic fracture: Plan: PT/OT Weightbearing as tolerated on right lower extremity with walker assistance Ice with EZ wrap Pain control deferred to primary care service. Agree with plan to make tylenol scheduled mediation. Patient will need placement in a rehab facility to work on gait training and balance before she will be safe to be discharged home Follow-up Dr. Fleming 2 weeks after injury with AP pelvis, inlet and outlet views. Admission and Anticipated Discharge Date Admission Date: October 16, 2020 Subjective This 75-year-old female seen today for follow-up of right pelvic fractures. She states that she has been bloated for the past few days and has been unable to move her bowels. She states the nursing staff gave her some MiraLAX this morning and she feels like things are starting to move along. She states she is planning on being discharged to [facility] for some rehab to help her with ambulation. She states that she has been able to get up and stand with her walker but has discomfort in the right hip and pelvic area. Otherwise she denies chest pain, shortness of breath, fever, chills, sweats, lethargy, numbness or tingling in her right lower extremity. Review of Systems Review of Systems: All systems reviewed & are unremarkable except as noted in Subjective Physical Exam Physical Exam: Right lower extremity: Patient has tenderness to palpation over the groin. She is unable to perform a straight leg raise test, however she can actively dorsi and plantarflex her foot. Passive hip flexion to 50 degrees is tolerable and causes some referred pain to the groin. Logroll test also causes some referred pain to this area. Very light passive internal and external hip rotation also causes some referred pain in the groin crease. Quad strength is 2/5. Patient's calf is soft and supple nontender to palpation. Peripheral pulses are 2+. Her capillary refill is less than 2 seconds. She is neurovascularly intact in right lower extremity. Results & Data ([facility]) Vital Signs (Past 12 Hours) Vital Signs Temp Pulse Resp BP Pulse Ox 10/21/20 09:48 97/57 L 10/21/20 08:40 110/55 L 10/21/20 08:16 36.7 C 70 18 97/46 L 96 Diagnostic Findings Laboratory Results WBC 7.37 K/uL (4.8-10.8) 10/18/20 08:10 RBC 3.22 M/uL (4.2-5.4) L 10/18/20 08:10 Hgb 9.3 g/dL (12.0-16.0) L 10/18/20 08:10 Hct 30.8 % (37-47) L 10/18/20 08:10 MCV 95.7 fL (80-100) 10/18/20 08:10 MCH 28.9 pg (25-34) 10/18/20 08:10 MCHC 30.2 g/dL (32-36) L 10/18/20 08:10 RDW Std Deviation 49.1 fL (36.4-46.3) H 10/18/20 08:10 RDW Coeff of Navi 14.0 % (11.5-14.5) 10/18/20 08:10 Plt Count 212 K/uL (130-400) 10/18/20 08:10 MPV 10.5 fL (7.4-10.4) H 10/18/20 08:10 Immature Gran % (Auto) 0.1 % 10/18/20 08:10 Neut % (Auto) 65.5 % 10/18/20 08:10 Lymph % (Auto) 19.7 % 10/18/20 08:10 [place] % (Auto) 9.2 % 10/18/20 08:10 Eos % (Auto) 5.2 % 10/18/20 08:10 Baso % (Auto) 0.3 % 10/18/20 08:10 Neut # (Auto) 4.83 K/uL (1.4-6.5) 10/18/20 08:10 Lymph # (Auto) 1.45 K/uL (1.2-3.4) 10/18/20 08:10 [place] # (Auto) 0.68 K/uL (0.11-0.59) H 10/18/20 08:10 Eos # (Auto) 0.38 K/uL (0-0.5) 10/18/20 08:10 Baso # (Auto) 0.02 K/uL (0-0.2) 10/18/20 08:10 Immature Gran # (Auto) 0.01 K/uL (0.00-0.02) 10/18/20 08:10 PT 10.4 Seconds (9.0-12.0) 10/16/20 00:03 INR 1.0 (0.9-1.1) 10/16/20 00:03 Sodium 141 mmol/L (136-145) 10/18/20 08:10 Potassium 3.7 mmol/L (3.5-5.1) 10/18/20 08:10 Chloride 110 mmol/L (98-107) H 10/18/20 08:10 Carbon Dioxide 28 mmol/L (21-32) 10/18/20 08:10 Anion Gap 4.0 (3-11) 10/18/20 08:10 BUN 29 mg/dl (7-18) H 10/18/20 08:10 Creatinine 0.79 mg/dl (0.6-1.2) 10/19/20 06:08 Est Cr Clr Drug Dosing 65.6 ml/min 10/19/20 06:08 Est GFR ( Amer) 84.9 ml/min 10/19/20 06:08 Est GFR (Non-Af Amer) 73.2 ml/min 10/19/20 06:08 BUN/Creatinine Ratio 32.4 (10-20) H 10/18/20 08:10 Glucose 79 mg/dl (70-99) 10/18/20 08:10 Calcium 8.8 mg/dl (8.5-10.1) 10/18/20 08:10 Magnesium 1.8 mg/dl (1.8-2.4) 10/15/20 23:16 Total Bilirubin 0.3 mg/dl (0.2-1) 10/15/20 23:16 AST 13 U/L (15-37) L 10/15/20 23:16 ALT 19 U/L (12-78) 10/15/20 23:16 Alkaline Phosphatase 77 U/L (45-117) 10/15/20 23:16 Troponin I < 0.015 ng/ml (0-0.045) 10/15/20 23:16 Total Protein 6.3 gm/dl (6.4-8.2) L 10/15/20 23:16 Albumin 3.1 gm/dl (3.4-5.0) L 10/15/20 23:16 Globulin 3.2 gm/dl (2.5-4.0) 10/15/20 23:16 Albumin/Globulin Ratio 1.0 (0.9-2) 10/15/20 23:16 25-OH Vitamin D Total 43.0 ng/ml (30-100) 10/19/20 06:08 TSH 0.829 uIu/ml (0.300-4.500) 10/15/20 23:16 COVID-19 Eval Order Covid19 at [facility] 10/16/20 01:50 SARS-CoV-2 (PCR) NEGATIVE (Negative) 10/16/20 01:50 Impressions Chest X-Ray 10/15/20 23:16 SINGLE VIEW CHEST CLINICAL HISTORY: Trauma. FINDINGS: An AP, portable, upright chest radiograph is compared to study dated 10/09/2020 and correlated with chest CT dated 06/02/2017. The cardiomediastinal silhouette is unremarkable noting atherosclerotic calcification of the thoracic aorta. The lungs appear hyperinflated. Apical scarring is similar to previous. No airspace consolidation or large pleural effusion is identified. Foci of scarring/atelectasis are seen throughout both lungs. Chronic elevation of the left hemidiaphragm is unchanged. No pneumothorax is seen. The skeletal structures are osteopenic. The bony thorax is grossly intact. IMPRESSION: No acute cardiopulmonary abnormality. ACT 112: Negative or not required by law. Electronically signed by: Ghassan Root M.D. 10/16/2020 8:[address] 10/15/20 23:[address] DOSE: 809.84 mGy.cm HISTORY: Fall. Low back pain. trauma TECHNIQUE: Multiaxial CT images of the lumbar spine were performed and reformatted in the sagittal and coronal plane without the use of contrast. A dose lowering technique was utilized adhering to the principles of ALARA. COMPARISON: None. FINDINGS: Mild levoscoliosis. No fracture or subluxation within the lumbar spine. Nondisplaced right sacral wing fracture which extends into the right sacroiliac joint. Severe disc space narrowing at L2-L3. Mild disc space narrowing at L4-5 and L5-S1. Small amount of right presacral/right retroperitoneal hemorrhage. Focal soft tissue density posterior to the left L5- S1 facet may be due to old postoperative change. IMPRESSION: Nondisplaced right sacral wing fracture which extends to the right sacroiliac joint. This is better appreciated on the same day pelvis CT. There is a small amount of presacral/right retroperitoneal hemorrhage. ACT 112: Negative or not required by law. Electronically signed by: Jaquan Jung M.D. 10/16/2020 7:[address] 10/15/20 23:16 CT SCAN OF THE PELVIS WITHOUT IV CONTRAST CLINICAL HISTORY: Fall. Pelvic pain. COMPARISON STUDY: Pelvic CT dated 11/25/2008. PET/CT dated 09/12/2013. TECHNIQUE: CT scan of the pelvis is performed from the pelvic inlet to the proximal femora. Images are reviewed in the axial, sagittal, and coronal planes. IV contrast was not administered for this examination. A dose lowering technique was utilized adhering to the principles of ALARA. Note that interpretation is suboptimal without plain film correlate. FINDINGS: The skeletal structures are osteopenic. There is acute fracture of the right sacral ala. This extends to the sacroiliac joint. There are also comminuted fractures of the right superior and inferior pubic ring. No additional fracture is identified. The proximal femora appear intact. No lytic or blastic lesion is seen. Mild to moderate degenerative joint space narrowing is noted in the hips. There is no significant joint effusion. Intrapelvic extraperitoneal hemorrhage is seen anterior to the right sacral ala, as well as along the right pelvic sidewall around the pubic ring fractures. No intramuscular hematoma is identified. There is no pelvic sidewall or inguinal adenopathy. The bladder is normal as imaged. The uterus is surgically absent. No adnexal lesion is seen. The visualized bowel loops are normal in caliber. Atherosclerotic calcification is noted in the iliac arteries. There is generalized atrophy of the regional musculature. IMPRESSION: 1. Fracture of the right sacral ala. 2. Comminuted right pubic ring fractures. 3. There is intrapelvic extraperitoneal hemorrhage anterior to the right sacrum and along the right pelvic sidewall around the pubic ring fractures. ACT 112: Negative or not required by law. Electronically signed by: Ghassan Root M.D. 10/16/2020 9:07 AM Shoulder X-Ray 10/15/20 23:16 RIGHT SHOULDER 3 VIEWS CLINICAL HISTORY: Fall. FINDINGS: 3 views of the right shoulder are compared to study dated 08/21/2019. The skeletal structures are osteopenic. There is no radiographic evidence of fracture or dislocation. The glenohumeral articulation is maintained. Mild productive change is noted at the acromioclavicular joint. The overlying soft tissues are normal as imaged. The right lung parenchyma is clear as visualized. IMPRESSION: No acute bony abnormality is identified. Electronically signed by: Ghassan Root M.D. 10/16/2020 7:59 AM Hip/Pelvis X-Ray 10/16/20 14:57 XR hip RT 2V w pelvis HISTORY: 75 years-old Female pain post fall acute pain of the pelvis and right hip status post fall COMPARISON: CT pelvis of same day TECHNIQUE: AP view of the pelvis with 2 views of the right hip FINDINGS: Demineralized appearance of the bones. Mild to moderate bilateral hip osteoarthritis. Acute nondisplaced right sacral ala fracture is better seen on comparison CT. Acute fractures of the right superior and inferior pubic rami without significant displacement. IMPRESSION: 1. Acute fractures of the right superior and inferior pubic rami without significant displacement. 2. Acute fracture of the right sacral ala is better characterized on the comparison CT pelvis study of same day. ACT 112: Negative or not required by law. The above report was generated using voice recognition software. It may contain grammatical, syntax or spelling errors. Electronically signed by: Luis Manuel Gifford M.D. 10/16/2020 3:55 PM (1) Closed pelvic fracture Encounter type: initial encounter Fracture alignment: with stable disruption of pelvic ring Pelvic bone location: multiple parts Qualified Code(s): S32.810A - Multiple fractures of pelvis with stable disruption of pelvic ring, initial encounter for closed fracture
--- NOTE | 2020-10-21 18:50 | Discharge Summary ---
Date of Service October 21, 2020 Admission HPI Per Admitting Provider Patient is a pleasant 75 year old female with PMHx COPD, GERD, Fibromyalgia, HTN, Non-Hodgkin Lymphoma, Osteopetrosis, Rheumatoid Arthritis, Raynaud, who presents after a fall on her R side earlier this evening due to her leg just "gave out," found to have a fracture of the R sacral ala to the R SI joint in addition to R superior and inferior pubic rami fractures. Patient notes that she fell earlier this evening after putting items on a table. She notes she was barefoot when it occurred and did not slip, trip, pass out, or feel dizzy. She notes her leg just "stopped working" on the R side and she fell on her leg and shoulder. She denies hitting her head. She notes that she had surgery on her lumbar spine 3.5 weeks ago due to having a 1 month history of L leg numbness, tingling, and pain. She notes she has actually been working hard on keeping herself safe while she recovers and over all had felt she was doing a good job until today. She notes that currently she is having 7/10 pain in her R hip in addition to slight numbness/tingling into her R leg. She notes that her L leg feels well. She denies any NVD, SOB, chest pain, abdominal pain, dysuria, urinary incontinence, fecal incontinence. She notes that in regards to pain control for her post-surgical recovery she has worked her way down to tylenol alone and was no longer utilizing the tramadol. Med Hx: COPD, GERD, Fibromyalgia, HTN, Non-Hodgkin Lymphoma, Osteopetrosis, Rheumatoid Arthritis, Raynaud Surg Hx: Cholecystectomy, Appendectomy, Hysterectomy, Lumbar discectomy Soc Hx: Denies tobacco or illicit drug use. Drinks 1-2 glasses of wine/week Principal Diagnosis (Presumably osteoporotic) pelvic fracture Discharge Exam In general she is awake and alert pleasant no distress. HEENT normocephalic atraumatic mucous membranes moist. Breathing unlabored no accessory muscle use good effort. Skin shows no rashes no pallor or icterus. Neuro without focal deficits. Discharge Data Allergies Allergy/AdvReac Type Severity Reaction Status Date / Time alendronate sodium Allergy Intermediate CHILLS,FEVER, Verified 10/15/20 22:50 TEETH GOT LOOSE aspirin Allergy Mild ITCHING Verified 10/15/20 22:50 UNDER SKIN ibuprofen Allergy Mild itching Verified 10/15/20 22:50 under skin oxycodone AdvReac Intermediate N/V Verified 10/15/20 22:50 orange AdvReac Mild FEELS LIKE Verified 10/15/20 22:50 HAS A COLD AFTER DRINKING ORANGE JUICE Consultations 10/16/20 01:37 ED Decision to Admit Stat 10/16/20 14:47 Consult Orthopedic Surgery Routine Ordered Studies 10/15/20 23:16 CT lumbar spine wo con Urgent CT pelvis wo con Urgent Hospital Course (1) Pelvic fracture: Pelvic Fracture secondary to fall -CT pelvis showing fractures of the R sacral ala extending to the R SI joint in addition to fractures of the R superior and inferior pubic rami. -CT lumbar spine read showed no fracture of the lumbar spine -Pain control reasonable with current regimen -PT/OT consult-- SNF vs inpatient rehab * Most appropriate for SNF, as patient is unlikely to meet 3-hour physical activity threshold in her current condition * continue to work with PT at SNF -Continue home Gabapentin for pain control in addition to above -Continue home Vitamin D -Ortho consult -- PT/OT, weightbearing as tolerated on RLE with walker -Added PRN Meclizine today for vertigo sx; cautioned against using prior to physical therapy -For SNF/rehab emphasis today Osteoporosis - On chronic steroids for RA as below - Continue vitamin D - Consider updated DEXA as outpatient or escalated empiric osteoporosis treatmentshe noted difficulties with bisphosphonatesso possibly something like Prolia or Forteo -On chronic prednisone for her RAif possible, would consider transition off steroids to alternate regimensbut obviously this will be better left people who know her/her RA/her clinical history better, to see if it is even feasible Hypokalemia - resolved - Repleted with IV Potassium - No longer trending BMP as electrolytes have normalized - will trend if suspicion of metabolic derangement arises COPD/Asthma -Well controlled with PRN albuterol - continue -Continue Singulair Rheumatoid Arthritis -Continue Prednisone 8mg QD -See above about considering a slow wean off of steroids, and/or alternatives if possible HTN -Continue HCTZ -Continue Lisinopril Dispo: For SNF FEN: Regular diet DVT: Lovenox 30mg QDconsider continuing this for a time at SNF/rehab, depending on her mobility Code: DNR/DNI Total Time Total Time Spent Total Time Spent (In Minutes): <30 Discharge Plan Discharge Items Patient Disposition: Transfer Inpatient Rehab Fac Reason For Visit: FALL, RT PELVIS FX Discharge Diagnosis: Right Pelvics Fracture Activity: Per Instructions section Lifting: None Weightbearing: Right partial Weightbearing Comment: Right weightbearing as tolerated with walker assistance Non-emergency contact: Primary Care Provider Call non-emergency contact if: you have any medication questions and your pain is not controlled Follow-up/Referrals: Al Blanco MD [Primary Care Provider] - Diet: Regular Addtl Attending Provider Instructions: Pelvic Fracture s/p Fall - CT pelvis showing fractures of the R sacral ala extending to the R SI joint in addition to fractures of the R superior and inferior pubic rami. nonsurgical management. - CT lumbar spine read showed no fracture of the lumbar spine - Pain control with scheduled Tylenol 1000mg Q8H, Tramadol 50 mg PO Q6H PRN, Toradol IV 15 mg Q6H PRN severe pain. - activity order updated to OOB to chair, with assistance - follow up with Dr. Fleming in 2 weeks, AP pelvic, inlet and outlet view xrays - Daily PT to work on gait training and balance prior to returning home. Right weightbearing as tolerated, use walker while walking. Outpatient workup for osteoporotic fractures - hx osteoporosis, on chronic steroids for RA, suffered GI side effects from Fosamax previously - repeat DEXA - consider switching/tapering steroid regimen to alternative medication for RA control - consider use of anabolic agent (teriparatide etc) starting 1 month after fracture to allow for healing prior to initiation COPD/Asthma -Well controlled with PRN albuterol - continue -Continue Singulair Rheumatoid Arthritis -Continue Prednisone 8mg QD -Will not stress dose at this time - see above for tapering in future HTN -Continue HCTZ -Continue Lisinopril FEN: Regular diet, encourage PO fluid intake DVT: Lovenox 30mg QD Code: DNR/DNI Pending Studies at Discharge: No Stand-Alone Forms: My [employer] Skilled Items Patient informed of condition?: Yes DNR: Yes Discharge Level of Care: Skilled Communicable Disease: No Discharge Prognosis: Stable Lines: None Urinary Catheter: No Medications and DC Order Prescriptions: Continued prednisone 5 mg tablet 5 mg PO QAM Qty: 90 RF: 3 albuterol sulfate 2.5 mg /3 mL (0.083 %) solution for nebulization 2.5 mg INH Q6H PRN (Reason: shortness of breath or wheezing) Qty: 180 RF: 1 prednisone 1 mg tablet 3 mg PO QAM RF: 0 (DME) nebulizer accessories Kit See Rx Instructions .ROUTE .MEDSUPPLY Qty: 1 RF: 0 (DME) nebulizer and compressor Device See Rx Instructions [id number] .MEDSUPPLY Qty: 1 RF: 0 montelukast [Singulair] 10 mg tablet 10 mg PO QPM Qty: 90 RF: 3 albuterol sulfate 90 mcg/actuation HFA aerosol inhaler 2 - 4 puff Inhalation Q6H PRN (Reason: Shortness Of Breath Or Wheezing) Qty: 18 RF: 5 lisinopril 10 mg tablet 10 mg PO QAM RF: 0 dextromethorphan-guaifenesin [Mucinex DM] 60-1,200 mg Tablet Extended Release 12 Hr 1 tab PO Q12H PRN (Reason: Congestion) RF: 0 cholecalciferol (vitamin D3) [Vitamin D3] 1,000 unit Tablet 1,000 unit PO QAM RF: 0 zinc 50 mg Tablet 50 mg PO QAM RF: 0 hydrochlorothiazide 25 mg tablet 25 mg PO QAM RF: 0 lidocaine 5 % adhesive patch,medicated 1 patch TOP DAILY PRN (Reason: pain) Qty: 15 RF: 0 ondansetron HCl 4 mg tablet 4 mg PO Q8H PRN (Reason: Nausea) RF: 0 tramadol 50 mg tablet 50 - 100 mg PO .Q6-8HR PRN (Reason: Pain) RF: 0 gabapentin 400 mg capsule 400 mg PO BID RF: 0 Discharge Orders: Discharge Order (Routine); Ordered 10/21/20 Ordered By: Mary Campos Admission Data Admit Date/Time: 10/16/20 02:23 Attending Provider: Brooks Abraham Admit Provider: Raoul Rios Primary Care Provider: Al Blanco Other Providers: Madisyn Ross ; Ozzie Barclay ; Tk Johnson ; Khoa Isabel ; Pat Oviedo ; Zayra Joseph ; Vijay Garduno ; Humberto Pena ; Joseph Vtial ; Joseph Fleming ; Enid Angulo ; Melissa Rodriguez ; Dana Thomas ; Yu Patel ; [facility] ; Dean Norris ; [place] Other Interventions: Discharge Summary Assessment (RN) Last Done: 10/21/20 11:23 Coding Level of Care Code D/C DAY MANAGEMENT <30 MINS Diagnoses Pelvic fracture S32.9XXA
== END 2020-10-21 16:12 | DRG 543 ==
LOC: ED 22:22 → 3W 10-16 02:23 → SUATTDRO 10-16 02:23 → 3W 10-16 03:39
DX: I10 Essential (primary) hypertension; J43.9 Emphysema, unspecified; Z98.890 Other specified postprocedural states; M79.7 Fibromyalgia; H91.90 Unspecified hearing loss, unspecified ear; Z88.5 Allergy status to narcotic agent; M80.08XA Age-related osteoporosis with current pathological fracture, vertebra(e), initial encounter for fracture; Z92.3 Personal history of irradiation; W19.XXXA Unspecified fall, initial encounter; M80.0AXA Age-related osteoporosis with current pathological fracture, other site, initial encounter for fracture; I73.00 Raynaud's syndrome without gangrene; Z85.72 Personal history of non-Hodgkin lymphomas; M06.9 Rheumatoid arthritis, unspecified; E87.6 Hypokalemia; Y92.000 Kitchen of unspecified non-institutional (private) residence as the place of occurrence of the external cause; Z88.6 Allergy status to analgesic agent

== ENCOUNTER 2022-05-10 12:49 | Observation (INO) ==
--- NOTE | 2022-05-10 13:29 | CT Scan Report ---
CT SCAN OF THE BRAIN WITHOUT IV CONTRAST CLINICAL HISTORY: Neurological deficit. Stroke like symptoms. COMPARISON STUDY: CT of the brain dated 07/09/2020. TECHNIQUE: Unenhanced axial CT scan of the brain is performed from the vertex to the skull base. A do se lowering technique was utilized adhering to the principles of ALARA. CT DOSE: 614.27 mGy.cm FINDINGS: Brain parenchyma: There is age-related involutional change noting mild subcortical and periventricula r microangiopathic disease. There is no hemorrhage, mass effect, or evidence of acute territorial isc hemia by CT criteria. Driscoll-white matter differentiation is preserved. No extra-axial fluid collection is seen. Ventricles, sulci, cisterns: Prominent secondary to involutional change. Intracranial vasculature: There is atherosclerotic calcification of the cavernous carotid and vertebr al arteries. Calvarium: Unremarkable. Sinuses and mastoids: There is evidence of previous paranasal sinus surgery. There is moderate mucosa l thickening and hyperdense debris within the right maxillary antrum. There is moderate mucosal thick ening and trace fluid in the left maxillary sinus. Trace mucosal thickening is also seen within the e thmoid cavity and the left frontal sinus. The mastoid air cells are well pneumatized. Orbits: The bony orbits are grossly intact. There are bilateral ocular lens implants. IMPRESSION: 1. There is no hemorrhage, mass effect, or evidence of acute territorial ischemia by CT criteria. 2. Paranasal sinus disease as above. ACT 112: Negative or not required by law. Electronically signed by: Ghassan Root M.D. 05/10/2022 1:28 PM
[2022-05-10 13:54] LABS: Hematocrit (blood only) 41.7 % (37.0-47.0); Hemoglobin 13.5 g/dl (12.0-16.0); Mean Corpuscular Hgb Conc 32.4 g/dL (32.0-36.0); Mean Corpuscular Volume 95.6 fL (80.0-100.0); Platelet Count 224 K/uL (130-400); RDW Coefficient of Variation 13.2 % (11.5-14.5); RDW Standard Deviation 46.7 fL (36.4-46.3); Red Blood Count 4.36 M/uL (4.20-5.40); White Blood Count 12.88 K/ul (4.8-10.8)
[2022-05-10 14:04] LABS: Alanine Aminotransferase 11 U/L (7-52); Albumin Globulin Ratio 1.6 (0.9-2); Alkaline Phosphatase 68 U/L (34-104); Anion Gap 7 (3-11); Aspartate Aminotransferase 16 U/L (13-39); BUN Creatinine Ratio 33.3 (10-20); Bilirubin,Total 0.4 mg/dl (0.2-1.0); Blood Urea Nitrogen 31 mg/dl (6-23); Calcium 9.6 mg/dl (8.6-10.3); Carbon Dioxide 27 mmol/L (21-32); Chloride 107 mmol/L (98-107); Creatinine Clr Calc Pharmacy 50.2 ml/min; Est GFR (African American) 68.7 ml/min; Est GFR (Non-African American) 59.3 ml/min; Globulin 2.5 gm/dl (2.5-4.0); Glucose 102 mg/dl (70-99(Fasting)); Magnesium 1.9 mg/dl (1.7-2.4); Potassium 4.2 mmol/L (3.5-5.1); Sodium 141 mmol/L (136-145); Total Protein 6.5 gm/dl (6.0-8.3)
--- NOTE | 2022-05-10 14:06 | Emergency Department Note ---
Impression & Plan CRAO (central retinal artery occlusion), Myopathy, Change in vision, Leg weakness ED Provider Note NAME: NIRU MOSQUERA AGE: 77 SEX: F : 1945 ARRIVES VIA: Walk-In INFORMANT: Patient, ED PROVIDER(S): Aly Romero MD CHIEF COMPLAINT: Vision changes, outpatient referral MEDICAL DECISION MAKING: Patient did present due to concern for visual disturbance from Dr. Morris's office. The patient did blow her completed and IV was established along with an EKG. Patient has mild leukocytosis 12.8 with a normal H&H and platelet count. Kidney function grossly normal with normal electrolytes. No azotemia noted. LFTs unremarkable. CT of the head shows sinus disease and the patient has a known history. Otherwise no acute findings on CT of the head. The patient does have left lower extremity weakness on exam but this is progressively worsened and patient and family member believe that this is secondary to the patient's history of chronic myopathy. The symptoms been ongoing beyond her symptoms of vision changes on Tuesday I did speak with Dr. Ferro, who stated that the patient likely had a CRAO based on dilated funduscopic exam findings including liu red spot retinal whitening. The patient did have the central vision sparing. Ocular pressures were checked.. She did recommend GC arteritis work-up. I did speak with on- call neurologist Dr. Esquivel and he recommended the imaging and discussed dual antiplatelet therapy as well as a statin. Planning on angiography stated the patient could potentially have an echo and MRI done as an outpatient. Patient CT angiography of the head neck shows no acute concerning findings. Patient cannot tolerate aspirin secondary to itching. Given this concern in addition to the CRAO I did speak with the on-call hospitalist service Dr. Kelly. Patient was admitted to the medicine service. Prior /Outside records reviewed: I did review the patient's most recent neurology note with Dr. Cha from November 2021 which showed the patient does have a known history of connective tissue disease associated myopathy. At this time was reported that the patient's legs feel numb especially more in the left compared to the right. Did review the patient's most recent ENT follow-up note with Dr. Mccarthy which showed sinusitis with polyps and endoscopic debridement was performed at that time. Patient reportedly has a history of fungal sinusitis. Differential diagnosis: Stroke, mini stroke, retinopathy, conjunctivitis, trauma, corneal abrasion, hyphema, glaucoma, iritis, corneal ulcer, dendrite, CRAO, CRVO, vitreous detachment, retinal detachment, as well as other pathologies. Diagnostics, as interpreted by me: ECG: Normal sinus rhythm, rate of 68, normal intervals normal axis no ST elevations Cardiac monitoring: An order was placed for continuous cardiac monitoring. The monitor shows a rate of 67 with sinus rhythm. Patient was placed on pulse oximetry Medical decision rules: None Imaging studies: See below HPI: Patient presents due to concern for progressive changes in vision. The patient states that she noticed this in her left eye on Tuesday. The patient states that she seems to have more central clearing of vision but the surroundi ng vision appears blurry. Patient states that she is seeing orange and red spots. Patient denies any pain. The patient was seen at Dr. Morris's office by Dr. Moreno and referred here for further evaluation and treatment of possible small stroke. Patient does suffer from a reported myopathy does follow with Dr. Cha with Neurology. PAST MEDICAL HISTORY: See Below PAST SURGICAL HISTORY: See Below SOCIAL HISTORY: See Below HOME MEDICATIONS: See Below ALLERGIES: See Below VITALS: See Below PHYSICAL EXAMINATION: GENERAL: NAD, wearing a mask, non-toxic. EYE EXAM: Normal conjunctiva. PERRL, no anisocoria and EOM's grossly intact w/o pain. NECK: Supple, no nuchal rigidity, no adenopathy, non-tender. No signs of meningismus. FROM of the neck with good chin to chest and neck extension. No stridor. LUNGS: Clear to auscultation. Normal chest wall mechanics. HEART: NSR, no MRG. ABDOMEN: Abdomen soft, non-tender, no masses, no rebound or guarding. BACK: No CVA TTP. SKIN: No rashes and no bruising. UPPER EXTREMITIES: Upper extremities are grossly normal. LOWER EXTREMITIES: Grossly normal, no edema. NEURO EXAM: A&O x3, cranial nerves II-XII grossly intact, normal speech, moves all 4 extremities left lower extremity weakness compared to right lower extremity Past Med/Surg History Medical History Back pain Bilateral shoulder pain Chronic obstructive pulmonary disease inhaler/nebulizer prn > pt reports, no COPD, now dx as asthma Chronic pharyngitis Chronic sinusitis Dyspnea on exertion Fall SEP 2020, no further issues Fibromyalgia GERD (gastroesophageal reflux disease) Hearing deficit History of COVID-19 July/August 2021 > no further problems > not hospitalized Hypertension Joint pain, knee Laryngopharyngeal reflux Long-term current use of steroids Low serum potassium level Microscopic hematuria Neuromuscular weakness Non-Hodgkin lymphoma diagnosed 2006--chemo/radiation > Osteoporosis Raynaud disease Rheumatoid arthritis Severe persistent asthma Severe persistent asthma dependent on systemic steroids Steroid-induced osteoporosis Surgical History History of appendectomy History of bilateral cataract extraction History of cholecystectomy History of colonoscopy History of ear surgery left "tried to repair hole in my ear" History of esophagogastroduodenoscopy (EGD) History of sinus surgery x2 History of tooth extraction History of total hysterectomy with bilateral salpingo-oophorectomy (BSO) Family History Other Family history non-contributory No family history of adverse response to anesthesia Social History Smoking Status: Never smoker Second Hand Exposure: No; Hx Alcohol Use: Yes Alcohol type: wine Hx Substance Use: No Preferred Language: Nigerien Communication Ability: Effective Dietitian Assistant Required: No Beliefs That Will Affect Care: None marital status: Current Living Situation: Spouse Current Living Situation Comment: AND DAUGHTER current occupational status: retired Feels Safe at Home: Yes Assistive Devices: Cane, Denture - Upper, Glasses and Walker Allergies Allergies Allergy/AdvReac Type Severity Reaction Status Date / Time aspirin Allergy Intermediate ITCHING Verified 05/10/22 15:44 UNDER SKIN diclofenac [From Voltaren] Allergy Intermediate ITCHINESS Verified 05/10/22 15:44 ibuprofen Allergy Intermediate itching Verified 05/10/22 15:44 under skin alendronate sodium AdvReac Intermediate CHILLS,FEVER, Verified 05/10/22 15:44 TEETH GOT LOOSE orange AdvReac Intermediate FEELS LIKE Verified 05/10/22 15:44 HAS A COLD AFTER DRINKING ORANGE JUICE oxycodone AdvReac Intermediate N/V Verified 05/10/22 15:44 tramadol AdvReac Intermediate Vomiting, Verified 05/10/22 15:44 NAUSEA Home Meds Home Medications Medication Instructions Recorded Confirmed dextromethorphan-guaifenesin ER 60 1 tab PO DIRECTED PRN Congestion 03/27/18 05/10/22 mg-1,200 mg tab,extend release,12hr (Mucinex DM) docusate sodium 100 mg capsule 100 mg PO QAM 12/04/20 05/10/22 (Stool Softener) prednisone 5 mg tablet 5 mg PO QAM 12/04/20 05/10/22 amlodipine 2.5 mg tablet 2.5 mg PO HS 09/03/21 05/10/22 metoprolol tartrate 25 mg tablet 25 mg PO QAM 09/03/21 05/10/22 acetaminophen 500 mg tablet See Rx Instructions .Route .COMPLEX 05/10/22 05/10/22 (Tylenol Extra Strength) doxycycline hyclate 50 mg capsule 50 mg PO BID FOR FACIAL 05/10/22 05/10/22 RASH/IRRITATION mupirocin 2 % topical ointment 1 applic topical BID PRN FACIAL 05/10/22 05/10/22 RASH prednisone 1 mg tablet 4 mg PO DAILY 05/10/22 05/10/22 Previous Rx's Medication Instructions Recorded nebulizer accessories #1 ea 07/04/19 nebulizer and compressor #1 ea 07/04/19 albuterol sulfate 2.5 mg/3 mL 2.5 mg (3 mL) inhalation Q6H PRN 08/04/20 (0.083 %) solution for nebulization shortness of breath or wheezing #180 mL budesonide-formoterol HFA 160 2 puff inhalation Q12H #10.2 grams 01/06/22 mcg-4.5 mcg/actuation aerosol inhaler (Symbicort) montelukast 10 mg tablet 10 mg PO QPM #90 tabs 01/06/22 (Singulair) albuterol sulfate 90 mcg/actuation 2 puff inhalation Q6H PRN 01/18/22 aerosol inhaler Shortness Of Breath Or Wheezing #18 grams Results & Data (ED) Vital Signs Vital Signs - 24 hr 05/10/22 12:56 05/10/22 15:34 05/10/22 17:00 Temperature 36.6 C Temperature Source Temporal Artery Scan Pulse Rate 71 72 64 Pulse Rate from SpO2 Sensor 63 Pulse Rhythm Regular Pulse Strength Normal Respiratory Rate 18 20 16 Respiratory Effort / Characteristics Non-Labored Respiratory Depth Normal Blood Pressure 150/72 H 190/73 H 171/62 H Blood Pressure Mean 98 112 98 Blood Pressure Position Lying Pulse Oximetry 99 98 98 Oxygen Delivery Method Room Air Room Air Sepsis New/Unexplained Change in Mental Status N/A Sepsis Action Taken by Nursing No Action Required 05/10/22 17:30 05/10/22 18:00 Temperature Temperature Source Pulse Rate 62 61 Pulse Rate from SpO2 Sensor 62 62 Pulse Rhythm Pulse Strength Respiratory Rate 16 14 Respiratory Effort / Characteristics Respiratory Depth Blood Pressure 174/62 H 181/57 H Blood Pressure Mean 99 98 Blood Pressure Position Pulse Oximetry 98 99 Oxygen Delivery Method Sepsis New/Unexplained Change in Mental Status Sepsis Action Taken by Custodial Medications Current Medication List: was personally reviewed by me Laboratory Data Attestation: I reviewed the patient's lab results. 05/10/22 13:07 05/10/22 13:07 Lab Results 05/10/22 05/10/22 05/10/22 Range/Units 13:07 13:07 13:07 WBC 12.88 H (4.8-10.8) K/ul RBC 4.36 (4.20-5.40) M/uL Hgb 13.5 (12.0-16.0) g/dl Hct 41.7 (37.0-47.0) % MCV 95.6 (80.0-100.0) fL MCH 31.0 (25.0-34.0) pg MCHC 32.4 (32.0-36.0) g/dL RDW Std Deviation 46.7 H (36.4-46.3) fL RDW Coeff of Navi 13.2 (11.5-14.5) % Plt Count 224 (130-400) K/uL MPV 11.0 (9.4-12.4) fL ESR (0-30) mm/hr PT 10.7 (9.0-12.0) Seconds INR 1.0 (0.9-1.1) APTT 24.3 (21.0-31.0) Seconds PTT Ratio 0.9 Sodium 141 (136-145) mmol/L Potassium 4.2 (3.5-5.1) mmol/L Chloride 107 (98-107) mmol/L Carbon Dioxide 27 (21-32) mmol/L Anion Gap 7 (3-11) BUN 31 H (6-23) mg/dl Creatinine 0.93 (0.6-1.2) mg/dl Est Cr Clr Drug Dosing 50.2 ml/min Est GFR ( Amer) 68.7 ml/min Est GFR (Non-Af Amer) 59.3 ml/min BUN/Creatinine Ratio 33.3 H (10-20) Glucose 102 H (70-99(Fasting)) mg/dl Calcium 9.6 (8.6-10.3) mg/dl Magnesium 1.9 (1.7-2.4) mg/dl Total Bilirubin 0.4 (0.2-1.0) mg/dl AST 16 (13-39) U/L ALT 11 (7-52) U/L Alkaline Phosphatase 68 (34-104) U/L C-Reactive Protein < 0.50 (0-0.5) mg/dl Total Protein 6.5 (6.0-8.3) gm/dl Albumin 4.0 (3.4-5.0) gm/dl Globulin 2.5 (2.5-4.0) gm/dl Albumin/Globulin Ratio 1.6 (0.9-2) SARS-CoV-2, RNA, NAAT (NEGATIVE) 05/10/22 05/10/22 Range/Units 13:07 15:30 WBC (4.8-10.8) K/ul RBC (4.20-5.40) M/uL Hgb (12.0-16.0) g/dl Hct (37.0-47.0) % MCV (80.0-100.0) fL MCH (25.0-34.0) pg MCHC (32.0-36.0) g/dL RDW Std Deviation (36.4-46.3) fL RDW Coeff of Navi (11.5-14.5) % Plt Count (130-400) K/uL MPV (9.4-12.4) fL ESR 13 (0-30) mm/hr PT (9.0-12.0) Seconds INR (0.9-1.1) APTT (21.0-31.0) Seconds PTT Ratio Sodium (136-145) mmol/L Potassium (3.5-5.1) mmol/L Chloride (98-107) mmol/L Carbon Dioxide (21-32) mmol/L Anion Gap (3-11) BUN (6-23) mg/dl Creatinine (0.6-1.2) mg/dl Est Cr Clr Drug Dosing ml/min Est GFR ( Amer) ml/min Est GFR (Non-Af Amer) ml/min BUN/Creatinine Ratio (10-20) Glucose (70-99(Fasting)) mg/dl Calcium (8.6-10.3) mg/dl Magnesium (1.7-2.4) mg/dl Total Bilirubin (0.2-1.0) mg/dl AST (13-39) U/L ALT (7-52) U/L Alkaline Phosphatase (34-104) U/L C-Reactive Protein (0-0.5) mg/dl Total Protein (6.0-8.3) gm/dl Albumin (3.4-5.0) gm/dl Globulin (2.5-4.0) gm/dl Albumin/Globulin Ratio (0.9-2) SARS-CoV-2, RNA, NAAT NEGATIVE (NEGATIVE) Administered Medications Discontinued Medications Clopidogrel Bisulfate (Clopidogrel Bisulfate 75 Mg Tab) 75 mg PO NOW ONE Stop: 05/10/22 17:23 Last Admin: 05/10/22 18:06 Dose: 75 mg Documented By: FLORY Ioversol (Optiray 320 500ml) 106 ml IV ONCE ONE Stop: 05/10/22 15:11 Last Admin: 05/10/22 15:11 Dose: 106 ml Documented By: [place] Imaging Data Radiologist's Impression: Chest X-Ray 05/10/22 13:01 XR chest 1V not portable HISTORY: 77 years-old Female stroke alert acute strokelike symptoms COMPARISON: Chest and rib radiographs 05/05/2019 TECHNIQUE: PA view of the chest FINDINGS: Cardiomediastinal and hilar silhouettes are within normal limits. Biapical pleural-parenchymal scarring. Hyperinflation. No pneumothorax, pleural effusion, airspace consolidation or pulmonary edema. Degenerative changes of the shoulders and spine. IMPRESSION: No acute process. ACT 112: Negative or not required by law. The above report was generated using voice recognition software. It may contain grammatical, syntax or spelling errors. Electronically signed by: Luis Manuel Gifford M.D. 05/10/2022 2:[address] 05/10/22 13:01 CT SCAN OF THE BRAIN WITHOUT IV CONTRAST CLINICAL HISTORY: Neurological deficit. Stroke like symptoms. COMPARISON STUDY: CT of the brain dated 07/09/2020. TECHNIQUE: Unenhanced axial CT scan of the brain is performed from the vertex to the skull base. A dose lowering technique was utilized adhering to the principles of ALARA. CT DOSE: 614.27 mGy.cm FINDINGS: Brain parenchyma: There is age-related involutional change noting mild subcortical and periventricular microangiopathic disease. There is no hemorrhage, mass effect, or evidence of acute territorial ischemia by CT criteria. Driscoll-white matter differentiation is preserved. No extra-axial fluid collection is seen. Ventricles, sulci, cisterns: Prominent secondary to involutional change. Intracranial vasculature: There is atherosclerotic calcification of the cavernous carotid and vertebral arteries. Calvarium: Unremarkable. Sinuses and mastoids: There is evidence of previous paranasal sinus surgery. There is moderate mucosal thickening and hyperdense debris within the right maxillary antrum. There is moderate mucosal thickening and trace fluid in the left maxillary sinus. Trace mucosal thickening is also seen within the ethmoid cavity and the left frontal sinus. The mastoid air cells are well pneumatized. Orbits: The bony orbits are grossly intact. There are bilateral ocular lens implants. IMPRESSION: 1. There is no hemorrhage, mass effect, or evidence of acute territorial ischemia by CT criteria. 2. Paranasal sinus disease as above. ACT 112: Negative or not required by law. Electronically signed by: Ghassan Root M.D. 05/10/2022 1:28 PM Head CTA 05/10/22 14:32 CT ANGIOGRAM OF THE BRAIN; CT ANGIOGRAM OF THE NECK CLINICAL HISTORY: Visual disturbances. Left eye symptoms. COMPARISON STUDY: Unenhanced CT of the brain dated 05/10/2022. TECHNIQUE: Following the IV administration of 106 of Optiray 320, CT angiogram of the head and neck was performed from the aortic arch to the vertex. Images are reviewed in the axial, sagittal, and coronal planes. 3-D MIPS images are created and assessed. IV contrast was administered without complication. All measurements were calculated based on NASCET criteria. A dose lowering technique was utilized adhering to the principles of ALARA. CT DOSE: 370.73 mGy.cm FINDINGS: Brain parenchyma: There is age related involutional change noted in mild subcortical and periventricular microangiopathic disease. There is no evidence of hemorrhage, mass effect, or acute territorial ischemia noting angiographic phase technique. There is no evidence of enhancing mass lesion on the angiogram phase images. The ventricles, sulci, and cisterns are normal in configuration. Driscoll-white matter differentiation is preserved. No extra-axial fluid collection is seen. Thoracic aorta: There is atherosclerotic calcification of the thoracic aorta. Visualized portions of the thoracic aorta are normal in caliber. The aortic arch demonstrates standard 3-vessel anatomy. Right carotid arterial system: The right common carotid artery is widely patent, as are the right internal and external carotid arteries. Calcified plaque is noted in the carotid bulb. Left carotid arterial system: The left common carotid artery is widely patent, as are the left internal and external carotid arteries. Calcified plaque is noted in the carotid bulb. Vertebral arteries: The vertebral arteries are widely patent bilaterally noting left-sided dominance. The right vertebral artery is diminutive and terminates as the PICA. Subclavian arteries: Widely patent bilaterally. Intracranial vasculature: There is atherosclerotic calcification of the cavernous carotid and vertebral arteries. The internal carotid arteries are patent at the skull base, as are the anterior and middle cerebral arteries bilaterally. The vertebrobasilar system and posterior cerebral arteries are widely patent. The left vertebral artery is dominant. There is a left posterior communicating artery. There is no aneurysm, high-grade stenosis, or focal vessel cut off seen throughout the intracranial circulation. Jugular veins: Patent bilaterally. Dural sinuses: Patent. Lung apices: Fibrotic change is noted the apices. Upper lobe lung parenchyma is otherwise clear as imaged. Soft tissues: The visualized pharyngeal soft tissues are normal in appearance noting angiographic phase technique. The oropharyngeal airway appears widely patent. The left lobe of the thyroid gland is diminutive. The salivary glands are normal in appearance. No cervical lymphadenopathy is seen. Skeletal structures: The skeletal structures are osteopenic. The calvarium appears intact. The cervical spine is maintained noting multilevel spondylosis. No lytic or blastic lesion is seen. Orbits: The bony orbits are intact. Orbital contents are normal as visualized noting bilateral ocular lens implants. Sinuses and mastoids: There is evidence of previous paranasal sinus surgery. There is moderate mucosal thickening and hyperdense debris within the right maxillary antrum. There is moderate mucosal thickening and trace fluid in the left maxillary sinus. Trace mucosal thickening is also seen within the ethmoid cavity and the left frontal sinus. The mastoid air cells are well pneumatized. IMPRESSION: 1. There is no evidence of hemorrhage, mass effect, or acute territorial ischemia noting angiographic phase technique. 2. Unremarkable CT angiogram of the brain. 3. Unremarkable CT angiogram of the neck. ACT 112: Negative or not required by law. Electronically signed by: Ghassan Root M.D. 05/10/2022 3:33 PM Neck CTA 05/10/22 14:32 CT ANGIOGRAM OF THE BRAIN; CT ANGIOGRAM OF THE NECK CLINICAL HISTORY: Visual disturbances. Left eye symptoms. COMPARISON STUDY: Unenhanced CT of the brain dated 05/10/2022. TECHNIQUE: Following the IV administration of 106 of Optiray 320, CT angiogram of the head and neck was performed from the aortic arch to the vertex. Images are reviewed in the axial, sagittal, and coronal planes. 3-D MIPS images are created and assessed. IV contrast was administered without complication. All measurements were calculated based on NASCET criteria. A dose lowering technique was utilized adhering to the principles of ALARA. CT DOSE: 370.73 mGy.cm FINDINGS: Brain parenchyma: There is age related involutional change noted in mild subcortical and periventricular microangiopathic disease. There is no evidence of hemorrhage, mass effect, or acute territorial ischemia noting angiographic phase technique. There is no evidence of enhancing mass lesion on the angiogram phase images. The ventricles, sulci, and cisterns are normal in configuration. Driscoll-white matter differentiation is preserved. No extra-axial fluid collection is seen. Thoracic aorta: There is atherosclerotic calcification of the thoracic aorta. Visualized portions of the thoracic aorta are normal in caliber. The aortic arch demonstrates standard 3-vessel anatomy. Right carotid arterial system: The right common carotid artery is widely patent, as are the right internal and external carotid arteries. Calcified plaque is noted in the carotid bulb. Left carotid arterial system: The left common carotid artery is widely patent, as are the left internal and external carotid arteries. Calcified plaque is noted in the carotid bulb. Vertebral arteries: The vertebral arteries are widely patent bilaterally noting left-sided dominance. The right vertebral artery is diminutive and terminates as the PICA. Subclavian arteries: Widely patent bilaterally. Intracranial vasculature: There is atherosclerotic calcification of the cavernous carotid and vertebral arteries. The internal carotid arteries are patent at the skull base, as are the anterior and middle cerebral arteries bilaterally. The vertebrobasilar system and posterior cerebral arteries are widely patent. The left vertebral artery is dominant. There is a left posterior communicating artery. There is no aneurysm, high-grade stenosis, or focal vessel cut off seen throughout the intracranial circulation. Jugular veins: Patent bilaterally. Dural sinuses: Patent. Lung apices: Fibrotic change is noted the apices. Upper lobe lung parenchyma is otherwise clear as imaged. Soft tissues: The visualized pharyngeal soft tissues are normal in appearance noting angiographic phase technique. The oropharyngeal airway appears widely patent. The left lobe of the thyroid gland is diminutive. The salivary glands are normal in appearance. No cervical lymphadenopathy is seen. Skeletal structures: The skeletal structures are osteopenic. The calvarium appears intact. The cervical spine is maintained noting multilevel spondylosis. No lytic or blastic lesion is seen. Orbits: The bony orbits are intact. Orbital contents are normal as visualized noting bilateral ocular lens implants. Sinuses and mastoids: There is evidence of previous paranasal sinus surgery. There is moderate mucosal thickening and hyperdense debris within the right m axillary antrum. There is moderate mucosal thickening and trace fluid in the left maxillary sinus. Trace mucosal thickening is also seen within the ethmoid cavity and the left frontal sinus. The mastoid air cells are well pneumatized. IMPRESSION: 1. There is no evidence of hemorrhage, mass effect, or acute territorial ischemia noting angiographic phase technique. 2. Unremarkable CT angiogram of the brain. 3. Unremarkable CT angiogram of the neck. ACT 112: Negative or not required by law. Electronically signed by: Ghassan Root M.D. 05/10/2022 3:33 PM Discharge Plan Visit Data Chief Complaint: Visual Disturbance Stated Complaint: POSSIBLE STROKE IN EYE ED Provider: Aly Romero Discharge Problem: CRAO (central retinal artery occlusion), Myopathy, Change in vision, Leg weakness Forms Stand Alone Forms: [facility] Prescriptions Prescriptions: No Action albuterol sulfate 2.5 mg /3 mL (0.083 %) solution for nebulization 2.5 mg INH Q6H PRN (Reason: shortness of breath or wheezing) Qty: 180 1RF albuterol sulfate 90 mcg/actuation HFA aerosol inhaler 2 puff Inhalation Q6H PRN (Reason: Shortness Of Breath Or Wheezing) Qty: 18 5RF amlodipine 2.5 mg tablet 2.5 mg PO HS metoprolol tartrate 25 mg tablet 25 mg PO QAM (DME) nebulizer accessories Kit See Rx Instructions .ROUTE .MEDSUPPLY Qty: 1 0RF Rx Instructions: As directed (DME) nebulizer and compressor Device See Rx Instructions [id number] .MEDSUPPLY Qty: 1 0RF Rx Instructions: As directed montelukast [Singulair] 10 mg tablet 10 mg PO QPM Qty: 90 3RF budesonide-formoterol [Symbicort] 160-4.5 mcg/actuation HFA aerosol inhaler 2 puff inhalation Q12H Qty: 10.2 2RF Rx Instructions: PER PT "ONLY USE IN AM". dextromethorphan-guaifenesin [Mucinex DM] 60-1,200 mg Tablet Extended Release 12 Hr 1 tab PO DIRECTED PRN (Reason: Congestion) prednisone 5 mg tablet 5 mg PO QAM Patient Comments: takes with 3mg to equal 8mg every am Rx Instructions: TOTAL DOSE 9 MG--TAKES WITH 4-1 MG TABS. docusate sodium [Stool Softener] 100 mg Capsule 100 mg PO QAM doxycycline hyclate 50 mg capsule 50 mg PO BID acetaminophen [Tylenol Extra Strength] 500 mg Tablet See Rx Instructions .ROUTE .COMPLEX Rx Instructions: 500 mg orally; TAKES 1,500 MG QAM, THEN 1,000 MG QPM. prednisone 1 mg tablet 4 mg PO DAILY Rx Instructions: TOTAL DOSE 9 MG--TAKES WITH 5 MG TAB. mupirocin 2 % ointment 1 applic topical BID PRN (Reason: FACIAL RASH) Referrals Referrals: Vignesh Hill [Primary Care Provider] -
[2022-05-10 14:14] LABS: Partial Thromboplastin Ratio 0.9; Partial Thromboplastin Time 24.3 Seconds (21.0-31.0); Prothrombin Time 10.7 Seconds (9.0-12.0)
--- NOTE | 2022-05-10 14:27 | XRay Report ---
XR chest 1V not portable HISTORY: 77 years-old Female stroke alert acute strokelike symptoms COMPARISON: Chest and rib radiographs 05/05/2019 TECHNIQUE: PA view of the chest FINDINGS: Cardiomediastinal and hilar silhouettes are within normal limits. Biapical pleural-parenchymal scarri ng. Hyperinflation. No pneumothorax, pleural effusion, airspace consolidation or pulmonary edema. Deg enerative changes of the shoulders and spine. IMPRESSION: No acute process. ACT 112: Negative or not required by law. The above report was generated using voice recognition software. It may contain grammatical, syntax o r spelling errors. Electronically signed by: Luis Manuel Gifford M.D. 05/10/2022 2:26 PM
[2022-05-10] MEDS ORDERED: OPTIRAY 320 500ml IV ONE (15:10)
--- NOTE | 2022-05-10 15:34 | CT Scan Report ---
CT ANGIOGRAM OF THE BRAIN; CT ANGIOGRAM OF THE NECK CLINICAL HISTORY: Visual disturbances. Left eye symptoms. COMPARISON STUDY: Unenhanced CT of the brain dated 05/10/2022. TECHNIQUE: Following the IV administration of 106 of Optiray 320, CT angiogram of the head and neck w as performed from the aortic arch to the vertex. Images are reviewed in the axial, sagittal, and timothy nal planes. 3-D MIPS images are created and assessed. IV contrast was administered without complicati on. All measurements were calculated based on NASCET criteria. A dose lowering technique was utilize d adhering to the principles of ALARA. CT DOSE: 370.73 mGy.cm FINDINGS: Brain parenchyma: There is age related involutional change noted in mild subcortical and periventricu lar microangiopathic disease. There is no evidence of hemorrhage, mass effect, or acute territorial i schemia noting angiographic phase technique. There is no evidence of enhancing mass lesion on the ang iogram phase images. The ventricles, sulci, and cisterns are normal in configuration. Driscoll-white aiden er differentiation is preserved. No extra-axial fluid collection is seen. Thoracic aorta: There is atherosclerotic calcification of the thoracic aorta. Visualized portions of the thoracic aorta are normal in caliber. The aortic arch demonstrates standard 3-vessel anatomy. Right carotid arterial system: The right common carotid artery is widely patent, as are the right int ernal and external carotid arteries. Calcified plaque is noted in the carotid bulb. Left carotid arterial system: The left common carotid artery is widely patent, as are the left web marketing intern al and external carotid arteries. Calcified plaque is noted in the carotid bulb. Vertebral arteries: The vertebral arteries are widely patent bilaterally noting left-sided dominance. The right vertebral artery is diminutive and terminates as the PICA. Subclavian arteries: Widely patent bilaterally. Intracranial vasculature: There is atherosclerotic calcification of the cavernous carotid and vertebr al arteries. The internal carotid arteries are patent at the skull base, as are the anterior and midd le cerebral arteries bilaterally. The vertebrobasilar system and posterior cerebral arteries are wide ly patent. The left vertebral artery is dominant. There is a left posterior communicating artery. The re is no aneurysm, high-grade stenosis, or focal vessel cut off seen throughout the intracranial circ ulation. Jugular veins: Patent bilaterally. Dural sinuses: Patent. Lung apices: Fibrotic change is noted the apices. Upper lobe lung parenchyma is otherwise clear as im aged. Soft tissues: The visualized pharyngeal soft tissues are normal in appearance noting angiographic pha se technique. The oropharyngeal airway appears widely patent. The left lobe of the thyroid gland is d iminutive. The salivary glands are normal in appearance. No cervical lymphadenopathy is seen. Skeletal structures: The skeletal structures are osteopenic. The calvarium appears intact. The cervic al spine is maintained noting multilevel spondylosis. No lytic or blastic lesion is seen. Orbits: The bony orbits are intact. Orbital contents are normal as visualized noting bilateral ocular lens implants. Sinuses and mastoids: There is evidence of previous paranasal sinus surgery. There is moderate mucosa l thickening and hyperdense debris within the right maxillary antrum. There is moderate mucosal thick ening and trace fluid in the left maxillary sinus. Trace mucosal thickening is also seen within the e thmoid cavity and the left frontal sinus. The mastoid air cells are well pneumatized. IMPRESSION: 1. There is no evidence of hemorrhage, mass effect, or acute territorial ischemia noting angiographic phase technique. 2. Unremarkable CT angiogram of the brain. 3. Unremarkable CT angiogram of the neck. ACT 112: Negative or not required by law. Electronically signed by: Ghassan Root M.D. 05/10/2022 3:33 PM
--- NOTE | 2022-05-10 16:04 | Electrocardiogram Report ---
Test Reason : Blood Pressure : / mmHG Vent. Rate : 068 BPM Atrial Rate : 068 BPM P-R Int : 168 ms QRS Dur : 076 ms QT Int : 416 ms P-R-T Axes : 076 050 077 degrees QTc Int : 442 ms Poor data quality, interpretation may be adversely affected Normal sinus rhythm Left atrial enlargement Diffuse chronic Nonspecific ST and T wave abnormality Abnormal ECG When compared with ECG of 08-NOV-2020 17:01, No significant change Confirmed by Butch Monahan ([id number]) on 05/10/2022 4:03:29 PM Referred By: REFERRED SELF Confirmed By:Buthc Monahan
--- NOTE | 2022-05-10 16:06 | History & Physical Report ---
Date of Service May 10, 2022 Assessment & Plan (1) Vision loss: Plan: CRAO Outside of the window for thrombolytic therapy, vision loss occurred 48 hours prior to assessment. Patient has had some improvement in symptoms suggesting possible shift to branch arteries Patient does have a history of rheumatoid arthritis, no history of PMR No fever, no weight loss, no headache. No history of jaw claudication. Typically CRAO from carotid disease, less common with GCA.Pulses normal. No thickened/nodular/erythematous temporal pulses. No bruits. ESR/CRP likely to be elevated in the setting of rheumatoid, normochromic anemia is not present. Patient has been on intermittent continue steroids for resistant asthma in the past. Defer additional GCA work-up at this time including biopsy and follow for clinical progression. Prednisone continued. - CTA-H/N: 1. There is no evidence of hemorrhage, mass effect, or acute territorial ischemia noting angiographic phase technique.2. Unremarkable CT angiogram of the brain.3. Unremarkable CT angiogram of the neck. - CT-H: 1. There is no hemorrhage, mass effect, or evidence of acute territorial ischemia by CT criteria. 2. Paranasal sinus disease as above. Initially recommended for dual antiplatelet therapy, however patient is allergic to aspirin or ports she cannot take this. Will start on Plavix at this time. Lipid panel pending, atorvastatin started MRI pending While pending MRI for CVA eval we will allow for permissive hypertension, 220/110 with labetalol 5 mg IV as needed. If negative for stroke resume amlodipine and treat for systolic greater than 180 Severe persistent asthma Last seen in December. Well-controlled on montelukast, budesonide-fomoterol, albuterol as needed. 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 Had a lymph node removed in 2006 - Was cured, no problems since then - Has not followed with Hematology/Oncology in many years. Previously with Dr. Jameson. No acute management for this Reynauds - Manages well with amlodipine No acute management at this time Hypertension permissive hypertension while completing stroke work-up. Metoprolol, amlodipine and as needed antihypertensives as otherwise noted above. DVT prophylaxis: Lovenox Diet: Heart healthy Disposition: Medical telemetry CODE STATUS: DNR/DNI (2) Severe persistent asthma: (3) Diffuse large B cell lymphoma: (4) Acute respiratory failure with hypoxia: (5) Emphysema with chronic bronchitis: (6) Necrotizing myopathy: History of Present Illness Primary Care Provider: Vignesh Khan Sergio Caceres is a 77-year-old female with past medical history of severe persistent asthma, diffuse large B-cell lymphoma, emphysema, GERD, hypertension who presents from ophthalmology for left eye vision loss with blurriness of the periphery and orange/red spots. Patient was referred for stroke evaluation by ophthalmology, has a history of myopathy for which she follows with neurology currently. Vision changes Tuesday Dr. Ferro at [facility]. Central sparing with poor peripheral. No strict field cuts. +LLE weakness independent of symptoms and followed for chronic connective tissue. Had a dilated fundoscopic exam at that office with showed CRAO with liu spot but difficulty to see. Pt did have interval improvement in central field of visionOn arrival to ER was discussed w/ Dr. Esquivel: Baby aspirin and plavix, lipids pending at least mod dose recommended. Per pt Tuesday afternoon, ~48 hours ago could not see out of her L eye. Had a dilated exam with [facility] this morning and was sent for suspected CRAO. Suspected central retinal artery blockage which had moved and had some periphera l flow occlusion. Recommended to come into the ER for a complete stroke evaluation. Pt reports she has baseline dull headaches in the top of the head. Does not have a history of temporal headaches or prior vision change. Denies 'flashers and floaters' but notes L eye 'octobpus with electric tentacles' when she closes her eye. [place] of her vision is cleared a bit, but fuzzy with dots and stippled surrounding her focal area with then some fuzziness in the far periphery. No R eye symptoms 'but getting tired from doing all the work'. Has had past double vision, but non recently and none currenly. NO chest pain or chest pressure. Always has some chest tightness with asthma, but no change recently. Continues on prednisone for rheumatoid arthritis. Attempting to taper, but is on 9mg with a slow taper by 1mg per month. Has been on up to 20mg daily, and 10mg for long periods of time previosly. FHx of massive AZ in 40-50s, hx of brother with quad bipass at age 30s. Medical History: Reviewed Medications: Reviewed Surgical History: Reviewed Family history: Reviewed Allergies: Reviewed Social History: No tobacco/ETOH Code Status: DNR/DNI Allergies Allergy/AdvReac Type Severity Reaction Status Date / Time aspirin Allergy Intermediate ITCHING Verified 05/10/22 15:44 UNDER SKIN diclofenac [From Voltaren] Allergy Intermediate ITCHINESS Verified 05/10/22 15:44 ibuprofen Allergy Intermediate itching Verified 05/10/22 15:44 under skin alendronate sodium AdvReac Intermediate CHILLS,FEVER, Verified 05/10/22 15:44 TEETH GOT LOOSE orange AdvReac Intermediate FEELS LIKE Verified 05/10/22 15:44 HAS A COLD AFTER DRINKING ORANGE JUICE oxycodone AdvReac Intermediate N/V Verified 05/10/22 15:44 tramadol AdvReac Intermediate Vomiting, Verified 05/10/22 15:44 NAUSEA Home Medications Medication Instructions Recorded Confirmed Type dextromethorphan-guaifenesin ER 60 1 tab PO DIRECTED PRN Congestion 03/27/18 05/10/22 History mg-1,200 mg tab,extend release,12hr (Mucinex DM) nebulizer accessories #1 ea 07/04/19 01/14/22 Rx nebulizer and compressor #1 ea 07/04/19 01/14/22 Rx albuterol sulfate 2.5 mg/3 mL 2.5 mg (3 mL) inhalation Q6H PRN 08/04/20 05/10/22 Rx (0.083 %) solution for nebulization shortness of breath or wheezing #180 mL docusate sodium 100 mg capsule 100 mg PO QAM 12/04/20 05/10/22 History (Stool Softener) prednisone 5 mg tablet 5 mg PO QAM 12/04/20 05/10/22 History amlodipine 2.5 mg tablet 2.5 mg PO HS 09/03/21 05/10/22 History metoprolol tartrate 25 mg tablet 25 mg PO QAM 09/03/21 05/10/22 History budesonide-formoterol HFA 160 2 puff inhalation Q12H #10.2 grams 01/06/22 05/10/22 Rx mcg-4.5 mcg/actuation aerosol inhaler (Symbicort) montelukast 10 mg tablet 10 mg PO QPM #90 tabs 01/06/22 05/10/22 Rx (Singulair) albuterol sulfate 90 mcg/actuation 2 puff inhalation Q6H PRN 01/18/22 05/10/22 Rx aerosol inhaler Shortness Of Breath Or Wheezing #18 grams acetaminophen 500 mg tablet See Rx Instructions .Route .COMPLEX 05/10/22 05/10/22 History (Tylenol Extra Strength) doxycycline hyclate 50 mg capsule 50 mg PO BID FOR FACIAL 05/10/22 05/10/22 History RASH/IRRITATION mupirocin 2 % topical ointment 1 applic topical BID PRN FACIAL 05/10/22 05/10/22 History RASH prednisone 1 mg tablet 4 mg PO DAILY 05/10/22 05/10/22 History Past Med/Surg History Medical History Back pain Bilateral shoulder pain Chronic obstructive pulmonary disease inhaler/nebulizer prn > pt reports, no COPD, now dx as asthma Chronic pharyngitis Chronic sinusitis Dyspnea on exertion Fall SEP 2020, no further issues Fibromyalgia GERD (gastroesophageal reflux disease) Hearing deficit History of COVID-26 July/August 2021 > no further problems > not hospitalized Hypertension Joint pain, knee Laryngopharyngeal reflux Long-term current use of steroids Low serum potassium level Microscopic hematuria Neuromuscular weakness Non-Hodgkin lymphoma diagnosed 2006--chemo/radiation > Osteoporosis Raynaud disease Rheumatoid arthritis Severe persistent asthma Severe persistent asthma dependent on systemic steroids Steroid-induced osteoporosis Surgical History History of appendectomy History of bilateral cataract extraction History of cholecystectomy History of colonoscopy History of ear surgery left "tried to repair hole in my ear" History of esophagogastroduodenoscopy (EGD) History of sinus surgery x2 History of tooth extraction History of total hysterectomy with bilateral salpingo-oophorectomy (BSO) Family History Other Family history non-contributory No family history of adverse response to anesthesia Social History Smoking Status: Never smoker Second Hand Exposure: No; Hx Alcohol Use: Yes Alcohol type: wine Hx Substance Use: No Preferred Language: Honduran Communication Ability: Effective Research Chemical Engineer Required: No Beliefs That Will Affect Care: None marital status: Current Living Situation: Spouse Current Living Situation Comment: AND DAUGHTER current occupational status: retired Feels Safe at Home: Yes Assistive Devices: Cane, Denture - Upper, Glasses and Walker Review of Systems Review of Systems: All systems reviewed & are unremarkable except as noted in HPI & below Physical Exam Physical Exam: General: A&Ox3. NAD. Cooperative. HEENT: Atraumatic, normocephalic. Left eye with slightly diminished acuity at focal point improved from prior, some peripheral stippling and slight haziness to peripheral vision. No discrete field cuts. Pupils equal and reactive at time of bedside assessment. Right eye without vision loss. Temples are without nodularity/thickening or tenderness Pulm: CTAB A&P. -wheezes, -rales, -rhonchi. Symmetrical chest rise. No increased work of breathing. No respiratory distress. Cardiac: RRR, -mrg. Radial pulses intact and symmetrical. Abdominal: Nontender, nondistended, soft. BS present. Extremities: Warm/dry. Trace ankle edema bilaterally. Sensation soft touch intact in hands and feet. Results & Data Results & Data Vital Signs (Past 12 Hours) Vital Signs Temp Pulse Resp BP Pulse Ox O2 Del Method 05/10/22 15:34 72 20 190/73 H 98 Room Air 05/10/22 12:56 36.6 C 71 18 150/72 H 99 Room Air PG Care Time/CCT Total # of Minutes Spent Total Time Spent with Patient: Total time spent is greater than 50% in coordination of care (as documented) at patient's floor/unit and/or counseling patient: Coding Level of Care Code 56814 INT INP/OBS CARE 3/75MIN Diagnoses Vision loss H54.7 Severe persistent asthma J45.50 Diffuse large B cell lymphoma C83.30 Acute respiratory failure with hypoxia J96.01 Emphysema with chronic bronchitis J44.9 Necrotizing myopathy G72.89
[2022-05-10] MEDS ORDERED: LABETALOL HCL IV 5 MG/ML 20ML IV PRN (17:21)
[2022-05-10] MEDS ORDERED: CLOPIDOGREL BISULFATE 75 MG TAB PO ONE (17:22)
[2022-05-10 17:44] LABS: C Reactive Protein < 0.50 mg/dl (0-0.5)
[2022-05-10] MEDS ORDERED: ALBUTEROL HFA 8 GM INHALER INH PRN (21:20)
[2022-05-10] MEDS ORDERED: PHARMACIST DISCHARGE MED REC CONSULT PRN (21:20)
[2022-05-10] MEDS ORDERED: ACETAMINOPHEN 325 MG TAB PO PRN (21:20)
[2022-05-10] MEDS ORDERED: ONDANSETRON INJ 2 MG/ML 2 ML VIAL IV PRN (21:20)
[2022-05-10] MEDS ORDERED: amLODIPine BESYLATE 5 MG TAB PO SCH (21:20)
[2022-05-10] MEDS ORDERED: MONTELUKAST SODIUM 10 MG TABLET PO SCH (21:20)
[2022-05-10] MEDS ORDERED: ALBUTEROL 0.083% NEBU SOLN 3 ML VIAL INH PRN (21:20)
--- NOTE | 2022-05-10 22:41 | Magnetic Resonance Report ---
Exam(s): MRI HEAD Without Contrast EXAM: MR Head Without Intravenous Contrast CLINICAL HISTORY: Reason for exam: CVA, L vision loss. TECHNIQUE: Magnetic resonance images of the head/brain without intravenous contrast in multiple planes. COMPARISON: Comparison made to noncontrast head CT from May 20, 2016. FINDINGS: Brain: Mild nonspecific white matter changes. No mass. No hemorrhage. No acute infarct. The pituitary gland is prominent with a convex superior margin, measuring 7.4 mm in height. Ventricles: Unremarkable. No ventriculomegaly. Bones/joints: Unremarkable. Sinuses: Chronic maxillary and ethmoid sinusitis. No acute sinusitis. Mastoid air cells: Unremarkable as visualized. No mastoid effusion. Orbits: Unremarkable as visualized. IMPRESSION: No evidence of acute intracranial pathology. Mild nonspecific white matter changes. Electronically signed by: Fabienne Gambino MD 05/10/22 22:40 PM
[2022-05-11 07:07] LABS: Basophils # (auto) 0.03 K/uL (0-0.2); Basophils % (auto) 0.4 %; Eosinophils # (auto) 0.14 K/uL (0-0.50); Hematocrit (blood only) 36.8 % (37.0-47.0); Hemoglobin 12.1 g/dl (12.0-16.0); Immature Granulocytes # (auto) 0.02 K/uL (0.01-0.20); Immature Granulocytes % (auto) 0.3 %; Lymphocytes # (auto) 1.78 K/uL (1.2-3.4); Mean Corpuscular Hemoglobin 31.2 pg (25.0-34.0); Mean Corpuscular Hgb Conc 32.9 g/dL (32.0-36.0); Mean Corpuscular Volume 94.8 fL (80.0-100.0); Mean Platelet Volume 10.6 fL (9.4-12.4); Monocytes # (auto) 0.83 K/uL (0.11-0.59); Monocytes % (auto) 11.6 %; Neutrophils # (auto) 4.33 K/uL (1.40-6.50); Neutrophils % (auto) 60.7 %; Platelet Count 193 K/uL (130-400); RDW Coefficient of Variation 13.1 % (11.5-14.5); RDW Standard Deviation 45.1 fL (36.4-46.3); Red Blood Count 3.88 M/uL (4.20-5.40); White Blood Count 7.13 K/ul (4.8-10.8)
[2022-05-11 07:31] LABS: BUN Creatinine Ratio 27.8 (10-20); Calcium 8.7 mg/dl (8.6-10.3); Chol HDL Ratio 3.2 (0-5); Creatinine Clr Calc Pharmacy 58.5 ml/min; Est GFR (African American) 83.7 ml/min; Est GFR (Non-African American) 72.2 ml/min; Potassium 3.6 mmol/L (3.5-5.1)
--- NOTE | 2022-05-11 07:33 | Hospitalist Progress Note ---
Date of Service May 11, 2022 Assessment & Plan Admission and Anticipated Discharge Date Admission Date: May 10, 2022 Results & Data Results & Data Vital Signs (Past 12 Hours) Vital Signs Temp Pulse Pulse Resp BP Pulse Ox O2 Del Method 05/11/22 03:16 36.6 C 58 L 20 179/56 H 96 Room Air 05/10/22 22:58 36.6 C 64 20 168/80 H 99 Room Air 05/10/22 21:35 36.4 C L 69 18 181/71 H 100 Room Air 05/10/22 21:25 56 L 05/10/22 20:56 Room Air
[2022-05-11 08:48] LABS: Estimated Average Glucose 117 mg/dl; Hemoglobin A1C 5.7 % (4.5-5.6)
[2022-05-11] MEDS ORDERED: ATORVASTATIN 40 MG TAB PO SCH (09:00)
[2022-05-11] MEDS ORDERED: predniSONE 5 MG TAB PO SCH (09:00)
[2022-05-11] MEDS ORDERED: DOCUSATE SODIUM 100 MG CAP PO SCH (09:00)
[2022-05-11] MEDS ORDERED: CLOPIDOGREL BISULFATE 75 MG TAB PO SCH (09:00)
[2022-05-11] MEDS ORDERED: FLUTICASONE/VILANTEROL 200/25MCG 14 PUFFS/INHALER INH SCH (09:00)
[2022-05-11] MEDS ORDERED: ENOXAPARIN INJ 40 MG/0.4 ML SYR SQ SCH (09:00)
[2022-05-11] MEDS ORDERED: METOPROLOL TARTRATE 25 MG TAB PO SCH (09:00)
[2022-05-11] MEDS ORDERED: predniSONE 1 MG TAB PO SCH (09:00)
[2022-05-11] MEDS ORDERED: METOPROLOL SUCC 25MG EXT REL TAB PO SCH (09:00)
--- NOTE | 2022-05-11 12:38 | XCELERA ---
[id number] \\[id number]
--- NOTE | 2022-05-11 14:32 | Neurology Consultation ---
Date of Consultation May 11, 2022 Assessment & Plan (1) CRAO (central retinal artery occlusion): Impression: The patient had sudden onset left eye total vision loss, which improved some later, with spared central vision, which was highly typical for central retinal artery occlusion. Ophthalmology evaluation was consistent with this diagnosis. The patient was admitted to hospital for further work-up to rule out temporal arteritis and also for stroke evaluation. The patient has no clinical evidence to suggest temporal arteritis. Apparently, ESR/CRP evaluation would not be very diagnostic based on the patient's other comorbid conditions and being on chronic steroid treatment. Stroke work-up has been unremarkable. The patient is started on Plavix. Apparently, she has history of neuro aspirin allergy. Recommendations/plan: We will keep the patient on Plavix 75 mg daily. We will stop statin based on the patient's normal serum lipids and history of myopathy. There is no indication for temporal artery biopsy or invasive testing for temporal arteritis. Based on the patient's comorbid conditions and being on chronic steroid treatment, ESR/CRP would not be very diagnostic. However, such level trend should be monitored at outpatient setting. Management of hypertension which is if future stroke risk factor. The patient is neurologically stable and can be discharged home. Follow-up with neurology clinic in a month. 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 The patient has chronic baseline generalized weakness and denies any myalgias currently. Recommendations: Follow-up with neurology clinic. Plan As seen above. Thank you for the consultation. History of Present Illness Reason for Consultation: Left eye vision loss Requesting Physician: Joseph Kelly MD Attending Physician: Sil Lawrence MD History of Present Illness The patient is a 77-year-old pleasant female, who was referred to emergency department yesterday from ophthalmology clinic, because of her left eye vision loss. The patient reports that she had sudden onset of left eye vision loss without eye pain, or additional neurological symptoms last Tuesday. She describes her symptoms as total vision loss in left eye, like dark curtain was covering her vision. Right eye vision was unaffected. Several hours later, the patient noticed some change of curtain color, and improvement of central vision, and following ophthalmology evaluation was consistent with central retinal artery occlusion. There was a concern of giant cell arteritis as a cause and the patient was sent to emergency department. The patient denies having stroke and stroke symptoms in the past. She also denies any jaw claudication, tenderness at the temples, headaches, or other symptoms to suggest giant cell arteritis. Additionally, the patient has a rheumatoid arthritis, history of myopathy, on long-term steroid treatment, and based on general picture, temporal arteritis considered to be unlikely. However, the patient was admitted to hospital for stroke work-up. Initial Head CT, CT angiogram of head and neck were unremarkable. Since admission, the patient has also had brain MRI, which did not show acute or chronic cerebrovascular accident but nonspecific white matter microangiopathic changes. The patient reports no change of her visual symptoms since admission. She has history of allergies to aspirin, and was started on Plavix as well as statin on admission. However, serum lipid panel is normal with LDL of 70. The patient has history of necrotizing myopathy with generalized chronic weakness. She has also rheumatoid arthritis on daily steroid, as well as asthma. I have reviewed the patient's chart including imaging studies and visualized them personally. I have discussed the case with the patient and answered her questions in detail. Allergies Allergy/AdvReac Type Severity Reaction Status Date / Time aspirin Allergy Intermediate ITCHING Verified 05/10/22 15:44 UNDER SKIN diclofenac [From Voltaren] Allergy Intermediate ITCHINESS Verified 05/10/22 15:44 ibuprofen Allergy Intermediate itching Verified 05/10/22 15:44 under skin alendronate sodium AdvReac Intermediate CHILLS,FEVER, Verified 05/10/22 15:44 TEETH GOT LOOSE orange AdvReac Intermediate FEELS LIKE Verified 05/10/22 15:44 HAS A COLD AFTER DRINKING ORANGE JUICE oxycodone AdvReac Intermediate N/V Verified 05/10/22 15:44 tramadol AdvReac Intermediate Vomiting, Verified 05/10/22 15:44 NAUSEA Home Medications Medication Instructions Recorded Confirmed Type dextromethorphan-guaifenesin ER 60 1 tab PO DIRECTED PRN Congestion 03/27/18 05/10/22 History mg-1,200 mg tab,extend release,12hr (Mucinex DM) nebulizer accessories #1 ea 07/04/19 01/14/22 Rx nebulizer and compressor #1 ea 07/04/19 01/14/22 Rx albuterol sulfate 2.5 mg/3 mL 2.5 mg (3 mL) inhalation Q6H PRN 08/04/20 05/10/22 Rx (0.083 %) solution for nebulization shortness of breath or wheezing #180 mL docusate sodium 100 mg capsule 100 mg PO QAM 12/04/20 05/10/22 History (Stool Softener) prednisone 5 mg tablet 5 mg PO QAM 12/04/20 05/10/22 History amlodipine 2.5 mg tablet 2.5 mg PO HS 09/03/21 05/10/22 History metoprolol tartrate 25 mg tablet 25 mg PO QAM 09/03/21 05/10/22 History budesonide-formoterol HFA 160 2 puff inhalation Q12H #10.2 grams 01/06/22 05/10/22 Rx mcg-4.5 mcg/actuation aerosol inhaler (Symbicort) montelukast 10 mg tablet 10 mg PO QPM #90 tabs 01/06/22 05/10/22 Rx (Singulair) albuterol sulfate 90 mcg/actuation 2 puff inhalation Q6H PRN 01/18/22 05/10/22 Rx aerosol inhaler Shortness Of Breath Or Wheezing #18 grams acetaminophen 500 mg tablet See Rx Instructions .Route .COMPLEX 05/10/22 05/10/22 History (Tylenol Extra Strength) doxycycline hyclate 50 mg capsule 50 mg PO BID FOR FACIAL 05/10/22 05/10/22 History RASH/IRRITATION mupirocin 2 % topical ointment 1 applic topical BID PRN FACIAL 05/10/22 05/10/22 History RASH prednisone 1 mg tablet 4 mg PO DAILY 05/10/22 05/10/22 History Patient History Medical History Back pain Bilateral shoulder pain Chronic obstructive pulmonary disease inhaler/nebulizer prn > pt reports, no COPD, now dx as asthma Chronic pharyngitis Chronic sinusitis Dyspnea on exertion Fall OCT 15 2020, no further issues Fibromyalgia GERD (gastroesophageal reflux disease) Hearing deficit History of COVID-26 July/August 2021 > no further problems > not hospitalized Hypertension Joint pain, knee Laryngopharyngeal reflux Long-term current use of steroids Low serum potassium level Microscopic hematuria Neuromuscular weakness Non-Hodgkin lymphoma diagnosed 2006--chemo/radiation > Osteoporosis Raynaud disease Rheumatoid arthritis Severe persistent asthma Severe persistent asthma dependent on systemic steroids Steroid-induced osteoporosis Surgical History History of appendectomy History of bilateral cataract extraction History of cholecystectomy History of colonoscopy History of ear surgery left "tried to repair hole in my ear" History of esophagogastroduodenoscopy (EGD) History of sinus surgery x2 History of tooth extraction History of total hysterectomy with bilateral salpingo-oophorectomy (BSO) Family History Other Family history non-contributory No family history of adverse response to anesthesia Social History Smoking Status: Never smoker Second Hand Exposure: No; Hx Alcohol Use: Yes Alcohol type: wine Hx Substance Use: No Preferred Language: Armenian Communication Ability: Effective 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 HENT: Normal exam with inspection. Normal temporal artery pulses. There is no thickening of the temporal arteries. No tenderness. CV: Hearth rhythm is regular. Neck: Supple, no carotid bruits. Lungs: Non-labored and comfortable breathing. Abdomen: Soft, non-tender, non-distended. Skin: No rash or ecchymosis. Bruises in upper extremities are noticed. Extremities: No edema or cyanosis NEUROLOGICAL EXAMINATION: Mental Status: Alert and oriented to place, person and time. Cranial Nerves: II-XII are intact. Hoarseness of voice, which is chronic. No nystagmus. Left APD is noticed. Visual acuity is severely impaired and left eye, with reported intact small central vision. Funduscopy: Not assessed. Motor: 4+/5 in all extremities without asymmetry. Tone: Normal without spasticity or rigidity. Sensory: Intact grossly with slightly decreased sensation in toes. Coordination: No dysmetria with FTN testing. Speech: Fluent. Comprehension is intact. The patient has hoarseness, which is a chronic problem Gait: Normal. No ataxia or abnormal walking pattern. DTRs: 2+ in upper extremities, 2 - at knees, and 1 - in ankles. Plantar reflexes bilaterally downgoing. Results & Data Vital Signs (Past 12 Hours) Vital Signs Temp Pulse Pulse Resp BP Pulse Ox O2 Del Method 05/11/22 12:16 36.6 C 68 18 155/72 H 99 Room Air 05/11/22 08:00 57 L 05/11/22 07:50 36.6 C 63 17 169/67 H 98 Room Air 05/11/22 03:16 36.6 C 58 L 20 179/56 H 96 Room Air Laboratory Results Abnormal Lab Results 05/10/22 05/10/22 05/10/22 13:07 13:07 15:30 WBC RBC Hgb Hct MCV MCH MCHC RDW Std Deviation RDW Coeff of Navi Plt Count MPV Immature Gran % (Auto) Neut % (Auto) Lymph % (Auto) Crockett % (Auto) Eos % (Auto) Baso % (Auto) Neut # (Auto) Lymph # (Auto) Crockett # (Auto) Eos # (Auto) Baso # (Auto) Immature Gran # (Auto) ESR 13 Sodium Potassium Chloride Carbon Dioxide Anion Gap BUN Creatinine Est Cr Clr Drug Dosing Est GFR ( Amer) Est GFR (Non-Af Amer) BUN/Creatinine Ratio Glucose Estimat Average Glucose Hemoglobin A1c Calcium C-Reactive Protein < 0.50 Triglycerides Cholesterol LDL Cholesterol, Calc VLDL Cholesterol, Calc HDL Cholesterol Cholesterol/HDL Ratio SARS-CoV-2, RNA, NAAT NEGATIVE 05/11/22 05/11/22 05/11/22 06:12 06:12 06:12 WBC 7.13 RBC 3.88 L Hgb 12.1 Hct 36.8 L MCV 94.8 MCH 31.2 MCHC 32.9 RDW Std Deviation 45.1 RDW Coeff of Navi 13.1 Plt Count 193 MPV 10.6 Immature Gran % (Auto) 0.3 Neut % (Auto) 60.7 Lymph % (Auto) 25.0 Crockett % (Auto) 11.6 Eos % (Auto) 2.0 Baso % (Auto) 0.4 Neut # (Auto) 4.33 Lymph # (Auto) 1.78 Crockett # (Auto) 0.83 H Eos # (Auto) 0.14 Baso # (Auto) 0.03 Immature Gran # (Auto) 0.02 ESR Sodium 141 Potassium 3.6 Chloride 110 H Carbon Dioxide 26 Anion Gap 5 BUN 22 Creatinine 0.79 Est Cr Clr Drug Dosing 58.5 Est GFR ( Amer) 83.7 Est GFR (Non-Af Amer) 72.2 BUN/Creatinine Ratio 27.8 H Glucose 81 Estimat Average Glucose 117 Hemoglobin A1c 5.7 H Calcium 8.7 C-Reactive Protein Triglycerides 143 Cholesterol 144 LDL Cholesterol, Calc 70 VLDL Cholesterol, Calc 29 HDL Cholesterol 45 Cholesterol/HDL Ratio 3.2 SARS-CoV-2, RNA, NAAT Laboratory Results - last 24 hr 05/10/22 05/10/22 05/10/22 13:07 13:07 15:30 WBC RBC Hgb Hct MCV MCH MCHC RDW Std Deviation RDW Coeff of Navi Plt Count MPV Immature Gran % (Auto) Neut % (Auto) Lymph % (Auto) Crockett % (Auto) Eos % (Auto) Baso % (Auto) Neut # (Auto) Lymph # (Auto) Crockett # (Auto) Eos # (Auto) Baso # (Auto) Immature Gran # (Auto) ESR 13 Sodium Potassium Chloride Carbon Dioxide Anion Gap BUN Creatinine Est Cr Clr Drug Dosing Est GFR ( Amer) Est GFR (Non-Af Amer) BUN/Creatinine Ratio Glucose Estimat Average Glucose Hemoglobin A1c Calcium C-Reactive Protein < 0.50 Triglycerides Cholesterol LDL Cholesterol, Calc VLDL Cholesterol, Calc HDL Cholesterol Cholesterol/HDL Ratio SARS-CoV-2, RNA, NAAT NEGATIVE 05/11/22 05/11/22 05/11/22 06:12 06:12 06:12 WBC 7.13 RBC 3.88 L Hgb 12.1 Hct 36.8 L MCV 94.8 MCH 31.2 MCHC 32.9 RDW Std Deviation 45.1 RDW Coeff of Navi 13.1 Plt Count 193 MPV 10.6 Immature Gran % (Auto) 0.3 Neut % (Auto) 60.7 Lymph % (Auto) 25.0 Crockett % (Auto) 11.6 Eos % (Auto) 2.0 Baso % (Auto) 0.4 Neut # (Auto) 4.33 Lymph # (Auto) 1.78 Crockett # (Auto) 0.83 H Eos # (Auto) 0.14 Baso # (Auto) 0.03 Immature Gran # (Auto) 0.02 ESR Sodium 141 Potassium 3.6 Chloride 110 H Carbon Dioxide 26 Anion Gap 5 BUN 22 Creatinine 0.79 Est Cr Clr Drug Dosing 58.5 Est GFR ( Amer) 83.7 Est GFR (Non-Af Amer) 72.2 BUN/Creatinine Ratio 27.8 H Glucose 81 Estimat Average Glucose 117 Hemoglobin A1c 5.7 H Calcium 8.7 C-Reactive Protein Triglycerides 143 Cholesterol 144 LDL Cholesterol, Calc 70 VLDL Cholesterol, Calc 29 HDL Cholesterol 45 Cholesterol/HDL Ratio 3.2 SARS-CoV-2, RNA, NAAT Diagnostic Findings Chest X-Ray 05/10/22 13:01 XR chest 1V not portable HISTORY: 77 years-old Female stroke alert acute strokelike symptoms COMPARISON: Chest and rib radiographs 05/05/2019 TECHNIQUE: PA view of the chest FINDINGS: Cardiomediastinal and hilar silhouettes are within normal limits. Biapical pleural-parenchymal scarring. Hyperinflation. No pneumothorax, pleural effusion, airspace consolidation or pulmonary edema. Degenerative changes of the shoulders and spine. IMPRESSION: No acute process. ACT 112: Negative or not required by law. The above report was generated using voice recognition software. It may contain grammatical, syntax or spelling errors. Electronically signed by: Luis Manuel Gifford M.D. 05/10/2022 2:[address] 05/10/22 13:01 CT SCAN OF THE BRAIN WITHOUT IV CONTRAST CLINICAL HISTORY: Neurological deficit. Stroke like symptoms. COMPARISON STUDY: CT of the brain dated 07/09/2020. TECHNIQUE: Unenhanced axial CT scan of the brain is performed from the vertex to the skull base. A dose lowering technique was utilized adhering to the principles of ALARA. CT DOSE: 614.27 mGy.cm FINDINGS: Brain parenchyma: There is age-related involutional change noting mild subcortical and periventricular microangiopathic disease. There is no hemorrhage, mass effect, or evidence of acute territorial ischemia by CT criteria. Driscoll-white matter differentiation is preserved. No extra-axial fluid collection is seen. Ventricles, sulci, cisterns: Prominent secondary to involutional change. Intracranial vasculature: There is atherosclerotic calcification of the cavernous carotid and vertebral arteries. Calvarium: Unremarkable. Sinuses and mastoids: There is evidence of previous paranasal sinus surgery. There is moderate mucosal thickening and hyperdense debris within the right maxillary antrum. There is moderate mucosal thickening and trace fluid in the left maxillary sinus. Trace mucosal thickening is also seen within the ethmoid cavity and the left frontal sinus. The mastoid air cells are well pneumatized. Orbits: The bony orbits are grossly intact. There are bilateral ocular lens implants. IMPRESSION: 1. There is no hemorrhage, mass effect, or evidence of acute territorial ischemia by CT criteria. 2. Paranasal sinus disease as above. ACT 112: Negative or not required by law. Electronically signed by: Ghassan Root M.D. 05/10/2022 1:28 PM Head CTA 05/10/22 14:32 CT ANGIOGRAM OF THE BRAIN; CT ANGIOGRAM OF THE NECK CLINICAL HISTORY: Visual disturbances. Left eye symptoms. COMPARISON STUDY: Unenhanced CT of the brain dated 05/10/2022. TECHNIQUE: Following the IV administration of 106 of Optiray 320, CT angiogram of the head and neck was performed from the aortic arch to the vertex. Images are reviewed in the axial, sagittal, and coronal planes. 3-D MIPS images are created and assessed. IV contrast was administered without complication. All measurements were calculated based on NASCET criteria. A dose lowering t echnique was utilized adhering to the principles of ALARA. CT DOSE: 370.73 mGy.cm FINDINGS: Brain parenchyma: There is age related involutional change noted in mild subcortical and periventricular microangiopathic disease. There is no evidence of hemorrhage, mass effect, or acute territorial ischemia noting angiographic phase technique. There is no evidence of enhancing mass lesion on the angiogram phase images. The ventricles, sulci, and cisterns are normal in configuration. Driscoll-white matter differentiation is preserved. No extra-axial fluid collection is seen. Thoracic aorta: There is atherosclerotic calcification of the thoracic aorta. Visualized portions of the thoracic aorta are normal in caliber. The aortic arch demonstrates standard 3-vessel anatomy. Right carotid arterial system: The right common carotid artery is widely patent, as are the right internal and external carotid arteries. Calcified plaque is noted in the carotid bulb. Left carotid arterial system: The left common carotid artery is widely patent, as are the left internal and external carotid arteries. Calcified plaque is noted in the carotid bulb. Vertebral arteries: The vertebral arteries are widely patent bilaterally noting left-sided dominance. The right vertebral artery is diminutive and terminates as the PICA. Subclavian arteries: Widely patent bilaterally. Intracranial vasculature: There is atherosclerotic calcification of the cavernous carotid and vertebral arteries. The internal carotid arteries are patent at the skull base, as are the anterior and middle cerebral arteries bila terally. The vertebrobasilar system and posterior cerebral arteries are widely patent. The left vertebral artery is dominant. There is a left posterior communicating artery. There is no aneurysm, high-grade stenosis, or focal vessel cut off seen throughout the intracranial circulation. Jugular veins: Patent bilaterally. Dural sinuses: Patent. Lung apices: Fibrotic change is noted the apices. Upper lobe lung parenchyma is otherwise clear as imaged. Soft tissues: The visualized pharyngeal soft tissues are normal in appearance noting angiographic phase technique. The oropharyngeal airway appears widely patent. The left lobe of the thyroid gland is diminutive. The salivary glands are normal in appearance. No cervical lymphadenopathy is seen. Skeletal structures: The skeletal structures are osteopenic. The calvarium appears intact. The cervical spine is maintained noting multilevel spondylosis. No lytic or blastic lesion is seen. Orbits: The bony orbits are intact. Orbital contents are normal as visualized noting bilateral ocular lens implants. Sinuses and mastoids: There is evidence of previous paranasal sinus surgery. There is moderate mucosal thickening and hyperdense debris within the right maxillary antrum. There is moderate mucosal thickening and trace fluid in the left maxillary sinus. Trace mucosal thickening is also seen within the ethmoid cavity and the left frontal sinus. The mastoid air cells are well pneumatized. IMPRESSION: 1. There is no evidence of hemorrhage, mass effect, or acute territorial ischemia noting angiographic phase technique. 2. Unremarkable CT angiogram of the brain. 3. Unremarkable CT angiogram of the neck. ACT 112: Negative or not required by law. Electronically signed by: Ghassan Root M.D. 05/10/2022 3:33 PM Neck CTA 05/10/22 14:32 CT ANGIOGRAM OF THE BRAIN; CT ANGIOGRAM OF THE NECK CLINICAL HISTORY: Visual disturbances. Left eye symptoms. COMPARISON STUDY: Unenhanced CT of the brain dated 05/10/2022. TECHNIQUE: Following the IV administration of 106 of Optiray 320, CT angiogram of the head and neck was performed from the aortic arch to the vertex. Images are reviewed in the axial, sagittal, and coronal planes. 3-D MIPS images are created and assessed. IV contrast was administered without complication. All measurements were calculated based on NASCET criteria. A dose lowering technique was utilized adhering to the principles of ALARA. CT DOSE: 370.73 mGy.cm FINDINGS: Brain parenchyma: There is age related involutional change noted in mild subcortical and periventricular microangiopathic disease. There is no evidence of hemorrhage, mass effect, or acute territorial ischemia noting angiographic phase technique. There is no evidence of enhancing mass lesion on the angiogram phase images. The ventricles, sulci, and cisterns are normal in configuration. Driscoll-white matter differentiation is preserved. No extra-axial fluid collection is seen. Thoracic aorta: There is atherosclerotic calcification of the thoracic aorta. Visualized portions of the thoracic aorta are normal in caliber. The aortic arch demonstrates standard 3-vessel anatomy. Right carotid arterial system: The right common carotid artery is widely patent, as are the right internal and external carotid arteries. Calcified plaque is noted in the carotid bulb. Left carotid arterial system: The left common carotid artery is widely patent, as are the left internal and external carotid arteries. Calcified plaque is noted in the carotid bulb. Vertebral arteries: The vertebral arteries are widely patent bilaterally noting left-sided dominance. The right vertebral artery is diminutive and terminates as the PICA. Subclavian arteries: Widely patent bilaterally. Intracranial vasculature: There is atherosclerotic calcification of the cavernous carotid and vertebral arteries. The internal carotid arteries are patent at the skull base, as are the anterior and middle cerebral arteries bilaterally. The vertebrobasilar system and posterior cerebral arteries are widely patent. The left vertebral artery is dominant. There is a left posterior communicating artery. There is no aneurysm, high-grade stenosis, or focal vessel cut off seen throughout the intracranial circulation. Jugular veins: Patent bilaterally. Dural sinuses: Patent. Lung apices: Fibrotic change is noted the apices. Upper lobe lung parenchyma is otherwise clear as imaged. Soft tissues: The visualized pharyngeal soft tissues are normal in appearance noting angiographic phase technique. The oropharyngeal airway appears widely patent. The left lobe of the thyroid gland is diminutive. The salivary glands are normal in appearance. No cervical lymphadenopathy is seen. Skeletal structures: The skeletal structures are osteopenic. The calvarium appears intact. The cervical spine is maintained noting multilevel spondylosis. No lytic or blastic lesion is seen. Orbits: The bony orbits are intact. Orbital contents are normal as visualized noting bilateral ocular lens implants. Sinuses and mastoids: There is evidence of previous paranasal sinus surgery. There is moderate mucosal thickening and hyperdense debris within the right maxillary antrum. There is moderate mucosal thickening and trace fluid in the left maxillary sinus. Trace mucosal thickening is also seen within the ethmoid c avity and the left frontal sinus. The mastoid air cells are well pneumatized. IMPRESSION: 1. There is no evidence of hemorrhage, mass effect, or acute territorial ischemia noting angiographic phase technique. 2. Unremarkable CT angiogram of the brain. 3. Unremarkable CT angiogram of the neck. ACT 112: Negative or not required by law. Electronically signed by: Ghassan Root M.D. 05/10/2022 3:33 PM Brain MRI 05/10/22 21:20 Exam(s): MRI HEAD Without Contrast EXAM: MR Head Without Intravenous Contrast CLINICAL HISTORY: Reason for exam: CVA, L vision loss. TECHNIQUE: Magnetic resonance images of the head/brain without intravenous contrast in multiple planes. COMPARISON: Comparison made to noncontrast head CT from May 20, 2016. FINDINGS: Brain: Mild nonspecific white matter changes. No mass. No hemorrhage. No acute infarct. The pituitary gland is prominent with a convex superior margin, measuring 7.4 mm in height. Ventricles: Unremarkable. No ventriculomegaly. Bones/joints: Unremarkable. Sinuses: Chronic maxillary and ethmoid sinusitis. No acute sinusitis. Mastoid air cells: Unremarkable as visualized. No mastoid effusion. Orbits: Unremarkable as visualized. IMPRESSION: No evidence of acute intracranial pathology. Mild nonspecific white matter changes. Electronically signed by: Fabienne Gambino MD 05/10/22 22:40 PM (1) CRAO (central retinal artery occlusion) Laterality: left Qualified Code(s): H34.12 - Central retinal artery occlusion, left eye
[2022-05-11] MEDS ORDERED: STROKE PATIENT DISCHARGE STA (15:58)
--- NOTE | 2022-05-11 18:03 | Discharge Summary ---
Date of Service May 11, 2022 Admission HPI Per Admitting Provider Morris is a 77-year-old female with past medical history of severe persistent asthma, diffuse large B-cell lymphoma, emphysema, GERD, hypertension who presents from ophthalmology for left eye vision loss with blurriness of the periphery and orange/red spots. Patient was referred for stroke evaluation by ophthalmology, has a history of myopathy for which she follows with neurology currently. Vision changes Tuesday Dr[facility] Ferro [facility]. Central sparing with poor peripheral. No strict field cuts. +LLE weakness independent of symptoms and followed for chronic connective tissue. Had a dilated fundoscopic exam at that office with showed CRAO with liu spot but difficulty to see. Pt did have interval improvement in central field of visionOn arrival to ER was discussed w/ Dr. Esquivel: Baby aspirin and plavix, lipids pending at least mod dose recommended. Per pt Tuesday afternoon, ~48 hours ago could not see out of her L eye. Had a dilated exam with [facility] this morning and was sent for suspected CRAO. Suspected central retinal artery blockage which had moved and had some peripheral flow occlusion. Recommended to come into the ER for a complete stroke evaluation. Pt reports she has baseline dull headaches in the top of the head. Does not have a history of temporal headaches or prior vision change. Denies 'flashers and floaters' but notes L eye 'octobpus with electric tentacles' when she closes her eye. [place] of her vision is cleared a bit, but fuzzy with dots and stippled surrounding her focal area with then some fuzziness in the far periphery. No R eye symptoms 'but getting tired from doing all the work'. Has had past double vision, but non recently and none currenly. NO chest pain or chest pressure. Always has some chest tightness with asthma, but no change recently. Continues on prednisone for rheumatoid arthritis. Attempting to taper, but is on 9mg with a slow taper by 1mg per month. Has been on up to 20mg daily, and 10mg for long periods of time previosly. FHx of massive IA in 40-50s, hx of brother with quad bipass at age 30s. Medical History: Reviewed Medications: Reviewed Surgical History: Reviewed Family history: Reviewed Allergies: Reviewed Social History: No tobacco/ETOH Code Status: DNR/DNI Admission Exam Per Admitting Provider General: A&Ox3. NAD. Cooperative. HEENT: Atraumatic, normocephalic. Left eye with slightly diminished acuity at focal point improved from prior, some peripheral stippling and slight haziness to peripheral vision. No discrete field cuts. Pupils equal and reactive at time of bedside assessment. Right eye without vision loss. Temples are without nodularity/thickening or tenderness Pulm: CTAB A&P. -wheezes, -rales, -rhonchi. Symmetrical chest rise. No increased work of breathing. No respiratory distress. Cardiac: RRR, -mrg. Radial pulses intact and symmetrical. Abdominal: Nontender, nondistended, soft. BS present. Extremities: Warm/dry. Trace ankle edema bilaterally. Sensation soft touch intact in hands and feet. Principal Diagnosis Central Retinal Artery Occlusion Discharge Exam Constitutional WD/WN, vitals as above Eyes PERRL, conjunctivae normal, anicteric sclerae Left eye peripheral vision impaired, central vision mildly impaired ENMT external ear and nose normal, oropharynx normal Neck trachea midline, no thyromegaly Respiratory normal respiratory effort, lungs clear to auscultation Cardiovascular RRR, no murmur, no edema Gastrointestinal (Abdomen) Inspection/Auscultation: abdomen normal to inspection Percussion/Palpation: abdomen soft Skin no rashes, warm and dry Neurologic CN's II-XI intact bilaterally, moves all extremities and awake Discharge Data Allergies Allergy/AdvReac Type Severity Reaction Status Date / Time aspirin Allergy Intermediate ITCHING Verified 05/10/22 15:44 UNDER SKIN diclofenac [From Voltaren] Allergy Intermediate ITCHINESS Verified 05/10/22 15:44 ibuprofen Allergy Intermediate itching Verified 05/10/22 15:44 under skin alendronate sodium AdvReac Intermediate CHILLS,FEVER, Verified 05/10/22 15:44 TEETH GOT LOOSE orange AdvReac Intermediate FEELS LIKE Verified 05/10/22 15:44 HAS A COLD AFTER DRINKING ORANGE JUICE oxycodone AdvReac Intermediate N/V Verified 05/10/22 15:44 tramadol AdvReac Intermediate Vomiting, Verified 05/10/22 15:44 NAUSEA Consultations 05/10/22 15:42 ED Decision to Admit Stat 05/10/22 21:20 Consult Neurology Routine Ordered Studies 05/10/22 13:01 CT head/brain wo con Stat 05/10/22 14:32 CT angio head w con Stat CT angio neck with con Stat 05/10/22 21:20 MR brain wo con Routine Hospital Course (1) CRAO (central retinal artery occlusion): CRAO Outside of the window for thrombolytic therapy, vision loss occurred 48 hours prior to assessment. Patient has had some improvement in symptoms suggesting possible shift to branch arteries ESR/CRP neg. - CTA-H/N:There is no evidence of hemorrhage, mass effect, or acute territorial ischemia noting angiographic phase technique. Unremarkable CT angiogram of the brain. Unremarkable CT angiogram of the neck. - CT-H:There is no hemorrhage, mass effect, or evidence of acute territorial ischemia by CT criteria. Paranasal sinus disease as above. Initially recommended for dual antiplatelet therapy, however patient is allergic to aspirin or ports she cannot take this. Will start on Plavix at this time. - Lipid panel wnl, atorvastatin given while inpatient MRI :No evidence of acute intracranial pathology. Mild nonspecific white matter changes. - Echo EF 65%, moderate LVH, moderate aortic regurge - Neurology consulted: continue plavix , stop statin. No indication for temporal artery biopsy. manage HTN. Neurologically stable and can dc home, f/u in outpatient Severe persistent asthma Last seen in December. Well-controlled on montelukast, budesonide-fomoterol, albuterol as needed. Stopped symbicort Continue home treatments, no wheezing on admission Continue home prednisone Connective tissue disease associated necrotized myopathy Follows with neurology - Dr. Cha Generalized weakness, requires rolling walker Additionally with history of lumbar spinal stenosis s/p discectomy [place] at [facility], some residual left lumbar radiculopathy Rheumatoid arthritis - Was on biologics in the past but developed large B cell lymphoma due to remicaid Currently getting secondary benefit from prednisone which is also being tapered for her asthma [facility] - Tx with chemo and radiation. Had a lymph node removed in 2006 - Was cured, no problems since then - Has not followed with Hematology/Oncology in many years. Previously with Dr. Kumar. Zambrano - Manages well with amlodipine Hypertension permissive hypertension while completing stroke work-up. BP currently 132/67. Metoprolol, amlodipine may be continued (2) Myopathy: Total Time Total Time Spent Total Time Spent (In Minutes): see attending attestation Discharge Plan Discharge Items Patient Disposition: Home - Self-Care Reason For Visit: VISION LOSS, CRAO/CVA EVAL Discharge Diagnosis: Vision loss Activity: Resume your previous activity Non-emergency contact: Primary Care Provider Call non-emergency contact if: you have any medication questions, your symptoms worsen, your pain is concerning for you and you have a fever Follow-up/Referrals: Vignesh Hill [Primary Care Provider] - 05/17/22 2:05 pm (May 17, 2022 @ 2:[address] Grider) Diet: Regular Addtl Attending Provider Instructions: You were admitted to the hospital for vision loss with concern of central artery occlusion. We did CT scans and MRIs of your head, and did not identify any evidence of stroke. You were started on two medication (detailed below) to help prevent future strokes. A discharge summary will be sent to your primary care physician to ensure continuity of care. Please bring this discharge summary with you to your next office appointment so that your provider can review it at that time. Follow-up appointments: Make a follow-up appointment with your PCP within the next week. It is very important that you follow up with them shortly after discharge from the hospital. Keep all your follow-up appointments as already scheduled. If you cannot make an appointment, notify your provider. Medications: Your medication list has been reviewed and reconciled upon discharge to ensure accuracy and continuity of care. An updated list of all your medications is included with your hospital discharge paperwork. Please review this list closely, and make note of any changes. * We sent a new medication called clopidogrel (Plavix) to your pharmacy. Take clopidogrel (75mg) one tablet once daily. * We sent a new medication called atorvastatin (Lipitor) to your pharmacy. Take atorvastatin (40mg) one capsule once daily. Take your medications as instructed; do not skip a dose of your medicines. Make sure all of your doctors know every medicine you are taking (including ebrn-lmq-dtekplr medicines, vitamins, and supplements). Call your primary care provider before taking any new medicines (including xvon-lza-qintryz medicines, vitamins, and supplements), because some of these may interact with your current medications, or may make your symptoms worse. Tell your primary care provider if you cannot afford your medications. CONTACT YOUR PRIMARY CARE PROVIDER if you experience any of the following: Vision loss Severe headache Difficulty following your treatment plan, or difficulty taking medications CALL 911 OR GO TO THE EMERGENCY DEPARTMENT if you experience any of the following: Sudden, severe abdominal pain or nausea/vomiting Severe chest pain, or chest pain that radiates (moves) to your jaw or arm Sudden, severe shortness of breath or difficulty breathing Thank you for allowing us to participate in your care. Pending Studies at Discharge: No Stand-Alone Forms: [facility] Medications and DC Order Prescriptions: New atorvastatin 40 mg Tablet 40 mg PO QAM 30 Days Qty: 30 0RF clopidogrel 75 mg Tablet 75 mg PO QAM 30 Days Qty: 30 0RF Continued albuterol sulfate 2.5 mg /3 mL (0.083 %) solution for nebulization 2.5 mg INH Q6H PRN (Reason: shortness of breath or wheezing) Qty: 180 1RF albuterol sulfate 90 mcg/actuation HFA aerosol inhaler 2 puff Inhalation Q6H PRN (Reason: Shortness Of Breath Or Wheezing) Qty: 18 5RF amlodipine 2.5 mg tablet 2.5 mg PO HS metoprolol tartrate 25 mg tablet 25 mg PO QAM (DME) nebulizer accessories Kit See Rx Instructions .ROUTE .MEDSUPPLY Qty: 1 0RF Rx Instructions: As directed (DME) nebulizer and compressor Device See Rx Instructions [id number] .MEDSUPPLY Qty: 1 0RF Rx Instructions: As directed montelukast [Singulair] 10 mg tablet 10 mg PO QPM Qty: 90 3RF budesonide-formoterol [Symbicort] 160-4.5 mcg/actuation HFA aerosol inhaler 2 puff inhalation Q12H Qty: 10.2 2RF Rx Instructions: PER PT "ONLY USE IN AM". dextromethorphan-guaifenesin [Mucinex DM] 60-1,200 mg Tablet Extended Release 12 Hr 1 tab PO DIRECTED PRN (Reason: Congestion) prednisone 5 mg tablet 5 mg PO QAM Patient Comments: takes with 3mg to equal 8mg every am Rx Instructions: TOTAL DOSE 9 MG--TAKES WITH 4-1 MG TABS. docusate sodium [Stool Softener] 100 mg Capsule 100 mg PO QAM doxycycline hyclate 50 mg capsule 50 mg PO BID acetaminophen [Tylenol Extra Strength] 500 mg Tablet See Rx Instructions .ROUTE .COMPLEX Rx Instructions: 500 mg orally; TAKES 1,500 MG QAM, THEN 1,000 MG QPM. prednisone 1 mg tablet 4 mg PO DAILY Rx Instructions: TOTAL DOSE 9 MG--TAKES WITH 5 MG TAB. mupirocin 2 % ointment 1 applic topical BID PRN (Reason: FACIAL RASH) Discharge Orders: Discharge Order (Routine); Ordered 05/11/22 Ordered By: Aly Nur/Other Patient Handouts: Symptoms of Stroke Admission Data Admit Date/Time: 05/10/22 17:20 Attending Provider: Sil Lawrence Admit Provider: Joseph Kelly Primary Care Provider: Vignesh Hill Other Providers: Joseph Kelly ; Jaxon Esquivel Other Interventions: Discharge Summary Assessment (RN) Last Done: 05/11/22 17:15 Supervising Physician Co-Signing Physician Notes Resident Physician Supervision Note: I independently interviewed and examined the patient and verified the north history and physical, reviewed labs and image studies and agree with resident findings and care plan. Resident Activity Tracking Resident Involvement: Resident Care Provided Care Provided: Adult Hospital Medicine
--- NOTE | 2022-05-12 09:16 | Pharmacy Report ---
Pharmacist Stroke Counseling - Date of Service May 12, 2022 - Medications on Discharge: Home Medications Medication Instructions Recorded Confirmed dextromethorphan-guaifenesin ER 60 1 tab PO DIRECTED PRN Congestion 03/27/18 05/10/22 mg-1,200 mg tab,extend release,12hr (Mucinex DM) docusate sodium 100 mg capsule 100 mg PO QAM 12/04/20 05/10/22 (Stool Softener) prednisone 5 mg tablet 5 mg PO QAM 12/04/20 05/10/22 amlodipine 2.5 mg tablet 2.5 mg PO HS 09/03/21 05/10/22 metoprolol tartrate 25 mg tablet 25 mg PO QAM 09/03/21 05/10/22 acetaminophen 500 mg tablet See Rx Instructions .Route .COMPLEX 05/10/22 05/10/22 (Tylenol Extra Strength) doxycycline hyclate 50 mg capsule 50 mg PO BID FOR FACIAL 05/10/22 05/10/22 RASH/IRRITATION mupirocin 2 % topical ointment 1 applic topical BID PRN FACIAL 05/10/22 05/10/22 RASH prednisone 1 mg tablet 4 mg PO DAILY 05/10/22 05/10/22 New Rx's Medication Instructions Recorded nebulizer accessories #1 ea 07/04/19 nebulizer and compressor #1 ea 07/04/19 albuterol sulfate 2.5 mg/3 mL 2.5 mg (3 mL) inhalation Q6H PRN 08/04/20 (0.083 %) solution for nebulization shortness of breath or wheezing #180 mL budesonide-formoterol HFA 160 2 puff inhalation Q12H #10.2 grams 01/06/22 mcg-4.5 mcg/actuation aerosol inhaler (Symbicort) montelukast 10 mg tablet 10 mg PO QPM #90 tabs 01/06/22 (Singulair) albuterol sulfate 90 mcg/actuation 2 puff inhalation Q6H PRN 01/18/22 aerosol inhaler Shortness Of Breath Or Wheezing #18 grams atorvastatin 40 mg tablet 40 mg PO QAM 30 days #30 tabs 05/11/22 clopidogrel 75 mg tablet 75 mg PO QAM 30 days #30 tabs 05/11/22 - Action: The above medications, specifically ones for stroke treatment/prophylaxis, have been reviewed in detail with the patient and/or patient small business sales representative(s) prior to discharge. This includes indication, common adverse reactions, drug interactions, and medication administration. Medication counseling has been employed using the teach-back method to ensure understanding. - Outcome: The patient and/or patient small business sales representative(s) have demonstrated understanding of the medications. Additional comments: - Discrepancy noted in patient's chart regarding atorvastatin. Listed as new medication in discharge, but notes say to stop. Confirmed with Dr. Cruz that patient should indeed not be taking atorvastatin. - Patient had not yet picked up her prescriptions. Patient informed that she should not pickle sorter the atorvastatin at the pharmacy and the only new medication will be clopidogrel 75 mg PO daily. - Reinforced bleed risk with clopidogrel while also on chronic prednisone. Patient aware of serious signs/symptoms of bleeding and when to seek medical attention. Patient uses Tylenol for pain. - No obvious barriers to medication compliance identified. Thank you for allowing pharmacy to be involved in the care of this patient. Please call [phone] with any additional questions
== END 2022-05-11 18:17 | disposition home or self-care (01) ==
LOC: ED 12:49 → 2S 12:49 → SUATTDRO 17:20 → 2S 20:56

== ENCOUNTER 2024-04-16 12:06 | Inpatient (IN) ==
--- NOTE | 2024-04-16 12:45 | XRay Report ---
XR chest 1V portable CLINICAL HISTORY: Dyspnea. COMPARISON STUDY: Chest CT May 13, 2023. Chest radiograph April 12, 2024. FINDINGS: Mild elevation of the left hemidiaphragm is unchanged. There is no pneumothorax or pleural effusion. There is no evidence for pulmonary edema. There may be left lower lung retrocardiac opacity . Cardiomediastinal silhouette is unremarkable. Subpleural biapical opacities are unchanged and repre sents scarring. IMPRESSION: Apparent left lower lung retrocardiac opacity. A focus of pneumonia cannot be excluded. Radiographic follow-up to ensure resolution is recommended. ACT 112: Negative or not required by law. Electronically signed by: Jacky El M.D. 04/16/2024 12:43 PM
--- NOTE | 2024-04-16 13:02 | Emergency Department Note ---
Impression & Plan Influenza A, Severe persistent asthma, Shortness of breath, Acute hypoxemic respiratory failure, Asthma exacerbation ED Provider Note NAME: NIRU MOSQUERA AGE: 79 SEX: F : 1945 ARRIVES VIA: Ambulance INFORMANT: Patient, ED PROVIDER(S): Brook Craig MD CHIEF COMPLAINT: Recurrent shortness of breath, fluid HPI: This is a 79-year-old female with history of asthma presenting for shortness of breath. Patient was here previously with influenza A. She was offered admission for shortness of breath but had to go home. She has noted increasing shortness of breath since being discharged. She notes that she woke this morning with oxygen saturation around 40. Took a DuoNeb at home and increased about 77. She called EMS afterwards. She was given albuterol, steroids while en route. This time she feels extremely weak and short of breath. No oxygen use at home. No persistent fever. ROS: See above HPI for pertinent positives & negatives. A total of 10 systems reviewed and were otherwise negative. PAST MEDICAL HISTORY: See Below PAST SURGICAL HISTORY: See Below FAMILY HISTORY: See Below SOCIAL HISTORY: See Below HOME MEDICATIONS: See Below ALLERGIES: See Below VITALS: See Below PHYSICAL EXAMINATION: General: resting comfortably in no acute distress Head: Normocephalic and atraumatic Eyes: Normal inspection, extraocular muscles intact Ear, nose, throat: Normal external exam Neck: Normal range of motion Respiratory: Diminished lung sounds with faint wheezing Cardiovascular: Regular rate/rhythm, no murmur GI: soft, nontender, no guarding or rebound Extremities: nontender, moves all extremities Neuro: The patient awake and alert, appropriately conversive, no focal deficits, symmetric faces Skin: Warm, dry, and intact MEDICAL DECISION MAKING: This is 79-year-old female with history of asthma presenting for shortness of breath. Patient suffered a hypoxic care with oxygen saturations about 86 on room air. She was noted to be much lower at home on her home pulse ox as well as EMS. She was given Solu-Medrol and albuterol treatment and round. She is still having faint wheezing with notably diminished lung sounds overall. Will give hour-long nebulizer treatment at this time -Chest Xray independently interpreted by me showing no pneumothorax, pleural effusion. Possible retrocardiac opacities noted-radiology -With patient's significant hypoxia, will admit for further workup, influenza A, Differential diagnosis: URI, pneumonia, asthma exacerbation Diagnostics interpreted by me: Cardiac Monitoring: An order was placed for continuous cardiac monitoring. The monitor shows a rate of 102 with sinus rhythm. Critical Care Note: I have personally spent 35 minutes of critical care time in the direct management of this patient. This includes bedside care, interpretation of diagnostic studies, and testing, discussion with consultants, patient, and family members, and other required patient management activities. This 35 minutes is in excess of all separately billable procedures. Past Med/Surg History Problem List (Updated 04/16/24 @ 19:10 by Brook Craig MD) Asthma exacerbation (Acute) Acute hypoxemic respiratory failure (Acute) Influenza A (Acute) Shortness of breath (Acute) Sensorineural hearing loss, bilateral Autoimmune necrotizing myopathy Diplopia Staph skin infection Nasal Ala Crusting. Nasal congestion Chronic rhinitis History of rheumatoid arthritis Spinal column pain Severe persistent asthma (Acute) Chronic sinusitis Cervical radiculopathy Hypertension Dysgeusia GERD (gastroesophageal reflux disease) Gait abnormality Myopathy Lumbar radiculopathy Encounter for pre-operative examination SOB (shortness of breath) on exertion Right shoulder pain Obstructive pattern present on pulmonary function testing Dyspnea Prolonged QT interval Shortness of breath (Acute) Osteoporosis Necrotizing myopathy Emphysema with chronic bronchitis Shoulder contusion (Acute) Medical History Dysphagia 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 Prolonged QT interval Gait abnormality has frequent loss of balance Dysgeusia Chronic rhinitis Asthma inhaler/nebulizer prn > pt reports, not using daily inhaler Sensorineural hearing loss (SNHL) of both ears Chronic cough has had for years Leaky heart valve follows w/ Dr Pacheco History of staph infection h/o- nasal cavity; after sinus sx ~ 2019 History of stroke ~2022- residual mild vision loss left eye; was seen by "eye dr and told it was a stroke" - follows w/ Dr Cha for neuro Change in vision mild vision loss, left eye History of COVID-26 July/August 2021 > no further problems > not hospitalized Bilateral shoulder pain Steroid-induced osteoporosis Neuromuscular weakness Laryngopharyngeal reflux Joint pain, knee Dyspnea on exertion Chronic sinusitis Chronic pharyngitis Back pain chronic Fall OCT 15 2020, has frequent loss of balance Hearing deficit Long-term current use of steroids Non-Hodgkin lymphoma diagnosed 2006--chemo/radiation Fibromyalgia GERD (gastroesophageal reflux disease) Hypertension Raynaud disease Rheumatoid arthritis Surgical History S/P epidural steroid injection (2021) Hx of cardiac catheterization ~2014- positive stress- no stents History of bilateral cataract extraction History of total hysterectomy with bilateral salpingo-oophorectomy (BSO) History of colonoscopy History of esophagogastroduodenoscopy (EGD) History of cholecystectomy History of appendectomy History of tooth extraction History of sinus surgery x2 History of ear surgery left "tried to repair hole in my ear" Family History Other Family history non-contributory No family history of adverse response to anesthesia Social History Smoking Status: Never smoker Second Hand Exposure: No; Do You Dip or Chew Tobacco: No; Hx Alcohol Use: Yes Alcohol type: wine Hx Substance Use: No Preferred Language: Sami Communication Ability: Effective Junior Copywriter Required: No Beliefs That Will Affect Care: None marital status: Current Living Situation: Spouse Current Living Situation Comment: AND DAUGHTER current occupational status: retired Feels Safe at Home: Yes Assistive Devices: Cane, Denture - Upper and Walker Allergies Allergies Allergy/AdvReac Type Severity Reaction Status Date / Time aspirin Allergy Intermediate ITCHING Verified 04/12/24 08:36 UNDER SKIN diclofenac [From Voltaren] Allergy Intermediate ITCHINESS Verified 04/12/24 08:36 ibuprofen Allergy Intermediate itching Verified 04/12/24 08:36 under skin alendronate sodium AdvReac Intermediate CHILLS,FEVER, Verified 04/12/24 08:36 TEETH GOT LOOSE orange AdvReac Intermediate FEELS LIKE Verified 04/12/24 08:36 HAS A COLD AFTER DRINKING ORANGE JUICE oxycodone AdvReac Intermediate N/V Verified 04/12/24 08:36 tramadol AdvReac Intermediate Vomiting, Verified 04/12/24 08:36 NAUSEA Home Meds Home Medications Medication Instructions Recorded Confirmed docusate sodium 100 mg capsule 100 mg PO QAM 12/04/20 04/16/24 (Stool Softener) metoprolol tartrate 25 mg tablet 25 mg PO QAM 09/03/21 04/16/24 acetaminophen 500 mg tablet See Rx Instructions .Route .COMPLEX 05/10/22 04/16/24 (Tylenol Extra Strength) cholecalciferol (vitamin D3) 10 10 mcg PO DAILY 11/30/22 04/16/24 mcg (400 unit) capsule losartan 25 mg tablet 25 mg PO QAM 11/30/22 04/16/24 metronidazole 0.75 % topical cream 1 applic topical DAILY 11/30/22 04/16/24 amlodipine 2.5 mg tablet 5 mg PO HS 03/20/24 04/16/24 amitriptyline 25 mg tablet 12.5 mg PO HS 04/12/24 04/16/24 Previous Rx's Medication Instructions Recorded nebulizer accessories #1 ea 07/04/19 nebulizer and compressor #1 ea 07/04/19 albuterol sulfate 2.5 mg/3 mL 2.5 mg (3 mL) inhalation Q6H PRN 08/04/20 (0.083 %) solution for nebulization shortness of breath or wheezing #180 mL albuterol sulfate 90 mcg/actuation 2 puff inhalation Q6H PRN 01/18/22 aerosol inhaler Shortness Of Breath Or Wheezing #18 grams prednisone 5 mg tablet 10 mg (2 x 5 mg) PO QAM #180 tabs 02/20/24 montelukast 10 mg tablet 10 mg PO DAILY #30 tabs 04/10/24 Results & Data (ED) Vital Signs Vital Signs - 24 hr 04/16/24 12:16 04/16/24 12:16 04/16/24 12:16 Temperature 36.4 C L Temperature Source Oral Pulse Rate 105 H 105 H Pulse Rate [Apical] Respiratory Rate 18 18 Respiratory Effort / Characteristics Non-Labored Spontaneous Non-Labored Spontaneous Respiratory Depth Normal Respiratory Pattern Regular Blood Pressure 122/49 L Blood Pressure [Left Arm] Blood Pressure Mean 73 Blood Pressure Mean [Left Arm] Blood Pressure Position Lying Blood Pressure Position [Left Arm] Pulse Oximetry 96 96 Oxygen Delivery Method Nasal Cannula Nasal Cannula Nasal Cannula Oxygen Flow Rate 2 2 2 Sepsis Recent Fever Within 48 Hours No Sepsis New/Unexplained Change in Mental Status No Sepsis Action Taken by Nursing No Action Required Oxygen Flow Rate - Titration Pulse Oximetry Post Tiitration 04/16/24 12:16 04/16/24 12:16 04/16/24 13:09 Temperature 36.4 C L Temperature Source Oral Pulse Rate 96 H Pulse Rate [Apical] 105 H Respiratory Rate 18 Respiratory Effort / Characteristics Non-Labored Spontaneous Respiratory Depth Respiratory Pattern Blood Pressure Blood Pressure [Left Arm] 122/49 L Blood Pressure Mean Blood Pressure Mean [Left Arm] 73 Blood Pressure Position Blood Pressure Position [Left Arm] Lying Pulse Oximetry 89 L 96 Oxygen Delivery Method Nasal Cannula Nasal Cannula Oxygen Flow Rate 0 2 Sepsis Recent Fever Within 48 Hours Sepsis New/Unexplained Change in Mental Status Sepsis Action Taken by Nursing Oxygen Flow Rate - Titration 2 Pulse Oximetry Post Tiitration 96 04/16/24 13:26 Temperature Temperature Source Pulse Rate Pulse Rate [Apical] 96 H Respiratory Rate 21 Respiratory Effort / Characteristics Non-Labored Spontaneous Short of Breath Respiratory Depth Respiratory Pattern Blood Pressure Blood Pressure [Left Arm] Blood Pressure Mean Blood Pressure Mean [Left Arm] Blood Pressure Position Blood Pressure Position [Left Arm] Pulse Oximetry 96 Oxygen Delivery Method Nasal Cannula Oxygen Flow Rate 2.5 Sepsis Recent Fever Within 48 Hours Sepsis New/Unexplained Change in Mental Status Sepsis Action Taken by Nursing Oxygen Flow Rate - Titration Pulse Oximetry Post Tiitration Laboratory Data 04/16/24 12:48 04/16/24 12:48 Lab Results 04/16/24 Range/Units 12:48 WBC 8.31 (4.8-10.8) K/ul RBC 4.20 (4.20-5.40) M/uL Hgb 13.2 (12.0-16.0) g/dl Hct 41.1 (37.0-47.0) % MCV 97.9 (80.0-100.0) fL MCH 31.4 (25.0-34.0) pg MCHC 32.1 (32.0-36.0) g/dL RDW Std Deviation 45.7 (36.4-46.3) fL RDW Coeff of Navi 12.8 (11.5-14.5) % Plt Count 201 (130-400) K/uL MPV 10.4 (9.4-12.4) fL Immature Gran % (Auto) 0.5 % Neut % (Auto) 74.3 % Lymph % (Auto) 14.4 % [place] % (Auto) 10.5 % Eos % (Auto) 0.2 % Baso % (Auto) 0.1 % Neut # (Auto) 6.17 (1.40-6.50) K/uL Lymph # (Auto) 1.20 (1.20-3.40) K/uL [place] # (Auto) 0.87 H (0.11-0.59) K/uL Eos # (Auto) 0.02 (0.00-0.50) K/uL Baso # (Auto) 0.01 (0.00-0.20) K/uL Immature Gran # (Auto) 0.04 (0.01-0.20) K/uL Polychromasia 1+ Sodium 137 (136-145) mmol/L Potassium 3.8 (3.5-5.1) mmol/L Chloride 104 (98-107) mmol/L Carbon Dioxide 23 (21-32) mmol/L Anion Gap 10 (3-11) BUN 31 H (6-23) mg/dl Creatinine 0.91 (0.6-1.2) mg/dl Est Cr Clr Drug Dosing 48.4 ml/min eGFR 64.17 BUN/Creatinine Ratio 34.1 H (10-20) Glucose 105 H (70-99(Fasting)) mg/dl Calcium 8.8 (8.6-10.3) mg/dl Total Bilirubin 0.5 (0.2-1.0) mg/dl AST 18 (13-39) U/L ALT 9 (7-52) U/L Alkaline Phosphatase 47 (34-104) U/L Total Protein 6.4 (6.0-8.3) gm/dl Albumin 3.8 (3.4-5.0) gm/dl Globulin 2.6 (2.5-4.0) gm/dl Albumin/Globulin Ratio 1.5 (0.9-2) Administered Medications Ceftriaxone Sodium (Rocephin) 2,000 mg in 50 mls @ 100 mls/hr IV Q24H SERGIO Stop: 04/21/24 15:59 Last Infusion: 04/16/24 16:53 Dose: Infused Documented By: Admin: 04/16/24 16:20 Dose: 100 mls/hr Documented By: OSVALDO Discontinued Medications Albuterol (Albuterol 0.5% Neb Soln 2.5 Mg/0.5 Ml Vial) 2.5 mg NEB NOW STA; Protocol Stop: 04/16/24 13:03 Last Admin: 04/16/24 13:09 Dose: Not Given Documented By: OSVALDO Albuterol (Albuterol 0.083% Nebu Soln 3 Ml Vial) 10 mg NEB NOW STA; Protocol Stop: 04/16/24 13:04 Last Admin: 04/16/24 13:25 Dose: 10 mg Documented By: ARMEN Imaging Data Radiologist's Impression: Chest X-Ray 04/16/24 12:12 XR chest 1V portable CLINICAL HISTORY: Dyspnea. COMPARISON STUDY: Chest CT May 13, 2023. Chest radiograph April 12, 2024. FINDINGS: Mild elevation of the left hemidiaphragm is unchanged. There is no pneumothorax or pleural effusion. There is no evidence for pulmonary edema. There may be left lower lung retrocardiac opacity. Cardiomediastinal silhouette is unremarkable. Subpleural biapical opacities are unchanged and represents scarring. IMPRESSION: Apparent left lower lung retrocardiac opacity. A focus of pneumonia cannot be excluded. Radiographic follow-up to ensure resolution is recommended. ACT 112: Negative or not required by law. Electronically signed by: Jacky El M.D. 04/16/2024 12:43 PM Discharge Plan Visit Data Chief Complaint: Shortness of Breath/Dyspnea Stated Complaint: SOB ED Provider: Brook Craig Discharge Problem: Influenza A, Severe persistent asthma, Shortness of breath, Acute hypoxemic respiratory failure, Asthma exacerbation Patient Disposition: Admitted As Inpatient Discharge Instructions Interventions: ED Discharge Assessment Last Done: 04/16/24 16:26
[2024-04-16] MEDS: ALBUTEROL 0.5% NEB SOLN 2.5 MG/0.5 ML VIAL NEB STA (13:09)
[2024-04-16] MEDS: ALBUTEROL 0.083% NEBU SOLN 3 ML VIAL NEB STA (13:25)
[2024-04-16 13:28] LABS: Albumin Level 3.8 gm/dl (3.4-5.0); Bilirubin,Total 0.5 mg/dl (0.2-1.0); Calcium 8.8 mg/dl (8.6-10.3); Potassium 3.8 mmol/L (3.5-5.1)
[2024-04-16 13:34] LABS: Albumin Globulin Ratio 1.5 (0.9-2); BUN Creatinine Ratio 34.1 (10-20); Creatinine Clr Calc Pharmacy 48.4 ml/min; Globulin 2.6 gm/dl (2.5-4.0); Total Protein 6.4 gm/dl (6.0-8.3)
[2024-04-16 14:09] LABS: Basophils # (auto) 0.01 K/uL (0.00-0.20); Basophils % (auto) 0.1 %; Eosinophils # (auto) 0.02 K/uL (0.00-0.50); Eosinophils % (auto) 0.2 %; Hematocrit (blood only) 41.1 % (37.0-47.0); Hemoglobin 13.2 g/dl (12.0-16.0); Immature Granulocytes # (auto) 0.04 K/uL (0.01-0.20); Immature Granulocytes % (auto) 0.5 %; Lymphocytes % (auto) 14.4 %; Mean Corpuscular Hemoglobin 31.4 pg (25.0-34.0); Mean Corpuscular Hgb Conc 32.1 g/dL (32.0-36.0); Mean Corpuscular Volume 97.9 fL (80.0-100.0); Mean Platelet Volume 10.4 fL (9.4-12.4); Monocytes # (auto) 0.87 K/uL (0.11-0.59); Monocytes % (auto) 10.5 %; Neutrophils # (auto) 6.17 K/uL (1.40-6.50); Neutrophils % (auto) 74.3 %; Platelet Count 201 K/uL (130-400); Polychromasia 1+; RDW Coefficient of Variation 12.8 % (11.5-14.5); RDW Standard Deviation 45.7 fL (36.4-46.3); White Blood Count 8.31 K/ul (4.8-10.8)
[2024-04-16 15:44] LABS: iSTAT Arterial Blood Gas HCO3 18 meg/L (19-24); iSTAT Arterial Blood Gas pCO2 32 mmHg (35-46); iSTAT Arterial Blood Gas pH 7.36 (7.35-7.45); iSTAT Arterial Blood Gas pO2 62 mmHg (80-95); iSTAT Carbon Dioxide 19 mmol/L (24-31); iSTAT Hematocrit 38 % (37-47); iSTAT Hemoglobin 12.9 g/dl (12.0-16.0); iSTAT Potassium 3.3 mmol/L (3.3-5.0); iSTAT Sample Type Arterial; iSTAT Sodium 135 mmol/L (135-144)
--- NOTE | 2024-04-16 16:02 | History & Physical Report ---
Date of Service April 16, 2024 Assessment & Plan (1) Acute hypoxemic respiratory failure: (2) Asthma exacerbation: (3) Influenza A: Plan Morris is a 79yo F, PMH of asthma,COPD, RA on chronic prednisone, HTN, presenting with shortness of breath for multiple weeks with worsening symptoms. Tested positive for Flu A on 04/10 with CXR showing opacity indicative of possible pneumonia. #Acute hypoxemic respiratory failure due to Flu A and asthma - multifactorial etiology concerning for both viral infection (Flu A+) and bacterial (pneumonia) - Continue albuterol at 2.5mg Q6 - Continue supplemental oxygen at 2L/min nasal cannula - Start Tamiflu 75mg BID - Start Ceftriaxone 2mg IV Q24 - Start methylprednisolone 40mg/kg BID #HTN - Continue home med metoprolol 25mg Q24 - Hold losartan 25mg and amlodipine 2.5mg BID Chronic conditions: - RA - Continue prednisone 10mg QAM, amitriptyline 25mg Diet: regular diet [place] Prophylaxis: Lovenox Dispo: Med tele Code status: Full History of Present Illness Chief Complaint: Shortness of breath Primary Care Provider: Vignesh Hill MD Morris is a 79yo F, PMH of asthma,COPD, RA on chronic prednisone, HTN, presenting with shortness of breath. She has been experiencing SOB for weeks now, but has gotten worsen over this week. She came in 04/12 for similar symptoms and tested positive for Flu A, but declined admission then. Today she checked her O2 in the morning and it was at 45. She had an albuterol treatment for an hour then rechecked with O2 at 77. This is when she called EMS and they gave her another dose of albuterol and steroids. Morris also endorses symptoms of productive cough with yellow/green sputum production. She endorses chest tightness with no pain, ear pain, post nasal drip, and runny nose. She has not experienced any fevers, chills, night swears, abdominal pain, or nausea/vomiting. She has only been taking her albuterol treatment and Tylenol to manage muscle pain. She mentions she has tried multiple antibiotics over the timecourse of flu-like symptoms with no symptom improvement. Allergies Allergy/AdvReac Type Severity Reaction Status Date / Time aspirin Allergy Intermediate ITCHING Verified 04/12/24 08:36 UNDER SKIN diclofenac [From Voltaren] Allergy Intermediate ITCHINESS Verified 04/12/24 08:36 ibuprofen Allergy Intermediate itching Verified 04/12/24 08:36 under skin alendronate sodium AdvReac Intermediate CHILLS,FEVER, Verified 04/12/24 08:36 TEETH GOT LOOSE orange AdvReac Intermediate FEELS LIKE Verified 04/12/24 08:36 HAS A COLD AFTER DRINKING ORANGE JUICE oxycodone AdvReac Intermediate N/V Verified 04/12/24 08:36 tramadol AdvReac Intermediate Vomiting, Verified 04/12/24 08:36 NAUSEA Home Medications Medication Instructions Recorded Confirmed Type nebulizer accessories #1 ea 07/04/19 03/20/24 Rx nebulizer and compressor #1 ea 07/04/19 03/20/24 Rx albuterol sulfate 2.5 mg/3 mL 2.5 mg (3 mL) inhalation Q6H PRN 08/04/20 04/16/24 Rx (0.083 %) solution for nebulization shortness of breath or wheezing #180 mL docusate sodium 100 mg capsule 100 mg PO QAM 12/04/20 04/16/24 History (Stool Softener) metoprolol tartrate 25 mg tablet 25 mg PO QAM 09/03/21 04/16/24 History albuterol sulfate 90 mcg/actuation 2 puff inhalation Q6H PRN 01/18/22 04/16/24 Rx aerosol inhaler Shortness Of Breath Or Wheezing #18 grams acetaminophen 500 mg tablet See Rx Instructions .Route .COMPLEX 05/10/22 04/16/24 History (Tylenol Extra Strength) cholecalciferol (vitamin D3) 10 10 mcg PO DAILY 11/30/22 04/16/24 History mcg (400 unit) capsule losartan 25 mg tablet 25 mg PO QAM 11/30/22 04/16/24 History metronidazole 0.75 % topical cream 1 applic topical DAILY 11/30/22 04/16/24 History prednisone 5 mg tablet 10 mg (2 x 5 mg) PO QAM #180 tabs 02/20/24 04/16/24 Rx amlodipine 2.5 mg tablet 5 mg PO HS 03/20/24 04/16/24 History montelukast 10 mg tablet 10 mg PO DAILY #30 tabs 04/10/24 04/16/24 Rx amitriptyline 25 mg tablet 12.5 mg PO HS 04/12/24 04/16/24 History Past Med/Surg History Problem List (Updated 04/16/24 @ 15:42 by Olivia Moore) Asthma exacerbation (Acute) Acute hypoxemic respiratory failure (Acute) Influenza A (Acute) Shortness of breath (Acute) Sensorineural hearing loss, bilateral Autoimmune necrotizing myopathy Diplopia Staph skin infection Nasal Ala Crusting. 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 Prolonged QT interval Gait abnormality has frequent loss of balance Dysgeusia Chronic rhinitis Asthma inhaler/nebulizer prn > pt reports, not using daily inhaler Sensorineural hearing loss (SNHL) of both ears Chronic cough has had for years Leaky heart valve follows w/ Dr Pacheco History of staph infection h/o- nasal cavity; after sinus sx ~ 2019 History of stroke ~2022- residual mild vision loss left eye; was seen by "eye dr and told it was a stroke" - follows w/ Dr Cha for neuro Change in vision mild vision loss, left eye History of COVID-19 July/August 2021 > no further problems > not hospitalized Bilateral shoulder pain Steroid-induced osteoporosis Neuromuscular weakness Laryngopharyngeal reflux Joint pain, knee Dyspnea on exertion Chronic sinusitis Chronic pharyngitis Back pain chronic Fall SEP 2020, has frequent loss of balance Hearing deficit Long-term current use of steroids Non-Hodgkin lymphoma diagnosed 2006--chemo/radiation Fibromyalgia GERD (gastroesophageal reflux disease) Hypertension Raynaud disease Rheumatoid arthritis Surgical History S/P epidural steroid injection (2021) Hx of cardiac catheterization ~2014- positive stress- no stents History of bilateral cataract extraction History of total hysterectomy with bilateral salpingo-oophorectomy (BSO) History of colonoscopy History of esophagogastroduodenoscopy (EGD) History of cholecystectomy History of appendectomy History of tooth extraction History of sinus surgery x2 History of ear surgery left "tried to repair hole in my ear" Family History Other Family history non-contributory No family history of adverse response to anesthesia Social History Smoking Status: Never smoker Second Hand Exposure: No; Do You Dip or Chew Tobacco: No; Hx Alcohol Use: Yes Alcohol type: wine Hx Substance Use: No Preferred Language: Urdu Communication Ability: Effective Special Shopper Required: No Beliefs That Will Affect Care: None marital status: Current Living Situation: Spouse Current Living Situation Comment: AND DAUGHTER current occupational status: retired Feels Safe at Home: Yes Assistive Devices: Cane, Denture - Upper and Walker Review of Systems Review of Systems: as per HPI Physical Exam Constitutional: + ill appearing laying in bed with difficulty breathing, pausing within sentences to catch breath, O2 sats dropping with verbal response Eyes: PERRL, conjunctivae normal, anicteric sclerae ENMT: external ear and nose normal, oropharynx normal Respiratory: + cough Auscultation: + diminished сергей ng sounds increased respiratory effort, no wheezing, rales, or rhonchi Cardiovascular: Rate/Rhythm: regular rate and regular rhythm Extremities: + edema Gastrointestinal (Abdomen): normal bowel sounds, soft, nontender, no hepatosplenomegaly Neurologic: Alert and oriented Psychiatric: Appropriate mood and affect Results & Data Results & Data Vital Signs (Past 12 Hours) Vital Signs Temp Pulse Pulse Resp BP BP Pulse Ox 04/16/24 15:01 105 H 18 94 04/16/24 15:01 105 H 18 119/54 L 94 04/16/24 13:26 96 H 21 96 04/16/24 13:09 96 H 04/16/24 12:16 36.4 C L 105 H 18 122/49 L 96 04/16/24 12:16 89 L 04/16/24 12:16 04/16/24 12:16 105 H 18 96 04/16/24 12:16 36.4 C L 105 H 18 122/49 L 96 O2 Del Method O2 Flow Rate 04/16/24 15:01 Nasal Cannula 2 04/16/24 15:01 Nasal Cannula 2 04/16/24 13:26 Nasal Cannula 2.5 04/16/24 13:09 04/16/24 12:16 Nasal Cannula 2 04/16/24 12:16 Nasal Cannula 0 04/16/24 12:16 Nasal Cannula 2 04/16/24 12:16 Nasal Cannula 2 04/16/24 12:16 Nasal Cannula 2 Laboratory Results Laboratory Results - last 24 hr 04/16/24 12:48 WBC 8.31 RBC 4.20 Hgb 13.2 Hct 41.1 MCV 97.9 MCH 31.4 MCHC 32.1 RDW Std Deviation 45.7 RDW Coeff of Navi 12.8 Plt Count 201 MPV 10.4 Immature Gran % (Auto) 0.5 Neut % (Auto) 74.3 Lymph % (Auto) 14.4 [place] % (Auto) 10.5 Eos % (Auto) 0.2 Baso % (Auto) 0.1 Neut # (Auto) 6.17 Lymph # (Auto) 1.20 [place] # (Auto) 0.87 H Eos # (Auto) 0.02 Baso # (Auto) 0.01 Immature Gran # (Auto) 0.04 Polychromasia 1+ Sodium 137 Potassium 3.8 Chloride 104 Carbon Dioxide 23 Anion Gap 10 BUN 31 H Creatinine 0.91 Est Cr Clr Drug Dosing 48.4 eGFR 64.17 BUN/Creatinine Ratio 34.1 H Glucose 105 H Calcium 8.8 Total Bilirubin 0.5 AST 18 ALT 9 Alkaline Phosphatase 47 Total Protein 6.4 Albumin 3.8 Globulin 2.6 Albumin/Globulin Ratio 1.5 Diagnostic Findings CXR: Apparent left lower lung retrocardiac opacity, potentially pneumonia Code Status & VTE Plan Code Status Full code VTE Prophylaxis Plan VTE Prophylaxis will be ordered: Yes Supervising Physician Co-Signing Physician Notes I personally examined the patient and verified all north points of history and exam, discussed case, and agree with decision making with Dr Espana and Shawn Moore MS2 Cough, shortness of breath. Was feeling lousy with the flu, but then felt abruptly worse today. New hypoxia today. Vitals noted, in general she is awake and alert very fatigued mild respiratory distress. Lungs diminished throughout no overt rales rhonchi or wheezes but decreased air entry noted. Mild accessory muscle use. Skin without rashes pallor or icterus. Neuro without focal deficits. Acute hypoxic respiratory failureviral illnessesmost recently fluwith superimposed secondary bacterial pneumonia, complicated by reactive airway disease/asthma exacerbationfortunately not hypercapnic. Does sound quite tightsteroids/albuterol. For flugiven the low risk profile we will treat with Tamiflu. For secondary bacterial overgrowthnot severe sepsis/septic shocktherefore will cover with ceftriaxone and follow.
[2024-04-16] MEDS: cefTRIAXone SODIUM 2,000 MG/50 ML BAG IV SCH (16:20)
[2024-04-16] MEDS ORDERED: ALBUTEROL HFA 8 GM INHALER INH PRN (16:25)
[2024-04-16] MEDS ORDERED: ALBUTEROL 0.083% NEBU SOLN 3 ML VIAL INH PRN (16:25)
--- NOTE | 2024-04-16 19:05 | Billing Data ---
Date of Service April 16, 2024 Coding Level of Care Code 96511 INT INP/OBS CARE
[2024-04-16] MEDS: ALBUTEROL 0.5% NEB SOLN 2.5 MG/0.5 ML VIAL NEB SCH (19:09)
[2024-04-16] MEDS ORDERED: methylPREDNISolone 125 MG/2 ML VIAL IV SCH (21:00)
[2024-04-16] MEDS: AMITRIPTYLINE HCL 25 MG TAB PO SCH (21:50)
[2024-04-16] MEDS: FLUTICASONE/VILANTEROL 200/25MCG 14 PUFFS/INHALER INH SCH (21:53)
[2024-04-16] MEDS: methylPREDNISolone 40 MG in SYRINGE 0 ML IV SCH (21:53)
[2024-04-16] MEDS: OSELTAMIVIR PHOSPHATE 75 MG CAP PO SCH (21:53)
[2024-04-16] MEDS: ACETAMINOPHEN 325 MG TAB PO PRN (21:54)
[2024-04-16 23:47] LABS: Appearance Urine Clear (Clear); Bacteria Urine Automated None Seen (None Seen); Bilirubin Urine Negative (Negative); Blood Urine 3+ (Negative); Cast Urine Automated 0-2 /lpf (0-2); Color Urine Yellow; Epithelial Cell Urine Auto 0-2 /hpf (0-2); Glucose Urine UA 1+ (Negative); Ketones Urine 1+ (Negative); Leukocyte Esterase Urine Negative (Negative); Nitrite Urine Negative (Negative); Protein Urine Trace (Negative); RBC Urine Automated >20 /hpf (0-2); Specific Gravity Urine 1.015 (1.000-1.030); Urobilinogen Urine Negative (Negative); WBC Urine Automated 0-5 /hpf (0-5); pH Urine 5.5 (4.5-7.5)
[2024-04-17 06:51] LABS: BUN Creatinine Ratio 34.6 (10-20); Calcium 8.6 mg/dl (8.6-10.3); Creatinine Clr Calc Pharmacy 53.7 ml/min; Potassium 4.1 mmol/L (3.5-5.1)
[2024-04-17] MEDS: ACETAMINOPHEN 500 MG TAB PO SCH (07:28)
[2024-04-17] MEDS: ENOXAPARIN INJ 40 MG/0.4 ML SYR SQ SCH (07:28)
[2024-04-17] MEDS: CHOLECALCIFEROL 10 MCG (400 UNITS) TAB PO SCH (07:29)
[2024-04-17] MEDS: MONTELUKAST SODIUM 10 MG TABLET PO SCH (07:29)
[2024-04-17] MEDS: METOPROLOL TARTRATE 25 MG TAB PO SCH (07:29)
[2024-04-17] MEDS: DOCUSATE SODIUM 100 MG CAP PO SCH (08:13)
[2024-04-17] MEDS ORDERED: ACETAMINOPHEN 500 MG TAB PO SCH (09:00)
--- NOTE | 2024-04-17 09:30 | Hospitalist Progress Note ---
Date of Service April 17, 2024 Assessment & Plan (1) Acute hypoxemic respiratory failure: (2) Asthma exacerbation: (3) Influenza A: Plan Morris is a 79yo F, PMH of asthma,COPD, RA on chronic prednisone, HTN, presenting to ED 03/19 with shortness of breath for multiple weeks with worsening symptoms. Tested positive for Flu A on 04/10 with CXR showing opacity indicative of possible pneumonia. Currently, she is having less respiratory symptoms with improved respiratory effort on exam. #Acute hypoxemic respiratory failure due to Flu A and asthma - multifactorial etiology concerning for both viral infection (Flu A+) and bacterial (pneumonia) - Continue current course of treatment: - Continue albuterol at 2.5mg Q6 - Continue supplemental oxygen at 1L/min nasal cannula and wean as tolerated - Continue Tamiflu 30mg BID - Continue Ceftriaxone 2mg IV Q24 - Continue methylprednisolone 40mg/kg BID #HTN - Continue home med metoprolol 25mg Q24 - Hold losartan 25mg and amlodipine 2.5mg BID Chronic conditions: - RA - Continue prednisone 10mg QAM, amitriptyline 25mg Diet: regular diet [place] Prophylaxis: Lovenox 40mg Dispo: Med tele Code status: Full Admission and Anticipated Discharge Date Admission Date: April 16, 2024 Supervising Physician Co-Signing Physician Notes I personally examined the patient and verified all north points of history and exam, discussed case, and agree with decision making with Dr Espana and Shawn Moore MS2 feeling very fatgiued. notes that after visited she was wiped out and that meals fatigue her. breathing probably a litlte better. Vitals noted, in general she is awake and alert very fatigued less respiratory distress - now mild conversational dyspnea. breathing unlabored no accessory muscle use. Skin without rashes pallor or icterus. Neuro without focal deficits. Acute hypoxic respiratory failureviral illnessesmost recently fluwith superimposed secondary bacterial pneumonia, complicated by reactive airway disease/asthma exacerbationfortunately not hypercapnic. slow improvement. continue current care. otherwise as above DVT proph lovenox Subjective Morris, 79F w/PMH of asthma,COPD, RA on chronic prednisone, HTN, and tested positive for Flu A, is feeling slightly better today. Nurse mentioned decreasing her oxygen from 2L to 1L this morning and Morris is still feeling ok. She endorses feeling very tired, but breathing a little better today. She mentions that she has been coughing less today. She is still SOB with any activity such as walking to the bathroom. She had more of an appetite today than she's had in the past week. She endorses no fevers, chills, night sweats, or abdominal pain. Review of Systems Review of Systems: as per HPI Physical Exam Constitutional: + ill appearing Eyes: PERRL, conjunctivae normal, anicteric sclerae ENMT: external ear and nose normal, oropharynx normal Respiratory: + cough Auscultation: + diminished сергей ng sounds (less diminished then yesterday ) Cardiovascular: Rate/Rhythm: regular rate and regular rhythm Extremities: + edema Gastrointestinal (Abdomen): normal bowel sounds, soft, nontender, no hepatosplenomegaly Results & Data Results & Data Vital Signs (Past 12 Hours) Vital Signs Temp Pulse Pulse Resp BP Pulse Ox O2 Del Method 04/17/24 07:35 Nasal Cannula 04/17/24 07:19 36.4 C L 87 20 125/72 97 Nasal Cannula 04/17/24 07:00 81 04/17/24 06:59 85 16 Nasal Cannula 04/17/24 03:35 36.3 C L 82 18 151/72 H 98 Nasal Cannula 04/16/24 23:51 86 18 98 Nasal Cannula 04/16/24 21:23 99 H 04/16/24 21:00 Nasal Cannula 04/16/24 21:00 36.4 C L 98 H 18 123/74 96 Nasal Cannula O2 Flow Rate 04/17/24 07:35 2 04/17/24 07:19 1 04/17/24 07:00 04/17/24 06:59 2 04/17/24 03:35 2 04/16/24 23:51 2 04/16/24 21:23 04/16/24 21:00 2 04/16/24 21:00 2 Laboratory Results Laboratory Results - last 24 hr 04/16/24 04/16/24 04/16/24 12:48 15:30 23:28 WBC 8.31 RBC 4.20 Hgb 13.2 POC Hgb 12.9 Hct 41.1 POC Hct 38 MCV 97.9 MCH 31.4 MCHC 32.1 RDW Std Deviation 45.7 RDW Coeff of Navi 12.8 Plt Count 201 MPV 10.4 Immature Gran % (Auto) 0.5 Neut % (Auto) 74.3 Lymph % (Auto) 14.4 [place] % (Auto) 10.5 Eos % (Auto) 0.2 Baso % (Auto) 0.1 Neut # (Auto) 6.17 Lymph # (Auto) 1.20 [place] # (Auto) 0.87 H Eos # (Auto) 0.02 Baso # (Auto) 0.01 Immature Gran # (Auto) 0.04 Polychromasia 1+ Specimen Type Arterial POC pH 7.36 POC pCO2 32 L POC pO2 62 L POC HCO3 18 L POC Total CO2 19 L POC Base Excess -7.0 POC ABG O2 Sat 91.0 POC Sodium 135 Sodium 137 POC Potassium 3.3 Potassium 3.8 Chloride 104 Carbon Dioxide 23 Anion Gap 10 BUN 31 H Creatinine 0.91 Est Cr Clr Drug Dosing 48.4 eGFR 64.17 BUN/Creatinine Ratio 34.1 H Glucose 105 H Calcium 8.8 Total Bilirubin 0.5 AST 18 ALT 9 Alkaline Phosphatase 47 Total Protein 6.4 Albumin 3.8 Globulin 2.6 Albumin/Globulin Ratio 1.5 Urine Color Yellow Urine Appearance Clear Urine pH 5.5 Ur Specific [place] 1.015 Urine Protein Trace H Urine Glucose (UA) 1+ H Urine Ketones 1+ H Urine Blood 3+ H Urine Nitrite Negative Urine Bilirubin Negative Urine Urobilinogen Negative Ur Leukocyte Esterase Negative Urine WBC (Auto) 0-5 Urine RBC (Auto) >20 H U Hyaline Cast (Auto) 0-2 U Epithel Cells (Auto) 0-2 Urine Bacteria (Auto) None Seen 04/17/24 06:05 WBC RBC Hgb POC Hgb Hct POC Hct MCV MCH MCHC RDW Std Deviation RDW Coeff of Navi Plt Count MPV Immature Gran % (Auto) Neut % (Auto) Lymph % (Auto) [place] % (Auto) Eos % (Auto) Baso % (Auto) Neut # (Auto) Lymph # (Auto) [place] # (Auto) Eos # (Auto) Baso # (Auto) Immature Gran # (Auto) Polychromasia Specimen Type POC pH POC pCO2 POC pO2 POC HCO3 POC Total CO2 POC Base Excess POC ABG O2 Sat POC Sodium Sodium 137 POC Potassium Potassium 4.1 Chloride 105 Carbon Dioxide 25 Anion Gap 7 BUN 27 H Creatinine 0.78 Est Cr Clr Drug Dosing 53.7 eGFR 77.21 BUN/Creatinine Ratio 34.6 H Glucose 119 H Calcium 8.6 Total Bilirubin AST ALT Alkaline Phosphatase Total Protein Albumin Globulin Albumin/Globulin Ratio Urine Color Urine Appearance Urine pH Ur Specific [place] Urine Protein Urine Glucose (UA) Urine Ketones Urine Blood Urine Nitrite Urine Bilirubin Urine Urobilinogen Ur Leukocyte Esterase Urine WBC (Auto) Urine RBC (Auto) U Hyaline Cast (Auto) U Epithel Cells (Auto) Urine Bacteria (Auto)
[2024-04-17 09:43] LABS: Hematocrit (blood only) 38.9 % (37.0-47.0); Hemoglobin 12.8 g/dl (12.0-16.0); Mean Corpuscular Hemoglobin 31.5 pg (25.0-34.0); Mean Corpuscular Hgb Conc 32.9 g/dL (32.0-36.0); Mean Corpuscular Volume 95.8 fL (80.0-100.0); Mean Platelet Volume 9.9 fL (9.4-12.4); Platelet Count 240 K/uL (130-400); RDW Coefficient of Variation 12.4 % (11.5-14.5); RDW Standard Deviation 44.8 fL (36.4-46.3); Red Blood Count 4.06 M/uL (4.20-5.40); White Blood Count 8.87 K/ul (4.8-10.8)
[2024-04-17 10:12] LABS: Eosinophils # (auto) 0.02 K/uL (0.00-0.50); Eosinophils % (auto) 0.2 %; Immature Granulocytes # (auto) 0.02 K/uL (0.01-0.20); Immature Granulocytes % (auto) 0.2 %; Lymphocytes # (auto) 0.35 K/uL (1.20-3.40); Lymphocytes % (auto) 3.9 %; Monocytes # (auto) 0.35 K/uL (0.11-0.59); Monocytes % (auto) 3.9 %; Neutrophils # (auto) 8.13 K/uL (1.40-6.50); Neutrophils % (auto) 91.8 %; RBC Morphology Unremarkable
--- NOTE | 2024-04-17 18:48 | Billing Data ---
Date of Service April 17, 2024 Coding Level of Care Code 50220 SUB INP/OBS CARE
[2024-04-17] MEDS: OSELTAMIVIR PHOSPHATE SUSP 30 MG/5 ML UDP PO SCH (21:09)
[2024-04-17] MEDS: diphenhydrAMINE 50 MG/ML VIAL IV STA (22:57)
--- NOTE | 2024-04-18 06:56 | Electrocardiogram Report ---
Test Reason : Blood Pressure : */* mmHG Vent. Rate : 102 BPM Atrial Rate : 102 BPM P-R Int : 168 ms QRS Dur : 88 ms QT Int : 354 ms P-R-T Axes : 71 7 54 degrees QTcB Int : 461 ms Poor data quality, interpretation may be adversely affected Sinus tachycardia Possible Left atrial enlargement Cannot rule out Anterior infarct , age undetermined Nonspecific ST abnormality Abnormal ECG When compared with ECG of 12-Apr-2024 11:17, No significant change Confirmed by Nikko Benitez ([id number]) on 04/18/2024 6:56:17 AM Referred By: REFERRED SELF Confirmed By: Nikko Benitez
[2024-04-18 07:39] VITALS: RESP 18
[2024-04-18 07:47] LABS: Hematocrit (blood only) 41.7 % (37.0-47.0); Hemoglobin 13.2 g/dl (12.0-16.0); Mean Corpuscular Hemoglobin 30.7 pg (25.0-34.0); Mean Corpuscular Hgb Conc 31.7 g/dL (32.0-36.0); Mean Platelet Volume 10.3 fL (9.4-12.4); Platelet Count 293 K/uL (130-400); RDW Coefficient of Variation 12.6 % (11.5-14.5); RDW Standard Deviation 45.1 fL (36.4-46.3); White Blood Count 14.71 K/ul (4.8-10.8)
[2024-04-18 07:54] LABS: BUN Creatinine Ratio 38.9 (10-20); Calcium 8.9 mg/dl (8.6-10.3); Creatinine Clr Calc Pharmacy 43.2 ml/min; Potassium 4.6 mmol/L (3.5-5.1)
--- NOTE | 2024-04-18 10:39 | Hospitalist Progress Note ---
Date of Service April 18, 2024 Assessment & Plan (1) Acute hypoxemic respiratory failure: (2) Asthma exacerbation: (3) Influenza A: Plan Morris is a 79yo F, PMH of asthma,COPD, RA on chronic prednisone, HTN, presenting to ED 03/19 with shortness of breath for multiple weeks with worsening symptoms. Tested positive for Flu A on 04/10 with CXR showing opacity indicative of possible pneumonia. Currently, she is having less respiratory symptoms with improved respiratory effort on exam. She's still feeling tired, but able to do a little more activity. #Acute hypoxemic respiratory failure due to Flu A and asthma - multifactorial etiology concerning for both viral infection (Flu A+) and bacterial (pneumonia) - Continue current course of treatment: - Continue albuterol at 2.5mg Q6 - Continue on room air and encourage ambulation - Continue Tamiflu 30mg BID - Continue Ceftriaxone 2mg IV Q24 - Continue methylprednisolone 40mg/kg BID #HTN - Continue home med metoprolol 25mg Q24 - Hold losartan 25mg and amlodipine 2.5mg BID Chronic conditions: - RA - Continue prednisone 10mg QAM, amitriptyline 25mg Diet: regular diet [place] Prophylaxis: Lovenox 40mg Dispo: Med tele Code status: Full Admission and Anticipated Discharge Date Admission Date: April 16, 2024 Supervising Physician Co-Signing Physician Notes I personally examined the patient and verified all north points of history and exam, discussed case, and agree with decision making with Dr Espana and Shawn Moore MS2 slowly feeling better. now off O2. still quite fatigued, but thinking she'll probably feel well enough to go home soon. Vitals noted, 92% on RA on my check, in general she is awake and alert very fatigued less respiratory distress - now mild conversational dyspnea. breathing unlabored no accessory muscle use. Skin without rashes pallor or icterus - somewhat nonspecifically flushed face (likely steroid related). Neuro without focal deficits. Acute hypoxic respiratory failureviral illnessesmost recently fluwith superimposed secondary bacterial pneumonia, complicated by reactive airway disease/asthma exacerbationfortunately not hypercapnic. slow improvement. continue current care - wean steroids however. encouraged increased activity, hopefully home soon. otherwise as above DVT proph lovenox Subjective Morris reports feeling a little better. She was feeling out of breath more last night so nurses increased her oxygen from trialling room air to 1.5L. She had a rash pop up yesterday with facial flushing and discoloration of her fingers. She mentions her face felt very itchy until she was given Benadryl. She has never taken Rocephin or Tamiflu before. She hasn't had reactions to other antibiotics. She feels very tired after talking for more than 10-15 minutes or walking to bathroom and back. She does mention breathing better this morning and coughing less. She mentions she's still coughing up sputum, but it has been more mixed between clear and yellow and less green than it had been in previous days. She says she's been eating a lof better with almost finishing her tray for dinner yesterday and has been hydrating well. She endorses no fevers, chills, night sweats, or abdominal pain. Review of Systems Review of Systems: as per HPI Physical Exam Constitutional: well developed and well nourished no acute distress, conversational Eyes: PERRL, conjunctivae normal, anicteric sclerae ENMT: external ear and nose normal, oropharynx normal Respiratory: + cough Auscultation: + diminished сергей ng sounds (less diminished then yesterday) Cardiovascular: Rate/Rhythm: regular rate and regular rhythm Gastrointestinal (Abdomen): normal bowel sounds, soft, nontender, no hepatosplenomegaly Neurologic: Alert and orientated Psychiatric: Appropriate mood and affect Results & Data Results & Data Vital Signs (Past 12 Hours) Vital Signs Temp Pulse Pulse Resp BP Pulse Ox O2 Del Method 04/18/24 07:38 36.4 C 80 18 160/76 H 96 Nasal Cannula 04/18/24 07:00 74 04/18/24 03:49 36.7 C 63 20 150/74 H 97 Room Air 04/17/24 23:00 88 04/17/24 22:00 36.6 C 86 20 170/77 H 95 Nasal Cannula O2 Flow Rate 04/18/24 07:38 1.5 04/18/24 07:00 04/18/24 03:49 1.5 04/17/24 23:00 04/17/24 22:00 1
--- NOTE | 2024-04-18 12:54 | Billing Data ---
Date of Service April 18, 2024 Coding Level of Care Code 12544 SUB INP/OBS CARE MIN
[2024-04-18] MEDS: diphenhydrAMINE 50 MG/ML VIAL IV PRN (20:13)
[2024-04-19 06:19] LABS: Hematocrit (blood only) 36.7 % (37.0-47.0); Hemoglobin 11.9 g/dl (12.0-16.0); Mean Corpuscular Hemoglobin 31.3 pg (25.0-34.0); Mean Corpuscular Hgb Conc 32.4 g/dL (32.0-36.0); Mean Corpuscular Volume 96.6 fL (80.0-100.0); Mean Platelet Volume 10.3 fL (9.4-12.4); Platelet Count 255 K/uL (130-400); RDW Coefficient of Variation 12.4 % (11.5-14.5); RDW Standard Deviation 43.8 fL (36.4-46.3); White Blood Count 14.57 K/ul (4.8-10.8)
[2024-04-19 06:40] LABS: BUN Creatinine Ratio 38.6 (10-20); Calcium 8.8 mg/dl (8.6-10.3); Creatinine Clr Calc Pharmacy 46.6 ml/min
--- NOTE | 2024-04-19 07:11 | Discharge Summary ---
Date of Service April 19, 2024 Admission HPI Per Admitting Provider Morris is a 79yo F, PMH of asthma,COPD, RA on chronic prednisone, HTN, presenting with shortness of breath. She has been experiencing SOB for weeks now, but has gotten worsen over this week. She came in 04/12 for similar symptoms and tested positive for Flu A, but declined admission then. Today she checked her O2 in the morning and it was at 45. She had an albuterol treatment for an hour then rechecked with O2 at 77. This is when she called EMS and they gave her another dose of albuterol and steroids. Morris also endorses symptoms of productive cough with yellow/green sputum production. She endorses chest tightness with no pain, ear pain, post nasal drip, and runny nose. She has not experienced any fevers, chills, night swears, abdominal pain, or nausea/vomiting. She has only been taking her albuterol treatment and Tylenol to manage muscle pain. She mentions she has tried multiple antibiotics over the timecourse of flu-like symptoms with no symptom improvement. Principal Diagnosis Acute hypoxic respiratory failure Discharge Exam Constitutional well developed, well nourished and + ill appearing Eyes PERRL, conjunctivae normal, anicteric sclerae ENMT external ear and nose normal, oropharynx normal Respiratory + cough Auscultation: + diminished lung sounds (less diminished then yesterday) Cardiovascular Rate/Rhythm: regular rate and regular rhythm Extremities: + edema Gastrointestinal (Abdomen) normal bowel sounds, soft, nontender, no hepatosplenomegaly Discharge Data Allergies Allergy/AdvReac Type Severity Reaction Status Date / Time aspirin Allergy Intermediate ITCHING Verified 04/12/24 08:36 UNDER SKIN diclofenac [From Voltaren] Allergy Intermediate ITCHINESS Verified 04/12/24 08:36 ibuprofen Allergy Intermediate itching Verified 04/12/24 08:36 under skin alendronate sodium AdvReac Intermediate CHILLS,FEVER, Verified 04/12/24 08:36 TEETH GOT LOOSE orange AdvReac Intermediate FEELS LIKE Verified 04/12/24 08:36 HAS A COLD AFTER DRINKING ORANGE JUICE oxycodone AdvReac Intermediate N/V Verified 04/12/24 08:36 tramadol AdvReac Intermediate Vomiting, Verified 04/12/24 08:36 NAUSEA Consultations 04/16/24 15:15 ED Decision to Admit Stat Hospital Course (1) Acute hypoxemic respiratory failure: (2) Asthma exacerbation: (3) Influenza A: Ana Caceres is a 79yo F, PMH of asthma,COPD, RA on chronic prednisone, HTN, presenting to ED 03/19 with shortness of breath for multiple weeks with worsening symptoms. Tested positive for Flu A on 04/10 with CXR showing opacity indicative of possible pneumonia. Currently, she is having less respiratory symptoms with improved respiratory effort on exam. She's still feeling tired, but able to do a little more activity. #Acute hypoxemic respiratory failure due to Flu A and asthma - multifactorial etiology concerning for both viral infection (Flu A+) and bacterial (pneumonia) - Continue current course of treatment: - Continue albuterol at 2.5mg Q6 - Continue on room air and encourage ambulation - Continue Tamiflu 30mg BID Continue 2 days after DC - Continue Ceftriaxone 2mg IV Q24 Start Cefdinir po after DC - Continue methylprednisolone 40mg/kg BID Start prednisone taper after DC #HTN - Continue home med metoprolol 25mg Q24 - Hold losartan 25mg and amlodipine 2.5mg BID Resume BP meds after DC Chronic conditions: - RA - Continue prednisone 10mg QAM, amitriptyline 25mg Diet: regular diet [place] Prophylaxis: Lovenox 40mg Dispo: Med tele Code status: Full Total Time Total Time Spent Total Time Spent (In Minutes): <30 Discharge Plan Discharge Items Patient Disposition: Home - Self-Care Reason For Visit: ACUTE HYPOXIC RESPIRATORY FAILURE Discharge Diagnosis: Acute hypoxic respiratory failure Activity: Resume your previous activity Non-emergency contact: Primary Care Provider Call non-emergency contact if: your symptoms worsen Follow-up/Referrals: Vignesh Hill MD [Primary Care Provider] - 04/23/24 1:00 pm (hospital follow up scheduled on 04/23/24 at 1:[address] Lopez. Arrival time is 12:45) Diet: Regular Addtl Attending Provider Instructions: You were admitted due to asthma exacerbation because of flu A and secondary pneumonia. You were treated with antiviral medication, antibiotics, steriods along with supplemental oxygen and nebulizer treatments. We have sent in 3 new prescriptions to your pharmacy: Tamiflu- twice daily for 2 days. Last dose will be on 04/21/24 Cefdinir- twice daily for 4 days. Last dose will be on 04/23/24 Prednisone- taper for the next 8 days-> 50 mg (5 tabs) for 2 days, 40mg (4 tabs) for 2 days. 30mg (3 tabs) for 2 days, 20mg (2 days) for 2 days and then you can resume your home dosing of 10mg daily. Otherwise we did not make any changes to your medications. Please follow up with you PCP in in the next 3-5 days. Thank you for choosing [facility] for your health care. Pending Studies at Discharge: No Stand-Alone Forms: My [facility], Smoking Cessation Medications and DC Order Prescriptions: New oseltamivir [Tamiflu] 6 mg/mL Suspension For Reconstitution 30 mg PO BID 3 Days Qty: 30 0RF cefdinir 300 mg capsule 300 mg PO BID 5 Days Qty: 10 0RF prednisone 10 mg tablet See Rx Instructions .ROUTE .COMPLEX 8 Days Qty: 28 0RF Rx Instructions: 50mg x 2 days, 40mg x 2 days, 30mg x 2 days, 20mg x 2 days and then can resume home dosing of 10mg daily Continued albuterol sulfate 2.5 mg /3 mL (0.083 %) solution for nebulization 2.5 mg INH Q6H PRN (Reason: shortness of breath or wheezing) Qty: 180 1RF albuterol sulfate 90 mcg/actuation HFA aerosol inhaler 2 puff Inhalation Q6H PRN (Reason: Shortness Of Breath Or Wheezing) Qty: 18 5RF montelukast 10 mg tablet 10 mg PO DAILY Qty: 30 2RF metoprolol tartrate 25 mg tablet 25 mg PO QAM (DME) nebulizer accessories Kit See Rx Instructions .ROUTE .MEDSUPPLY Qty: 1 0RF Rx Instructions: As directed (DME) nebulizer and compressor Device See Rx Instructions [id number] .MEDSUPPLY Qty: 1 0RF Rx Instructions: As directed metronidazole 0.75 % cream 1 applic topical DAILY losartan 25 mg tablet 25 mg PO QAM cholecalciferol (vitamin D3) 10 mcg (400 unit) capsule 10 mcg PO DAILY amlodipine 2.5 mg tablet 5 mg PO HS docusate sodium [Stool Softener] 100 mg Capsule 100 mg PO QAM acetaminophen [Tylenol Extra Strength] 500 mg Tablet See Rx Instructions .ROUTE .COMPLEX Rx Instructions: 500 mg orally; TAKES 1,500 MG QAM, THEN 1,000 MG QPM. amitriptyline 25 mg tablet 12.5 mg PO HS Held prednisone 5 mg tablet 10 mg PO QAM Qty: 180 1RF Hold Instructions: Resume after finishing prednisone taper for asthma exacerbation Discharge Orders: Discharge Order (Routine); Ordered 04/19/24 Ordered By: Binta Fofana Admission Data Admit Date/Time: 04/16/24 14:40 Attending Provider: Brooks Abraham Admit Provider: Makenzie Espana Primary Care Provider: Vignesh Hill Other Providers: Brooks Abraham Other Interventions: Discharge Summary Assessment (RN) Last Done: 04/19/24 11:11 Supervising Physician Co-Signing Physician Notes I personally examined the patient and verified all north points of history and exam, discussed case, and agree with decision making with Dr Espana and Shawn Moore MS2 moving around more feeling weak but better feels like she'll be well enough to be safe/functional at home. Vitals noted, in general she is awake and alert less fatigued (walking around in the room) lungs coarse rales base L no rhonchi no wheeze better air entry no accessory muscles/no conversational dyspnea Acute hypoxic respiratory failureviral illnessesmost recently fluwith superimposed secondary bacterial pneumonia, complicated by reactive airway disease/asthma exacerbationfortunately not hypercapnic. slow improvement. safe for home, PO abx, PO steroids, discussed expected long recovery period; return if any worsening. DVT proph lovenox utilized during her stay Resident Activity Tracking Resident Involvement: Resident Care Provided Care Provided: Adult Hospital Medicine
[2024-04-19 07:45] VITALS: BP 161/78; TEMP 97.8
[2024-04-19] MEDS: methylPREDNISolone 40 MG in SYRINGE 0 ML IV SCH (08:39)
[2024-04-19 11:15] VITALS: PULSE 88; O2SAT 93
--- NOTE | 2024-04-19 13:24 | Billing Data ---
Date of Service April 19, 2024 Coding Level of Care Code 39877 IN/OBS DISCH 30 MIN/LESS
== END 2024-04-19 11:53 | disposition home or self-care (01) | DRG 193 ==
LOC: ED 12:06 → EDINP 14:40 → 2W 20:40

== ENCOUNTER 2025-01-21 11:06 | Observation (INO) ==
--- NOTE | 2025-01-21 11:19 | Emergency Department Note ---
Impression & Plan Acute asthma exacerbation, PARSONS (dyspnea on exertion) ED Provider Note NAME: NIRU MOSQUERA AGE: 79 SEX: F : 1945 ARRIVES VIA: Ambulance INFORMANT: Patient, EMS ED PROVIDER(S): Al Reyes DO CHIEF COMPLAINT: Shortness of breath HPI: The patient is a 79-year-old female who presented to the emergency department for an evaluation by ambulance. The patient states that she has a history of COPD. She has been feeling very short of breath and rundown especially over the last several days. The patient's had a cough but is not productive. She denies having any hemoptysis or lower extremity swelling. She denies have any lower extremity pain. The patient was not seen by her doctor but came to the emergency department for further evaluation by ambulance. The patient is been compliant with her outpatient medications which does include a steroid. The patient also takes albuterol nebulizers. ROS: See above HPI for pertinent positives & negatives. A total of 10 systems reviewed and were otherwise negative. PAST MEDICAL HISTORY: See Below PAST SURGICAL HISTORY: See Below FAMILY HISTORY: See Below SOCIAL HISTORY: See Below HOME MEDICATIONS: See Below ALLERGIES: See Below VITALS: See Below PHYSICAL EXAMINATION: GENERAL: Patient is awake alert in no acute distress patient is resting comfortably and showing no signs of anxiety EYES: The conjunctivae are clear. The pupils are round and reactive. EARS, NOSE, MOUTH AND THROAT: The nose is without any evidence of any deformity. NECK: The neck is nontender and supple. RESPIRATORY: Diminished breath sounds are noted in both upper lung rosado. There is faint wheezing of both upper lung rosado. CARDIOVASCULAR: Regular rate and rhythm noted there no murmurs rubs or gallops normal S1 normal S2. GASTROINTESTINAL: The abdomen is soft. Abdomen is nontender. MUSCULOSKELETAL/EXTREMITIES: There is no evidence of gross deformity full range of motion is noted in the hips and shoulders. SKIN: There is no obvious evidence of any rash. There are no petechiae, pallor or cyanosis noted. NEUROLOGIC: Patient is awake alert and oriented x3 MEDICAL DECISION MAKING: The patient is a 79-year-old female who presented to the emergency department for an evaluation of difficulty breathing. The patient started having symptoms over the last few days. The patient does have a history of asthma. She was treated in usual fashion including steroids and bronchodilators. She did receive bronchodilator therapy prior to arrival with the ambulance crew. On reevaluation the patient was somewhat improved but still has significant shortness of breath with any exertion. For this reason I discussed her condition with the on-call [facility] hospitalist. They have agreed to evaluate the patient in the emergency department. Triage Nursing notes reviewed. Prior medical records reviewed Vital Signs: reviewed and remarkable for no significant abnormalities Differential diagnosis: Reactive airway disease, pneumonia, pneumothorax, COPD, CHF, infections, cardiac ischemia, pulmonary embolism, musculoskeletal, gastrointestinal, as well as other pathologies. ER treatment provided: See below Diagnostics interpreted by me: ECG: EKG was obtained in the emergency department. My interpretation is sinus rhythm at 76 bpm. PVCs were noted. Nonspecific ST depressions and T wave abnormalities were noted in the inferior and lower lateral leads. This was compared to a tracing from November 11, 2024. There were similar ST abnormalities but this appears more pronounced on today's tracing. Cardiac Monitoring: An order was placed for continuous cardiac monitoring. The monitor shows a rate of 71 bpm with sinus rhythm. Laboratory studies: As stated above and show below. Imaging studies: See below. Radiographic imaging was reviewed by myself Consultation(s): I discussed this case with Dr. Linares who is on-call for the [facility]. Past Med/Surg History Problem List (Updated 01/21/25 @ 15:11 by Al Reyes DO) PARSONS (dyspnea on exertion) (Acute) Acute asthma exacerbation (Acute) Sensorineural hearing loss, bilateral Autoimmune necrotizing myopathy Diplopia Chronic rhinitis Severe persistent asthma (Acute) Chronic sinusitis Cervical radiculopathy Hypertension GERD (gastroesophageal reflux disease) Gait abnormality Lumbar radiculopathy Encounter for pre-operative examination Obstructive pattern present on pulmonary function testing Prolonged QT interval Osteoporosis Emphysema with chronic bronchitis Medical History Broken collarbone wearing a sling to right arm until on 06/29/24 > sometimes stiff but able to use arm normally 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 Mild to moderate MR. Follows w/Dr. Pacheco History of staph infection Hx nasal cavity after sinus sx ~2019 History of stroke 2022- residual mild vision loss left eye Follows with [facility] neuro Change in vision mild vision loss, left eye History of COVID-19 August 2021 > no further problems Bilateral shoulder pain Steroid-induced osteoporosis Neuromuscular weakness Laryngopharyngeal reflux Chronic sinusitis Chronic pharyngitis Back pain Chronic Hearing deficit Long-term current use of steroids Non-Hodgkin lymphoma Dx 2006- s/p chemo/radiation Fibromyalgia GERD (gastroesophageal reflux disease) Hypertension Raynaud disease Rheumatoid arthritis Surgical History S/P epidural steroid injection (2021) Hx of cardiac catheterization ~2014- no stents History of bilateral cataract extraction History of total hysterectomy with bilateral salpingo-oophorectomy (BSO) History of colonoscopy History of esophagogastroduodenoscopy (EGD) History of cholecystectomy History of appendectomy History of tooth extraction History of sinus surgery x2; most recent 06/2024 History of ear surgery "Tried to repair hole in ear" Family History Other Family history non-contributory No family history of adverse response to anesthesia Social History Smoking Status: Unknown if ever smoked Second Hand Exposure: No; Do You Dip or Chew Tobacco: No; Hx Alcohol Use: Yes Alcohol type: wine Hx Substance Use: No Preferred Language: Malay Communication Ability: Effective 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 Beliefs That Will Affect Care: None marital status: Current Living Situation: Spouse Current Living Situation Comment: AND DAUGHTER current occupational status: retired Feels Safe at Home: Yes Assistive Devices: Cane, Denture - Upper, Denture - Lower, Glasses, Hearing Aid - Bilateral, Nebulizer and Walker Allergies Allergies Allergy/AdvReac Type Severity Reaction Status Date / Time aspirin Allergy Intermediate Itching Verified 01/16/25 11:25 "under skin" diclofenac [From Voltaren] Allergy Intermediate Itchiness Verified 01/16/25 11:25 ibuprofen Allergy Intermediate Itching Verified 01/16/25 11:25 "under skin" alendronate sodium AdvReac Intermediate Chills, Verified 01/16/25 11:25 fever, "teeth got loose" orange AdvReac Intermediate "Feel like Verified 01/16/25 11:25 has a cold" after drinking orange juice oxycodone AdvReac Intermediate N/V Verified 01/16/25 11:25 tramadol AdvReac Intermediate N/V Verified 01/16/25 11:25 Home Meds Home Medications Medication Instructions Recorded Confirmed docusate sodium 100 mg capsule 100 mg PO QAM 12/04/20 01/16/25 (Stool Softener) metoprolol tartrate 25 mg tablet 25 mg PO QAM 09/03/21 01/16/25 acetaminophen 500 mg tablet 1,000 mg PO QAM 05/10/22 01/16/25 (Tylenol Extra Strength) cholecalciferol (vitamin D3) 10 10 mcg PO DAILY 11/30/22 01/16/25 mcg (400 unit) capsule losartan 25 mg tablet 25 mg PO QAM 11/30/22 01/16/25 metronidazole 0.75 % topical cream 1 applic topical DAILY 11/30/22 01/16/25 amlodipine 2.5 mg tablet 5 mg PO HS 03/20/24 01/16/25 clopidogrel 75 mg tablet 75 mg PO Q OTHER DAY 04/26/24 01/16/25 bupropion HCl 150 mg 24 hr tablet, 150 mg PO QAM 09/10/24 01/16/25 extended release esomeprazole magnesium 40 mg 40 mg PO QAM 09/10/24 01/16/25 capsule,delayed release montelukast 10 mg tablet 10 mg PO HS 09/10/24 01/16/25 sucralfate 1 gram tablet (Carafate) 1 g PO ACHS 09/10/24 01/16/25 cyclosporine 0.05 % eye drops in a 1 drp ophthalmic (eye) Q12H 10/12/24 01/16/25 dropperette Flragen Probiotic PO DAILY 12/03/24 01/16/25 Previous Rx's Medication Instructions Recorded nebulizer accessories #1 ea 07/04/19 nebulizer and compressor #1 ea 07/04/19 albuterol sulfate 2.5 mg/3 mL 2.5 mg (3 mL) inhalation Q6H PRN 08/04/20 (0.083 %) solution for nebulization shortness of breath or wheezing #180 mL albuterol sulfate 90 mcg/actuation 2 puff inhalation Q6H PRN 01/18/22 aerosol inhaler Shortness Of Breath Or Wheezing #18 grams ondansetron HCl 4 mg tablet 4 mg PO TID PRN nausea and 10/03/24 vomiting #60 tabs mirtazapine 15 mg tablet 15 mg PO HS #30 tabs 10/12/24 prednisone 5 mg tablet 10 mg (2 x 5 mg) PO QAM #60 tabs 10/23/24 pyridostigmine bromide 60 mg tablet 30 mg (1/2 x 60 mg) PO TID #90 tabs 01/16/25 Results & Data (ED) Vital Signs Vital Signs - 24 hr 01/21/25 11:14 01/21/25 11:14 01/21/25 12:13 Temperature 36.6 C Temperature Source Oral Pulse Rate 74 Pulse Rate [Apical] 73 Respiratory Rate 16 20 Blood Pressure 176/88 H Blood Pressure [Right Arm] 168/73 H Blood Pressure Mean 117 Blood Pressure Mean [Right Arm] 104 Blood Pressure Position Sitting Blood Pressure Position [Right Arm] Sitting Pulse Oximetry 100 100 99 Oxygen Delivery Method Room Air Room Air Room Air Sepsis Recent Fever Within 48 Hours No Sepsis New/Unexplained Change in Mental Status No Sepsis Action Taken by Nursing No Action Required 01/21/25 12:16 01/21/25 14:00 Temperature Temperature Source Pulse Rate 71 Pulse Rate [Apical] 71 Respiratory Rate 20 Blood Pressure Blood Pressure [Right Arm] 172/74 H Blood Pressure Mean Blood Pressure Mean [Right Arm] 106 Blood Pressure Position Blood Pressure Position [Right Arm] Lying Pulse Oximetry 97 Oxygen Delivery Method Room Air Sepsis Recent Fever Within 48 Hours Sepsis New/Unexplained Change in Mental Status Sepsis Action Taken by Longterm Medications Current Medication List: was personally reviewed by me Laboratory Data Attestation: I reviewed the patient's lab results. 01/21/25 12:04 01/21/25 12:04 Lab Results 01/21/25 01/21/25 Range/Units 12:04 12:05 WBC 8.30 (4.8-10.8) K/ul RBC 4.18 L (4.20-5.40) M/uL Hgb 13.0 (12.0-16.0) g/dL Hct 39.7 (37.0-47.0) % MCV 95.0 (80.0-100.0) fL MCH 31.1 (25.0-34.0) pg MCHC 32.7 (32.0-36.0) g/dL RDW Std Deviation 44.2 (36.4-46.3) fL RDW Coeff of Navi 12.7 (11.5-14.5) % Plt Count 214 (130-400) K/uL MPV 10.7 (9.4-12.4) fL Immature Gran % (Auto) 0.2 % Neut % (Auto) 70.1 % Lymph % (Auto) 20.2 % Haskell % (Auto) 8.3 % Eos % (Auto) 0.7 % Baso % (Auto) 0.5 % Neut # (Auto) 5.81 (1.40-6.50) K/uL Lymph # (Auto) 1.68 (1.20-3.40) K/uL Haskell # (Auto) 0.69 H (0.11-0.59) K/uL Eos # (Auto) 0.06 (0.00-0.50) K/uL Baso # (Auto) 0.04 (0.00-0.20) K/uL Immature Gran # (Auto) 0.02 (0.01-0.20) K/uL PT 11.0 (9.0-12.0) Seconds INR 1.0 (0.9-1.1) APTT 24 (21-31) Seconds PTT Ratio 0.9 VBG pH 7.43 H (7.36-7.41) VBG pCO2 48 (38-50) mmHg VBG pO2 22 mmHg VBG HCO3 32 mmol/L VBG O2 Saturation < 60.0 % VBG Base Excess 6.4 mEq/L Sodium 137 (136-145) mmol/L Potassium 3.3 L (3.5-5.1) mmol/L Chloride 104 (98-107) mmol/L Carbon Dioxide 27 (21-32) mmol/L Anion Gap 6 (3-11) BUN 24 H (6-23) mg/dl Creatinine 1.02 (0.6-1.2) mg/dl Est Cr Clr Drug Dosing Not Reportable eGFR 55.96 BUN/Creatinine Ratio 23.5 H (10-20) Glucose 84 (70-99(Fasting)) mg/dl Calcium 9.2 (8.6-10.3) mg/dl Magnesium 2.0 (1.7-2.4) mg/dl Total Bilirubin 0.3 (0.2-1.0) mg/dl AST 18 (13-39) U/L ALT 11 (7-52) U/L Alkaline Phosphatase 72 (34-104) U/L Troponin I High Sens 12.3 (0-14) pg/ml C-Reactive Protein < 0.50 (0-0.5) mg/dl Total Protein 8.1 (6.0-8.3) gm/dl Albumin 3.2 L (3.4-5.0) gm/dl Globulin 4.9 H (2.5-4.0) gm/dl Albumin/Globulin Ratio 0.7 L (0.9-2) Procalcitonin 0.12 (0-0.5) ng/ml Administered Medications Discontinued Medications Albuterol (Albut/Ipratrop 3mg/0.5mg Neb 3 Ml Vial) 3 ml NEB NOW STA; Protocol Stop: 01/21/25 11:11 Last Admin: 01/21/25 11:34 Dose: 3 ml Documented By: QGV Methylprednisolone (Methylprednisolone 125 Mg/2 Ml Vial) 60 mg IV NOW STA Stop: 01/21/25 11:11 Last Admin: 01/21/25 12:30 Dose: 60 mg Documented By: QGV Imaging Data Attestation: I personally reviewed and interpreted this imaging study as follows: My Impression: 1 view chest x-ray was obtained in the emergency department. My interpretation is no free air or definite infiltrate, final report below. Radiologist's Impression: Chest X-Ray 01/21/25 11:10 XR chest 1V portable CLINICAL HISTORY: Dyspnea. COMPARISON STUDY: Chest radiograph and chest CT November 11, 2024. FINDINGS: Mild elevation of the left hemidiaphragm is unchanged. Subpleural biapical densities are unchanged and favor scarring. There is no pneumothorax or pleural effusion. Cardiac size is normal. Mediastinal contours are normal. There is no evidence for pulmonary edema. IMPRESSION: No acute cardiopulmonary findings. No change in appearance of the chest. ACT 112: Negative or not required by law. Electronically signed by: Jacky El M.D. 01/21/2025 11:52 AM Discharge Plan Visit Data Chief Complaint: Shortness of Breath/Dyspnea Stated Complaint: SOB ED Provider: Al Reyes Discharge Problem: Acute asthma exacerbation, PARSONS (dyspnea on exertion) Patient Disposition: Being Evaluated by Hospitalist Condition: Fair Forms Stand Alone Forms: My [facility] Prescriptions Prescriptions: No Action albuterol sulfate 2.5 mg /3 mL (0.083 %) solution for nebulization 2.5 mg INH Q6H PRN (Reason: shortness of breath or wheezing) Qty: 180 1RF albuterol sulfate 90 mcg/actuation HFA aerosol inhaler 2 puff Inhalation Q6H PRN (Reason: Shortness Of Breath Or Wheezing) Qty: 18 5RF ondansetron HCl 4 mg tablet 4 mg PO TID PRN (Reason: nausea and vomiting) Qty: 60 1RF prednisone 5 mg tablet 10 mg PO QAM Qty: 60 2RF metoprolol tartrate 25 mg tablet 25 mg PO QAM (DME) nebulizer accessories Kit See Rx Instructions .ROUTE .MEDSUPPLY Qty: 1 0RF Rx Instructions: As directed (DME) nebulizer and compressor Device See Rx Instructions [id number] .MEDSUPPLY Qty: 1 0RF Rx Instructions: As directed metronidazole 0.75 % cream 1 applic topical DAILY losartan 25 mg tablet 25 mg PO QAM cholecalciferol (vitamin D3) 10 mcg (400 unit) capsule 10 mcg PO DAILY cyclosporine 0.05 % dropperette 1 drp ophthalmic (eye) Q12H mirtazapine 15 mg tablet 15 mg PO HS Qty: 30 3RF Rx Instructions: take 1/2 tab HS for 5 nights, then take one whole tab HS thereafter amlodipine 2.5 mg tablet 5 mg PO HS pyridostigmine bromide 60 mg tablet 30 mg PO TID Qty: 90 2RF Flragen Probiotic PO DAILY docusate sodium [Stool Softener] 100 mg Capsule 100 mg PO QAM acetaminophen [Tylenol Extra Strength] 500 mg Tablet 1,000 mg PO QAM Rx Instructions: 500 mg orally; TAKES 1,500 MG QAM, THEN 1,000 MG QPM. sucralfate [Carafate] 1 gram Tablet 1 g PO ACHS Rx Instructions: 1 gram tablet before every meal and at bedtime. esomeprazole magnesium 40 mg capsule,delayed release(DR/EC) 40 mg PO QAM bupropion HCl 150 mg tablet extended release 24 hr 150 mg PO QAM montelukast 10 mg tablet 10 mg PO HS clopidogrel 75 mg Tablet 75 mg PO Q OTHER DAY Patient Comments: in the morning Referrals Referrals: Jennifer Nelson MD [Primary Care Provider] -
[2025-01-21] MEDS: ALBUT/IPRATROP 3MG/0.5MG NEB 3 ML VIAL NEB STA (11:34)
--- NOTE | 2025-01-21 11:53 | XRay Report ---
XR chest 1V portable CLINICAL HISTORY: Dyspnea. COMPARISON STUDY: Chest radiograph and chest CT November 11, 2024. FINDINGS: Mild elevation of the left hemidiaphragm is unchanged. Subpleural biapical densities are un changed and favor scarring. There is no pneumothorax or pleural effusion. Cardiac size is normal. Med iastinal contours are normal. There is no evidence for pulmonary edema. IMPRESSION: No acute cardiopulmonary findings. No change in appearance of the chest. ACT 112: Negative or not required by law. Electronically signed by: Jacky El M.D. 01/21/2025 11:52 AM
[2025-01-21 12:19] LABS: Base Excess VBG 6.4 mEq/L; HCO3 VBG 32 mmol/L; Oxygen Saturation VBG < 60.0 %; PCO2 VBG 48 mmHg (38-50); PO2 VBG 22 mmHg; pH VBG 7.43 (7.36-7.41)
[2025-01-21 12:29] LABS: Hematocrit (blood only) 39.7 % (37.0-47.0); Hemoglobin 13.0 g/dL (12.0-16.0); Immature Granulocytes # (auto) 0.02 K/uL (0.01-0.20); Immature Granulocytes % (auto) 0.2 %; Mean Corpuscular Hemoglobin 31.1 pg (25.0-34.0); Mean Corpuscular Volume 95.0 fL (80.0-100.0); Platelet Count 214 K/uL (130-400); RDW Standard Deviation 44.2 fL (36.4-46.3); Red Blood Count 4.18 M/uL (4.20-5.40); White Blood Count 8.30 K/ul (4.8-10.8)
[2025-01-21 12:43] LABS: Alanine Aminotransferase 11 U/L (7-52); Albumin Globulin Ratio 0.7 (0.9-2); Albumin Level 3.2 gm/dl (3.4-5.0); Alkaline Phosphatase 72 U/L (34-104); Anion Gap 6 (3-11); Bilirubin,Total 0.3 mg/dl (0.2-1.0); Blood Urea Nitrogen 24 mg/dl (6-23); Calcium 9.2 mg/dl (8.6-10.3); Carbon Dioxide 27 mmol/L (21-32); Chloride 104 mmol/L (98-107); Globulin 4.9 gm/dl (2.5-4.0); Glucose 84 mg/dl (70-99(Fasting)); Magnesium 2.0 mg/dl (1.7-2.4); Potassium 3.3 mmol/L (3.5-5.1); Sodium 137 mmol/L (136-145); Total Protein 8.1 gm/dl (6.0-8.3)
[2025-01-21 13:07] LABS: INR 1.0 (0.9-1.1); Partial Thromboplastin Time 24 Seconds (21-31); Prothrombin Time 11.0 Seconds (9.0-12.0)
[2025-01-21 15:56] LABS: Influenza A virus by PCR Negative (Neg); Influenza B virus by PCR Negative (Neg); SARS CoV2 RNA(COVID-19) Ceph NEGATIVE (Negative)
[2025-01-21] MEDS: cefTRIAXone SODIUM 2,000 MG/50 ML BAG IV SCH (17:08)
[2025-01-21] MEDS ORDERED: ARTIFICIAL TEARS OP PRN (17:17)
[2025-01-21] MEDS: CLOPIDOGREL BISULFATE 75 MG TAB PO SCH (17:23)
[2025-01-21] MEDS: SUCRALFATE 1 GM TAB PO SCH (17:24)
[2025-01-21] MEDS: MIRTAZAPINE TAB 15 MG TAB PO SCH (20:43)
[2025-01-21] MEDS: MONTELUKAST SODIUM 10 MG TABLET PO SCH (22:01)
[2025-01-21] MEDS: AZITHROMYCIN 250 MG TAB PO SCH (22:02)
--- NOTE | 2025-01-21 22:53 | History & Physical Report ---
Date of Service January 21, 2025 Assessment & Plan (1) Acute asthma exacerbation: Plan: 79 yo female with asthma exacerbation. admit to medical ordered corticosteroid. order nebs. order PPI would order a speech eval and may benefit from seeing ENT to check for vocal cord dysfunction which both can mimic these symptoms. #HTN - BP stable, monitor. Chronic conditions: - RA - Continue prednisone 10mg QAM, amitriptyline 25mg Admission and Anticipated Discharge Date Admission Date: January 21, 2025 History of Present Illness Chief Complaint: SOB Primary Care Provider: Jennifer Nelson MD 79 yo female with PH astma presents to the hospital with 3 day history of worsening fatigue and SOB. Patient reports on Tuesday, she had an upset stomach. This continued for 2 days. Patient also reports having intermittent cough and reflux which is chronic Allergies Allergy/AdvReac Type Severity Reaction Status Date / Time aspirin Allergy Intermediate Itching Verified 01/16/25 11:25 "under skin" diclofenac [From Voltaren] Allergy Intermediate Itchiness Verified 01/16/25 11:25 ibuprofen Allergy Intermediate Itching Verified 01/16/25 11:25 "under skin" alendronate sodium AdvReac Intermediate Chills, Verified 01/16/25 11:25 fever, "teeth got loose" orange AdvReac Intermediate "Feel like Verified 01/16/25 11:25 has a cold" after drinking orange juice oxycodone AdvReac Intermediate N/V Verified 01/16/25 11:25 tramadol AdvReac Intermediate N/V Verified 01/16/25 11:25 Home Medications Medication Instructions Recorded Confirmed Type nebulizer accessories #1 ea 07/04/19 01/16/25 Rx nebulizer and compressor #1 ea 07/04/19 01/16/25 Rx albuterol sulfate 2.5 mg/3 mL 2.5 mg (3 mL) inhalation Q6H PRN 08/04/20 01/21/25 Rx (0.083 %) solution for nebulization shortness of breath or wheezing #180 mL docusate sodium 100 mg capsule 100 mg PO QAM 12/04/20 01/21/25 History (Stool Softener) metoprolol tartrate 25 mg tablet 25 mg PO QAM 09/03/21 01/21/25 History albuterol sulfate 90 mcg/actuation 2 puff inhalation Q6H PRN 01/18/22 01/21/25 Rx aerosol inhaler Shortness Of Breath Or Wheezing #18 grams acetaminophen 500 mg tablet 1,000 mg PO QAM 05/10/22 01/21/25 History (Tylenol Extra Strength) cholecalciferol (vitamin D3) 10 10 mcg PO DAILY 11/30/22 01/21/25 History mcg (400 unit) capsule losartan 25 mg tablet 25 mg PO QAM 11/30/22 01/21/25 History amlodipine 2.5 mg tablet 5 mg PO HS 03/20/24 01/21/25 History bupropion HCl 150 mg 24 hr tablet, 150 mg PO QAM 09/10/24 01/21/25 History extended release esomeprazole magnesium 40 mg 40 mg PO QAM 09/10/24 01/21/25 History capsule,delayed release montelukast 10 mg tablet 0 mg PO HS 09/10/24 01/21/25 History ondansetron HCl 4 mg tablet 4 mg PO TID PRN nausea and 10/03/24 01/21/25 Rx vomiting #60 tabs prednisone 5 mg tablet 10 mg (2 x 5 mg) PO QAM #60 tabs 10/23/24 01/21/25 Rx pyridostigmine bromide 60 mg tablet 30 mg (1/2 x 60 mg) PO TID #90 tabs 01/16/25 01/21/25 Rx immune glob,gamma (IgG) 10 0 g IV MONTHLY PRN HOME INFUSION 01/21/25 01/21/25 History %-gly-IgA over 50 mcg/mL injection solution (Gammagard Liquid) ketorolac 30 mg/mL (1 mL) 30 mg IM MONTHLY PRN HOME INFUSION 01/21/25 01/21/25 History injection solution methylprednisolone sod suc(PF) 125 125 mg IV MONTHLY PRN HOME INFUSION 01/21/25 01/21/25 History mg/2 mL solution for injection (Solu-Medrol (PF)) mirtazapine 15 mg tablet 15 mg PO HS PRN Sleep 01/21/25 01/21/25 History ondansetron HCl (PF) 4 mg/2 mL 4 mg IV MONTHLY PRN HOME INFUSION 01/21/25 01/21/25 History injection solution sodium chloride 0.9 % 1 ea IV MONTHLY PRN HOME INFUSION 01/21/25 01/21/25 History Past Med/Surg History Problem List (Updated 01/21/25 @ 15:11 by Al Reyes DO) PARSONS (dyspnea on exertion) (Acute) Acute asthma exacerbation (Acute) Sensorineural hearing loss, bilateral Autoimmune necrotizing myopathy Diplopia Chronic rhinitis Severe persistent asthma (Acute) Chronic sinusitis Cervical radiculopathy Hypertension GERD (gastroesophageal reflux disease) Gait abnormality Lumbar radiculopathy Encounter for pre-operative examination Obstructive pattern present on pulmonary function testing Prolonged QT interval Osteoporosis Emphysema with chronic bronchitis Medical History Broken collarbone wearing a sling to right arm until on 06/29/24 > sometimes stiff but able to use arm normally 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 Mild to moderate MR. Cervantes w/Dr. Pacheco History of staph infection Hx nasal cavity after sinus sx ~2019 History of stroke 2022- residual mild vision loss left eye Follows with [facility] neuro Change in vision mild vision loss, left eye History of COVID-19 August 2021 > no further problems Bilateral shoulder pain Steroid-induced osteoporosis Neuromuscular weakness Laryngopharyngeal reflux Chronic sinusitis Chronic pharyngitis Back pain Chronic Hearing deficit Long-term current use of steroids Non-Hodgkin lymphoma Dx 2006- s/p chemo/radiation Fibromyalgia GERD (gastroesophageal reflux disease) Hypertension Raynaud disease Rheumatoid arthritis Surgical History S/P epidural steroid injection (2021) Hx of cardiac catheterization ~2014- no stents History of bilateral cataract extraction History of total hysterectomy with bilateral salpingo-oophorectomy (BSO) History of colonoscopy History of esophagogastroduodenoscopy (EGD) History of cholecystectomy History of appendectomy History of tooth extraction History of sinus surgery x2; most recent 06/2024 History of ear surgery "Tried to repair hole in ear" Family History Other Family history non-contributory No family history of adverse response to anesthesia Social History Smoking Status: Never smoker Second Hand Exposure: No; Do You Dip or Chew Tobacco: No; Hx Alcohol Use: Yes Alcohol type: wine Hx Substance Use: No Preferred Language: Estonian Communication Ability: Effective Acoustic Sensor Operator Required: No Beliefs That Will Affect Care: None marital status: Current Living Situation: Family Current Living Situation Comment: with and daughter current occupational status: retired Feels Safe at Home: Yes Safety Concerns: Feels Safe At This Time Assistive Devices: Glasses and Walker Review of Systems Constitutional: no fever and no body aches Eyes: no blind spots Ear, Nose, Mouth, Throat: no ear pain Respiratory: + cough and + dyspnea Cardiovascular: no chest pain Gastrointestinal: no abdominal pain Genitourinary: no dysuria Musculoskeletal: no back pain Integumentary: no acne Neurologic: no gait abnormality Psychiatric: no behavioral changes Endocrine: + fatigue Hematologic / Lymphatic: no easy bleeding Allergy / Immunological: no GI upset with certain foods Physical Exam Constitutional: WD/WN, vitals as above ENMT: external ear and nose normal, oropharynx normal Neck: trachea midline, no thyromegaly Respiratory: no respiratory distress and does not use accessory muscles Auscultation: + diminished lung sounds Cardiovascular: RRR, no murmur, no edema Gastrointestinal (Abdomen): normal bowel sounds, soft, nontender, no hepatosplenomegaly Neurologic: PERRL, EOMI, accommodation nl, no face palsy, no dysarthria Psychiatric: A+Ox3, euthymic affect Results & Data Results & Data Vital Signs (Past 12 Hours) Vital Signs Temp Pulse Pulse Pulse Resp BP BP 01/21/25 22:00 75 181/83 H 01/21/25 19:55 71 20 145/63 H 01/21/25 18:00 83 18 166/79 H 01/21/25 16:28 70 01/21/25 16:00 77 20 162/77 H 01/21/25 15:00 74 20 174/95 H 01/21/25 15:00 01/21/25 14:00 71 20 172/74 H 01/21/25 12:16 71 01/21/25 12:13 73 20 168/73 H 01/21/25 11:14 01/21/25 11:14 36.6 C 74 16 176/88 H Pulse Ox O2 Del Method 01/21/25 22:00 97 Room Air 01/21/25 19:55 97 Room Air 01/21/25 18:00 94 01/21/25 16:28 01/21/25 16:00 97 Room Air 01/21/25 15:00 97 Room Air 01/21/25 15:00 97 Room Air 01/21/25 14:00 97 Room Air 01/21/25 12:16 01/21/25 12:13 99 Room Air 01/21/25 11:14 100 Room Air 01/21/25 11:14 100 Room Air PG Care Time/CCT Total # of Minutes Spent Total Time Spent with Patient: Total time spent is greater than 50% in coordination of care (as documented) at patient's floor/unit and/or counseling patient: Coding Level of Care Code 76681 INT INP/OBS CARE 3/75MIN Diagnoses Acute asthma exacerbation J45.901
[2025-01-21] MEDS: ALBUT/IPRATROP 3MG/0.5MG NEB 3 ML VIAL NEB PRN (23:12)
[2025-01-21 23:24] LABS: Appearance Urine Clear (Clear); Bacteria Urine Automated None Seen (None Seen); Cast Urine Automated 0-2 /lpf (0-2); Epithelial Cell Urine Auto 0-2 /hpf (0-2); Glucose Urine UA 3+ (Negative); WBC Urine Automated 0-5 /hpf (0-5)
[2025-01-22 06:39] LABS: Hematocrit (blood only) 41.2 % (37.0-47.0); Hemoglobin 13.3 g/dL (12.0-16.0); Immature Granulocytes # (auto) 0.03 K/uL (0.01-0.20); Immature Granulocytes % (auto) 0.5 %; Mean Corpuscular Hemoglobin 30.0 pg (25.0-34.0); Mean Corpuscular Volume 93.0 fL (80.0-100.0); Platelet Count 199 K/uL (130-400); RDW Standard Deviation 43.8 fL (36.4-46.3); Red Blood Count 4.43 M/uL (4.20-5.40); White Blood Count 6.42 K/ul (4.8-10.8)
[2025-01-22 07:01] LABS: Anion Gap 7.0 (3-11); Blood Urea Nitrogen 25.0 mg/dl (6-23); Calcium 9.1 mg/dl (8.6-10.3); Carbon Dioxide 26.0 mmol/L (21-32); Chloride 105.0 mmol/L (98-107); Creatinine Clr Calc Pharmacy 47.8 ml/min; Glucose 85.0 mg/dl (70-99(Fasting)); Potassium 3.5 mmol/L (3.5-5.1); Sodium 138.0 mmol/L (136-145)
[2025-01-22] MEDS: SODIUM CHLOR 7% 4 ML NEB NEB SCH (07:10)
[2025-01-22] MEDS: METOPROLOL TARTRATE 25 MG TAB PO SCH (08:38)
[2025-01-22] MEDS: LOSARTAN POTASSIUM 25 MG TAB PO SCH (08:39)
[2025-01-22] MEDS: DOCUSATE SODIUM 100 MG CAP PO SCH (08:39)
--- NOTE | 2025-01-22 14:18 | Fluoroscopy Report ---
VIDEO SWALLOW STUDY CLINICAL HISTORY: Aspiration. COMPARISON STUDY: Barium esophagram dated 11/11/2020. Fluoro time: 1.5 minutes. Ka,r: 5.51 mGy FINDINGS: Fluoroscopic guidance is provided to the Department of speech pathology in performing a vid eo swallow study. The patient consumed barium-impregnated pudding, cracker with paste, nectar-thick l iquids, and thin barium while the swallowing mechanism was observed in real-time. There is pharyngeal penetration seen with thin barium. Trace penetration was also seen with the nectar-thick liquid text ures. No aspiration was clearly identified. There is pharyngeal retention of the more solid textures. Esophageal dysmotility was observed, with delayed passage of ingested material into the stomach. IMPRESSION: 1. Pharyngeal penetration with thin barium and nectar-thick liquid textures. 2. No aspiration was seen. 3. Esophageal dysmotility, with delayed clearance of the esophagus. 4. See dedicated speech pathology report for detailed findings and recommendations. Dictated: 01/22/2025 1:34 PM Transcribed: 01/22/2025 2:07 PM Alphonse [id number] [email or web address]_[email or web address] Electronically signed by: Ghassan Root M.D. 01/22/2025 2:17 PM
--- NOTE | 2025-01-22 23:06 | Hospitalist Progress Note ---
Date of Service January 22, 2025 Assessment & Plan (1) Acute asthma exacerbation: Plan: 79 yo female with SOB likely due to asthma exacerbation. admit to medical ordered corticosteroid, will taper to daily tomorrow. order nebs. order PPI Given her cliical history, concern that this may have an extrinsic cause of her SOB. Either from her dysphagia, appreciate input from SPeech May also beneift from checking for vocal cord dysfunction with a consult with ENT, whom she follows with as an outpatient. #HTN - BP stable, monitor. Chronic conditions: - RA - amitriptyline 25mg, chronic prednisone on hold due to solumedrol use Likely discharge on 01/23 depending on how patient feels given her chronicity Admission and Anticipated Discharge Date Admission Date: January 21, 2025 Subjective 79 yo female reports breathing slightly better todt. She is stating that she feels well enough for discharge. Physical Exam Constitutional: WD/WN, vitals as above ENMT: external ear and nose normal, oropharynx normal Neck: trachea midline, no thyromegaly Respiratory: no respiratory distress and does not use accessory muscles Auscultation: + diminished lung sounds Cardiovascular: RRR, no murmur, no edema Gastrointestinal (Abdomen): normal bowel sounds, soft, nontender, no hepatosplenomegaly Neurologic: PERRL, EOMI, accommodation nl, no face palsy, no dysarthria Psychiatric: A+Ox3, euthymic affect Results & Data Results & Data Vital Signs (Past 12 Hours) Vital Signs Temp Pulse Resp BP BP Pulse Ox O2 Del Method 01/22/25 20:35 Room Air 01/22/25 20:33 173/84 H 01/22/25 20:19 63 18 96 Room Air 01/22/25 15:24 36.6 C 68 18 159/71 H 97 Room Air 01/22/25 11:12 173/68 H PG Care Time/CCT Total # of Minutes Spent Total Time Spent with Patient: Total time spent is greater than 50% in coordination of care (as documented) at patient's floor/unit and/or counseling patient: Coding Level of Care Code 46909 SUB INP/OBS CARE 3/50MIN Diagnoses Acute asthma exacerbation J45.901
--- NOTE | 2025-01-23 05:48 | Electrocardiogram Report ---
Test Reason : Blood Pressure : */* mmHG Vent. Rate : 76 BPM Atrial Rate : 76 BPM P-R Int : 172 ms QRS Dur : 80 ms QT Int : 434 ms P-R-T Axes : 71 13 -11 degrees QTcB Int : 488 ms Sinus rhythm with occasional Premature ventricular complexes Possible Left atrial enlargement Left ventricular hypertrophy with repolarization abnormality ( Sokolow-Yoder , Romhilt-Smith ) Prolonged QT Abnormal ECG When compared with ECG of 11-Nov-2024 17:04, Premature ventricular complexes are now Present ST now depressed in Inferolateral leads T wave inversion now evident in Inferolateral leads Confirmed by Nikko Benitez ([id number]) on 01/23/2025 5:47:50 AM Referred By: Confirmed By: Nikko Benitez
[2025-01-23 07:25] LABS: Hematocrit (blood only) 40.8 % (37.0-47.0); Hemoglobin 13.0 g/dL (12.0-16.0); Mean Corpuscular Hemoglobin 30.2 pg (25.0-34.0); Mean Corpuscular Volume 94.7 fL (80.0-100.0); Platelet Count 210 K/uL (130-400); RDW Standard Deviation 44.3 fL (36.4-46.3); Red Blood Count 4.31 M/uL (4.20-5.40); White Blood Count 7.27 K/ul (4.8-10.8)
[2025-01-23 07:40] VITALS: PULSE 64; RESP 16
[2025-01-23 07:47] LABS: Anion Gap 5 (3-11); Blood Urea Nitrogen 32 mg/dl (6-23); Calcium 9.3 mg/dl (8.6-10.3); Carbon Dioxide 28 mmol/L (21-32); Chloride 106 mmol/L (98-107); Creatinine Clr Calc Pharmacy 38.0 ml/min; Glucose 123 mg/dl (70-99(Fasting)); Potassium 4.4 mmol/L (3.5-5.1); Sodium 139 mmol/L (136-145)
--- NOTE | 2025-01-23 11:10 | XRay Report ---
TWO VIEW CHEST CLINICAL HISTORY: Cough and dyspnea. FINDINGS: PA and lateral chest radiographs are compared to study dated 01/21/2025 and correlated with chest CT dated 11/11/2024. The cardiomediastinal silhouette is unremarkable noting atherosclerotic ca lcification of the thoracic aorta. Chronic interstitial thickening is similar to previous. Scarring/a telectasis is noted at the lung bases. No airspace consolidation or pleural effusion is identified. F ibrotic change is noted the apices. There is no pneumothorax. The skeletal structures are osteopenic. A mild compression deformity is noted the lower thoracic region. The bony thorax otherwise appears i ntact. IMPRESSION: No active disease in the chest. ACT 112: Negative or not required by law. Electronically signed by: Ghassan Root M.D. 01/23/2025 11:08 AM
[2025-01-23 14:12] VITALS: BP 164/70; TEMP 97.3; O2SAT 99
[2025-01-23] MEDS: INFLUENZA VACC TS2025-26(65y+)/PF (IIV3) 0.5mL Syr IM ONE (15:28)
--- NOTE | 2025-01-23 15:47 | Discharge Summary ---
Discharge Summary Date of Service January 23, 2025 Principal Dx & Hospital Course #1 = Principal Diagnosis Admission HPI Per Admitting Provider 79 yo female with PH astma presents to the hospital with 3 day history of worsening fatigue and SOB. Patient reports on Tuesday, she had an upset stomach. This continued for 2 days. Patient also reports having intermittent cough and reflux which is chronic Discharge Plan Discharge Items Patient Disposition: Home - Self-Care Reason For Visit: Shortness of breath Discharge Diagnosis: 1. shortness of breath - suspected to be due to asthma exacerbation -can't rule out heart disease or other causes fully 2. autoimmune necrotizing myopathy 3. asthma 4. hypertension 5. chronic hoarse voice 6. dysphagia (difficulty swallowing) Activity: As commented below Activity Comment: gradually increase activities over the next 3-5 days Non-emergency contact: Primary Care Provider and Specialist Call non-emergency contact if: you have any medication questions, your symptoms worsen and you have a fever Follow-up/Referrals: Jesús Poole MD [Physician] - 05/02/25 8:45 am Marcy Tran CRNP [Nurse Practitioner] - 02/28/25 ([facility] ) Jennifer Nelson MD [Primary Care Provider] - (within 1 week ) Diet: Heart Healthy Addtl Attending Provider Instructions: Ms Pinto, You were hospitalized due to shortness of breath. Chest x-ray x 2 did not show any fluid build-up, pneumonia, or orther findings. Your oxygen levels during the stay were normal including during walks. Testing for COVID and influenza were negative. You were treated for asthma flare-up/exacerbation with IV steroids and albuterol treatments. Your breathing did improve with such. Speech therapy saw you in consult and performed a video swallow test. This showed something called esophageal dysmotility which is when the esophagus does not relax/contract in a nice, coordinated fashion. This can cause difficulty swallowing. Speech therapy did recommend you follow-up with ENT for the swallowing and you have been scheduled with [facility] in 2025. I corresponded with Chelsea from the [facility] office and she is aware of your hospitalization. They will see you in February 2025 as scheduled. Recommendations - 1. follow any advice from speech therapy regarding your swallowing 2. prednisone burst/taper - start tomorrow, 12/18/25 - always take prednisone with food. The burst starts with 40mg and ends with your usual dose of 10mg daily of prednisone (your chronic dose). Follow instructions on bottle. 3. albuterol treatments every 4 hours as needed for shortness of breath, cough, or wheeze Follow-up - see separate section Return to [facility] if - -you have fever over 100 degrees -you have worsening shortness of breath despite taking the prednisone burst and all of your usual medicines -any other concerns It was our pleasure to care for you! -David Vidal Pending Studies at Discharge: No Stand-Alone Forms: [facility], Smoking Cessation Medications and DC Order Prescriptions: New prednisone 10 mg tablet 10 mg PO DIRECTED Qty: 18 0RF Rx Instructions: start 01/24, take with food. 4 tabs PO QD x 2 days; 3 tabs PO QD x 2 days; 2 tabs PO QD x 2 days. Then resume your typical 10mg daily of prednisone as previous. Continued albuterol sulfate 2.5 mg /3 mL (0.083 %) solution for nebulization 2.5 mg INH Q6H PRN (Reason: shortness of breath or wheezing) Qty: 180 1RF albuterol sulfate 90 mcg/actuation HFA aerosol inhaler 2 puff Inhalation Q6H PRN (Reason: Shortness Of Breath Or Wheezing) Qty: 18 5RF ondansetron HCl 4 mg tablet 4 mg PO TID PRN (Reason: nausea and vomiting) Qty: 60 1RF prednisone 5 mg tablet 10 mg PO QAM Qty: 60 2RF metoprolol tartrate 25 mg tablet 25 mg PO QAM (DME) nebulizer accessories Kit See Rx Instructions .ROUTE .MEDSUPPLY Qty: 1 0RF Rx Instructions: As directed (DME) nebulizer and compressor Device See Rx Instructions [id number] .MEDSUPPLY Qty: 1 0RF Rx Instructions: As directed losartan 25 mg tablet 25 mg PO QAM cholecalciferol (vitamin D3) 10 mcg (400 unit) capsule 10 mcg PO DAILY amlodipine 2.5 mg tablet 5 mg PO HS pyridostigmine bromide 60 mg tablet 30 mg PO TID Qty: 90 2RF docusate sodium [Stool Softener] 100 mg Capsule 100 mg PO QAM acetaminophen [Tylenol Extra Strength] 500 mg Tablet 1,000 mg PO QAM Rx Instructions: 500 mg orally; TAKES 1,500 MG QAM, THEN 1,000 MG QPM. esomeprazole magnesium 40 mg capsule,delayed release(DR/EC) 40 mg PO QAM bupropion HCl 150 mg tablet extended release 24 hr 150 mg PO QAM ketorolac 30 mg/mL (1 mL) solution 30 mg IM MONTHLY PRN (Reason: HOME INFUSION) sodium chloride 0.9 % Parenteral Solution 1 ea IV MONTHLY PRN (Reason: HOME INFUSION) ondansetron HCl (PF) 4 mg/2 mL solution 4 mg IV MONTHLY PRN (Reason: HOME INFUSION) Solu-Medrol (PF) 125 mg/2 mL recon soln 125 mg IV MONTHLY PRN (Reason: HOME INFUSION) Gammagard Liquid 10 % solution 0 g IV MONTHLY PRN (Reason: HOME INFUSION) mirtazapine 15 mg tablet 15 mg PO HS PRN (Reason: Sleep) Rx Instructions: take 1/2 tab HS for 5 nights, then take one whole tab HS thereafter clopidogrel [Plavix] 75 mg Tablet 75 mg PO Q OTHER DAY Changed montelukast 10 mg tablet 10 mg PO HS Qty: 0 0RF Rx Instructions: 10MG OUT OF REFILLS Discharge Orders: Discharge Order (Routine); Ordered 01/23/25 Ordered By: David Vidal Admission Data Admit Date/Time: 01/21/25 14:38 Attending Provider: David Vidal Admit Provider: Reza Linares Primary Care Provider: Jennifer Nelson Other Providers: Reza Linares Hospital Stay Data Consultations 01/21/25 13:27 ED Decision to Admit Stat Diagnostic Imagining Performed 01/22/25 12:30 FL video swallow Routine Pending Results Patient Have Any Pending Studies at Discharge: No Discharge Instructions Given to Patient (Per Discharging Provider) Ms Pitno, You were hospitalized due to shortness of breath. Chest x-ray x 2 did not show any fluid build-up, pneumonia, or orther findings. Your oxygen levels during the stay were normal including during walks. Testing for COVID and influenza were negative. You were treated for asthma flare-up/exacerbation with IV steroids and albuterol treatments. Your breathing did improve with such. Speech therapy saw you in consult and performed a video swallow test. This showed something called esophageal dysmotility which is when the esophagus does not relax/contract in a nice, coordinated fashion. This can cause difficulty swallowing. Speech therapy did recommend you follow-up with ENT for the swallowing and you have been scheduled with [facility] in 2025. I corresponded with Ms Tran from the [facility] office and she is aware of your hospitalization. They will see you in February 2025 as scheduled. Recommendations - 1. follow any advice from speech therapy regarding your swallowing 2. prednisone burst/taper - start tomorrow, 01/24/25 - always take prednisone with food. The burst starts with 40mg and ends with your usual dose of 10mg daily of prednisone (your chronic dose). Follow instructions on bottle. 3. albuterol treatments every 4 hours as needed for shortness of breath, cough, or wheeze Follow-up - see separate section Return to [facility] if - -you have fever over 100 degrees -you have worsening shortness of breath despite taking the prednisone burst and all of your usual medicines -any other concerns It was our pleasure to care for you! -David Vidal Coding
== END 2025-01-23 16:23 | disposition home or self-care (01) | DRG 203 ==
LOC: ED 11:06 → INTOOBSV 14:38 → SUATTDRO 14:38 → EDINP 14:38 → 3N 19:58